=== PATIENT | male | born 1940 | race Caucasian/White ===

== ENCOUNTER → 2016-02-24 | Outpatient (CLI) | payer MEDICARE, OTHER | END | disposition home or self-care (01) | LOC: LABWHC1 09:22 | PROVIDERS: ATTEND Internal Medicine | DX: M10.9 Gout, unspecified (principal) | CPT/HCPCS: 36415; 84550 ==

== ENCOUNTER 2016-04-27 12:09 | Inpatient (IN) | payer MEDICARE, OTHER ==
--- NOTE | 2016-04-27 13:51 | ED ---
General Adult HPI - General Chief complaint: Abdominal Pain Stated complaint: abd pain Time Seen by Provider: 04/27/16 13:50 Source: patient, RN notes reviewed, old records reviewed Mode of arrival: ambulatory Limitations: no limitations - History of Present Illness Initial comments: This is a 75-year-old male here for evaluation of severe abdominal pain and back pain. Severe bowel pain rating to his back. No history of similar symptoms, he does suffer from chronic back pain but denies any trauma or injury. No fevers. Positive nausea no vomiting no diarrhea, no similar to similar sick symptoms, no recent travel history. No modifying factors for symptoms at home, he is a pain medication which she did not take - Related Data Home Medications Medication Instructions Recorded Confirmed Tamsulosin HCl 0.4 mg PO HS 08/28/13 04/27/16 Magnesium 200 mg PO DAILY 05/04/14 04/27/16 Calcium Carbonate [Calcium] 600 mg PO DAILY 07/14/14 04/27/16 Acetaminophen Tab [Tylenol] 500 mg PO Q6H PRN 09/29/14 04/27/16 hydrALAZINE HCL [Apresoline] 25 mg PO BID 09/29/14 04/27/16 Lisinopril [Prinivil] 5 mg PO DAILY 06/18/15 04/27/16 Nitroglycerin Sl Tabs [Nitrostat] 0.4 mg SUBLINGUAL Q5M PRN 06/18/15 04/27/16 Clobetasol Propionate [Temovate] 1 applic TOPICAL BID 07/16/15 04/27/16 Isosorbide Mononitrate ER [Imdur] 30 mg PO DAILY 07/16/15 04/27/16 Triamcinolone 0.1% Ointment 1 applic PO BID 07/16/15 04/27/16 [Kenalog 0.1% Ointment] Atorvastatin [Lipitor] 20 mg PO HS 07/30/15 04/27/16 B Complex-Vit C-Vit E-Zinc [Z-Bec] 1 tab PO DAILY 07/30/15 04/27/16 Latanoprost Ophth [Xalatan 0.005%] 1 drops BOTH EYES HS 01/21/16 04/27/16 Albuterol Inhaler [Ventolin Hfa 1 - 2 puff INHALATION RT-Q6H PRN 02/10/16 Inhaler] Aspirin 162 mg PO DAILY 02/10/16 04/27/16 Vit C/E/Zn/Coppr/Lutein/Zeaxan 2 cap PO DAILY 02/10/16 04/27/16 [Preservision Areds 2 Softgel] Refresh Optive 1 drop BOTH EYES QID 04/27/16 04/27/16 traMADol HCL [Ultram] 50 mg PO TID PRN 04/27/16 04/27/16 Allergies Allergy/AdvReac Type Severity Reaction Status Date / Time atenolol Allergy "low heart Verified 04/27/16 15:21 rate" clopidogrel bisulfate Allergy Rash/Hives Verified 04/27/16 15:21 [From Plavix] gluten Allergy blisters Verified 04/27/16 15:21 lactose Allergy Abdominal Verified 04/27/16 15:21 Pain prednisolone Allergy GLAUCOMA Verified 04/27/16 15:21 sucralfate [From Carafate] Allergy Unknown Verified 04/27/16 15:21 Sulfa (Sulfonamide AdvReac blood Verified 04/27/16 15:21 Antibiotics) disorder Review of Systems ROS Statement: Those systems with pertinent positive or pertinent negative responses have been documented in the HPI. ROS Other: All systems not noted in ROS Statement are negative. Past Medical History Past Medical History: Coronary Artery Disease (CAD), Cancer, Eye Disorder, GERD/ Reflux, GI Bleed, Hyperlipidemia, Hypertension, Osteoarthritis (OA), Prostate Disorder Additional Past Medical History / Comment(s): Pt recently admitted 07/30/15 with GI bleed and states source never found, states he thinks it was his medication. 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 R cataract. skin ca History of Any Multi-Drug Resistant Organisms: None Reported Past Surgical History: Adenoidectomy, Appendectomy, Back Surgery, Bowel Resection, Cholecystectomy, Heart Catheterization With Stent, Hernia Repair, Orthopedic Surgery, Tonsillectomy Additional Past Surgical History / Comment(s): 07/31/15 EGD, esophagectomy, colectomy, LT CAROTID ENDARTECTOMY, LUMP REMOVED FROM TONGUE, LITHOTRIPSY, CYSTOSCOPY, RT ROTATOR CUFF REPAIR, R carpal tunnel release, DEVIATED SEPTUM, , 12/17/14 cardiac STENTS x 3, UMBILICAL HERNIA REPAIR X 2, R inguinal hernia repair, LOWER BACK SURGERY-HAS SCREWS, BILATERAL eye cataract removed and stent placed in eyeS, vasectomy, repair of undescended testicle, colonoscopies, polypectomies. Past Anesthesia/Blood Transfusion Reactions: No Reported Reaction Additional Past Anesthesia/Blood Transfusion Reaction / Comment(s): Pt has received blood in past without reaction. Date of Last Stent Placement:: 12/17/14 Past Psychological History: No Psychological Hx Reported Additional Psychological History / Comment(s): Pt resides with his spouse. He is independent. He drives. Smoking Status: Former smoker Past Alcohol Use History: None Reported Additional Past Alcohol Use History / Comment(s): STARTED SMOKING AGE 11(1950) WAS 2 PPD, QUIT 1983 Past Drug Use History: None Reported - Past Family History Brother(s) Family Medical History: Cancer Additional Family Medical History / Comment(s): liver and brain Mother Family Medical History: Cancer Additional Family Medical History / Comment(s): LIVER CA, BRAIN CA Sister(s) Family Medical History: Cancer Additional Family Medical History / Comment(s): BREAST CA, LUNG CA Father Family Medical History: Osteoarthritis (OA) Additional Family Medical History / Comment(s): CELIAC DISEASE, ULCERS General Exam Limitations: no limitations General appearance: alert, in no apparent distress, anxious, in distress, obese Head exam: Present: atraumatic, normocephalic, normal inspection Eye exam: Present: normal appearance, PERRL, EOMI. Absent: scleral icterus, conjunctival injection, periorbital swelling ENT exam: Present: normal exam, mucous membranes moist Neck exam: Present: normal inspection. Absent: tenderness, meningismus, lymphadenopathy Respiratory exam: Present: normal lung sounds bilaterally. Absent: respiratory distress, wheezes, rales, rhonchi, stridor Cardiovascular Exam: Present: regular rate, normal rhythm, normal heart sounds. Absent: systolic murmur, diastolic murmur, rubs, gallop, clicks GI/Abdominal exam: Present: soft, normal bowel sounds. Absent: distended, tenderness, guarding, rebound, rigid Extremities exam: Present: normal inspection, full ROM, normal capillary refill. Absent: tenderness, pedal edema, joint swelling, calf tenderness Back exam: Present: normal inspection Neurological exam: Present: alert, oriented X3, CN II-XII intact Psychiatric exam: Present: normal affect, normal mood Skin exam: Present: warm, dry, intact, normal color. Absent: rash Course Vital Signs 04/27/16 04/27/16 04/27/16 12:21 12:28 13:59 Temperature 98.0 F 98.4 F Pulse Rate 71 63 Respiratory 16 20 Rate Blood Pressure 161/72 141/66 148/75 O2 Sat by Pulse 97 97 Oximetry 04/27/16 15:16 Temperature 99.1 F Pulse Rate 79 Respiratory 18 Rate Blood Pressure 176/77 O2 Sat by Pulse 99 Oximetry - Reevaluation(s) Reevaluation #1: 04/27/16 16:32 Patient is resting comfortable although unable to eat EKG Findings - EKG Comments: EKG Findings:: EKG shows normal sinus rhythm at 61, TN 170, QRS 86, QTC 414 Medical Decision Making - Medical Decision Making 35 year with abdominal pain severe bowel. Tobacco positive Rindge, positive anorexia, patient will be admitted for nothing by mouth IV fluids and pain control - Lab Data Result diagrams: 04/27/16 13:55 04/27/16 13:55 Lab Results 04/27/16 04/27/16 04/27/16 Range/Units 13:55 13:55 13:55 WBC 17.6 H (3.8-10.6) k/uL RBC 4.90 (4.30-5.90) m/uL Hgb 15.0 (13.0-17.5) gm/dL Hct 44.6 (39.0-53.0) % MCV 91.2 (80.0-100.0) fL MCH 30.6 (25.0-35.0) pg MCHC 33.5 (31.0-37.0) g/dL RDW 13.8 (11.5-15.5) % Plt Count 153 (150-450) k/uL Neutrophils % 86 % Lymphocytes % 7 % Monocytes % 5 % Eosinophils % 1 % Basophils % 0 % Neutrophils # 15.0 H (1.3-7.7) k/uL Lymphocytes # 1.2 (1.0-4.8) k/uL Monocytes # 0.9 (0-1.0) k/uL Eosinophils # 0.1 (0-0.7) k/uL Basophils # 0.1 (0-0.2) k/uL PT (9.0-12.0) sec INR (<1.1) APTT (22.0-30.0) sec Sodium 139 (137-145) mmol/L Potassium 4.9 (3.5-5.1) mmol/L Chloride 102 (98-107) mmol/L Carbon Dioxide 27 (22-30) mmol/L Anion Gap 10 mmol/L BUN 22 H (9-20) mg/dL Creatinine 1.20 (0.66-1.25) mg/dL Est GFR (MDRD) Af Amer >60 (>60 ml/min/1.73 sqM) Est GFR (MDRD) Non-Af 59 (>60 ml/min/1.73 sqM) Glucose 98 (74-99) mg/dL Calcium 9.9 (8.4-10.2) mg/dL Phosphorus 2.7 (2.5-4.5) mg/dL Magnesium 2.3 (1.6-2.3) mg/dL Total Bilirubin 1.3 (0.2-1.3) mg/dL AST 38 (17-59) U/L ALT 52 (21-72) U/L Alkaline Phosphatase 71 (38-126) U/L Total Creatine Kinase 191 H (55-170) U/L CK-MB (CK-2) 1.6 (0.0-2.4) ng/mL CK-MB (CK-2) Rel Index 0.8 Troponin I <0.012 (0.000-0.034) ng/mL Total Protein 7.5 (6.3-8.2) g/dL Albumin 4.3 (3.5-5.0) g/dL Lipase (23-300) U/L Urine Color Urine Appearance (Clear) Urine pH (5.0-8.0) Ur Specific [place] (1.001-1.035) Urine Protein (Negative) Urine Glucose (UA) (Negative) Urine Ketones (Negative) Urine Blood (Negative) Urine Nitrite (Negative) Urine Bilirubin (Negative) Urine Urobilinogen (<2.0) mg/dL Ur Leukocyte Esterase (Negative) Urine RBC (0-5) /hpf Hyaline Casts (0-2) /lpf 03/16/17 03/16/17 03/16/17 Range/Units 13:55 13:55 13:55 WBC (3.8-10.6) k/uL RBC (4.30-5.90) m/uL Hgb (13.0-17.5) gm/dL Hct (39.0-53.0) % MCV (80.0-100.0) fL MCH (25.0-35.0) pg MCHC (31.0-37.0) g/dL RDW (11.5-15.5) % Plt Count (150-450) k/uL Neutrophils % % Lymphocytes % % Monocytes % % Eosinophils % % Basophils % % Neutrophils # (1.3-7.7) k/uL Lymphocytes # (1.0-4.8) k/uL Monocytes # (0-1.0) k/uL Eosinophils # (0-0.7) k/uL Basophils # (0-0.2) k/uL PT 10.0 (9.0-12.0) sec INR 1.0 (<1.1) APTT 27.4 (22.0-30.0) sec Sodium (137-145) mmol/L Potassium (3.5-5.1) mmol/L Chloride (98-107) mmol/L Carbon Dioxide (22-30) mmol/L Anion Gap mmol/L BUN (9-20) mg/dL Creatinine (0.66-1.25) mg/dL Est GFR (MDRD) Af Amer (>60 ml/min/1.73 sqM) Est GFR (MDRD) Non-Af (>60 ml/min/1.73 sqM) Glucose (74-99) mg/dL Calcium (8.4-10.2) mg/dL Phosphorus (2.5-4.5) mg/dL Magnesium (1.6-2.3) mg/dL Total Bilirubin (0.2-1.3) mg/dL AST (17-59) U/L ALT (21-72) U/L Alkaline Phosphatase (38-126) U/L Total Creatine Kinase (55-170) U/L CK-MB (CK-2) (0.0-2.4) ng/mL CK-MB (CK-2) Rel Index Troponin I (0.000-0.034) ng/mL Total Protein (6.3-8.2) g/dL Albumin (3.5-5.0) g/dL Lipase 447 H (23-300) U/L Urine Color Yellow Urine Appearance Cloudy (Clear) Urine pH 8.0 (5.0-8.0) Ur Specific [place] 1.017 (1.001-1.035) Urine Protein 2+ H (Negative) Urine Glucose (UA) Negative (Negative) Urine Ketones Negative (Negative) Urine Blood Negative (Negative) Urine Nitrite Negative (Negative) Urine Bilirubin Negative (Negative) Urine Urobilinogen 2.0 (<2.0) mg/dL Ur Leukocyte Esterase Negative (Negative) Urine RBC 22 H (0-5) /hpf Hyaline Casts 1 (0-2) /lpf - Radiology Data Radiology results: report reviewed (CT abdomen and pelvis is positive for pancreatitis), image reviewed Disposition Clinical Impression: Abdominal pain, Pancreatitis Disposition: HOME SELF-CARE Condition: Good Referrals: Zhang Ruiz MD [Primary Care Provider] - 1-2 days
[2016-04-27] MEDS ORDERED: SODIUM CHLORIDE 0.9% 1,000 ML IV STA ×2 (14:01→16:05)
[2016-04-27] MEDS ORDERED: HYDROmorphone 2 MG/ML 1 ML SYRINGE IVP STA (14:01)
[2016-04-27 14:17] LABS: Basophils # (A) 0.1 k/uL (0-0.2); Basophils % (A) 0 %; CH 30.4; CHCM 33.6; Eosinophils # (A) 0.1 k/uL (0-0.7); Eosinophils % (A) 1 %; HCT 44.6 % (39.0-53.0); HDW 2.55; Luc # (Auto) 0.28; Luc % (Auto) 2; Lymphocytes # (A) 1.2 k/uL (1.0-4.8); Lymphocytes % (A) 7 %; MCH 30.6 pg (25.0-35.0); MCHC 33.5 g/dL (31.0-37.0); MCV 91.2 fL (80.0-100.0); Mean Platelet Volume 9.9; Monocytes # (A) 0.9 k/uL (0-1.0); Monocytes % (A) 5 %; Neutrophils % (A) 86 %; RDW 13.8 % (11.5-15.5); WBC 17.6 k/uL (3.8-10.6); WBC (Perox) 17.22
[2016-04-27] MEDS ORDERED: RX INFO: IV CONTRAST WAS GIVEN 1 EACH MISC MISCELLANE PRN (14:20)
[2016-04-27 14:26] LABS: Partial Thromboplastin Time 27.4 sec (22.0-30.0)
[2016-04-27 14:33] LABS: ALT 52 U/L (21-72); AST 38 U/L (17-59); Alkaline Phosphatase 71 U/L (38-126); Anion Gap 10 mmol/L; Blood Urea Nitrogen 22 mg/dL (9-20); Calcium 9.9 mg/dL (8.4-10.2); Carbon Dioxide 27 mmol/L (22-30); Chloride 102 mmol/L (98-107); Glucose 98 mg/dL (74-99); Magnesium 2.3 mg/dL (1.6-2.3); Non-African American GFR(MDRD) 59 (>60 ml/min/1.73 sqM); Phosphorous 2.7 mg/dL (2.5-4.5); Potassium 4.9 mmol/L (3.5-5.1); Sodium 139 mmol/L (137-145); Total Bilirubin 1.3 mg/dL (0.2-1.3); Total Protein 7.5 g/dL (6.3-8.2)
[2016-04-27 14:37] LABS: Creatine Kinase 191 U/L (55-170)
[2016-04-27 14:40] LABS: Appearance,Urine Cloudy (Clear); Bilirubin,Urine Negative (Negative); Glucose,Urine (UA) Negative (Negative); Ketones,Urine Negative (Negative); Leukocyte Esterase,Urine Negative (Negative); Nitrite,Urine Negative (Negative); Particle Count 44247; Protein,Urine 2+ (Negative); RBC,Urine 22 /hpf (0-5); Specific Gravity,Urine 1.017 (1.001-1.035); UA Billing (MACRO vs. MICRO) MICRO
[2016-04-27 14:50] LABS: Creatine Kinase MB 1.6 ng/mL (0.0-2.4); Troponin I <0.012 ng/mL (0.000-0.034)
--- NOTE | 2016-04-27 15:56 | CT ---
EXAMINATION TYPE: CT abdomen pelvis w con DATE OF EXAM: 04/27/2016 3:17 PM COMPARISON: NONE HISTORY: 75-year-old male with abdominal pain after eating today. TECHNIQUE: Contiguous axial scanning of the abdomen and pelvis following administration of 80 ml Visi paque 350 IV contrast. Delayed images through the kidneys and coronal/sagittal reconstructions perfo rmed. CT DLP: 1411.2 mGycm Automated exposure control for dose reduction was used. FINDINGS: The heart is normal size without pericardial effusion. Coronary vessel calcifications are present and are remarkable for coronary artery disease. There is patchy atelectasis at the left base with a large hiatal hernia. There is some metallic densi ties measuring up to 7 mm (approximately 5 densities dependent within the stomach. Scattered calcified granulomas within the liver. No focal liver lesion otherwise seen. Portal venous system is patent. Gallbladder surgically absent. Adrenal glands and spleen show no gross abnormal mobility. There is mild peripancreatic fat stranding adjacent to the pancreatic head, axial images 33 through 3 5. The right kidney is atrophic with 3 nonobstructive calculi measuring up to 9 mm. Additional 2.3 cm co rtical cyst at the lower pole. No dilated small bowel, free fluid, or free air. There are postsurgical changes of right hemicolectomy with a ileocolonic anastomosis at the level of the proximal transverse colon. Moderate stool in the transverse colon. There is left hemicolonic dive rticulosis without evidence for acute diverticulitis. Moderate atherosclerotic calcifications within the abdominal aorta with mild fusiform dilatation of 2 .4 cm but no significant ectasia or aneurysm. No mesenteric or retroperitoneal lymphadenopathy. Bladder partially urine distended. Prostate gland mildly enlarged at 4.8 cm wide. Pelvic phleboliths. Prominent stool distending the rectum up to 6.2 cm. No abnormal fluid collection in the pelvis or pe lvic lymphadenopathy. Bones: Degenerative changes at the hips and SI joints as well as the mid to lower lumbar spine with p revious lower lumbar surgery. Grade 1 anterolisthesis at L3-L4 above the fused level. No osseous dest ructive process. IMPRESSION: 1. FAT STRANDING ABOUT THE PANCREATIC HEAD. CORRELATE FOR POSSIBLE ACUTE PANCREATITIS. 2. LARGE HIATAL HERNIA. THERE ARE APPROXIMATELY 5 METALLIC DENSITIES SEEN WITHIN THE STOMACH MEASURIN G UP TO 7 MM. CORRELATE TO PATIENT'S INGESTION. 3. ATROPHIC RIGHT KIDNEY WITH NONOBSTRUCTIVE RIGHT-SIDED NEPHROLITHIASIS MEASURING UP TO 9 MM. 4. STATUS POST RIGHT HEMICOLECTOMY WITH ILEOCOLONIC ANASTOMOSIS. NO OBSTRUCTIVE CHANGES. 5. LEFT HEMICOLONIC DIVERTICULOSIS WITHOUT ACUTE DIVERTICULITIS.
[2016-04-27] MEDS ORDERED: SODIUM CHLORIDE 0.9% 500 ML IV STA (16:05)
[2016-04-27] MEDS ORDERED: SODIUM CHLORIDE 0.9% 1,000 ML IV ONE (16:21)
[2016-04-27] MEDS ORDERED: HYDROmorphone 1 MG/ML 1 ML SYRINGE IVP STA (16:22)
[2016-04-27 19:53] VITALS: BMI 33.5
[2016-04-27] MEDS: HYDROmorphone 1 MG/ML 1 ML SYRINGE IVP PRN (20:17)
[2016-04-28] MEDS: HYDROmorphone 1 MG/ML 1 ML SYRINGE IVP PRN ×3 (02:11→20:15)
[2016-04-28] MEDS: ENOXAPARIN 40 MG/0.4 ML SYRINGE SQ SCH (08:33)
[2016-04-28 10:06] LABS: Amylase 73 U/L (30-110)
[2016-04-28] MEDS ORDERED: PANTOPRAZOLE 40 MG/10 ML VIAL IVP SCH (11:00)
[2016-04-28 11:52] LABS: Anion Gap 10 mmol/L; Blood Urea Nitrogen 17 mg/dL (9-20); Calcium 8.8 mg/dL (8.4-10.2); Carbon Dioxide 21 mmol/L (22-30); Chloride 105 mmol/L (98-107); Glucose 83 mg/dL (74-99); Non-African American GFR(MDRD) >60 (>60 ml/min/1.73 sqM); Potassium 5.2 mmol/L (3.5-5.1); Sodium 136 mmol/L (137-145)
[2016-04-28] MEDS ORDERED: ACETAMINOPHEN IV (For NPO) 1,000 MG in EMPTY BAG 1 BAG IVPB SCH (12:00)
[2016-04-28] MEDS: SODIUM CHLORIDE 0.9% 1,000 ML IV SCH (12:36)
[2016-04-28] MEDS ORDERED: ACETAMINOPHEN TAB 325 MG TAB PO PRN (14:54)
--- NOTE | 2016-04-28 16:16 | PN ---
DATE OF SERVICE: 04/28/2016 This is a 75-year-old white male who has multiple medical problems and at this time he came to the emergency room with complaints of severe mid and upper abdominal pain and back pain. The patient was evaluated in the emergency room and was found to have acute pancreatitis. The CT scan showed findings consistent with acute pancreatitis. He has an elevated lipase, which was 447. The patient was placed on n.p.o. and he was on IV fluids. Pain was controlled with Dilaudid given IV p.r.n. Today patient's symptoms have improved and his lipase also came down to 178 and amylase is 73. Patient will be started on clear liquids and Dr. Nguyen has been consulted. If his condition improves and is stable, patient's diet will be advanced gradually. His vital signs are otherwise stable. Heart is in sinus rhythm. Lungs are clear. There are no acute cardiorespiratory problems. The prognosis is guarded.
[2016-04-28] MEDS ORDERED: TRIAMCINOLONE ACET 0.1% OINTMENT 15 GM TUBE TOPICAL PRN (16:21)
[2016-04-28] MEDS ORDERED: traMADol 50 MG TAB PO PRN (16:21)
--- NOTE | 2016-04-28 16:24 | HP ---
DATE OF ADMISSION: 04/28/2016 CHIEF COMPLAINT: Severe mid and upper abdominal pain and back pain. HISTORY OF PRESENT ILLNESS: This is a 75-year-old white male who was seen in the emergency room for mid and upper abdominal pain and back pain. Patient was initially seen in my office with the same complaint and he was found to have severe tenderness and abdominal pain and back pain; patient was referred to [facility] Emergency Room. Patient was evaluated in the ER and he had a CT of the abdomen which showed findings consistent with acute pancreatitis. He was also found to have a large hiatal hernia and diverticulosis of the colon without any diverticulitis. His CBC showed a WBC count of 17.6 and hemoglobin 15, plate count 153,000. His cardiac enzymes were within normal limits. Urinalysis negative. Sodium 139, potassium 4.9, BUN 22, creatinine 1.20. Glucose 98. Liver functions showed bilirubin of 1.3, alkaline phosphatase 71. Cardiac enzymes within normal limits. Lipase was elevated at 447. Patient was found to have CVA tenderness and back pain and patient was admitted to the hospital for further evaluation and treatment. I saw the patient in the emergency room. His past medical history reveals that he has had multiple medical problems. 1. The patient is known to have coronary artery disease. He has had stent placements in the past. 2. Hypertensive cardiovascular disease. 3. Hyperlipidemia. 4. He had resection of the esophagus for carcinoma of the esophagus. 5. Partial colectomy for carcinoma of the colon. 6. Gastroesophageal reflux disease. 7. Degenerative arthritis of multiple joints. 8. Celiac disease. 9. He has been on a gluten-free diet. 10. He uses eye drops given him by caddy/caddie supervisor. He is a former smoker. ALLERGIES: ATENOLOL; in fact, he seems to be sensitive to atenolol because it produces low heart rate; also he has a rash and hives from PLAVIX. He is ALLERGIC to GLUTEN, LACTULOSE and SULFA. FAMILY HISTORY: Strongly positive for cancer. REVIEW OF SYSTEMS: Patient denies any headache. Appetite poor lately. Has severe abdominal pain. He denies any chest pain or cough or dyspnea. He has abdominal pain, as mentioned before. He has no polyuria or dysuria. He has no neurological symptoms. Physical examination reveals a 75-year-old white male, well nourished and well developed. He seems to be in pain in the abdomen and the back. There is no jaundice. There is no generalized lymphadenopathy. There are no petechiae or bruises. Pulse 78 per minute, regular. Blood pressure 161/72. There is no jaundice. There is no generalized lymphadenopathy. There are no petechiae or bruises. Examination of ENT negative. Neck is supple. There is no jugular venous distention. There is no goiter. There is no carotid bruit. Heart is in sinus rhythm. Lungs are clear to auscultation and percussion. Abdomen shows CVA tenderness in the mid and upper abdomen. There is no mass palpable. There is a surgical scar noted from previous bowel resection. Examination of the lower extremities reveals no pitting edema. Neurologic examination does not reveal any localizing signs. His current home medications include: 1. Flomax 0.4 mg p.o. daily. 2. Hydralazine 25 mg daily. 3. Lisinopril 5 mg daily. 4. Nitroglycerin sublingually p.r.n. 5. Imdur 30 mg p.o. daily. 6. Multiple vitamins. 7. Eye drops from the caddy/caddie supervisor. IMPRESSION: 1. Severe mid and upper abdominal pain and back pain. 2. Acute pancreatitis. 3. History of gastroesophageal reflux disease. 4. Large hiatal hernia. 5. Past history of carcinoma of the esophagus, status post surgical resection. 6. Past history of colon cancer, status post partial colon resection. 7. Hypertensive cardiovascular disease. 8. Coronary artery disease, status post stent placement. 9. Celiac disease. 10. History of degenerative arthritis of multiple joints. 11. Benign prostatic hypertrophy. PLAN: Patient will be admitted to the hospital. Will monitor his serum amylase and lipase and place him n.p.o. for the time being. Will also get a GI consultation from Dr. Nguyen. Overall prognosis is guarded. The diagnoses, prognosis and therapeutic plans were discussed in detail with the patient and also with his and daughter.
[2016-04-28] MEDS ORDERED: CLOBETASOL PROP 0.05% CR 15GM TOPICAL PRN (16:36)
[2016-04-28] MEDS: LISINOPRIL 5 MG TAB PO SCH (16:58)
[2016-04-28] MEDS: TAMSULOSIN 0.4 MG CAP.ER.24H PO SCH (20:26)
[2016-04-28] MEDS: hydrALAZINE HCL 25 MG TAB PO SCH (20:26)
[2016-04-28] MEDS: ATORVASTATIN 20 MG TAB PO SCH (20:26)
[2016-04-28] MEDS: LATANOPROST 0.005% OPHTH DROPS 2.5 ML BTL BOTH EYES SCH (20:27)
[2016-04-28] MEDS ORDERED: CLOBETASOL PROP 0.05% CR 15GM TOPICAL SCH (21:00)
[2016-04-28] MEDS: PANTOPRAZOLE 40 MG/10 ML VIAL IVP SCH (21:51)
[2016-04-29] MEDS: SODIUM CHLORIDE 0.9% 1,000 ML IV SCH (03:22)
[2016-04-29] MEDS: PANTOPRAZOLE 40 MG/10 ML VIAL IVP SCH ×2 (08:22→20:24)
[2016-04-29] MEDS: LISINOPRIL 5 MG TAB PO SCH (08:24)
[2016-04-29] MEDS: hydrALAZINE HCL 25 MG TAB PO SCH ×2 (08:24→20:23)
[2016-04-29] MEDS: ISOSORBIDE MONONITRATE ER 30 MG TAB.ER.24H PO SCH (08:24)
[2016-04-29] MEDS: ASPIRIN 81 MG CHEW PO SCH (08:24)
[2016-04-29] MEDS: ENOXAPARIN 40 MG/0.4 ML SYRINGE SQ SCH (08:24)
[2016-04-29] MEDS: VIT A,C & E-LUTEIN-MINERALS 1 EACH TAB PO SCH (12:26)
[2016-04-29] MEDS: B COMPLEX-VIT C-VIT E-ZINC 1 EACH TAB PO SCH (12:26)
[2016-04-29] MEDS: MAGNESIUM OXIDE 400 MG TAB PO SCH (12:26)
[2016-04-29] MEDS: CALCIUM CARBONATE 500 MG CHEWABLE PO SCH (12:26)
--- NOTE | 2016-04-29 14:05 | PN ---
DATE OF SERVICE: 04/29/2016 This 75-year-old white male was admitted with severe abdominal pain and back pain and was found to have acute pancreatitis. The patient was admitted to the hospital for further evaluation and treatment. Patient was placed on n.p.o. and given IV fluids and pain controlled with IV Dilaudid. Dr. Nguyen was consulted. The patient's overall symptoms improved and his serum lipase and amylase also came down. Today patient is feeling better. We will start him on full liquid diet, advanced to soft diet as tolerated. His vital signs are stable. Heart is in sinus rhythm. Lungs are clear. There are no acute cardiorespiratory problems. Patient's CBC, CMP, amylase and lipase will be checked tomorrow. We will also get an ultrasound of the upper abdomen to check for any signs of pancreatitis and any other complications. The prognosis is guarded. The diagnoses, prognosis, and therapeutic plans were discussed in detail to the patient today.
[2016-04-29] MEDS: ATORVASTATIN 20 MG TAB PO SCH (20:23)
[2016-04-29] MEDS: LATANOPROST 0.005% OPHTH DROPS 2.5 ML BTL BOTH EYES SCH (20:24)
[2016-04-29] MEDS: TAMSULOSIN 0.4 MG CAP.ER.24H PO SCH (20:30)
[2016-04-30 08:21] VITALS: BP 131/77; PULSE 59; RESP 12; TEMP 97.5
--- NOTE | 2016-04-30 09:21 | US ---
EXAMINATION TYPE: US abdomen limited DATE OF EXAM: 04/30/2016 8:32 AM COMPARISON: NONE CLINICAL HISTORY: pancreatitis. EXAM MEASUREMENTS: Liver Length: 13.4 cm Gallbladder Wall: Surgically absent cm CBD: 0.6 cm Right Kidney: 8.9 x 3.3 x 2.9 cm Pancreas: not well visualized due to bowel gas, question some mild heterogeneity of echotexture Liver: wnl Gallbladder: Surgically absent CBD: wnl Right Kidney: atrophic, lower pole cyst measuring 2.8 x 1.9 x 2.4 cm, at least 2 stones seen, larges t lower pole measuring 0.9 cm as seen on CT scan done yesterday. IMPRESSION: Limited abdomen ultrasound. Right-sided nephrolithiasis and renal atrophy, associated cor tical cyst is noted on CT. Correlate for possible pancreatitis. Postop changes.
[2016-04-30] MEDS: ENOXAPARIN 40 MG/0.4 ML SYRINGE SQ SCH (11:04)
[2016-04-30] MEDS: PANTOPRAZOLE 40 MG/10 ML VIAL IVP SCH (11:05)
[2016-04-30] MEDS: ASPIRIN 81 MG CHEW PO SCH (11:06)
[2016-04-30] MEDS: LISINOPRIL 5 MG TAB PO SCH (11:07)
[2016-04-30] MEDS: ISOSORBIDE MONONITRATE ER 30 MG TAB.ER.24H PO SCH (11:07)
[2016-04-30] MEDS: hydrALAZINE HCL 25 MG TAB PO SCH (11:07)
[2016-04-30] MEDS: B COMPLEX-VIT C-VIT E-ZINC 1 EACH TAB PO SCH (11:08)
[2016-04-30] MEDS: CALCIUM CARBONATE 500 MG CHEWABLE PO SCH (11:08)
[2016-04-30] MEDS: VIT A,C & E-LUTEIN-MINERALS 1 EACH TAB PO SCH (11:08)
[2016-04-30] MEDS: MAGNESIUM OXIDE 400 MG TAB PO SCH (11:08)
[2016-04-30 11:18] LABS: CH 29.6; CHCM 32.7; HCT 44.5 % (39.0-53.0); HGB 14.3 gm/dL (13.0-17.5); MCH 29.2 pg (25.0-35.0); MCHC 32.1 g/dL (31.0-37.0); MCV 90.9 fL (80.0-100.0); Mean Platelet Volume 8.8; RDW 13.5 % (11.5-15.5); WBC 8.7 k/uL (3.8-10.6)
[2016-04-30 11:33] LABS: ALT 38 U/L (21-72); AST 34 U/L (17-59); Alkaline Phosphatase 61 U/L (38-126); Anion Gap 10 mmol/L; Blood Urea Nitrogen 16 mg/dL (9-20); Calcium 10.1 mg/dL (8.4-10.2); Carbon Dioxide 29 mmol/L (22-30); Chloride 102 mmol/L (98-107); Glucose 106 mg/dL (74-99); Non-African American GFR(MDRD) 58 (>60 ml/min/1.73 sqM); Potassium 4.6 mmol/L (3.5-5.1); Sodium 141 mmol/L (137-145); Total Bilirubin 1.3 mg/dL (0.2-1.3); Total Protein 7.4 g/dL (6.3-8.2)
--- NOTE | 2016-06-21 10:20 | DS ---
DATE OF ADMISSION: 04/28/2016 DATE OF DISCHARGE: 04/30/2016 DISCHARGE DIAGNOSES: 1. Severe mid and upper abdominal pain and back pain. 2. Acute pancreatitis. 3. History of gastroesophageal reflux disease. 4. Large hiatal hernia. 5. Past history of carcinoma of the esophagus status post surgical resection. 6. Past history of colon cancer status post partial colon resection. 7. Hypertensive cardiovascular disease. 8. Coronary artery disease, status post stent placement. 9. Celiac disease. 10. History of degenerative arthritis of multiple joints. 11. Benign prostatic hypertrophy. This is a 75-year-old white male who was seen in the emergency room for mid and upper abdominal pain and back pain. The patient was initially seen in my office with the same complaint and he was found to have severe tenderness and abdominal pain and back pain. The patient was referred to [facility] emergency room and the patient was evaluated in the ER and he had a CT scan of the abdomen, which showed findings consistent with acute pancreatitis. He was also found to have large hiatal hernia and diverticulosis of the colon without any diverticulitis. His CBC showed WBC count of 17.6 and hemoglobin 15, platelet count 153,000. His cardiac enzymes were within normal limits. Urinalysis negative. Sodium 139, potassium 4.9, BUN 22, creatinine 1.20, glucose 98. Liver functions showed bilirubin 1.3, alkaline phosphatase 71. Cardiac enzymes within normal limits. Lipase was elevated at 47. Patient was admitted to the hospital for further evaluation and treatment. For details of the physical examination at the time of admission, please refer for to the history and physical. HOSPITAL COURSE: The patient was placed n.p.o. and given IV fluids and pain was controlled with IV Dilaudid. Dr. Nguyen was consulted and the patient's overall symptoms improved. His serum lipase and amylase came down and ultrasound of the abdomen was also obtained and there was no evidence of pancreatitis in the ultrasound. Patient's symptoms improved and he was started on clear liquids, and then full liquid diet to soft diet. As his symptoms relieved and the patient tolerated the diet and increased his activities. The patient was discharged home on 04/30/2016. Detailed discharge instructions were given and he will continue on his previous home medications, which include: 1. Albuterol inhaler. 2. Low-dose aspirin. 3. Lipitor. 4. Isosorbide. 5. Eye drops. 6. Nitroglycerin sublingual p.r.n. 7. Flomax. 8. Hydralazine. 9. Tramadol p.r.n. He will be seen in my office for follow-up in a week's time.
== END 2016-04-30 11:42 | disposition home or self-care (01) | DRG 440 ==
LOC: EC 12:09 → 4MS4W 16:21 → OBSVTOIN 04-28 10:50
PROVIDERS: ADMIT Internal Medicine; ATTEND Internal Medicine
DX: K85.90 Acute pancreatitis without necrosis or infection, unspecified (principal); I11.9 Hypertensive heart disease without heart failure; K90.0 Celiac disease; K44.9 Diaphragmatic hernia without obstruction or gangrene; K57.30 Diverticulosis of large intestine without perforation or abscess without bleeding; M15.9 Polyosteoarthritis, unspecified; N40.0 Benign prostatic hyperplasia without lower urinary tract symptoms; Z85.038 Personal history of other malignant neoplasm of large intestine; Z85.01 Personal history of malignant neoplasm of esophagus; Z90.49 Acquired absence of other specified parts of digestive tract; E78.5 Hyperlipidemia, unspecified; G89.29 Other chronic pain; M54.9 Dorsalgia, unspecified; H40.9 Unspecified glaucoma; H35.30 Unspecified macular degeneration; Z87.442 Personal history of urinary calculi; I25.10 Atherosclerotic heart disease of native coronary artery without angina pectoris; Z95.5 Presence of coronary angioplasty implant and graft; Z87.891 Personal history of nicotine dependence; K21.9 Gastro-esophageal reflux disease without esophagitis; Z79.82 Long term (current) use of aspirin; Z79.899 Other long term (current) drug therapy; Z80.0 Family history of malignant neoplasm of digestive organs; Z80.1 Family history of malignant neoplasm of trachea, bronchus and lung; Z80.3 Family history of malignant neoplasm of breast; Z83.79 Family history of other diseases of the digestive system; Z86.010 Personal history of colon polyps
CPT/HCPCS: 36415; 74177; 76705; 80048; 80053; 81001; 82150; 82550; 82553; 83690; 83735; 84100; 84484; 85025; 85027; 85610; 85730; 87086; 93005; 96361; 96365; 96366; 96372; 96375; 96376; 99285

== ENCOUNTER 2016-08-29 06:45 | Day surgery (SDC) | payer MEDICARE, OTHER ==
[2016-08-24 11:48] VITALS: BMI 35.2
[~2016-08-29 06:45] MED LIST: LACTATED RINGERS 1,000 ML IV SCH
[2016-08-29 07:04] VITALS: RESP 18; TEMP 97.1
[2016-08-29] MEDS ORDERED: LACTATED RINGERS 1,000 ML IV ONE (07:06)
[2016-08-29] MEDS ORDERED: LIDOCAINE 1% INJ 10MG/ML (20 ML MDV) ONE (07:27)
[2016-08-29] MEDS ORDERED: PROPOFOL 10 MG/ML 20 ML VIAL IV ONE (07:27)
--- NOTE | 2016-08-29 08:05 | P.OP ---
Date of Procedure: 08/29/16 Preoperative Diagnosis: Right colon cancer status post extended right hemicolectomy, prior colon polyps Postoperative Diagnosis: Polyp near area of anastomosis removed with snare polypectomy and portion retrieved, polyp at 60 cm removed with snare polypectomy and retrieved, diverticuli, internal hemorrhoids Procedure(s) Performed: Colonoscopy with polypectomy Implants: Anesthesia: MAC Surgeon: Raquel Anglin Estimated Blood Loss (ml): 0 IV fluids (ml): 650 Pathology: other (Colon polyp, fragments of polyp the area of anastomosis, polyp removed at 60 cm) Condition: stable Disposition: PACU Indications for Procedure: Prior history colon cancer, colon polyps Operative Findings: Polyps 2 one at area of the anastomosis, one at 60 cm, extensive diverticuli, internal hemorrhoids Description of Procedure: Fredrick Ryan is a 76-year-old gentleman who is status post stent a right hemicolectomy for malignancy at the hepatic flexure. Additionally he has had multiple colon polyps removed in the past. He presents for colonoscopy. Patient was taken to the endoscopy suite and following sedation was placed in the left lateral decubitus position. Rectal examination did not reveal any masses but slightly decreased sphincter tone. Colonoscope was passed through the anus into the rectum. Was passed through the sigmoid colon to the splenic flexure and into the transverse colon to the area of the anastomosis. At the area of the anastomosis a polypoid lesion was identified this was removed with snare polypectomy and a portion of it was retrieved. The scope was withdrawn and at approximately 60 cm the second polyp was identified. This was likewise removed with snare polypectomy and retrieved. The patient had extensive diverticuli in the sigmoid colon. No other polypoid lesions of concern were noted. The scope was brought down to the rectum where it was retroflexed. Internal hemorrhoids identified. Impression/plan: 1. Polypoid lesions 2 2. Diverticuli 3. Internal hemorrhoids Plan: Await results of pathology 2. Conservative management of diverticuli and hemorrhoids If these polypoid lesions are adenomatous in nature would recommend repeating colonoscopy in 2-3 years.
--- NOTE | 2016-08-29 08:07 | P.DS ---
Providers Attending physician: Raquel Anglin Primary care physician: Zhang Ruiz Plan - Discharge Summary New Discharge Prescriptions: No Action Tamsulosin HCl 0.4 mg PO HS Magnesium 200 mg PO DAILY Calcium Carbonate [Calcium] 600 mg PO DAILY Acetaminophen Tab [Tylenol] 500 mg PO Q6H PRN PRN Reason: Pain hydrALAZINE HCL [Apresoline] 25 mg PO BID Lisinopril [Prinivil] 5 mg PO DAILY Nitroglycerin Sl Tabs [Nitrostat] 0.4 mg SUBLINGUAL Q5M PRN PRN Reason: Chest Pain Isosorbide Mononitrate ER [Imdur] 30 mg PO DAILY Clobetasol Propionate [Temovate 0.05% Cream] 1 applic TOPICAL BID Triamcinolone 0.1% Ointment [Kenalog 0.1% Ointment] 1 applic PO BID B Complex-Vit C-Vit E-Zinc [Z-Bec] 1 tab PO DAILY Atorvastatin [Lipitor] 20 mg PO HS Latanoprost Ophth [Xalatan 0.005%] 1 drops BOTH EYES HS Aspirin 162 mg PO DAILY Vit C/E/Zn/Coppr/Lutein/Zeaxan [Preservision Areds 2 Softgel] 2 cap PO DAILY traMADol HCL [Ultram] 50 mg PO TID PRN PRN Reason: Pain Refresh Optive 1 drop BOTH EYES QID Discharge Medication List Tamsulosin HCl 0.4 mg PO HS 08/28/13 [History] Magnesium 200 mg PO DAILY 05/04/14 [History] Calcium Carbonate [Calcium] 600 mg PO DAILY 07/14/14 [History] Acetaminophen Tab [Tylenol] 500 mg PO Q6H PRN 09/29/14 [History] hydrALAZINE HCL [Apresoline] 25 mg PO BID 09/29/14 [History] Lisinopril [Prinivil] 5 mg PO DAILY 06/18/15 [History] Nitroglycerin Sl Tabs [Nitrostat] 0.4 mg SUBLINGUAL Q5M PRN 06/18/15 [History] Clobetasol Propionate [Temovate 0.05% Cream] 1 applic TOPICAL BID 07/16/15 [ History] Isosorbide Mononitrate ER [Imdur] 30 mg PO DAILY 07/16/15 [History] Triamcinolone 0.1% Ointment [Kenalog 0.1% Ointment] 1 applic PO BID 07/16/15 [ History] Atorvastatin [Lipitor] 20 mg PO HS 07/30/15 [History] B Complex-Vit C-Vit E-Zinc [Z-Bec] 1 tab PO DAILY 07/30/15 [History] Latanoprost Ophth [Xalatan 0.005%] 1 drops BOTH EYES HS 01/21/16 [History] Aspirin 162 mg PO DAILY 02/10/16 [History] Vit C/E/Zn/Coppr/Lutein/Zeaxan [Preservision Areds 2 Softgel] 2 cap PO DAILY [History] Refresh Optive 1 drop BOTH EYES QID 04/27/16 [History] traMADol HCL [Ultram] 50 mg PO TID PRN 04/27/16 [History] Follow up Appointment(s)/Referral(s): Raquel Anglin MD [STAFF PHYSICIAN] - As Needed (Patient to call the office on Sunday for pathology results) Activity/Diet/Wound Care/Special Instructions: diverticular diet Discharge Disposition: HOME SELF-CARE
[2016-08-29 08:09] VITALS: BP 112/67; PULSE 67
== END 2016-08-29 08:39 | disposition home or self-care (01) ==
LOC: ORWHC2ENDO 06:45
PROVIDERS: ATTEND Surgery
DX: Z12.11 Encounter for screening for malignant neoplasm of colon (principal); K57.30 Diverticulosis of large intestine without perforation or abscess without bleeding; K64.8 Other hemorrhoids; I25.10 Atherosclerotic heart disease of native coronary artery without angina pectoris; I10 Essential (primary) hypertension; E78.5 Hyperlipidemia, unspecified; J45.909 Unspecified asthma, uncomplicated; I25.2 Old myocardial infarction; Z86.010 Personal history of colon polyps; Z85.038 Personal history of other malignant neoplasm of large intestine; Z91.02 Food additives allergy status; Z88.2 Allergy status to sulfonamides; Z91.011 Allergy to milk products; Z88.8 Allergy status to other drugs, medicaments and biological substances; Z79.891 Long term (current) use of opiate analgesic; Z79.82 Long term (current) use of aspirin; Z79.899 Other long term (current) drug therapy; Z87.891 Personal history of nicotine dependence; Z95.5 Presence of coronary angioplasty implant and graft; Z90.49 Acquired absence of other specified parts of digestive tract
CPT/HCPCS: 45385; 88305; J2001; J2704

== ENCOUNTER 2016-09-19 11:38 | Day surgery (SDC) | payer MEDICARE, OTHER ==
[2016-09-15 14:55] VITALS: BMI 34.4
[2016-09-19 11:58] VITALS: TEMP 97.3
[2016-09-19] MEDS ORDERED: LIDOCAINE 1% INJ 10MG/ML (20 ML MDV) ONE (13:01)
[2016-09-19] MEDS ORDERED: PROPOFOL 10 MG/ML 20 ML VIAL IV ONE (13:01)
[2016-09-19] MEDS ORDERED: GLYCOPYRROLATE 0.2 MG/ML 2 ML VIAL ONE (13:01)
--- NOTE | 2016-09-19 13:30 | P.PCN ---
Date of Procedure: 09/19/16 Preoperative Diagnosis: Postoperative Diagnosis: Procedure(s) Performed: Procedure: Esophagogastroduodenoscopy. Preoperative diagnosis: Dysphagia. Postoperative diagnosis: S/P esophagectomy with gastric pull-through, otherwise , exam reveals no abnormalities. Preparation and sedation: Was provided by anesthesia. Brief clinical history: The patient is a 76-year-old male was pain troubled with dysphagia with food getting caught in his throat of several months duration. The patient had esophagectomy and gastric pull-through in 1990 for esophageal cancer and has had surveillance and exams over the years. This evaluation is to assess for any obstruction or recurrent cancer. Procedure: With the patient on his left lateral decubitus position and after informed consent and adequate sedation, I passed the Olympus-GIF 160 video upper endoscope into the oropharynx and hypopharynx. I spent some time examining carefully the area of the cricopharyngeus and I could not demonstrate definite diverticulum. I was able to pass the endoscope through the cricopharyngeus down the esophageal remnant. The anastomosis appears to be around 20 cm from the incisors. There was no evidence of recurrence of his cancer. The stomach was inspected including the retroflex view after insufflation with air and no obvious abnormalities were seen. Pyloric channel, duodenal bulb, post bulbar area and descending duodenum appeared within normal limits. No biopsies were indicated then the endoscope was withdrawn. The patient tolerated the procedure well. Plan: The patient was reassured. I would consider a barium swallow as the next step to evaluate for possible Zenker's diverticulum or other kind of diverticulum related to his esophagectomy that may not have been evident endoscopically. He will follow up with you as planned and I will be happy to see in the office if his symptoms persist. Implants: Indications for Procedure: Operative Findings: Description of Procedure:
[2016-09-19 13:43] VITALS: BP 129/76; PULSE 88; RESP 18
== END 2016-09-19 14:00 | disposition home or self-care (01) ==
LOC: ORWHC2ENDO 11:38
DX: R13.10 Dysphagia, unspecified (principal); K21.9 Gastro-esophageal reflux disease without esophagitis; Z88.2 Allergy status to sulfonamides; Z88.8 Allergy status to other drugs, medicaments and biological substances; I25.10 Atherosclerotic heart disease of native coronary artery without angina pectoris; Z95.5 Presence of coronary angioplasty implant and graft; Z87.442 Personal history of urinary calculi; Z79.82 Long term (current) use of aspirin; Z79.899 Other long term (current) drug therapy; Z98.890 Other specified postprocedural states; Z85.01 Personal history of malignant neoplasm of esophagus
CPT/HCPCS: 43235; J2001; J2704

== ENCOUNTER → 2016-12-18 | Outpatient (CLI) | payer MEDICARE, OTHER ==
[2016-12-18 10:39] LABS: CH 30.4; CHCM 32.6; HCT 46.9 % (39.0-53.0); HDW 2.63; HGB 15.1 gm/dL (13.0-17.5); MCH 30.2 pg (25.0-35.0); MCHC 32.2 g/dL (31.0-37.0); MCV 93.6 fL (80.0-100.0); Mean Platelet Volume 9.4; RBC 5.01 m/uL (4.30-5.90); RDW 13.7 % (11.5-15.5); WBC 8.4 k/uL (3.8-10.6)
[2016-12-18 11:10] LABS: ALT 59 U/L (21-72); AST 39 U/L (17-59); Alkaline Phosphatase 66 U/L (38-126); Anion Gap 8 mmol/L; Blood Urea Nitrogen 16 mg/dL (9-20); Calcium 9.7 mg/dL (8.4-10.2); Carbon Dioxide 28 mmol/L (22-30); Chloride 104 mmol/L (98-107); Glucose 100 mg/dL (74-99); Non-African American GFR(MDRD) 51 (>60 ml/min/1.73 sqM); Potassium 4.7 mmol/L (3.5-5.1); Sodium 140 mmol/L (137-145); Total Bilirubin 1.3 mg/dL (0.2-1.3); Total Protein 7.3 g/dL (6.3-8.2)
--- NOTE | 2016-12-18 13:12 | XR ---
Abdomen HISTORY: Pain and nausea with diarrhea Frontal view of the abdomen submitted on 2 images correlated to prior CT abdomen 04/27/2016, plain samina m 07/01/2013 Multiple calcifications are present overlying the right kidney, the largest at the lower pole measure s approximately 10 mm, additional calcification is thought present measuring approximately 9 mm. At t he upper pole, there is a calcification measuring approximately 8 mm, right kidney is atrophic. Posto p changes are noted to the lumbar spine, there are degenerative disc changes. Probable vascular calci fications present within the pelvis. No evident bowel obstruction or pneumoperitoneum. Surgical clips present in the right upper quadrant. IMPRESSION: Right-sided nephrolithiasis.
== END | disposition home or self-care (01) ==
LOC: LABWHC1 10:07
PROVIDERS: ATTEND Internal Medicine
DX: C18.9 Malignant neoplasm of colon, unspecified (principal); N20.0 Calculus of kidney; I11.9 Hypertensive heart disease without heart failure; K21.0 Gastro-esophageal reflux disease with esophagitis
CPT/HCPCS: 36415; 74000; 80053; 85027

== ENCOUNTER 2017-03-05 10:04 | Day surgery (SDC) | payer MEDICARE, OTHER ==
[2017-03-01 10:27] VITALS: BMI 34.4
[2017-03-05 10:46] VITALS: TEMP 98
[2017-03-05] MEDS ORDERED: LIDOCAINE 1% 20 ML VIAL (10MG/ML) FOR IV START INTRADERMA ONE (10:46)
[2017-03-05] MEDS ORDERED: LACTATED RINGERS 1,000 ML IV ONE ×2 (10:46)
[2017-03-05] MEDS ORDERED: PROPOFOL 10 MG/ML 20 ML VIAL IV ONE (11:41)
[2017-03-05 12:11] VITALS: RESP 20
--- NOTE | 2017-03-05 12:14 | P.PCN ---
Date of Procedure: 03/05/17 Procedure(s) Performed: Procedure: Esophagogastroduodenoscopy and biopsy. Preoperative diagnosis: Reflux symptoms requiring 3 doses of Nexium daily to control. Postoperative diagnosis: 1. S/P prior esophagectomy with gastric pull-through surgery. 2. Retained partially digested food in the stomach with no evidence of mechanical obstruction to the gastric outlet. 3. Mild gastritis with no evidence of recurrent esophageal cancer or any evidence of ulcers or bleeding. 4. Biopsies obtained from the duodenum, antrum and the esophageal remnant. Preparation and sedation: Was provided by anesthesia. Brief clinical history: The patient is a 76-year-old male with history of esophageal cancer for which he underwent surgery in 1990 and chemotherapy. I performed upper endoscopy in the past for upper GI complaints and he had evidence of gastric emptying issues with no evidence of mechanical obstruction. The patient has been having issues with acid reflux and throat complaints for the last couple years. He is being requiring 3 doses of Nexium daily to control his symptoms lately. This evaluation is to assess for mechanical obstruction of the gastric outlet or other pathology and to guide therapy. Procedure: With the patient on his left lateral decubitus position and after informed consent and adequate sedation, I passed the Olympus-GIF 160 video upper endoscope through the cricopharyngeus. The area of the anastomosis to the stomach was reached within 2 cm or so from the cricopharyngeus similar to how it was observed before. There was a pseudodiverticulum at the esophageal side of the anastomosis but no evidence of recurrence or strictures. No ulcers or bleeding. The endoscope was then passed into the stomach which was insufflated with air and inspected in detail including the retroflex view. It was apparent that the patient had esophagectomy with stomach pull-through with anastomosis. There was partially digested food in the stomach as previously observed. The underlying mucosa showed some mottling and erythema consistent with mild gastritis but there were no ulcers or bleeding. Pyloric channel did not show any ulcers. Duodenal bulb, post bulbar area and descending duodenum appeared within normal limits. There was no evidence of mechanical obstruction or bleeding. Biopsies were obtained from the duodenum, antrum and short esophageal remnant then the endoscope was withdrawn. The patient tolerated the procedure well. Plan: I summarized the findings to the patient. Will await biopsy results and make further recommendations. I will keep you updated on his progress.
[2017-03-05 12:38] VITALS: BP 142/75; PULSE 53
== END 2017-03-05 12:49 | disposition home or self-care (01) ==
LOC: ORWHC2ENDO 10:04
DX: K29.50 Unspecified chronic gastritis without bleeding (principal); Z90.49 Acquired absence of other specified parts of digestive tract; Z85.01 Personal history of malignant neoplasm of esophagus; K21.9 Gastro-esophageal reflux disease without esophagitis; Z92.21 Personal history of antineoplastic chemotherapy; I25.10 Atherosclerotic heart disease of native coronary artery without angina pectoris; I10 Essential (primary) hypertension; E78.5 Hyperlipidemia, unspecified; N40.0 Benign prostatic hyperplasia without lower urinary tract symptoms; M19.90 Unspecified osteoarthritis, unspecified site; Z79.82 Long term (current) use of aspirin; Z79.891 Long term (current) use of opiate analgesic; Z79.899 Other long term (current) drug therapy; Z88.2 Allergy status to sulfonamides; Z88.8 Allergy status to other drugs, medicaments and biological substances
CPT/HCPCS: 88305; 88342; 43239; J2704

== ENCOUNTER → 2017-05-21 | Outpatient (CLI) | payer MEDICARE, OTHER ==
--- NOTE | 2017-05-22 08:23 | CT ---
EXAMINATION TYPE: CT soft tissue neck w con DATE OF EXAM: 05/21/2017 COMPARISON: NONE HISTORY: History esophageal cancer. Sore throat x [address] DLP: 560.9 mGycm CONTRAST: CT scan of the neck is performed with IV Contrast, patient injected with 80 mL of Isovue 300. Contrast enhanced CT of the neck was performed from the skull base through the lung apices. AIRWAY: The supraglottic, glottic, and subglottic portions of the airway appear patent and free of mass. SALIVARY GLANDS: The submandibular and parotid glands are free of mass or inflammatory process. THYROID GLAND: No nodules or masses seen. LYMPH NODES: No adenopathy seen greater than 1cm. LUNG APICES: No nodule or mass is seen. OTHER: Changes of esophagectomy with gastric pull-through procedure. Vascular structures are patent. Degenerative change of the cervical spine. No abscess seen. IMPRESSION: 1. No significant abnormality to account for the patient's symptoms.
== END | disposition home or self-care (01) ==
LOC: RADCTMAIN 17:47
PROVIDERS: ATTEND Otolaryngology
DX: R05 Cough (principal); R49.0 Dysphonia; R07.0 Pain in throat; Z85.01 Personal history of malignant neoplasm of esophagus
CPT/HCPCS: 82565; 84520; 70491; 36415; Q9967

== ENCOUNTER → 2017-06-07 | Outpatient (CLI) | payer MEDICARE, OTHER ==
[2017-06-07 07:22] LABS: ALT 44 U/L (21-72); AST 41 U/L (17-59); Cholesterol 128 mg/dL (<200); HDL Cholesterol 47 mg/dL (40-60); LDL Cholesterol,Calculated 52 mg/dL (0-99); Triglycerides 143 mg/dL (<150)
== END | disposition home or self-care (01) ==
LOC: LABWHC1 06:31
PROVIDERS: ATTEND Internal Medicine Cardiovascular Disease
DX: E78.5 Hyperlipidemia, unspecified (principal); I25.10 Atherosclerotic heart disease of native coronary artery without angina pectoris
CPT/HCPCS: 36415; 80061; 84450; 84460

== ENCOUNTER → 2017-08-06 | Outpatient (CLI) | payer MEDICARE, OTHER ==
[2017-08-06 11:03] LABS: HGB 15.6 gm/dL (13.0-17.5); MCH 30.5 pg (25.0-35.0); MCHC 33.3 g/dL (31.0-37.0); MCV 91.5 fL (80.0-100.0); Mean Platelet Volume 9.2; Platelet Count 156 k/uL (150-450); RBC 5.13 m/uL (4.30-5.90); RDW 13.5 % (11.5-15.5); WBC 8.6 k/uL (3.8-10.6)
[2017-08-06 11:14] LABS: Albumin 4.4 g/dL (3.5-5.0); Calcium 9.7 mg/dL (8.4-10.2); Potassium 4.9 mmol/L (3.5-5.1); Total Bilirubin 1.3 mg/dL (0.2-1.3); Total Protein 7.1 g/dL (6.3-8.2)
[2017-08-06 11:21] LABS: T4, Free (Free Thyroxine) 1.25 ng/dL (0.78-2.19)
[2017-08-06 11:35] LABS: Prostate Specific Antigen 0.98 ng/mL (0.00-4.00)
--- NOTE | 2017-08-06 11:50 | XR ---
EXAMINATION TYPE: XR chest 2V DATE OF EXAM: 08/06/2017 COMPARISON: Prior chest x-ray 02/10/2016 HISTORY: I11.9 TECHNIQUE: Frontal and lateral views of the chest are obtained. FINDINGS: There is no focal air space opacity, pleural effusion, or pneumothorax seen. The cardiac silhouette size is within normal limits. The osseous structures are intact. Retrocardiac density wi th central lucency compatible with hiatal hernia. Bandlike increased attenuation at the left costophr enic angle may reflect atelectasis. Prominent lung volumes suggest COPD. Surgical clips noted at the level of the thoracic inlet. The aorta is dense. IMPRESSION: There may be basilar atelectasis or scarring. Hiatal hernia. Postop changes.
== END | disposition home or self-care (01) ==
LOC: LABWHC1 10:31
PROVIDERS: ATTEND Internal Medicine
DX: Z00.01 Encounter for general adult medical examination with abnormal findings (principal); I25.10 Atherosclerotic heart disease of native coronary artery without angina pectoris; E78.2 Mixed hyperlipidemia; N40.1 Benign prostatic hyperplasia with lower urinary tract symptoms; K21.0 Gastro-esophageal reflux disease with esophagitis; I11.9 Hypertensive heart disease without heart failure; Z98.890 Other specified postprocedural states
CPT/HCPCS: 36415; 71046; 80053; 80061; 84153; 84439; 84443; 85027

== ENCOUNTER 2017-10-25 08:39 | Day surgery (SDC) | payer MEDICARE, OTHER ==
[2017-10-25 09:06] VITALS: TEMP 97.6
[2017-10-25] MEDS ORDERED: LACTATED RINGERS 1,000 ML IV ONE (09:12)
[2017-10-25] MEDS ORDERED: LIDOCAINE 1% 20 ML VIAL (10MG/ML) FOR IV START INTRADERMA ONE (09:12)
[2017-10-25] MEDS ORDERED: PROPOFOL 10 MG/ML 20 ML VIAL IV ONE (10:04)
[2017-10-25] MEDS ORDERED: LIDOCAINE 1% INJ 10MG/ML (20 ML MDV) ONE (10:04)
[2017-10-25] MEDS ORDERED: fentaNYL (PF) 50 MCG/ML 2 ML AMP ONE (10:04)
[2017-10-25 10:52] VITALS: RESP 16
[2017-10-25 11:01] VITALS: BP 132/70; PULSE 75
--- NOTE | 2017-10-25 11:44 | P.PCN ---
Date of Procedure: 10/25/17 Procedure(s) Performed: Procedures: 1. Esophagogastroduodenoscopy and biopsy. 2. Colonoscopy and polypectomy. Preoperative diagnosis: 1. Throat complaints and history of esophageal cancer. 2. Change in bowel habits and dark stools and history of colon cancer. Postoperative diagnosis: 1. S/P esophagectomy with gastric pull-through with no obvious esophagitis in the esophageal remnant. 2. Retained partially digested food in the stomach. 3. S/P right hemicolectomy with no evidence of recurrence at the anastomotic site. 4. Sigmoid diverticulosis with no evidence of acute diverticulitis or strictures. 5. Two sigmoid polyps snared but no large polyps or cancer. 6. Preparation of the colon was less than ideal. Preparation: HalfLytely prep. Sedation: Was provided by anesthesia. Brief clinical history: The patient is a 77-year-old male who has been having issues with sore throat. He had esophagectomy and gastric pull-through in 1990 for esophageal cancer. His last exam was in September 2016. In addition, the patient has history of colon cancer and he had a prior right hemicolectomy. The patient has been experiencing hard and dark stools for a few months. His last colonoscopy was in August 2016 and is due to have repeat colonoscopy next year. On his last exam, polypoid material was removed from the anastomotic site but there was no specimen in the material submitted. Procedure: With the patient on his left lateral decubitus position and after informed consent and adequate sedation, I passed the Olympus-GIF 160 video upper endoscope through the cricopharyngeus down the esophageal remnant. There was a very short remnant of the esophagus that did not show any evidence of inflammation, then the endoscope was advanced into the stomach. The prior pull- through of the stomach into the chest was noted. Proximal to the anastomosis in the cervical area and hypopharynx there was some deformity and pseudodiverticulation. The stomach had retained partially digested material but there was no mechanical obstruction to the gastric outlet. Pyloric channel , duodenal bulb, post bulbar area and descending duodenum did not show any obvious abnormalities or ulcers. I obtained biopsy from the esophageal remnant then the endoscope was withdrawn and I proceeded with the colonoscopy. Perianal area did not show any fissures or fistulas. There were no masses felt on digital rectal examination. The Olympus CFQ 160L video colonoscope was then inserted in the rectum in the usual fashion and advanced to the anastomotic site on the right. There was no evidence of recurrence at the anastomosis. The preparation was less than ideal and there was thick fecal secretions and fecal material encountered that I could not wash or suction consistently. There was 2 small sigmoid polyps noted which I snared and retrieved by suction together with plenty of fecal material. No large polyps or cancer were noted. Where visualized, the mucosa appeared healthy. I retroflexed the endoscope in the rectum before the endoscope was withdrawn. The patient tolerated the procedure well. Plan: The patient was reassured. Will await pathology results. I anticipate repeating his colonoscopy in 2-3 years. He will follow up with you as planned.
== END 2017-10-25 11:58 | disposition home or self-care (01) ==
LOC: ORWHC2ENDO 08:39
DX: K21.0 Gastro-esophageal reflux disease with esophagitis (principal); K63.5 Polyp of colon; K57.30 Diverticulosis of large intestine without perforation or abscess without bleeding; Z85.01 Personal history of malignant neoplasm of esophagus; Z85.038 Personal history of other malignant neoplasm of large intestine; Z90.49 Acquired absence of other specified parts of digestive tract; Z98.0 Intestinal bypass and anastomosis status; I25.10 Atherosclerotic heart disease of native coronary artery without angina pectoris; M19.90 Unspecified osteoarthritis, unspecified site; I10 Essential (primary) hypertension; E78.5 Hyperlipidemia, unspecified; H40.9 Unspecified glaucoma; H35.30 Unspecified macular degeneration; Z88.2 Allergy status to sulfonamides; Z88.8 Allergy status to other drugs, medicaments and biological substances; Z91.018 Allergy to other foods; Z91.09 Other allergy status, other than to drugs and biological substances; Z79.82 Long term (current) use of aspirin; Z79.899 Other long term (current) drug therapy; Z95.5 Presence of coronary angioplasty implant and graft; Z87.891 Personal history of nicotine dependence
CPT/HCPCS: 88305; 45385; 43239; J2001; J3010; J2704

== ENCOUNTER 2017-11-25 15:12 | Inpatient (IN) | payer MEDICARE, OTHER ==
[2017-11-25] MEDS ORDERED: ASPIRIN 81 MG PO STA (15:32)
[2017-11-25] MEDS ORDERED: NITROGLYCERIN SL TABS 0.4 MG TAB SUBLINGUAL STA (15:32)
--- NOTE | 2017-11-25 15:39 | ED ---
Chest Pain HPI - General Chief Complaint: Chest Pain Stated Complaint: Chest pain Time Seen by Provider: 11/25/17 15:24 Source: patient Mode of arrival: wheelchair Limitations: no limitations - History of Present Illness Initial Comments: Patient is a 77-year-old male presenting for chest pain. The patient states she 's had a history of multiple stents being placed in that this morning he cut the grass. Approximately 1.5 hours ago, he was watching football and started having a left-sided chest pressure radiation to his left arm. He denies any significant shortness of breath and denies any modifying factors of this pain. He also denies any diaphoresis, abdominal pain, nausea/vomiting/diarrhea and states that he took a couple of baby aspirins earlier this morning but did not take any nitro. - Related Data Home Medications Medication Instructions Recorded Confirmed Tamsulosin HCl 0.4 mg PO HS 08/28/13 11/25/17 Acetaminophen Tab [Tylenol] 500 mg PO Q6H PRN 09/29/14 11/25/17 hydrALAZINE HCL [Apresoline] 25 mg PO BID 09/29/14 11/25/17 Lisinopril [Prinivil] 5 mg PO QAM 06/18/15 11/25/17 Nitroglycerin Sl Tabs [Nitrostat] 0.4 mg SUBLINGUAL Q5M PRN 06/18/15 11/25/17 Clobetasol Propionate [Temovate 1 applic TOPICAL BID 07/16/15 11/25/17 0.05% Cream] Isosorbide Mononitrate ER [Imdur] 30 mg PO QAM 07/16/15 11/25/17 Aspirin 81 mg PO BID 02/10/16 11/25/17 Vit C/E/Zn/Coppr/Lutein/Zeaxan 1 cap PO BID 02/10/16 11/25/17 [Preservision Areds 2 Softgel] Carboxymethyl/Gly/Poly80/Pf 1 drop BOTH EYES QID 10/23/17 11/25/17 [Refresh Optive Roque-3 Drops] Esomeprazole Magnesium [NexIUM] 40 mg PO BID 10/23/17 11/25/17 Latanoprostene Bunod [Vyzulta] 1 drop BOTH EYES HS 10/23/17 11/25/17 Multivit-Min/FA/Lycopen/Lutein 1 tab PO BID 10/23/17 11/25/17 [Centrum Silver Tablet] Netarsudil Mesylate [Rhopressa] 1 drop BOTH EYES HS 10/23/17 11/25/17 Ranitidine HCl [Zantac] 150 mg PO BID 10/23/17 11/25/17 Atorvastatin [Lipitor] 40 mg PO HS 11/25/17 11/25/17 Allergies Allergy/AdvReac Type Severity Reaction Status Date / Time atenolol Allergy Unknown Verified 11/25/17 16:11 clopidogrel bisulfate Allergy severe Verified 11/25/17 16:11 [From Plavix] itching gluten Allergy blisters Verified 11/25/17 16:11 lactose Allergy Abdominal Verified 11/25/17 16:11 Pain prednisolone Allergy GLAUCOMA Verified 11/25/17 16:11 simvastatin Allergy Unknown Verified 11/25/17 16:11 sucralfate [From Carafate] Allergy REFLUX Verified 11/25/17 16:11 beet AdvReac CAUSES Verified 11/25/17 16:11 KIDNEY STONES PER PT [place] And Derivatives AdvReac CAUSES Verified 11/25/17 16:11 [[place]] KIDNEY STONES PER PT cocoa AdvReac CAUSES Verified 11/25/17 16:11 KIDNEY STONES PER PT coffee (Coffea arabica) AdvReac CAUSES Verified 11/25/17 16:11 KIDNEY STONES PER PT cranberry AdvReac CAUSES Verified 11/25/17 16:11 KIDNEY STONES PER PT diphenhydramine AdvReac Diarrhea Verified 11/25/17 16:11 [From Benadryl] green tea AdvReac CAUSES Verified 11/25/17 16:11 KIDNEY STONES PER PT plum AdvReac CAUSES Verified 11/25/17 16:11 KIDNEY STONES PER PT rhubarb AdvReac CAUSES Verified 11/25/17 16:11 KIDNEY STONES PER PT spinach AdvReac CAUSES Verified 11/25/17 16:11 KIDNEY STONES PER PT Sulfa (Sulfonamide AdvReac blood Verified 11/25/17 16:11 Antibiotics) disorder sweet potato AdvReac CAUSES Verified 11/25/17 16:11 KIDNEY STONES PER PT tree nut [Nut] AdvReac CAUSES Verified 11/25/17 16:11 KIDNEY STONES PER PT Review of Systems ROS Statement: Those systems with pertinent positive or pertinent negative responses have been documented in the HPI. Constitutional: Negative for chills, fatigue and fever. HENT: Negative for congestion. Respiratory: Negative for chest tightness, shortness of breath and wheezing. Negative for cough Cardiovascular: Positive for chest pain and negative for palpitations. Gastrointestinal: Negative for abdominal pain. Negative for abdominal distention , diarrhea, nausea and vomiting. Genitourinary: Negative for dysuria. Musculoskeletal: Negative for back pain, neck pain and neck stiffness. Skin: Negative for color change. Neurological: Negative for dizziness, speech difficulty, weakness and light- headedness. Psychiatric/Behavioral: Negative for agitation and confusion. Negative for anxiety ROS Other: All systems not noted in ROS Statement are negative. EKG Findings - EKG Comments: EKG Findings:: EKG shows sinus rhythm with premature supraventricular complexes. Rate is 76 bpm, WV interval 200, QRS duration 92, QTC 432. 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, varicose veins, hiatal hernia, hx ulcers, black stool, hx pancreatitis 2016, hx eczema, recent UTI- just finished rx History of Any Multi-Drug Resistant Organisms: None Reported Past Surgical History: Adenoidectomy, Appendectomy, Back Surgery, Bowel Resection, Cholecystectomy, Heart Catheterization With Stent, Hernia Repair, Orthopedic Surgery, Tonsillectomy Additional Past Surgical History / Comment(s): esophagectomy, colectomy, LT CAROTID ENDARTECTOMY, LUMP REMOVED FROM TONGUE, LITHOTRIPSY, CYSTOSCOPY, RT ROTATOR CUFF REPAIR, R carpal tunnel release, DEVIATED SEPTUM, , cardiac STENTS x 3, UMBILICAL HERNIA REPAIR X 2, RT inguinal hernia repair, LOWER BACK SURGERY-HAS SCREWS, BILAT CATARACTS REMOVED, vasectomy, repair of undescended testicle, Past Anesthesia/Blood Transfusion Reactions: No Reported Reaction Additional Past Anesthesia/Blood Transfusion Reaction / Comment(s): Pt has received blood in past without reaction. Date of Last Stent Placement:: 2015 Past Psychological History: No Psychological Hx Reported Smoking Status: Former smoker Past Alcohol Use History: None Reported Past Drug Use History: None Reported - Past Family History Brother(s) Family Medical History: Cancer Additional Family Medical History / Comment(s): liver and brain Mother Family Medical History: Cancer Additional Family Medical History / Comment(s): LIVER CA, BRAIN CA Sister(s) Family Medical History: Cancer Additional Family Medical History / Comment(s): BREAST CA, LUNG CA. SISTER X 2 Father Family Medical History: Osteoarthritis (OA) Additional Family Medical History / Comment(s): CELIAC DISEASE, ULCERS General Exam - General Exam Comments Initial Comments: Constitutional: Pt is oriented to person, place, and time. Pt appears well- developed and well-nourished. No distress. HENT: Head: Normocephalic and atraumatic. Eyes: EOM are normal. Neck: Normal range of motion. Neck supple. Cardiovascular: Normal rate, regular rhythm, S1 normal, S2 normal and normal heart sounds. Exam reveals no gallop and no friction rub. No murmur heard. Pulmonary/Chest: Effort normal and breath sounds normal. No tachypnea and no bradypnea. No respiratory distress. No wheezes or rales noted. Abdominal: Soft. Bowel sounds are normal. Pt exhibits no shifting dullness, no distension, no pulsatile liver, no fluid wave, no abdominal bruit and no ascites. There is no tenderness. There is no rigidity, no rebound, no guarding, no tenderness at McBurney's point and negative Hart's sign. Musculoskeletal: Normal range of motion. Neurological: Pt is alert and oriented to person, place, and time. No cranial nerve deficit. Skin: Skin is warm and dry. No rash noted. Pt is not diaphoretic. No erythema. No pallor. Psychiatric: Pt has a normal mood and affect. Pt behavior is normal. Thought content normal. Limitations: no limitations Course Vital Signs 11/25/17 11/25/17 11/25/17 15:19 15:45 16:19 Temperature 98.2 F Pulse Rate 76 64 Respiratory 20 20 18 Rate Blood Pressure 156/83 140/85 O2 Sat by Pulse 96 97 Oximetry 11/25/17 17:04 Temperature Pulse Rate 64 Respiratory 20 Rate Blood Pressure 157/93 O2 Sat by Pulse 98 Oximetry - Reevaluation(s) Reevaluation #1: 11/25/17 17:00 - upon and noted to be elevated. Patient to be started on heparin drip. Reevaluation #2: 11/25/17 17:01 patient continued to have mild chest pain and therefore EKG was ordered and patient was started on nitro drip. Reevaluation #3: 11/25/17 18:02 - EKG was repeated and showed normal sinus rhythm with a rate of 61 bpm, WV interval 204, QRS duration 94, QTC 434. Case is discussed with cardiology and it was advised that patient should have an echocardiogram performed in the morning. Patient has been placed on nitro drip as well as heparin drip. Chest Pain MDM - MDM As documented in the course section of this note, troponin was noted to be elevated therefore the patient was started on heparin drip. Case was discussed with cardiology on-call, Dr. Ambriz, and treatment course was agreed with. He was also recommended that an echocardiogram be performed in the morning. Patient will be admitted to the hospital for an STEMI and currently has nitro drip as well as heparin drip in place. Disposition Clinical Impression: NSTEMI (non-ST elevated myocardial infarction) Disposition: ADMITTED IP TO THIS HOSP Condition: Fair Instructions: Chest Pain (ED) Referrals: Zhang Ruiz MD [Primary Care Provider] - 1-2 days Decision to Admit Reason: Admit from EC Decision Date: 11/25/17 Decision Time: 19:00
[2017-11-25 16:07] LABS: Basophils % (A) 0 %; Eosinophils # (A) 0.2 k/uL (0-0.7); Eosinophils % (A) 2 %; HGB 13.1 gm/dL (13.0-17.5); Lymphocytes # (A) 1.2 k/uL (1.0-4.8); Lymphocytes % (A) 15 %; MCH 31.1 pg (25.0-35.0); MCHC 33.5 g/dL (31.0-37.0); MCV 92.9 fL (80.0-100.0); Mean Platelet Volume 8.7; Monocytes # (A) 0.6 k/uL (0-1.0); Monocytes % (A) 7 %; Neutrophils # (A) 5.9 k/uL (1.3-7.7); Neutrophils % (A) 73 %; Platelet Count 194 k/uL (150-450); RDW 13.4 % (11.5-15.5); WBC 8.1 k/uL (3.8-10.6)
[2017-11-25 16:15] LABS: Partial Thromboplastin Time 27.9 sec (22.0-30.0); Prothrombin Time 9.6 sec (9.0-12.0)
[2017-11-25 16:18] LABS: Albumin 3.6 g/dL (3.5-5.0); Calcium 9.1 mg/dL (8.4-10.2); Magnesium 2.2 mg/dL (1.6-2.3); Potassium 4.3 mmol/L (3.5-5.1); Total Bilirubin 0.9 mg/dL (0.2-1.3); Total Protein 6.6 g/dL (6.3-8.2)
--- NOTE | 2017-11-25 16:38 | XR ---
EXAMINATION TYPE: XR chest 2V DATE OF EXAM: 11/25/2017 COMPARISON: 08/06/2017 HISTORY: Chest pain TECHNIQUE: Frontal and lateral views of the chest are obtained. FINDINGS: There is hiatal hernia. Lungs are clear of infiltrate. There is no heart failure. Thoracic aorta is atheromatous. There is spurring in the thoracic spine. There are chest leads. IMPRESSION: No active cardiopulmonary disease. Normal heart. No change.
[2017-11-25] MEDS ORDERED: HEPARIN SODIUM,PORCINE 5,000 UNIT/ML 1 ML VIAL IV PRN (17:07)
[2017-11-25] MEDS ORDERED: HEPARIN SODIUM,PORCINE 5,000 UNIT/ML 1 ML VIAL IV ONE (17:07)
[2017-11-25] MEDS: HEPARIN SOD,PORK IN 0.45% NACL 25,000 UNIT in 0.45% NACL 1 500ML.BAG IV SCH (17:45)
[2017-11-25] MEDS: NITROGLYCERIN-D5W PMX 50 MG in DEXTROSE/WATER 1 250ML.BAG IV SCH (19:48)
[2017-11-25] MEDS ORDERED: NITROGLYCERIN SL TABS 0.4 MG TAB SUBLINGUAL PRN (20:15)
[2017-11-25] MEDS ORDERED: ASPIRIN 81 MG PO SCH (21:00)
[2017-11-25] MEDS ORDERED: NON-FORMULARY DRUG (Multivit-Min/Fa/Lycopen/Lutein [Centrum Silver Tablet] 1 TAB) PO SCH (21:00)
[2017-11-25 22:17] LABS: Basophils % (A) 0 %; Eosinophils # (A) 0.2 k/uL (0-0.7); Eosinophils % (A) 2 %; HCT 39.6 % (39.0-53.0); HGB 13.2 gm/dL (13.0-17.5); Lymphocytes # (A) 1.6 k/uL (1.0-4.8); Lymphocytes % (A) 22 %; MCH 30.6 pg (25.0-35.0); MCHC 33.4 g/dL (31.0-37.0); MCV 91.7 fL (80.0-100.0); Mean Platelet Volume 8.4; Monocytes # (A) 0.5 k/uL (0-1.0); Monocytes % (A) 6 %; Neutrophils # (A) 4.8 k/uL (1.3-7.7); Neutrophils % (A) 67 %; Platelet Count 177 k/uL (150-450); RBC 4.31 m/uL (4.30-5.90); RDW 13.6 % (11.5-15.5); WBC 7.2 k/uL (3.8-10.6)
[2017-11-25] MEDS ORDERED: amLODIPine 5 MG TAB PO STA (22:43)
[2017-11-25 22:48] LABS: Creatine Kinase MB 1.8 ng/mL (0.0-2.4)
[2017-11-25 22:49] LABS: Troponin I 0.184 ng/mL (0.000-0.034)
[2017-11-25] MEDS: TAMSULOSIN 0.4 MG CAP.ER.24H PO SCH (23:36)
[2017-11-25] MEDS: FAMOTIDINE 20 MG TAB PO SCH (23:36)
[2017-11-25] MEDS: PANTOPRAZOLE 40 MG TABLET PO SCH (23:36)
[2017-11-25] MEDS: POLY80 BOTH EYES SCH (23:40)
[2017-11-25] MEDS: CARBOXYMETHYL BOTH EYES SCH (23:40)
[2017-11-25] MEDS: GLY BOTH EYES SCH (23:40)
[2017-11-25] MEDS: CLOBETASOL PROP 0.05% CR 15GM TOPICAL SCH (23:40)
[2017-11-25] MEDS: Netarsudil Mesylate [Rhopressa] BOTH EYES SCH (23:41)
--- NOTE | 2017-11-26 00:08 | HP ---
HISTORY AND PHYSICAL ATTENDING PHYSICIAN: Dr. Zhang Ruiz. ADMITTING PHYSICIAN: Dr. Kandi Harris. CHIEF COMPLAINT: Chest pain. HISTORY OF PRESENT ILLNESS: This 77-year-old gentleman presents to the emergency room with a complaint of having left precordial chest pain. The patient's pain is atypical. He said at times it is sharp, at times it was dull. The patient earlier in the morning, had done some yard work, he came back, had his meal, sat down, was watching TV, watching football game and he fell asleep and he said the pain and discomfort woke him up. There was no other associated symptoms of nausea, vomiting, diaphoresis, or radiation of the pain. The patient had no shortness of breath. He has had previous 3 stents and in view of this, he presents to the emergency room for evaluation. In the ER, the patient noted to have a mildly elevated blood pressure. No other significant changes. He has some PACs on EKG. No acute EKG changes. Cardiac enzymes, however, revealed a troponin of 0.205. The patient in view of these symptoms and elevated troponin and past history is being admitted to the hospital for further evaluation. PAST MEDICAL HISTORY: Significant for coronary artery disease, hypertension. No history of any diabetes mellitus, CVA, peripheral artery disease. No history of any liver disease. Does have a history of nephrolithiasis. No history of kidney disease. No history of any TB, hepatitis rheumatic fever. No history of any myocardial infarction or CVA. Does have a history of carcinoma of the esophagus more than 30 years ago for which he had surgery. Patient also has a history of carcinoma of the colon about 3 years ago. Did not require any chemotherapy. He has had a previous left carotid endarterectomy. PAST SURGICAL HISTORY: Significant for left carotid endarterectomy, esophageal resection, partial colon resection, cholecystectomy, carpal tunnel surgery and lumbar back surgery. PERSONAL HISTORY: Nonsmoker at present. He used to smoke in the past and has not smoked for over 40 years. Alcohol none. ALLERGIES: REPORTED MULTIPLE FOODS INCLUDING , SIMVASTATIN AND PATIENT ALSO HAS ALLERGIES MULTIPLE FOODS. The patient says he has had a history of celiac disease. SOCIAL HISTORY: Patient lives with spouse. FAMILY MEDICAL HISTORY: Parents in their 70s. Father had malignancy. Mother had cerebral hemorrhage. The patient had 2 brothers , one had dementia. One brother had some abdominal malignancy and metastatic disease to the brain. The patient had 5 sisters, 2 living, unknown history, 3 , 1 had cerebral hemorrhage 1 had breast CA and fell off the house and injured. A third sister had malignancy intraabdominal with brain METS. The patient himself has 3 children, 2 boys and 1 daughter, all 3 of them have celiac disease. REVIEW OF SYSTEMS: Neuro: Denies any headaches, dizziness. No double vision or blurred vision. No symptoms of TIA, syncope, seizures. Psych: No anxiety, depression. Cardiac: No chest pain, angina or palpitations. Respiratory: Denies shortness of breath, cough, hemoptysis. GI no nausea, vomiting, abdominal pain, diarrhea. : No symptoms of dysuria, hematuria, urgency, frequency. Does have some nocturia. EXTREMITIES: Denies pain, edema. CONSTITUTIONAL: No fever or chills. Hematological: No anemia or bleeding disorder. ENDOCRINE: No history of diabetes mellitus, hypothyroidism. SKIN: No rashes. MUSCULOSKELETAL: Some arthritic symptoms. ENT: Adequate hearing, smell, taste. EYES: Adequate vision. PHYSICAL EXAMINATION: Pleasant 77-year-old gentleman, appears younger than stated age, in no distress. Vital signs reveal at present, a heart rate of 70 and regular. Afebrile. Respiratory rate 18. Blood pressure is 161/80. HEENT: Normocephalic. Neck no JVD. Pupils are reactive. Nose is clear. Oral cavity is moist. Ears reveal no drainage. Neck reveals no JVD, carotid bruits or thyromegaly. Chest examination is clear to auscultation and percussion. Cardiac normal S1, S2. No gallops, murmurs, rubs appreciated. ABDOMEN: Soft. No palpable masses. Bowel sounds normal. No organomegaly. No abdominal bruits. Extremities reveal trace edema. Good pulses both upper and lower extremities. NEUROLOGIC: Awake, alert, oriented x3 with well-coordinated movements. LABORATORY DATA: Except for mildly elevated troponin 0.205. The rest of the labs are in adequate range. EKG reveals multiple PACs. No acute ST-T changes. Repeat EKG was normal sinus rhythm and no EKG changes. ASSESSMENT: 1. Atypical chest pain. 2. Possible non ST elevated myocardial infarction. 3. Known coronary artery disease. 4. Hypertension. 5. Remote history of carcinoma of the esophagus. 6. History of carcinoma of the colon, requiring no treatment. 7. Multiple PACs. 8. Essential hypertension. PLAN: The patient is stable. Continue present medical regimen. We will add amlodipine 5 mg to his regimen to help control his blood pressure. Hydralazine will be held for now. The patient's condition discussed with the patient. Prognosis is guarded. Cardiology is to be on consult. The patient is on nitroglycerin drip and heparin drip. Dr. Ruiz will resume the care in the morning. MMODL / IJN: [id number] /
[2017-11-26 03:38] LABS: Glucose,Whole Blood 107 mg/dL (75-99)
[2017-11-26] MEDS: ATORVASTATIN 40 MG TAB PO SCH ×2 (04:07→20:28)
[2017-11-26 04:16] VITALS: BMI 35.1
[2017-11-26 04:43] LABS: Basophils % (A) 0 %; Eosinophils # (A) 0.1 k/uL (0-0.7); Eosinophils % (A) 2 %; HCT 40.7 % (39.0-53.0); HGB 13.5 gm/dL (13.0-17.5); Lymphocytes # (A) 1.1 k/uL (1.0-4.8); Lymphocytes % (A) 14 %; MCH 30.4 pg (25.0-35.0); MCHC 33.2 g/dL (31.0-37.0); MCV 91.6 fL (80.0-100.0); Mean Platelet Volume 8.1; Monocytes # (A) 0.5 k/uL (0-1.0); Monocytes % (A) 7 %; Neutrophils % (A) 75 %; Platelet Count 168 k/uL (150-450); RBC 4.44 m/uL (4.30-5.90); RDW 13.5 % (11.5-15.5); WBC 8.1 k/uL (3.8-10.6)
[2017-11-26 05:00] LABS: Cholesterol 113 mg/dL (<200); HDL Cholesterol 46 mg/dL (40-60); LDL Cholesterol,Calculated 44 mg/dL (0-99); Triglycerides 116 mg/dL (<150)
[2017-11-26 05:15] LABS: Creatine Kinase MB 1.7 ng/mL (0.0-2.4)
[2017-11-26 05:21] LABS: Troponin I 0.145 ng/mL (0.000-0.034)
[2017-11-26] MEDS ORDERED: amLODIPine 5 MG TAB PO SCH (09:00)
[2017-11-26] MEDS ORDERED: LISINOPRIL 5 MG TAB PO SCH (09:00)
[2017-11-26] MEDS: ASPIRIN 325 MG TAB PO SCH (09:50)
[2017-11-26] MEDS: FAMOTIDINE 20 MG TAB PO SCH ×2 (09:51→20:28)
[2017-11-26] MEDS: CARBOXYMETHYL BOTH EYES SCH ×4 (09:55→21:29)
[2017-11-26] MEDS: POLY80 BOTH EYES SCH ×4 (09:55→21:29)
[2017-11-26] MEDS: GLY BOTH EYES SCH ×4 (09:55→21:29)
--- NOTE | 2017-11-26 11:08 | P.CRDCN ---
History of Present Illness Consult date: 11/26/17 Chief complaint: chest pain History of present illness: This is a pleasant 77-year-old gentleman who sees Dr. Shepherd in the office as an outpatient with a past medical history significant for coronary artery disease and prior stenting of the LAD, hypertension, dyslipidemia, presented to the hospital complaining of chest discomfort. The patient was in his usual state of health until yesterday when he did some workup at his backyard subsequently he took a nap and he woke up to watch the football game. White he was sitting watching the football game he developed chest discomfort, on the left side of the chest, as a dull kind of discomfort, with some radiation to the left arm and left shoulder. No cystitis symptoms of shortness of breath, nausea, dizziness or lightheadedness or syncope. The EKG showed sinus rhythm without any ischemic ST or T-wave abnormalities. The cardiac enzymes were checked and came in to be slightly abnormal. The patient unfortunately continues to have a chest discomfort at about 3/10 in intensity isn't currently he is on nitro drip. I did recommend proceeding with a coronary angiogram. The patient will be going to have a heart catheterization later on today. 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, varicose veins, hiatal hernia, hx ulcers, black stool, hx pancreatitis 2016, hx eczema, recent UTI- just finished rx Last Myocardial Infarction Date:: 11/25/17 History of Any Multi-Drug Resistant Organisms: None Reported Past Surgical History: Adenoidectomy, Appendectomy, Back Surgery, Bowel Resection, Cholecystectomy, Heart Catheterization With Stent, Hernia Repair, Orthopedic Surgery, Tonsillectomy Additional Past Surgical History / Comment(s): esophagectomy, colectomy, LT CAROTID ENDARTECTOMY, LUMP REMOVED FROM TONGUE, LITHOTRIPSY, CYSTOSCOPY, RT ROTATOR CUFF REPAIR, R carpal tunnel release, DEVIATED SEPTUM, , cardiac STENTS x 3, UMBILICAL HERNIA REPAIR X 2, RT inguinal hernia repair, LOWER BACK SURGERY-HAS SCREWS, BILAT CATARACTS REMOVED, vasectomy, repair of undescended testicle, Past Anesthesia/Blood Transfusion Reactions: No Reported Reaction Additional Past Anesthesia/Blood Transfusion Reaction / Comment(s): Pt has received blood in past without reaction. Date of Last Stent Placement:: 2015 Smoking Status: Former smoker - Past Family History Brother(s) Family Medical History: Cancer Additional Family Medical History / Comment(s): liver and brain Mother Family Medical History: Cancer Additional Family Medical History / Comment(s): LIVER CA, BRAIN CA Sister(s) Family Medical History: Cancer Additional Family Medical History / Comment(s): BREAST CA, LUNG CA. SISTER X 2 Father Family Medical History: Osteoarthritis (OA) Additional Family Medical History / Comment(s): CELIAC DISEASE, ULCERS Medications and Allergies Home Medications Medication Instructions Recorded Confirmed Type Tamsulosin HCl 0.4 mg PO HS 08/28/13 11/25/17 History Acetaminophen Tab [Tylenol] 500 mg PO Q6H PRN 09/29/14 11/25/17 History hydrALAZINE HCL [Apresoline] 25 mg PO BID 09/29/14 11/25/17 History Lisinopril [Prinivil] 5 mg PO QAM 06/18/15 11/25/17 History Nitroglycerin Sl Tabs [Nitrostat] 0.4 mg SUBLINGUAL Q5M PRN 06/18/15 11/25/17 History Clobetasol Propionate [Temovate 1 applic TOPICAL BID 07/16/15 11/25/17 History 0.05% Cream] Isosorbide Mononitrate ER [Imdur] 30 mg PO QAM 07/16/15 11/25/17 History Aspirin 81 mg PO BID 02/10/16 11/25/17 History Vit C/E/Zn/Coppr/Lutein/Zeaxan 1 cap PO BID 02/10/16 11/25/17 History [Preservision Areds 2 Softgel] Carboxymethyl/Gly/Poly80/Pf 1 drop BOTH EYES QID 10/23/17 11/25/17 History [Refresh Optive Roque-3 Drops] Esomeprazole Magnesium [NexIUM] 40 mg PO BID 10/23/17 11/25/17 History Latanoprostene Bunod [Vyzulta] 1 drop BOTH EYES HS 10/23/17 11/25/17 History Multivit-Min/FA/Lycopen/Lutein 1 tab PO BID 10/23/17 11/25/17 History [Centrum Silver Tablet] Netarsudil Mesylate [Rhopressa] 1 drop BOTH EYES HS 10/23/17 11/25/17 History Ranitidine HCl [Zantac] 150 mg PO BID 10/23/17 11/25/17 History Atorvastatin [Lipitor] 40 mg PO HS 11/25/17 11/25/17 History Allergies Allergy/AdvReac Type Severity Reaction Status Date / Time atenolol Allergy Unknown Verified 11/25/17 16:11 clopidogrel bisulfate Allergy severe Verified 11/25/17 16:11 [From Plavix] itching gluten Allergy blisters Verified 11/25/17 16:11 lactose Allergy Abdominal Verified 11/25/17 16:11 Pain prednisolone Allergy GLAUCOMA Verified 11/25/17 16:11 simvastatin Allergy Unknown Verified 11/25/17 16:11 sucralfate [From Carafate] Allergy REFLUX Verified 11/25/17 16:11 beet AdvReac CAUSES Verified 11/25/17 16:11 KIDNEY STONES PER PT Sumner And Derivatives AdvReac CAUSES Verified 11/25/17 16:11 [Sumner] KIDNEY STONES PER PT cocoa AdvReac CAUSES Verified 11/25/17 16:11 KIDNEY STONES PER PT coffee (Coffea arabica) AdvReac CAUSES Verified 11/25/17 16:11 KIDNEY STONES PER PT cranberry AdvReac CAUSES Verified 11/25/17 16:11 KIDNEY STONES PER PT diphenhydramine AdvReac Diarrhea Verified 11/25/17 16:11 [From Benadryl] green tea AdvReac CAUSES Verified 11/25/17 16:11 KIDNEY STONES PER PT plum AdvReac CAUSES Verified 11/25/17 16:11 KIDNEY STONES PER PT rhubarb AdvReac CAUSES Verified 11/25/17 16:11 KIDNEY STONES PER PT spinach AdvReac CAUSES Verified 11/25/17 16:11 KIDNEY STONES PER PT Sulfa (Sulfonamide AdvReac blood Verified 11/25/17 16:11 Antibiotics) disorder sweet potato AdvReac CAUSES Verified 11/25/17 16:11 KIDNEY STONES PER PT tree nut [Nut] AdvReac CAUSES Verified 11/25/17 16:11 KIDNEY STONES PER PT Physical Exam Vitals: Vital Signs Temp Pulse Resp BP Pulse Ox 11/26/17 09:30 66 14 140/80 93 L 11/26/17 09:00 80 19 150/89 93 L 11/26/17 08:30 63 15 155/92 92 L 11/26/17 08:00 98.1 F 69 22 144/86 94 L 11/26/17 07:30 71 12 151/84 93 L 11/26/17 07:00 64 12 169/92 94 L 11/26/17 06:30 65 21 170/91 93 L 11/26/17 06:00 60 17 164/93 94 L 11/26/17 05:30 64 18 154/96 93 L 11/26/17 05:00 64 14 116/102 95 11/26/17 04:30 61 12 181/93 94 L 11/26/17 04:00 61 13 176/94 94 L 11/26/17 03:30 97.7 F 65 12 179/92 95 11/26/17 02:30 64 12 176/98 95 11/26/17 02:00 67 16 181/96 96 11/26/17 01:50 61 15 181/96 96 11/26/17 01:30 169/94 95 11/26/17 01:00 63 17 175/97 95 11/26/17 00:35 64 16 164/90 96 11/26/17 00:30 58 L 9 L 164/90 96 11/26/17 00:00 64 19 174/95 84 L 11/25/17 23:30 62 11 L 184/106 11/25/17 23:00 62 15 163/89 96 11/25/17 22:49 62 15 163/89 93 L 11/25/17 22:30 60 16 95 18 22:00 168/85 11/25/17 21:30 65 19 173/103 95 11/25/17 21:00 74 75 H 132/92 97 18 20:55 75 16 106/87 94 L 11/25/17 20:30 64 16 152/91 14/18 20:00 60 13 161/88 18 19:30 56 L 20 150/90 96 18 19:18 61 20 150/90 96 11/25/17 19:00 53 L 15 155/81 11/25/17 17:04 64 20 157/93 98 11/25/17 16:19 64 18 140/85 97 11/25/17 15:45 20 11/25/17 15:19 98.2 F 76 20 156/83 96 Intake and Output 11/25/17 11/26/17 11/26/17 22:59 06:59 14:59 Intake Total 20.60 352.179 Output Total 1000 750 Balance -1000 20.60 -397.821 Intake: Intake, IV Titration 20.60 352.179 Amount Heparin Sod,Pork in 0.45% 328.479 NaCl 25,000 unit In 0.45 % NaCl 1 500ml.bag @ 10.2 UNITS/KG/HR 20.07 mls/hr IV .Q24H [facility] Rx#: [id number] Nitroglycerin-D5w Pmx 50 20.60 23.7 mg In Dextrose/Water 1 250ml.bag @ Titrate IV . Q0M [facility] Rx#:[id number] Output: Urine 1000 750 Other: Weight 98.43 kg 101.7 kg - Constitutional General appearance: no acute distress - Respiratory Respiratory: bilateral: CTA - Cardiovascular Rhythm: regular Heart sounds: normal: S1, S2 Abnormal Heart Sounds: systolic murmur Results 11/26/17 04:33 11/25/17 15:53 Cardiac Enzymes 11/25/17 11/25/17 11/25/17 Range/Units 15:53 15:53 22:02 AST 37 (17-59) U/L CK-MB (CK-2) 1.8 (0.0-2.4) ng/mL Troponin I 0.205 H* 0.184 H* (0.000-0.034) ng/mL 11/26/17 Range/Units 04:33 AST (17-59) U/L CK-MB (CK-2) 1.7 (0.0-2.4) ng/mL Troponin I 0.145 H* (0.000-0.034) ng/mL Coagulation 11/25/17 11/25/17 11/26/17 Range/Units 15:53 22:02 04:33 PT 9.6 (9.0-12.0) sec APTT 27.9 43.1 H 36.8 H (22.0-30.0) sec Lipids 11/26/17 Range/Units 04:33 Triglycerides 116 (<150) mg/dL Cholesterol 113 (<200) mg/dL HDL Cholesterol 46 (40-60) mg/dL CBC 11/25/17 11/25/17 11/26/17 Range/Units 15:53 22:02 04:33 WBC 8.1 7.2 8.1 (3.8-10.6) k/uL RBC 4.20 L 4.31 4.44 (4.30-5.90) m/uL Hgb 13.1 13.2 13.5 (13.0-17.5) gm/dL Hct 39.0 39.6 40.7 (39.0-53.0) % Plt Count 194 177 168 (150-450) k/uL Comprehensive Metabolic Panel 11/25/17 Range/Units 15:53 Sodium 141 (137-145) mmol/L Potassium 4.3 (3.5-5.1) mmol/L Chloride 105 (98-107) mmol/L Carbon Dioxide 29 (22-30) mmol/L BUN 16 (9-20) mg/dL Creatinine 1.10 (0.66-1.25) mg/dL Glucose 92 (74-99) mg/dL Calcium 9.1 (8.4-10.2) mg/dL AST 37 (17-59) U/L ALT 40 (21-72) U/L Alkaline Phosphatase 57 (38-126) U/L Total Protein 6.6 (6.3-8.2) g/dL Albumin 3.6 (3.5-5.0) g/dL Current Medications Generic Name Dose Route Start Last Admin Trade Name Freq PRN Reason Stop Dose Admin Acetaminophen 500 mg 11/25/17 20:15 Tylenol Tab PO Q6H PRN Pain Amlodipine Besylate 5 mg 11/26/17 09:00 11/26/17 09:51 Norvasc PO 5 mg DAILY SHIRA Administration Aspirin 325 mg 11/26/17 09:00 11/26/17 09:50 Aspirin PO 325 mg DAILY SHIRA Administration Atorvastatin Calcium 40 mg 11/25/17 21:00 11/26/17 04:07 Lipitor PO Not Given HS [facility] Clobetasol Propionate 1 applic 11/25/17 21:00 11/25/17 23:40 Temovate TOPICAL Not Given BID [facility]A Famotidine 20 mg 11/25/17 21:00 11/26/17 09:51 Pepcid PO 20 mg BID [facility] Administration Heparin Sodium (Porcine) 0 unit 11/25/17 17:07 11/26/17 10:09 Heparin IV 4,000 unit PER PROTOCOL PRN Administration Low PTT Protocol Heparin Sodium/Sodium Chloride 500 mls @ 20.07 mls/hr 11/25/17 17:15 10:07 25,000 unit/ Sodium Chloride IV 13.2 units/kg/hr .Q24H [facility] 25.98 mls/hr Titration Protocol 10.2 UNITS/KG/HR Nitroglycerin/Dextrose 50 mg/ 250 mls @ 0 mls/hr 11/25/17 17:45 11/26/17 09: 57 IV Solution IV 20 mcg/min .Q0M [facility] 6 mls/hr Titration Protocol Titrate Lisinopril 5 mg 11/26/17 09:00 11/26/17 09:51 Zestril PO 5 mg QAM [facility] Administration Nitroglycerin 0.4 mg 11/25/17 20:15 Nitrostat SUBLINGUAL Q5M PRN Chest Pain Carboxymethyl/Gly/ 1 drop 11/25/17 22:00 11/26/17 09:55 Poly80/Pf [Refresh BOTH EYES 1 drop Optive Roque-3 Drops] QID [facility]A Administration Latanoprostene Bunod 1 drop 11/25/17 21:00 11/25/17 23:41 [Vyzulta] BOTH EYES Not Given HS [facility] Netarsudil Mesylate 1 drop 11/25/17 21:00 11/25/17 23:41 [Rhopressa] BOTH EYES Not Given HS [facility] Pantoprazole Sodium 40 mg 11/25/17 21:00 11/25/17 23:36 Protonix PO 40 mg BID-W/MEALS [facility]A Administration Tamsulosin HCl 0.4 mg 11/25/17 21:00 11/25/17 23:36 Flomax PO 0.4 mg HS [facility] Administration Intake and Output 11/25/17 11/26/17 11/26/17 22:59 06:59 14:59 Intake Total 20.60 352.179 Output Total 1000 750 Balance -1000 20.60 -397.821 Intake: Intake, IV Titration 20.60 352.179 Amount Heparin Sod,Pork in 0.45% 328.479 NaCl 25,000 unit In 0.45 % NaCl 1 500ml.bag @ 10.2 UNITS/KG/HR 20.07 mls/hr IV .Q24H [facility] Rx#: [id number] Nitroglycerin-D5w Pmx 50 20.60 23.7 mg In Dextrose/Water 1 250ml.bag @ Titrate IV . Q0M [facility] Rx#:[id number] Output: Urine 1000 750 Other: Weight 98.43 kg 101.7 kg 11/26/17 04:33 11/25/17 15:53 Assessment and Plan Assessment: Assessment #1 acute non-ST elevation myocardial infarction #2 hypertension #3 dyslipidemia #4 valvular heart disease Plan #1 proceed with a coronary angiogram #2 obtain an echocardiogram was Doppler #3 continue the current medical regimen #4 follow-up with the patient Thank you for allowing us participate in the patient's care and we will continue following up with the patient
[2017-11-26] MEDS ORDERED: fentaNYL (PF) 50 MCG/ML 2 ML AMP IVP ONE (11:55)
[2017-11-26] MEDS ORDERED: MIDAZOLAM 2 MG/2 ML VIAL IVP ONE (11:55)
[2017-11-26] MEDS ORDERED: LIDOCAINE 1% (PF) 10MG/ML VIAL SQ ONE (11:59)
[2017-11-26] MEDS: NITROGLYCERIN-D5W PMX 50 MG in DEXTROSE/WATER 1 250ML.BAG IV SCH (12:02)
[2017-11-26] MEDS ORDERED: IV FLUID CONTINUATION 1,000 ML IV ONE (12:03)
[2017-11-26] MEDS ORDERED: IOPAMIDOL-370 50ML BTL INJ ONE (12:19)
[2017-11-26] MEDS ORDERED: IOPAMIDOL-370 125ML BTL INJ ONE (12:20)
[2017-11-26] MEDS ORDERED: RX INFO: IV CONTRAST WAS GIVEN 1 EACH MISC MISCELLANE PRN (12:26)
--- NOTE | 2017-11-26 12:35 | ECHOF ---
Referral Reason:Chest pain MEASUREMENTS -------- HEIGHT: 170.2 cm WEIGHT: 98.4 kg BP: IVSd: 1.4 cm (0.6 - 1.1) LVIDd: 2.9 cm (3.9 - 5.3) LVPWd: 1.6 cm (0.6 - 1.1) IVSs: 2.0 cm LVIDs: 1.4 cm LVPWs: 1.8 cm Ao Diam: 3.5 cm (2.0 - 3.7) AV Cusp: 2.2 cm (1.5 - 2.6) LA Diam: 3.5 cm (2.7 - 3.8) MV EXCURSION: 17.701 mm (> 18.000) MV EF SLOPE: 61 mm/s (70 - 150) EPSS: 0.8 cm MV E Gustabo: 1.12 m/s MV DecT: 326 ms MV A Gustabo: 1.25 m/s MV E/A Ratio: 0.90 RAP: 5.00 mmHg RVSP: 11.42 mmHg FINDINGS -------- Sinus rhythm. This was a technically difficult study with suboptimal views. The left ventricular size is normal. There is moderate concentric left ventricular hypertrophy. O verall left ventricular systolic function is normal with, an EF between 55 - 60 %. The right ventricle is normal in size and function. The left atrium is normal in size. The right atrium is normal in size. Lumason used Aortic valve is trileaflet and is mildly thickened. The mitral valve leaflets are mildly thickened. Mild mitral regurgitation is present. Mild tricuspid regurgitation present. The right ventricular systolic pressure, as measured by Doppl er, is 11.42mmHg. Pulmonic valve appears structurally normal. The aortic root size is normal. The pericardium is normal. CONCLUSIONS -------- 1. Sinus rhythm. 2. This was a technically difficult study with suboptimal views. 3. The left ventricular size is normal. 4. There is moderate concentric left ventricular hypertrophy. 5. Overall left ventricular systolic function is normal with, an EF between 55 - 60 %. 6. The right ventricle is normal in size and function. 7. The left atrium is normal in size. 8. The right atrium is normal in size. 9. Lumason used 10. Aortic valve is trileaflet and is mildly thickened. 11. The mitral valve leaflets are mildly thickened. 12. Mild mitral regurgitation is present. 13. Mild tricuspid regurgitation present. 14. The right ventricular systolic pressure, as measured by Doppler, is 11.42mmHg. 15. Pulmonic valve appears structurally normal. 16. The aortic root size is normal. 17. The pericardium is normal. ASSESSMENT NURSE: Cindy Odell RDCS
--- NOTE | 2017-11-26 12:36 | P.CARDCATH ---
Date of Procedure: 11/26/17 Preoperative Diagnosis: Prolonged chest pain with positive troponins Postoperative Diagnosis: Stable coronary artery disease Procedure(s) Performed: Left heart catheterization with left ventriculography Description of Procedure: HISTORY: This is a 77-year-old gentleman with history of ischemic heart disease with previous stent placement of the proximal and mid LAD, was admitted to the hospital with prolonged chest discomfort. His cardiac enzymes showed borderline elevation of troponins. Patient is advised to have a cardiac catheterization for definitive diagnosis CONSENT:I have discussed the risks, benefits and alternative therapies for the above-mentioned procedure and for both sedation/analgesia as well as necessary blood product administration, if indicated, as they pertain to this patient. The patient has indicated understanding and acceptance of the risks and procedures discussed. PROCEDURE: Patient was brought to the lab in a fasting state. Patient was given some IV sedation. The right groin is infiltrated with lidocaine and right femoral artery was entered using Seldinger technique. A 6-Burkinan catheter was left in place and selective coronary arteriography and left ventriculography was performed. Patient tolerated the procedure well. Femoral angiogram was performed and Angio-Seal was applied for hemostasis. No immediate complications were noted and patient was transferred to [facility] in a stable condition Conscious Sedation: Versed 1mg Fentanyl 50 g Duration 27minutes HEMODYNAMICS: The aortic pressure is 150/70. Left ventricular end-diastolic pressure is about 12-15. There is no gradient across the aortic valve SELECTIVE CORONARY ARTERIOGRAPHY: LEFT MAIN: Normal length and free of any occlusive disease THE LEFT ANTERIOR DESCENDING CORONARY ARTERY:. This vessel is patent at the previous stent placement in the proximal and mid LAD. The distal LAD has an area of myocardial bridging THE LEFT CIRCUMFLEX AND IS CORONARY ARTERY: This is a moderate caliber vessel giving rise to good-sized OM branch. The circumflex and branches are free of any significant occlusive disease THE RIGHT CORONARY ARTERY: Is a dominant vessel giving rise to good-sized PDA and PLV. Mild diffuse intimal plaque noted. There are collaterals from the RCA to the diagonal branch. The diagonal branch fills up all the way to the origin from the LAD LEFT VENTRICULOGRAPHY:. This revealed normal-sized cardiac silhouette with preserved LV function. Ejection fraction is 55-60% FINAL IMPRESSION: Stable coronary artery disease with patent stents in the LAD. There are collaterals to the diagonal branch from the RCA. No other significant disease noted PLAN: Continuation the maximum medical therapy and risk factor modification PROGNOSIS: GOOD
[2017-11-26] MEDS: PANTOPRAZOLE 40 MG TABLET PO SCH ×2 (14:24→19:07)
[2017-11-26] MEDS: CLOBETASOL PROP 0.05% CR 15GM TOPICAL SCH ×2 (14:44→20:25)
[2017-11-26] MEDS: SODIUM CHLORIDE 0.9% 1,000 ML IV SCH (14:44)
[2017-11-26] MEDS: ACETAMINOPHEN TAB 500 MG TAB PO PRN (16:49)
[2017-11-26] MEDS: HEPARIN SOD,PORK IN 0.45% NACL 25,000 UNIT in 0.45% NACL 1 500ML.BAG IV SCH (17:54)
[2017-11-26] MEDS: TAMSULOSIN 0.4 MG CAP.ER.24H PO SCH (20:28)
[2017-11-26] MEDS: Netarsudil Mesylate [Rhopressa] BOTH EYES SCH (20:29)
[2017-11-27 05:20] LABS: Basophils % (A) 0 %; Eosinophils # (A) 0.1 k/uL (0-0.7); Eosinophils % (A) 1 %; HCT 41.1 % (39.0-53.0); HGB 13.4 gm/dL (13.0-17.5); Lymphocytes % (A) 11 %; MCH 30.4 pg (25.0-35.0); MCHC 32.6 g/dL (31.0-37.0); MCV 93.3 fL (80.0-100.0); Mean Platelet Volume 8.9; Monocytes # (A) 0.7 k/uL (0-1.0); Monocytes % (A) 7 %; Neutrophils # (A) 7.4 k/uL (1.3-7.7); Neutrophils % (A) 80 %; Platelet Count 182 k/uL (150-450); RBC 4.41 m/uL (4.30-5.90); RDW 13.8 % (11.5-15.5); WBC 9.3 k/uL (3.8-10.6)
[2017-11-27] MEDS: SODIUM CHLORIDE 0.9% 1,000 ML IV SCH ×3 (06:53→20:35)
--- NOTE | 2017-11-27 08:02 | P.PN ---
Subjective Progress Note Date: 11/27/17 Principal diagnosis: Acute non-ST elevation CT This is a pleasant 77-year-old gentleman who sees Dr. Shepherd in the office as an outpatient with a past medical history significant for coronary artery disease and prior stenting of the LAD, hypertension, dyslipidemia, presented to the hospital complaining of chest discomfort. The patient was in his usual state of health until yesterday when he did some workup at his backyard subsequently he took a nap and he woke up to watch the football game. White he was sitting watching the football game he developed chest discomfort, on the left side of the chest, as a dull kind of discomfort, with some radiation to the left arm and left shoulder. No cystitis symptoms of shortness of breath, nausea, dizziness or lightheadedness or syncope. The EKG showed sinus rhythm without any ischemic ST or T-wave abnormalities. The cardiac enzymes were checked and came in to be slightly abnormal. The patient unfortunately continues to have a chest discomfort at about 3/10 in intensity isn't currently he is on nitro drip. On follow-up with the patient today, 11/27/2017, he denies having any chest pain or discomfort. He continues to be on nitrate IV. He did undergo a heart catheterization yesterday and that revealed mild nonobstructive coronary artery disease with patent stents in the LAD. I am going to start the patient on oral beta jessica with metoprolol, try to wean him from the nitrate IV, for possible discharge home in the next 24 hours. The echocardiogram revealed normal LV function without any significant valvular abnormalities. Objective - Vital Signs Vital signs: Vital Signs Temp 98.1 F 11/27/17 04:00 Pulse 74 11/27/17 07:00 Resp 11 L 11/27/17 07:00 BP 145/76 11/27/17 07:00 Pulse Ox 92 L 11/27/17 07:00 Intake & Output 11/26/17 11/27/17 11/27/17 18:59 06:59 18:59 Intake Total 905.179 900 75 Output Total 1675 1300 Balance -769.821 -400 75 Weight 99 kg Intake: IV 553 900 75 Sodium Chloride 0.9% 1, 525 900 75 000 ml @ 75 mls/hr IV . [id number] [facility] Rx#:[id number] Intake, IV Titration 352.179 Amount Heparin Sod,Pork in 0.45% 328.479 NaCl 25,000 unit In 0.45 % NaCl 1 500ml.bag @ 10.2 UNITS/KG/HR 20.07 mls/hr IV .Q24H [facility] Rx#: [id number] Nitroglycerin-D5w Pmx 50 23.7 mg In Dextrose/Water 1 250ml.bag @ Titrate IV . Q0M [facility] Rx#:[id number] Output: Urine 1675 1300 Other: Voiding Method Urinal - Constitutional General appearance: Present: no acute distress - Respiratory Respiratory: bilateral: CTA - Cardiovascular Rhythm: regular Heart sounds: normal: S1, S2 - Labs CBC & Chem 7: 11/27/17 04:08 11/25/17 15:53 Assessment and Plan Assessment: Assessment #1 acute non-ST elevation myocardial infarction #2 hypertension #3 dyslipidemia #4 valvular heart disease Plan #1 try to wean the patient from the nitrate IV #2 add metoprolol to the current medical regimen #3 possible discharge home in the next 24 hours #4 the echocardiogram revealed normal LV function Thank you for allowing us participate in the patient's care and we will continue following up with the patient
[2017-11-27] MEDS: METOPROLOL TARTRATE 25 MG TAB PO SCH ×2 (09:38→20:32)
[2017-11-27] MEDS: GLY BOTH EYES SCH ×4 (09:38→20:33)
[2017-11-27] MEDS: ASPIRIN 325 MG TAB PO SCH (09:38)
[2017-11-27] MEDS: POLY80 BOTH EYES SCH ×4 (09:38→20:33)
[2017-11-27] MEDS: PANTOPRAZOLE 40 MG TABLET PO SCH ×2 (09:38→18:51)
[2017-11-27] MEDS: LISINOPRIL 10 MG TAB PO SCH (09:38)
[2017-11-27] MEDS: FAMOTIDINE 20 MG TAB PO SCH ×2 (09:38→20:32)
[2017-11-27] MEDS: CARBOXYMETHYL BOTH EYES SCH ×4 (09:38→20:33)
[2017-11-27] MEDS: CLOBETASOL PROP 0.05% CR 15GM TOPICAL SCH ×2 (09:39→22:25)
--- NOTE | 2017-11-27 12:49 | PN ---
PROGRESS NOTE This is a 77-year-old white male who was brought to the emergency room with chest pain. The patient is known to have coronary artery disease and has had a stent placement in the past. The patient has been following with a wildlife protector and the patient's pain started while he was resting and watching TV and he had some exertion prior to that, he was doing some work in the yard and the pain was burning type of pain and also left parasternal area and also there was no radiation or diaphoresis. As the pain persisted, he was brought to the emergency room. In the ER, his EKG did not show any acute changes, but his troponin was slightly elevated. The patient was admitted to the hospital for further evaluation and treatment and patient was seen by wildlife protector and Dr. Shepherd did a cardiac cath and that did not show any acute changes compared to the previous catheterization for coronary angiography. The patient is currently in ICU and receiving nitro drip. The patient is not complaining of any pain now and his vital signs seemed to be stable. He has multiple other medical problems. He has history of CA of the colon and celiac disease and cancer of the esophagus and gastroesophageal reflux disease and arthritis. Currently patient seems to be fairly comfortable and vital signs stable. We will continue current treatments and the patient will be followed by the wildlife protector and he will be transferred out of ICU. His cardiac status seems stable. Prognosis is guarded. The diagnosis, prognosis and therapeutic plans were discussed in detail with the patient and his today. MMROMELIA / ETHANN: [id number] /
--- NOTE | 2017-11-27 14:49 | PN ---
PROGRESS NOTE DATE OF SERVICE: 11/27/2017 This is a 77-year-old white male who is known to have coronary artery disease and has had stent placement in the past. He was brought to the emergency room with chest pain and in the ER, his troponin was found to be elevated, but the EKG did not show any acute changes and he is also known to have hypertensive cardiovascular disease and also has history of cancer of the colon and also cancer of the esophagus and he also has hypertensive cardiovascular disease, hyperlipidemia, and arthritis and low back pain. Patient was admitted to ICU and the patient was seen by a volunteer coordinator in consultation and he had a cardiac catheterization and coronary angiogram that shows no significant change from the previous studies. There was no was no acute problems, but the patient continued to have chest pain and patient was placed on nitroglycerin glycerin IV drip and today the patient seems to have no chest pain and vital signs are stable. Dr. Hitchcock saw the patient in pain today and he is planning to wean off the nitroglycerin and if his condition remains stable, Dr. Hitchcock is planning to discharge him home tomorrow. Overall prognosis guarded. The diagnosis, prognosis and therapeutic plans were discussed in detail with the patient today. MMODL / IJN: [id number] /
[2017-11-27] MEDS: HEPARIN SOD,PORK IN 0.45% NACL 25,000 UNIT in 0.45% NACL 1 500ML.BAG IV SCH (16:25)
[2017-11-27] MEDS: TAMSULOSIN 0.4 MG CAP.ER.24H PO SCH (20:32)
[2017-11-27] MEDS: ATORVASTATIN 40 MG TAB PO SCH (20:32)
[2017-11-27] MEDS: ACETAMINOPHEN TAB 500 MG TAB PO PRN (22:23)
[2017-11-27] MEDS: Netarsudil Mesylate [Rhopressa] BOTH EYES SCH (22:24)
[2017-11-28 06:45] LABS: Basophils % (A) 0 %; Eosinophils # (A) 0.2 k/uL (0-0.7); Eosinophils % (A) 2 %; HCT 39.4 % (39.0-53.0); HGB 12.8 gm/dL (13.0-17.5); Lymphocytes # (A) 1.1 k/uL (1.0-4.8); Lymphocytes % (A) 16 %; MCH 31.1 pg (25.0-35.0); MCHC 32.6 g/dL (31.0-37.0); MCV 95.3 fL (80.0-100.0); Mean Platelet Volume 8.8; Monocytes # (A) 0.6 k/uL (0-1.0); Monocytes % (A) 8 %; Neutrophils # (A) 4.6 k/uL (1.3-7.7); Neutrophils % (A) 70 %; Platelet Count 164 k/uL (150-450); RBC 4.13 m/uL (4.30-5.90); RDW 13.6 % (11.5-15.5); WBC 6.5 k/uL (3.8-10.6)
[2017-11-28 06:50] LABS: Calcium 8.6 mg/dL (8.4-10.2); Potassium 4.5 mmol/L (3.5-5.1)
--- NOTE | 2017-11-28 06:55 | P.PN ---
Subjective Progress Note Date: 11/28/17 Principal diagnosis: Acute non-ST elevation PA This is a pleasant 77-year-old gentleman who sees Dr. Shepherd in the office as an outpatient with a past medical history significant for coronary artery disease and prior stenting of the LAD, hypertension, dyslipidemia, presented to the hospital complaining of chest discomfort. The patient was in his usual state of health until yesterday when he did some workup at his backyard subsequently he took a nap and he woke up to watch the football game. White he was sitting watching the football game he developed chest discomfort, on the left side of the chest, as a dull kind of discomfort, with some radiation to the left arm and left shoulder. No cystitis symptoms of shortness of breath, nausea, dizziness or lightheadedness or syncope. The EKG showed sinus rhythm without any ischemic ST or T-wave abnormalities. The cardiac enzymes were checked and came in to be slightly abnormal. The patient unfortunately continues to have a chest discomfort at about 3/10 in intensity isn't currently he is on nitro drip. On follow-up with the patient today, 11/28/2017, he denies having any chest pain or discomfort. He did undergo a heart catheterization yesterday and that revealed mild nonobstructive coronary artery disease with patent stents in the LAD. The echocardiogram revealed normal LV function without any significant valvular abnormalities. He is slightly bradycardic with heart rate in day 40s during the night. Because of that I would decrease the dose of metoprolol to 12.5 mg by mouth twice a day and add small dose of calcium channel jessica with Norvasc. From the cardiac vascular standpoint of view, the patient can be discharged home. Objective - Vital Signs Vital signs: Vital Signs Temp 97.2 F L 11/28/17 04:00 Pulse 45 L 11/28/17 06:00 Resp 13 11/28/17 06:00 BP 135/68 11/28/17 06:00 Pulse Ox 93 L 11/28/17 06:00 Intake & Output 11/27/17 11/27/17 11/28/17 06:59 18:59 06:59 Intake Total 104 786 4224 Output Total 1300 1250 Balance -400 -350 1140 Weight 99 kg 100 kg Intake: IV 900 900 900 Sodium Chloride 0.9% 1, 900 900 900 000 ml @ 75 mls/hr IV . [id number] SHIRA Rx#:[id number] Oral 240 Output: Urine 1300 1250 Other: Voiding Method Urinal Urinal Urinal # Voids 350 - Constitutional General appearance: Present: no acute distress - Respiratory Respiratory: bilateral: CTA - Cardiovascular Rhythm: regular Heart sounds: normal: S1, S2 - Labs CBC & Chem 7: 11/28/17 06:17 11/28/17 06:17 Labs: Abnormal Lab Results - Last 24 Hours (Table) 11/28/17 11/28/17 Range/Units 06:17 06:17 RBC 4.13 L (4.30-5.90) m/uL Hgb 12.8 L (13.0-17.5) gm/dL Chloride 109 H (98-107) mmol/L Assessment and Plan Assessment: Assessment #1 acute non-ST elevation myocardial infarction #2 hypertension #3 dyslipidemia #4 valvular heart disease Plan #1 decrease the dose of metoprolol #2 start the patient on Norvasc #3 the patient can be discharged home. Thank you for allowing us participate in the patient's care
[2017-11-28] MEDS: FAMOTIDINE 20 MG TAB PO SCH (08:41)
[2017-11-28] MEDS: PANTOPRAZOLE 40 MG TABLET PO SCH (08:41)
[2017-11-28] MEDS: LISINOPRIL 10 MG TAB PO SCH (08:41)
[2017-11-28] MEDS: ASPIRIN 325 MG TAB PO SCH (08:42)
[2017-11-28] MEDS: CARBOXYMETHYL BOTH EYES SCH ×2 (08:43→12:33)
[2017-11-28] MEDS: GLY BOTH EYES SCH ×2 (08:43→12:33)
[2017-11-28] MEDS: POLY80 BOTH EYES SCH ×2 (08:43→12:33)
[2017-11-28] MEDS: CLOBETASOL PROP 0.05% CR 15GM TOPICAL SCH (08:45)
[2017-11-28] MEDS ORDERED: METOPROLOL TARTRATE 12.5 MG TAB PO SCH (09:00)
[2017-11-28] MEDS ORDERED: amLODIPine 2.5 MG TAB PO SCH (09:00)
[2017-11-28 12:05] VITALS: RESP 18
[2017-11-28 13:15] VITALS: BP 151/100; PULSE 47
[2017-11-28 13:16] VITALS: TEMP 98.1
--- NOTE | 2018-01-07 19:49 | DS ---
DISCHARGE SUMMARY DATE OF ADMISSION: 11/25/2017 DATE OF DISCHARGE: 11/28/2017 DISCHARGE DIAGNOSES: 1. Left chest pain. 2. Acute crj-CL-efjfvarct myocardial infarction. 3. Coronary artery disease. 4. Hypertensive cardiovascular disease. 5. Hyperlipidemia. 6. Past history of carcinoma of the esophagus. 7. Past history of carcinoma of the colon. 8. History of celiac disease. 9. 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 10.Prostatic hypertrophy. This is a 77-year-old white male who developed left precordial chest pain, and he was brought to the emergency room. The patient did some yard work at home and then had his meals and after that he went to sleep and he woke up with chest pain. Sometimes it was sharp pain and at other times it was a dull ache. There was no diaphoresis or shortness of breath. He has a history of coronary artery disease and has had 2 stents in the past. In the emergency room his EKG did not show any acute changes, but his troponin was elevated. Patient was admitted to ICU and he was seen by the military nurse. For details of the physical examination at the time of admission, please refer to the history and physical. HOSPITAL COURSE: The patient was admitted to ICU and was seen by [facility]. He was placed back on his previous home medications and he was started on nitroglycerin IV drip, and his pain subsided with this. He had a cardiac catheterization that did not show any significant change from his previous catheterization, and as his pain was relieved, the military nurse okayed him for discharge. Patient was discharged home on 11/28/2017. He was advised to continue on his previous medications, which include Tylenol p.r.n. and aspirin 81 mg p.o. daily, Lipitor 40 mg p.o. daily, and he will continue with all his eyedrops and Nexium 40 mg b.i.d., Imdur 30 mg p.o. daily, lisinopril 5 mg daily, nitroglycerin sublingually p.r.n., ranitidine 150 mg b.i.d., Flomax 0.4 mg daily at bedtime, hydralazine 25 mg b.i.d. He will be followed by his military nurse in a week's time, and he will also be followed by Dr. Ruiz in one week. MMODL / IJN: [id number] /
== END 2017-11-28 14:55 | disposition home or self-care (01) | DRG 282 ==
LOC: EC 15:12 → 3SCARD 19:01 → UNDOADMIN 19:01 → 3SCARD 23:00 → 2SICU 11-26 01:41 → 3SCARD 11-26 01:41 → 2SICU 11-26 19:25
PROVIDERS: ADMIT Internal Medicine; ATTEND Internal Medicine
DX: I21.4 Non-ST elevation (NSTEMI) myocardial infarction (principal); I25.10 Atherosclerotic heart disease of native coronary artery without angina pectoris; K21.9 Gastro-esophageal reflux disease without esophagitis; E78.5 Hyperlipidemia, unspecified; H35.30 Unspecified macular degeneration; M54.5 Low back pain; I49.1 Atrial premature depolarization; M15.9 Polyosteoarthritis, unspecified; H40.9 Unspecified glaucoma; K90.0 Celiac disease; N40.0 Benign prostatic hyperplasia without lower urinary tract symptoms; I11.9 Hypertensive heart disease without heart failure; Z80.8 Family history of malignant neoplasm of other organs or systems; Z87.891 Personal history of nicotine dependence; Z95.5 Presence of coronary angioplasty implant and graft; Z85.01 Personal history of malignant neoplasm of esophagus; Z85.828 Personal history of other malignant neoplasm of skin; Z85.038 Personal history of other malignant neoplasm of large intestine; Z79.82 Long term (current) use of aspirin; Z79.899 Other long term (current) drug therapy; Z91.02 Food additives allergy status; Z91.011 Allergy to milk products; Z88.8 Allergy status to other drugs, medicaments and biological substances; Z91.018 Allergy to other foods; I25.2 Old myocardial infarction; Z87.442 Personal history of urinary calculi; Z90.49 Acquired absence of other specified parts of digestive tract; Z80.0 Family history of malignant neoplasm of digestive organs; Z80.1 Family history of malignant neoplasm of trachea, bronchus and lung; Z80.3 Family history of malignant neoplasm of breast; Z83.79 Family history of other diseases of the digestive system
CPT/HCPCS: 36415; 71046; 80048; 80053; 80061; 82550; 82553; 83735; 83880; 84484; 85025; 85610; 85730; 93005; 93306; 93458; 96365; 96366; 96368; 96376; 99285

== ENCOUNTER → 2018-03-18 | Outpatient (CLI) | payer MEDICARE ==
--- NOTE | 2018-03-18 08:32 | CT ---
EXAMINATION TYPE: CT chest wo con DATE OF EXAM: 03/18/2018 COMPARISON: Chest x-ray dated 03/12/2018 HISTORY: Cough CT DLP: 1001.9 mGycm. Automated Exposure Control for Dose Reduction was Utilized. TECHNIQUE: CT scan of the thorax is performed without IV contrast. High-resolution CT protocol limit s evaluation for subcentimeter pulmonary nodules given noncontiguous slices FINDINGS: LUNGS: There is curvilinear atelectasis surrounding the gastric pull-through. There is atelectasis is subsegmental and compressive. Linear pleural parenchymal scarring is noted at the left lung base. Th ere is no evidence of bronchiectasis, honeycombing, or interlobular septal thickening. Given the limi tations of the noncontiguous slices no suspicious pulmonary mass or nodule is identified. No evidence of air trapping, pneumothorax or pleural effusion. MEDIASTINUM: Lack of IV contrast is noted to limit evaluation for mediastinal and especially hilar ad enopathy. There are no definitive greater than 1 cm hilar or mediastinal lymph nodes. Moderate to s evere coronary artery calcifications are present. No cardiomegaly or pericardial effusion is seen. There is aneurysmal dilatation of the ascending thoracic aorta measuring up to 4.6 cm. Main pulmonary artery is also enlarged measuring 3.3 cm. OTHER: There is a polypoid protuberance of the upper esophagus/stomach as an anastomotic point is not identified. This is seen on supine lung algorithm series 8 image 4 and soft tissue algorithm image 4 . This is elongated and measures 7 mm in greatest thickness. Cholecystectomy clips are present as well as scattered colonic diverticula in the limited images of t he upper abdomen. Solitary calcified benign granuloma is also seen of the hepatic parenchyma. Moderat e multilevel degenerative changes of the thoracic spine are noted. IMPRESSION: 1. Within the gastric pull-through at the level of the sternal notch there is a polypoid structure th at could represent thickened esophageal mucosal/rugal folds, debris, or polyp and could be further ev aluated with direct visualization. Gastric pull-through is also debris filled up to the level of the thoracic inlet placing this patient at risk for aspiration. 2. No evidence of interstitial lung disease. Minimal subsegmental atelectasis surrounds the large hia ted hernia from the gastric pull-through. 3. Aneurysmal dilatation of the ascending thoracic aorta. 4. Dilatation of the main pulmonary artery suggesting underlying pulmonary arterial hypertension.
== END | disposition home or self-care (01) ==
LOC: RADCTMAIN 07:32
PROVIDERS: ATTEND Internal Medicine
DX: I71.2 Thoracic aortic aneurysm, without rupture (principal); R05 Cough
CPT/HCPCS: 71250

== ENCOUNTER → 2018-08-22 | Outpatient (CLI) | payer MEDICARE ==
[2018-08-22 07:24] LABS: Basophils % (A) 0 %; Eosinophils # (A) 0.2 k/uL (0-0.7); Eosinophils % (A) 3 %; HCT 44.6 % (39.0-53.0); HGB 14.3 gm/dL (13.0-17.5); Lymphocytes # (A) 1.4 k/uL (1.0-4.8); Lymphocytes % (A) 20 %; MCH 29.8 pg (25.0-35.0); MCHC 32.1 g/dL (31.0-37.0); MCV 92.7 fL (80.0-100.0); Mean Platelet Volume 8.5; Monocytes # (A) 0.5 k/uL (0-1.0); Monocytes % (A) 7 %; Neutrophils # (A) 4.6 k/uL (1.3-7.7); Neutrophils % (A) 68 %; Platelet Count 183 k/uL (150-450); RBC 4.81 m/uL (4.30-5.90); RDW 13.2 % (11.5-15.5); WBC 6.8 k/uL (3.8-10.6)
[2018-08-22 10:37] LABS: Erythrocyte Sedimentation Rate 8 mm/hr (0-15)
[2018-08-22 12:06] LABS: ALT 56 U/L (10-49); AST 42 U/L (14-35); African American GFR (CKD) 56.2 (60.0-200.0); Albumin/Globulin Ratio 1.95 (1.60-3.17); Alkaline Phosphatase 66 U/L (41-126); BUN/Creat Ratio 13.57 Ratio (12.00-20.00); C Reactive Protein <0.4 mg/dL (0.0-0.8); Calcium 9.8 mg/dL (8.7-10.3); Carbon Dioxide 28.4 mmol/L (21.6-31.8); Chloride 106 mmol/L (96-109); Cholesterol 122 mg/dL (0-200); Creatine Kinase 208 U/L (35-257); Globulin 2.2 g/dL (1.6-3.3); Glucose 105 mg/dL (70-110); LDL Cholesterol,Calculated 52.8 mg/dL (0.0-131.0); Magnesium 2.2 mg/dL (1.5-2.4); Potassium 4.9 mmol/L (3.5-5.5); Sodium 141 mmol/L (135-145); Total Bilirubin 1.1 mg/dL (0.3-1.2); Total Protein 6.5 g/dL (6.2-8.2); Uric Acid 4.5 mg/dL (3.7-8.7)
== END | disposition home or self-care (01) ==
LOC: LABWHC1 06:33
PROVIDERS: ATTEND Internal Medicine
DX: N40.0 Benign prostatic hyperplasia without lower urinary tract symptoms (principal); J44.9 Chronic obstructive pulmonary disease, unspecified; D64.9 Anemia, unspecified; N20.0 Calculus of kidney; I10 Essential (primary) hypertension; E78.5 Hyperlipidemia, unspecified; E55.9 Vitamin D deficiency, unspecified
CPT/HCPCS: 36415; 80053; 80061; 82306; 82550; 83735; 84153; 84443; 84550; 85025; 85652; 86140

== ENCOUNTER → 2018-08-30 | Outpatient (CLI) | payer MEDICARE ==
--- NOTE | 2018-08-30 09:13 | XR ---
EXAMINATION TYPE: XR wrist complete BILATERAL DATE OF EXAM: 08/30/2018 COMPARISON: NONE HISTORY: Pain TECHNIQUE: Four views submitted of each wrist. FINDINGS: The osseous structures are intact. There is narrowing of the radiocarpal joint bilaterally. There is arthropathy of the first carpal metacarpal joint bilaterally. Small bony density seen adjacent to the trapezium on the left may represent accessory ossicles. No erosive changes. IMPRESSION: 1. Arthritic change in a pattern most typical of osteoarthritis
[2018-08-30 11:29] LABS: Hepatitis C IgG Antibody Non-Reactive (Non-Reactive)
[2018-08-30 12:07] LABS: Anti-DNA, DS unit <1.0 IU/mL; DNA Double-Stranded NEGATIVE (NEGATIVE)
[2018-08-30 12:12] LABS: Rheumatoid Factor 9 IU/mL (0-15)
== END | disposition home or self-care (01) ==
LOC: LABWHC1 06:39
PROVIDERS: ATTEND Internal Medicine
DX: M19.90 Unspecified osteoarthritis, unspecified site (principal); K75.9 Inflammatory liver disease, unspecified; Z98.890 Other specified postprocedural states
CPT/HCPCS: 36415; 82607; 86038; 86225; 86431; 86803

== ENCOUNTER → 2018-09-03 | Outpatient (CLI) | payer MEDICARE ==
[2018-09-03 10:49] LABS: African American GFR (CKD) 55.8 (60.0-200.0); Anion Gap 8.6 mmol/L (4.00-12.00); BUN/Creat Ratio 12.86 Ratio (12.00-20.00); Calcium 9.2 mg/dL (8.7-10.3); Carbon Dioxide 26.4 mmol/L (21.6-31.8); Potassium 4.5 mmol/L (3.5-5.5)
== END | disposition home or self-care (01) ==
LOC: LABWHC1 06:32
PROVIDERS: ATTEND Internal Medicine Cardiovascular Disease
DX: I10 Essential (primary) hypertension (principal)
CPT/HCPCS: 36415; 80048

== ENCOUNTER → 2018-09-16 | Outpatient (CLI) | payer MEDICARE ==
--- NOTE | 2018-09-16 10:04 | CT ---
EXAMINATION TYPE: CT angio chest DATE OF EXAM: 09/16/2018 COMPARISON: Prior CT chest March 18, 2018 and older CTs HISTORY: Follow up aneurysm CT DLP: 485.3 mGycm. Automated Exposure Control for Dose Reduction was Utilized. CONTRAST: CTA scan of the thorax is performed with IV Contrast, patient injected with 80 mL of Isovue 370, pulm onary embolism protocol. MIP Images are created on CT scanner and reviewed. FINDINGS: LUNGS: There is persistent left greater than right bibasilar linear scarring and/or atelectasis. Subp leural subcentimeter scarlike opacity in the lingula on axial image 40 is unchanged from older CTs. N o suspicious new nodules or masses. No pleural effusion or pneumothorax. MEDIASTINUM: There is satisfactory enhancement of the pulmonary artery and its branches, there is no CT evidence for pulmonary embolism. Main pulmonary artery measures 3.3 cm in diameter axial image 30. CT findings consistent with underlying pulmonary hypertension. Adjacent ascending aorta measures up to 4.2 cm in diameter. Landing falsely measured on prior study where it is elongated due to beginning ar ch. No significant change from 2016 CT felt present. There are no greater than 1 cm hilar or mediasti nal lymph nodes. No cardiomegaly or pericardial effusion is seen. Surgical changes from esophagecto my and gastric pull-up procedure are redemonstrated. Coronary artery calcification is again seen whic h is noted marked for underlying coronary artery disease. OTHER: Cholecystectomy clips are redemonstrated. There is debris filled stomach with streak artifact from metallic intraluminal foreign body felt present axial image 59 just below diaphragm, correlate c linically. Moderate to severe multilevel anterior and lateral spurring is present. Mild generalized f at replaced atrophy of pancreas is present. IMPRESSION: 1. Stable 4.2 cm ascending aortic aneurysm. 2. Possible metallic dependent intraluminal gastric foreign body just below diaphragm, correlate clin ically. Not clearly identified on prior studies.
== END | disposition home or self-care (01) ==
LOC: RADCTMAIN 08:09
PROVIDERS: ATTEND Internal Medicine Cardiovascular Disease
DX: I71.2 Thoracic aortic aneurysm, without rupture (principal)
CPT/HCPCS: 82565; 84520; 71275; 36415; Q9967

== ENCOUNTER 2018-10-04 19:15 | Emergency (ER) | payer MEDICARE ==
[2018-10-04] MEDS ORDERED: SODIUM CHLORIDE 0.9% 1,000 ML IV STA (19:32)
[2018-10-04 19:56] LABS: Basophils % (A) 0 %; Eosinophils # (A) 0.2 k/uL (0-0.7); Eosinophils % (A) 2 %; HCT 43.3 % (39.0-53.0); HGB 14.2 gm/dL (13.0-17.5); Lymphocytes # (A) 1.4 k/uL (1.0-4.8); Lymphocytes % (A) 16 %; MCH 30.5 pg (25.0-35.0); MCHC 32.8 g/dL (31.0-37.0); MCV 93.2 fL (80.0-100.0); Mean Platelet Volume 8.5; Monocytes # (A) 0.6 k/uL (0-1.0); Monocytes % (A) 7 %; Neutrophils # (A) 6.2 k/uL (1.3-7.7); Neutrophils % (A) 72 %; Platelet Count 172 k/uL (150-450); RBC 4.65 m/uL (4.30-5.90); RDW 13.3 % (11.5-15.5); WBC 8.6 k/uL (3.8-10.6)
[2018-10-04] MEDS ORDERED: MORPHINE SULFATE 4 MG/ML SYRINGE IVP STA ×2 (19:56→22:21)
[2018-10-04] MEDS ORDERED: ONDANSETRON 4 MG/2 ML VIAL IVP STA (19:56)
[2018-10-04 20:05] LABS: Albumin 4.2 g/dL (3.5-5.0); Calcium 9.4 mg/dL (8.4-10.2); Potassium 4.8 mmol/L (3.5-5.1); Total Protein 7.1 g/dL (6.3-8.2)
--- NOTE | 2018-10-04 20:06 | ED ---
Abdominal Pain HPI - General Chief Complaint: Abdominal Pain Stated Complaint: Abd and back pain,kindney stone Time Seen by Provider: 10/04/18 19:31 Source: patient, RN notes reviewed Mode of arrival: ambulatory Limitations: no limitations - History of Present Illness Initial Comments: 78-year-old male presents emergency Department chief complaint of abdominal pain. Patient states this started last night. Patient states primarily in the mid to left side. Patient states he does have history of pancreatitis and kidney stones. Patient states it feels slightly similar. Denies any nausea or vomiting. Denies any fevers, chills, chest pain, shortness breath, diarrhea constipation. Patient has a history of appendectomy, bowel resection, colon can cer, esophageal cancer, cholecystectomy. Patient states that he feels very gassy and states this is what happened last time he had pancreatitis. - Related Data Home Medications Medication Instructions Recorded Confirmed Tamsulosin HCl 0.4 mg PO HS 08/28/13 11/25/17 Acetaminophen Tab [Tylenol] 500 mg PO Q6H PRN 09/29/14 11/25/17 hydrALAZINE HCL [Apresoline] 25 mg PO BID 09/29/14 11/25/17 Lisinopril [Prinivil] 5 mg PO QAM 06/18/15 11/25/17 Nitroglycerin Sl Tabs [Nitrostat] 0.4 mg SUBLINGUAL Q5M PRN 06/18/15 11/25/17 Clobetasol Propionate [Temovate 1 applic TOPICAL BID 07/16/15 11/25/17 0.05% Cream] Isosorbide Mononitrate ER [Imdur] 30 mg PO QAM 07/16/15 11/25/17 Aspirin 81 mg PO BID 02/10/16 11/25/17 Vit C/E/Zn/Coppr/Lutein/Zeaxan 1 cap PO BID 02/10/16 11/25/17 [Preservision Areds 2 Softgel] Carboxymethyl/Gly/Poly80/Pf 1 drop BOTH EYES QID 10/23/17 11/25/17 [Refresh Optive Roque-3 Drops] Esomeprazole Magnesium [NexIUM] 40 mg PO BID 10/23/17 11/25/17 Latanoprostene Bunod [Vyzulta] 1 drop BOTH EYES HS 10/23/17 11/25/17 Multivit-Min/FA/Lycopen/Lutein 1 tab PO BID 10/23/17 11/25/17 [Centrum Silver Tablet] Netarsudil Mesylate [Rhopressa] 1 drop BOTH EYES HS 10/23/17 11/25/17 Ranitidine HCl [Zantac] 150 mg PO BID 10/23/17 11/25/17 Atorvastatin [Lipitor] 40 mg PO HS 11/25/17 11/25/17 Allergies Allergy/AdvReac Type Severity Reaction Status Date / Time atenolol Allergy Unknown Verified 10/04/18 19:31 clopidogrel bisulfate Allergy severe Verified 10/04/18 19:31 [From Plavix] itching gluten Allergy blisters Verified 10/04/18 19:31 lactose Allergy Abdominal Verified 10/04/18 19:31 Pain prednisolone Allergy GLAUCOMA Verified 10/04/18 19:31 simvastatin Allergy Unknown Verified 10/04/18 19:31 sucralfate [From Carafate] Allergy REFLUX Verified 10/04/18 19:31 beet AdvReac CAUSES Verified 10/04/18 19:31 KIDNEY STONES PER PT [place] And Derivatives AdvReac CAUSES Verified 10/04/18 19:31 [[place]] KIDNEY STONES PER PT cocoa AdvReac CAUSES Verified 10/04/18 19:31 KIDNEY STONES PER PT coffee (Coffea arabica) AdvReac CAUSES Verified 10/04/18 19:31 KIDNEY STONES PER PT cranberry AdvReac CAUSES Verified 10/04/18 19:31 KIDNEY STONES PER PT diphenhydramine AdvReac Diarrhea Verified 10/04/18 19:31 [From Benadryl] green tea AdvReac CAUSES Verified 10/04/18 19:31 KIDNEY STONES PER PT plum AdvReac CAUSES Verified 10/04/18 19:31 KIDNEY STONES PER PT rhubarb AdvReac CAUSES Verified 10/04/18 19:31 KIDNEY STONES PER PT spinach AdvReac CAUSES Verified 10/04/18 19:31 KIDNEY STONES PER PT Sulfa (Sulfonamide AdvReac blood Verified 10/04/18 19:31 Antibiotics) disorder sweet potato AdvReac CAUSES Verified 10/04/18 19:31 KIDNEY STONES PER PT tree nut [Nut] AdvReac CAUSES Verified 10/04/18 19:31 KIDNEY STONES PER PT Review of Systems ROS Statement: Those systems with pertinent positive or pertinent negative responses have been documented in the HPI. ROS Other: All systems not noted in ROS Statement are negative. 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, varicose veins, hiatal hernia, hx ulcers, black stool, hx pancreatitis 2016, hx eczema, recent UTI- just finished rx Last Myocardial Infarction Date:: 11/25/17 History of Any Multi-Drug Resistant Organisms: None Reported Past Surgical History: Adenoidectomy, Appendectomy, Back Surgery, Bowel Resection, Cholecystectomy, Heart Catheterization With Stent, Hernia Repair, Orthopedic Surgery, Tonsillectomy Additional Past Surgical History / Comment(s): esophagectomy, colectomy, LT CAROTID ENDARTECTOMY, LUMP REMOVED FROM TONGUE, LITHOTRIPSY, CYSTOSCOPY, RT ROTATOR CUFF REPAIR, R carpal tunnel release, DEVIATED SEPTUM, , cardiac STENTS x 3, UMBILICAL HERNIA REPAIR X 2, RT inguinal hernia repair, LOWER BACK SURGERY-HAS SCREWS, BILAT CATARACTS REMOVED, vasectomy, repair of undescended testicle, Past Anesthesia/Blood Transfusion Reactions: No Reported Reaction Additional Past Anesthesia/Blood Transfusion Reaction / Comment(s): Pt has received blood in past without reaction. Date of Last Stent Placement:: 2015 Past Psychological History: No Psychological Hx Reported Smoking Status: Former smoker Past Alcohol Use History: None Reported Past Drug Use History: None Reported - Past Family History Brother(s) Family Medical History: Cancer Additional Family Medical History / Comment(s): liver and brain Mother Family Medical History: Cancer Additional Family Medical History / Comment(s): LIVER CA, BRAIN CA Sister(s) Family Medical History: Cancer Additional Family Medical History / Comment(s): BREAST CA, LUNG CA. SISTER X 2 Father Family Medical History: Osteoarthritis (OA) Additional Family Medical History / Comment(s): CELIAC DISEASE, ULCERS General Exam Limitations: no limitations General appearance: alert, in no apparent distress Head exam: Present: atraumatic, normocephalic, normal inspection Eye exam: Present: normal appearance, PERRL, EOMI. Absent: scleral icterus, conjunctival injection, periorbital swelling ENT exam: Present: normal exam, normal oropharynx, mucous membranes moist, TM's normal bilaterally Neck exam: Present: normal inspection, full ROM. Absent: tenderness, meningismus, lymphadenopathy Respiratory exam: Present: normal lung sounds bilaterally. Absent: respiratory distress, wheezes, rales, rhonchi, stridor Cardiovascular Exam: Present: regular rate, normal rhythm, normal heart sounds. Absent: systolic murmur, diastolic murmur, rubs, gallop, clicks GI/Abdominal exam: Present: soft, tenderness (Moderate mid to left-sided), normal bowel sounds. Absent: distended, guarding, rebound, rigid Back exam: Absent: CVA tenderness (R), CVA tenderness (L) Skin exam: Present: warm, dry, intact, normal color. Absent: rash Course Vital Signs 10/04/18 10/04/18 19:28 21:47 Temperature 98.3 F Pulse Rate 69 60 Respiratory 18 17 Rate Blood Pressure 128/76 114/61 O2 Sat by Pulse 97 97 Oximetry Medical Decision Making - Medical Decision Making 78-year-old male presented for abdominal pain patient and workup labs urinalysis CT there was concern for pancreatitis or kidney stone this is negative at this time. Patient does have a large area gastritis stool stool burden and this most likely is causing patient's pain given the location of patient's symptoms. Patient will be discharged with magnesium citrate we did discuss that this is causing symptoms and return parameters patient agree with plan of care. - Lab Data Result diagrams: 10/04/18 19:50 10/04/18 19:50 Lab Results 10/04/18 10/04/18 10/04/18 Range/Units 19:50 19:50 21:40 WBC 8.6 (3.8-10.6) k/uL RBC 4.65 (4.30-5.90) m/uL Hgb 14.2 (13.0-17.5) gm/dL Hct 43.3 (39.0-53.0) % MCV 93.2 (80.0-100.0) fL MCH 30.5 (25.0-35.0) pg MCHC 32.8 (31.0-37.0) g/dL RDW 13.3 (11.5-15.5) % Plt Count 172 (150-450) k/uL Neutrophils % 72 % Lymphocytes % 16 % Monocytes % 7 % Eosinophils % 2 % Basophils % 0 % Neutrophils # 6.2 (1.3-7.7) k/uL Lymphocytes # 1.4 (1.0-4.8) k/uL Monocytes # 0.6 (0-1.0) k/uL Eosinophils # 0.2 (0-0.7) k/uL Basophils # 0.0 (0-0.2) k/uL Sodium 138 (137-145) mmol/L Potassium 4.8 (3.5-5.1) mmol/L Chloride 105 (98-107) mmol/L Carbon Dioxide 26 (22-30) mmol/L Anion Gap 7 mmol/L BUN 20 (9-20) mg/dL Creatinine 1.23 (0.66-1.25) mg/dL Est GFR (CKD-EPI)AfAm 65 (>60 ml/min/1.73 sqM) Est GFR (CKD-EPI)NonAf 57 (>60 ml/min/1.73 sqM) Glucose 126 H (74-99) mg/dL Calcium 9.4 (8.4-10.2) mg/dL Total Bilirubin 1.0 (0.2-1.3) mg/dL AST 38 (17-59) U/L ALT 49 (21-72) U/L Alkaline Phosphatase 64 (38-126) U/L Total Protein 7.1 (6.3-8.2) g/dL Albumin 4.2 (3.5-5.0) g/dL Amylase 59 (30-110) U/L Lipase 70 (23-300) U/L Urine Color Yellow Urine Appearance Clear (Clear) Urine pH 6.0 (5.0-8.0) Ur Specific [place] 1.044 H (1.001-1.035) Urine Protein 1+ H (Negative) Urine Glucose (UA) Negative (Negative) Urine Ketones Negative (Negative) Urine Blood Negative (Negative) Urine Nitrite Negative (Negative) Urine Bilirubin Negative (Negative) Urine Urobilinogen <2.0 (<2.0) mg/dL Ur Leukocyte Esterase Negative (Negative) Urine RBC 6 H (0-5) /hpf Urine WBC 1 (0-5) /hpf Ur Squamous Epith Cells 1 (0-4) /hpf Urine Mucus Rare H (None) /hpf Disposition Clinical Impression: Abdominal pain, Constipation Disposition: HOME SELF-CARE Condition: Stable Instructions (If sedation given, give patient instructions): Constipation (ED) Additional Instructions: Please return to the Emergency Department if symptoms worsen or any other concerns. Is patient prescribed a controlled substance at d/c from ED?: No Referrals: Oren Price MD [Primary Care Provider] - 1-2 days Time of Disposition: 22:22
--- NOTE | 2018-10-04 20:29 | XR ---
EXAMINATION TYPE: XR KUB DATE OF EXAM: 10/04/2018 COMPARISON: 07/09/2013 HISTORY: Left flank pain TECHNIQUE: 2 views upright FINDINGS: There is large hiatal hernia. There is no sign of intestinal obstruction or pneumoperitoneu m. Fecal pattern is normal. There are clips from cholecystectomy. There is no sign of a mass. I see n o definite renal calcification. IMPRESSION: Nonacute abdomen.
--- NOTE | 2018-10-04 21:14 | CT ---
EXAMINATION TYPE: CT abdomen pelvis w con DATE OF EXAM: 10/04/2018 COMPARISON: 04/27/2016 HISTORY: Left sided flank pain and abdominal pain. CT DLP: 1658.2 mGycm Automated exposure control for dose reduction was used. TECHNIQUE: Helical acquisition of images was performed from the lung bases through the pelvis. CONTRAST: Performed without Oral Contrast and with IV Contrast, patient injected with 80ml mL of Isovue 300. FINDINGS: There is some scarring and atelectasis left lower lobe. There is large hiatal hernia. There is no per icardial effusion. There is no pleural effusion. Liver spleen pancreas appear normal. Bile ducts are not dilated. There are clips from cholecystectomy . There is no adrenal mass. There is left renal cortical thinning. There is 3 cm cortical cyst lower po le right kidney. There are renal calculi that measure up to 1 cm. Left kidney shows no hydronephrosis . Left kidney has fairly normal size and contour. Abdominal aorta is atheromatous. There is no retrop eritoneal adenopathy. Bladder distends smoothly. Ureters are not dilated. There is no inguinal hernia. There is no ascites or free air. There is no evidence of bowel obstruction. There is retained fecal material in the large bowel. There are multiple sigmoid diverticula. There is no evidence of diverticulitis. There are spo ndylotic changes in the lumbar spine. There is no compression fracture. There is L4-5 fusion surgery. The bony pelvis is intact. IMPRESSION: THERE IS SIGMOID DIVERTICULOSIS WITHOUT DIVERTICULITIS. UNCHANGED. THERE IS RIGHT RENAL ATROPHY THAT HAS PROGRESSED COMPARED TO OLD EXAM. NO RENAL OBSTRUCTION. SCARRING AND ATELECTASIS LEFT LUNG BASE UNCHANGED. THERE IS CLEARING OF THE INFLAMMATORY CHANGES OF THE PANCREATIC HEAD COMPARED TO OLD EXAM.
[2018-10-04 21:57] LABS: Appearance,Urine Clear (Clear); Bilirubin,Urine Negative (Negative); Blood,Urine Negative (Negative); Color,Urine Yellow; Glucose,Urine (UA) Negative (Negative); Ketones,Urine Negative (Negative); Leukocyte Esterase,Urine Negative (Negative); Mucus,Urine Rare /hpf; Nitrite,Urine Negative (Negative); Protein,Urine 1+ (Negative); RBC,Urine 6 /hpf (0-5); Specific Gravity,Urine 1.044 (1.001-1.035); Squamous Epithelial Cell,Urine 1 /hpf (0-4); Urobilinogen,Urine <2.0 mg/dL (<2.0); WBC,Urine 1 /hpf (0-5)
[2018-10-04] MEDS ORDERED: MAGNESIUM CITRATE 296 ML BOTTLE PO ONE (22:21)
[2018-10-04] MEDS ORDERED: BISACODYL 5 MG TABLET.DR PO ONE (22:30)
[2018-10-04 23:13] VITALS: BP 126/75; PULSE 56; RESP 18; TEMP 98.7
== END 2018-10-04 23:12 | disposition home or self-care (01) ==
LOC: EC 19:15
DX: K59.00 Constipation, unspecified (principal); I25.10 Atherosclerotic heart disease of native coronary artery without angina pectoris; H40.9 Unspecified glaucoma; K21.9 Gastro-esophageal reflux disease without esophagitis; E78.5 Hyperlipidemia, unspecified; I10 Essential (primary) hypertension; I25.2 Old myocardial infarction; M19.90 Unspecified osteoarthritis, unspecified site; N40.0 Benign prostatic hyperplasia without lower urinary tract symptoms; H35.30 Unspecified macular degeneration; Z87.891 Personal history of nicotine dependence; Z88.2 Allergy status to sulfonamides; Z88.8 Allergy status to other drugs, medicaments and biological substances; Z91.018 Allergy to other foods; Z79.82 Long term (current) use of aspirin; Z79.899 Other long term (current) drug therapy; Z85.01 Personal history of malignant neoplasm of esophagus; Z85.038 Personal history of other malignant neoplasm of large intestine; Z85.828 Personal history of other malignant neoplasm of skin; Z90.49 Acquired absence of other specified parts of digestive tract; Z92.21 Personal history of antineoplastic chemotherapy; Z87.442 Personal history of urinary calculi; Z87.19 Personal history of other diseases of the digestive system; Z98.890 Other specified postprocedural states; Z83.79 Family history of other diseases of the digestive system; Z80.0 Family history of malignant neoplasm of digestive organs
CPT/HCPCS: 36415; 80053; 82150; 83690; 85025; 81001; 74018; 74177; 99284; 96374; 96375; 96376; 96361 ×2; J2270; J2405; Q9967

== ENCOUNTER → 2018-10-11 | Outpatient (CLI) | payer MEDICARE ==
--- NOTE | 2018-10-11 08:08 | US ---
EXAMINATION TYPE: US abdomen complete DATE OF EXAM: 10/11/2018 COMPARISON: 04/30/2016 CLINICAL HISTORY: 78-year-old male R10.0 Acute Abdominal Pain. TECHNIQUE: Multiple sonographic images of the abdomen are obtained. 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 Technically difficult study. Pancreas: Obscured by bowel gas Liver: somewhat obscured by overlying bowel gas, mildly heterogeneous which may be on a technical ba sis. Gallbladder: Surgically absent Evidence for sonographic Hart's sign: no CBD: wnl Spleen: scattered echogenic foci Right Kidney: atrophied with a 1.8 cm cyst. No hydronephrosis seen Left Kidney: measures large, lobular contour. No hydronephrosis. Upper IVC: wnl Abd Aorta: mostly obscured by overlying bowel gas, small portion visualized wnl IMPRESSION: 1. Bile duct borderline dilated at 6 mm. This is normal given patient's age and postcholecystectomy s tatus. 2. Atrophic right kidney with a 1.8 cm cyst.
== END | disposition home or self-care (01) ==
LOC: RADUSWWP 06:39
PROVIDERS: ATTEND Internal Medicine
DX: N26.1 Atrophy of kidney (terminal) (principal); N28.1 Cyst of kidney, acquired
CPT/HCPCS: 76700

== ENCOUNTER → 2018-12-12 | Outpatient (CLI) | payer MEDICARE ==
--- NOTE | 2018-12-12 12:33 | XR ---
EXAMINATION TYPE: XR foot complete RT DATE OF EXAM: 12/12/2018 COMPARISON: NONE HISTORY: Pain TECHNIQUE: Three views are submitted. FINDINGS: The osseous structures are intact. There is no acute fracture or dislocation. Severe arthropathy o f the first MTP. Calcaneal spurs are noted. IMPRESSION: 1. Calcaneal spurs 2. Severe arthropathy first MTP.
== END | disposition home or self-care (01) ==
LOC: RADXRMAIN 11:49
PROVIDERS: ATTEND Internal Medicine
DX: M19.071 Primary osteoarthritis, right ankle and foot (principal)

== ENCOUNTER → 2019-02-19 | Outpatient (CLI) | payer MEDICARE ==
[2019-02-19 11:04] LABS: Basophils % (A) 0 %; Eosinophils # (A) 0.2 k/uL (0-0.7); Eosinophils % (A) 2 %; HCT 46.1 % (39.0-53.0); HGB 14.4 gm/dL (13.0-17.5); Lymphocytes # (A) 1.4 k/uL (1.0-4.8); Lymphocytes % (A) 19 %; MCH 29.8 pg (25.0-35.0); MCHC 31.2 g/dL (31.0-37.0); MCV 95.5 fL (80.0-100.0); Mean Platelet Volume 10.2; Monocytes # (A) 0.5 k/uL (0-1.0); Monocytes % (A) 7 %; Neutrophils # (A) 5.2 k/uL (1.3-7.7); Neutrophils % (A) 69 %; Platelet Count 172 k/uL (150-450); RBC 4.83 m/uL (4.30-5.90); RDW 12.7 % (11.5-15.5); WBC 7.5 k/uL (3.8-10.6)
[2019-02-19 12:00] LABS: Erythrocyte Sedimentation Rate 10 mm/hr (0-15)
[2019-02-19 17:32] LABS: Anti-DNA, DS unit <1.0 IU/mL; DNA Double-Stranded NEGATIVE (NEGATIVE)
== END | disposition home or self-care (01) ==
LOC: LABWHC1 10:32
PROVIDERS: ATTEND Internal Medicine
DX: M13.88 Other specified arthritis, other site (principal)
CPT/HCPCS: 36415; 85025; 85652; 86038; 86225

== ENCOUNTER 2019-04-24 15:46 | Emergency (ER) | payer MEDICARE ==
[2019-04-24 16:28] VITALS: RESP 18
[2019-04-24 18:15] LABS: Basophils % (A) 0 %; Eosinophils # (A) 0.1 k/uL (0-0.7); Eosinophils % (A) 1 %; HCT 43.2 % (39.0-53.0); Lymphocytes # (A) 1.2 k/uL (1.0-4.8); Lymphocytes % (A) 12 %; MCH 30.1 pg (25.0-35.0); MCHC 32.5 g/dL (31.0-37.0); MCV 92.5 fL (80.0-100.0); Monocytes # (A) 0.7 k/uL (0-1.0); Monocytes % (A) 6 %; Neutrophils # (A) 8.2 k/uL (1.3-7.7); Neutrophils % (A) 79 %; Platelet Count 172 k/uL (150-450); RBC 4.67 m/uL (4.30-5.90); RDW 13.1 % (11.5-15.5); WBC 10.5 k/uL (3.8-10.6)
[2019-04-24 18:37] LABS: Albumin 4.4 g/dL (3.5-5.0); Calcium 9.6 mg/dL (8.4-10.2); Potassium 4.1 mmol/L (3.5-5.1); Total Bilirubin 1.5 mg/dL (0.2-1.3); Total Protein 7.3 g/dL (6.3-8.2)
--- NOTE | 2019-04-24 19:07 | ED ---
General Adult HPI - General Chief complaint: GI Bleed Stated complaint: rectal bleeding/post polyp removal Time Seen by Provider: 04/24/19 18:54 Source: patient Mode of arrival: wheelchair Limitations: no limitations - History of Present Illness Initial comments: 78-year-old male patient with past medical history significant for rectal and esophageal cancer presents to the emergency department today for evaluation of rectal bleeding. Patient states he underwent colonoscopy and EGD with Dr. Jameson this morning. States that he had 30 polyps removed from the rectum and has been having bleeding since. Patient states he has had 4 bowel movements containing a large amount of clots and bright red blood. Patient states he was feeling some dizziness and weakness earlier but that seems to have resolved. Denies any nausea or vomiting. States he is having some abdominal discomfort and bloating. Denies any fever or chills. Patient states he does take a baby aspirin daily and did stop this one week prior to his procedure. Patient denies any recent rash, shortness breath, chest pain, nausea, vomiting, back pain, numbness, tingling, hematuria, dysuria, urinary urgency, urinary frequency, headache, visual changes, or any other complaints. - Related Data Home Medications Medication Instructions Recorded Confirmed Tamsulosin HCl 0.4 mg PO HS 08/28/13 04/24/19 Acetaminophen Tab [Tylenol] 500 mg PO Q6H PRN 09/29/14 04/24/19 hydrALAZINE HCL [Apresoline] 50 mg PO BID 09/29/14 04/24/19 Nitroglycerin Sl Tabs [Nitrostat] 0.4 mg SUBLINGUAL Q5M PRN 06/18/15 04/24/19 Clobetasol Propionate [Temovate 1 applic TOPICAL BID 07/16/15 04/24/19 0.05% Cream] Isosorbide Mononitrate ER [Imdur] 30 mg PO BID 07/16/15 04/24/19 Aspirin 81 mg PO BID 02/10/16 04/24/19 Vit C/E/Zn/Coppr/Lutein/Zeaxan 1 cap PO BID 02/10/16 04/24/19 [Preservision Areds 2 Softgel] Carboxymethyl/Gly/Poly80/Pf 1 drop BOTH EYES QID 10/23/17 04/24/19 [Refresh Optive Roque-3 Drops] Esomeprazole Magnesium [NexIUM] 40 mg PO BID 10/23/17 04/24/19 Multivit-Min/FA/Lycopen/Lutein 1 tab PO BID 10/23/17 04/24/19 [Centrum Silver Tablet] Netarsudil Mesylate [Rhopressa] 1 drop BOTH EYES HS 10/23/17 04/24/19 Atorvastatin [Lipitor] 40 mg PO HS 11/25/17 04/24/19 Brimonidine Tartrate/Timolol 1 drop BOTH EYES BID 04/21/19 04/24/19 [Combigan 0.2%-0.5% Eye Drops] Famotidine [Pepcid] 20 mg PO BID 04/21/19 04/24/19 Fesoterodine Fumarate [Toviaz] 4 mg PO DAILY 04/21/19 04/24/19 Losartan [Cozaar] 50 mg PO DAILY 04/21/19 04/24/19 Allergies Allergy/AdvReac Type Severity Reaction Status Date / Time atenolol Allergy Unknown Verified 04/24/19 16:25 clopidogrel bisulfate Allergy severe Verified 04/24/19 16:25 [From Plavix] itching gluten Allergy blisters Verified 04/24/19 16:25 lactose Allergy Abdominal Verified 04/24/19 16:25 Pain prednisolone Allergy GLAUCOMA Verified 04/24/19 16:25 simvastatin Allergy Unknown Verified 04/24/19 16:25 sucralfate [From Carafate] Allergy REFLUX Verified 04/24/19 16:25 beet AdvReac CAUSES Verified 04/24/19 16:25 KIDNEY STONES PER PT [place] And Derivatives AdvReac CAUSES Verified 04/24/19 16:25 [[place]] KIDNEY STONES PER PT cocoa AdvReac CAUSES Verified 04/24/19 16:25 KIDNEY STONES PER PT coffee (Coffea arabica) AdvReac CAUSES Verified 04/24/19 16:25 KIDNEY STONES PER PT cranberry AdvReac CAUSES Verified 04/24/19 16:25 KIDNEY STONES PER PT diphenhydramine AdvReac Diarrhea Verified 04/24/19 16:25 [From Benadryl] green tea AdvReac CAUSES Verified 04/24/19 16:25 KIDNEY STONES PER PT plum AdvReac CAUSES Verified 04/24/19 16:25 KIDNEY STONES PER PT rhubarb AdvReac CAUSES Verified 04/24/19 16:25 KIDNEY STONES PER PT spinach AdvReac CAUSES Verified 04/24/19 16:25 KIDNEY STONES PER PT Sulfa (Sulfonamide AdvReac blood Verified 04/24/19 16:25 Antibiotics) disorder sweet potato AdvReac CAUSES Verified 04/24/19 16:25 KIDNEY STONES PER PT tree nut [Nut] AdvReac CAUSES Verified 04/24/19 16:25 KIDNEY STONES PER PT Review of Systems ROS Statement: Those systems with pertinent positive or pertinent negative responses have been documented in the HPI. ROS Other: All systems not noted in ROS Statement are negative. 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, varicose veins, hiatal hernia, hx ulcers, black stool, hx pancreatitis 2016, hx eczema, CHANGE IN BOWEL HABITS Last Myocardial Infarction Date:: 11/25/17 History of Any Multi-Drug Resistant Organisms: None Reported Past Surgical History: Adenoidectomy, Appendectomy, Back Surgery, Bowel Resection, Cholecystectomy, Heart Catheterization With Stent, Hernia Repair, Orthopedic Surgery, Tonsillectomy Additional Past Surgical History / Comment(s): esophagectomy, colectomy, LT C AROTID ENDARTECTOMY, LUMP REMOVED FROM TONGUE, LITHOTRIPSY, CYSTOSCOPY, RT ROTATOR CUFF REPAIR, R carpal tunnel release, DEVIATED SEPTUM, , cardiac STENTS x 3, UMBILICAL HERNIA REPAIR X 2, RT inguinal hernia repair, LOWER BACK SURGERY-HAS SCREWS, BILAT CATARACTS REMOVED, vasectomy, repair of undescended testicle, COLONOSCOPY, EGD Past Anesthesia/Blood Transfusion Reactions: No Reported Reaction Additional Past Anesthesia/Blood Transfusion Reaction / Comment(s): Pt has received blood in past without reaction. Date of Last Stent Placement:: 2015 Past Psychological History: No Psychological Hx Reported Smoking Status: Former smoker Past Alcohol Use History: None Reported Past Drug Use History: None Reported - Past Family History Brother(s) Family Medical History: Cancer Additional Family Medical History / Comment(s): liver and brain Mother Family Medical History: Cancer Additional Family Medical History / Comment(s): LIVER CA, BRAIN CA Sister(s) Family Medical History: Cancer Additional Family Medical History / Comment(s): BREAST CA, LUNG CA. SISTER X 2 Father Family Medical History: Osteoarthritis (OA) Additional Family Medical History / Comment(s): CELIAC DISEASE, ULCERS General Exam Limitations: no limitations General appearance: alert, in no apparent distress, other (Physical well-develo ped, well-nourished elderly male patient in no acute distress. Vital signs upon presentation are temperature 97.5F, pulse 58, respirations 18, blood pressure 156/76, pulse ox 96% on room air.) Eye exam: Present: normal appearance, PERRL, EOMI. Absent: scleral icterus, con junctival injection, periorbital swelling ENT exam: Present: normal exam, normal oropharynx, mucous membranes moist Respiratory exam: Present: normal lung sounds bilaterally. Absent: respiratory distress, wheezes, rales, rhonchi, stridor Cardiovascular Exam: Present: regular rate, normal rhythm, normal heart sounds. Absent: systolic murmur, diastolic murmur, rubs, gallop, clicks GI/Abdominal exam: Present: soft, tenderness (Left-sided abdominal tenderness), normal bowel sounds. Absent: distended, guarding, rebound, rigid Neurological exam: Present: alert, oriented X3, CN II-XII intact Psychiatric exam: Present: normal affect, normal mood Skin exam: Present: warm, dry, intact, normal color. Absent: rash Course Vital Signs 04/24/19 04/24/19 04/24/19 16:25 19:18 20:17 Temperature 97.5 F L 97.5 F L Pulse Rate 58 L 73 72 Respiratory 18 18 18 Rate Blood Pressure 156/76 135/91 119/67 O2 Sat by Pulse 96 97 98 Oximetry 04/24/19 21:12 Temperature 98 F Pulse Rate 74 Respiratory 18 Rate Blood Pressure 136/71 O2 Sat by Pulse 98 Oximetry EKG Findings - EKG Comments: EKG Findings:: EKG obtained at 1750 shows normal sinus rhythm with a ventricular rate of 60, MD interval 208, QR restorationism 94, QTC 424, QTC 424. No evidence of ST elevation or depression. Medical Decision Making - Medical Decision Making 78-year-old male patient presents to the emergency department today for evaluation of rectal bleeding. Patient did have a colonoscopy this morning with 30 polyps removed from his rectum. Patient states he has had 4 bowel movements containing bright red blood and a large amount of clots. Patient had 2 bowel movements since arriving to the hospital with similar output. Labs reviewed and revealed normal hemoglobin. IV fluids were given. Case was discussed with Dr. Jameson who recommends discontinuing the patient's aspirin and multivitamin for the next three days. Giving IV fluids. Also, continue his plan to follow up in her office on Sunday. Patient's v/s remained stable while in the emergency department. Patient denies any dizziness and was ambulating to the bathroom without difficulty. He'll be discharged to follow-up with her on Sunday as planned. He is instructed to return here immediately for any new, worsening, or concerning symptoms. Return parameters were discussed in detail. He verbalizes understanding and agrees with this plan. - Lab Data Result diagrams: 04/24/19 17:58 04/24/19 17:58 Lab Results 04/24/19 04/24/19 04/24/19 Range/Units 17:58 17:58 17:58 WBC 10.5 (3.8-10.6) k/uL RBC 4.67 (4.30-5.90) m/uL Hgb 14.0 (13.0-17.5) gm/dL Hct 43.2 (39.0-53.0) % MCV 92.5 (80.0-100.0) fL MCH 30.1 (25.0-35.0) pg MCHC 32.5 (31.0-37.0) g/dL RDW 13.1 (11.5-15.5) % Plt Count 172 (150-450) k/uL Neutrophils % 79 % Lymphocytes % 12 % Monocytes % 6 % Eosinophils % 1 % Basophils % 0 % Neutrophils # 8.2 H (1.3-7.7) k/uL Lymphocytes # 1.2 (1.0-4.8) k/uL Monocytes # 0.7 (0-1.0) k/uL Eosinophils # 0.1 (0-0.7) k/uL Basophils # 0.0 (0-0.2) k/uL APTT 29.4 (22.0-30.0) sec Sodium 137 (137-145) mmol/L Potassium 4.1 (3.5-5.1) mmol/L Chloride 100 (98-107) mmol/L Carbon Dioxide 28 (22-30) mmol/L Anion Gap 9 mmol/L BUN 21 H (9-20) mg/dL Creatinine 1.33 H (0.66-1.25) mg/dL Est GFR (CKD-EPI)AfAm 60 (>60 ml/min/1.73 sqM) Est GFR (CKD-EPI)NonAf 52 (>60 ml/min/1.73 sqM) Glucose 91 (74-99) mg/dL Calcium 9.6 (8.4-10.2) mg/dL Total Bilirubin 1.5 H (0.2-1.3) mg/dL AST 45 (17-59) U/L ALT 36 (4-49) U/L Alkaline Phosphatase 67 (38-126) U/L Troponin I (0.000-0.034) ng/mL Total Protein 7.3 (6.3-8.2) g/dL Albumin 4.4 (3.5-5.0) g/dL 04/24/19 Range/Units 17:58 WBC (3.8-10.6) k/uL RBC (4.30-5.90) m/uL Hgb (13.0-17.5) gm/dL Hct (39.0-53.0) % MCV (80.0-100.0) fL MCH (25.0-35.0) pg MCHC (31.0-37.0) g/dL RDW (11.5-15.5) % Plt Count (150-450) k/uL Neutrophils % % Lymphocytes % % Monocytes % % Eosinophils % % Basophils % % Neutrophils # (1.3-7.7) k/uL Lymphocytes # (1.0-4.8) k/uL Monocytes # (0-1.0) k/uL Eosinophils # (0-0.7) k/uL Basophils # (0-0.2) k/uL APTT (22.0-30.0) sec Sodium (137-145) mmol/L Potassium (3.5-5.1) mmol/L Chloride (98-107) mmol/L Carbon Dioxide (22-30) mmol/L Anion Gap mmol/L BUN (9-20) mg/dL Creatinine (0.66-1.25) mg/dL Est GFR (CKD-EPI)AfAm (>60 ml/min/1.73 sqM) Est GFR (CKD-EPI)NonAf (>60 ml/min/1.73 sqM) Glucose (74-99) mg/dL Calcium (8.4-10.2) mg/dL Total Bilirubin (0.2-1.3) mg/dL AST (17-59) U/L ALT (4-49) U/L Alkaline Phosphatase (38-126) U/L Troponin I <0.012 (0.000-0.034) ng/mL Total Protein (6.3-8.2) g/dL Albumin (3.5-5.0) g/dL - Radiology Data Radiology results: report reviewed, image reviewed 2 views of the abdomen are obtained. Report was reviewed in its entirety. Impression by Dr. Gracy England shows no definite acute radiographic process. Disposition Clinical Impression: Rectal bleeding Disposition: HOME SELF-CARE Condition: Good Instructions (If sedation given, give patient instructions): Gastrointestinal Bleeding (ED) Additional Instructions: Follow up with Dr. Jameson tomorrow. Do NOT take your aspirin or multivitamin for the next three days. Increase fluids. Rest. Return to the emergency department immediately for increased bleeding, dizziness, fainting, or any other concerning symptoms. Is patient prescribed a controlled substance at d/c from ED?: No Referrals: Oren Price MD [Primary Care Provider] - 1-2 days Veronica Jameson MD [STAFF PHYSICIAN] - 1-2 days Time of Disposition: 21:20
--- NOTE | 2019-04-24 19:37 | XR ---
EXAMINATION TYPE: XR KUB DATE OF EXAM: 04/24/2019 7:15 PM CLINICAL HISTORY: Pain TECHNIQUE: 2 upright views COMPARISON: 10/04/2018 FINDINGS: There is no pneumatosis or pneumoperitoneum. Scattered gas is seen in non-distended small bowel loops. Gas and fecal material is seen in non-diste nded colon. Excessive colonic stool noted within the descending and rectosigmoid. The osseous structures are intact. Visualized lung bases and pleural spaces are unremarkable. IMPRESSION: No definite acute radiographic process.
[2019-04-24] MEDS ORDERED: SODIUM CHLORIDE 0.9% 1,000 ML IV ONE (19:45)
[2019-04-24 21:12] VITALS: BP 136/71; PULSE 74; TEMP 98
== END 2019-04-24 21:38 | disposition home or self-care (01) ==
LOC: EC 15:46
DX: K62.5 Hemorrhage of anus and rectum (principal); I25.10 Atherosclerotic heart disease of native coronary artery without angina pectoris; E78.5 Hyperlipidemia, unspecified; I10 Essential (primary) hypertension; K21.9 Gastro-esophageal reflux disease without esophagitis; I25.2 Old myocardial infarction; N40.0 Benign prostatic hyperplasia without lower urinary tract symptoms; H40.9 Unspecified glaucoma; Z85.01 Personal history of malignant neoplasm of esophagus; Z92.21 Personal history of antineoplastic chemotherapy; Z85.038 Personal history of other malignant neoplasm of large intestine; Z85.828 Personal history of other malignant neoplasm of skin; Z95.5 Presence of coronary angioplasty implant and graft; Z87.891 Personal history of nicotine dependence; Z90.49 Acquired absence of other specified parts of digestive tract; Z98.890 Other specified postprocedural states; Z79.52 Long term (current) use of systemic steroids; Z79.82 Long term (current) use of aspirin; Z79.899 Other long term (current) drug therapy; Z88.8 Allergy status to other drugs, medicaments and biological substances; Z91.018 Allergy to other foods; Z91.011 Allergy to milk products; Z88.2 Allergy status to sulfonamides
CPT/HCPCS: 36415; 74018; 80053; 84484; 85025; 85730; 93005; 96360; 99284

== ENCOUNTER → 2019-04-24 | Day surgery (SDC) | payer MEDICARE ==
[2019-04-21 11:57] VITALS: BMI 34.4
[~2019-04-24] MED LIST changes: +LACTATED RINGERS 1,000 ML IV ONE; -LACTATED RINGERS 1,000 ML IV SCH; +LIDOCAINE 1% INJ 10MG/ML (20 ML MDV) ONE; +PROPOFOL 10 MG/ML 20 ML VIAL IV ONE
[2019-04-24 07:17] VITALS: TEMP 96.8
--- NOTE | 2019-04-24 07:42 | P.GSCN ---
History of Present Illness Consult date: 04/24/19 History of present illness: CHIEF COMPLAINT: GERD and colon screen HISTORY OF PRESENT ILLNESS: The patient is a 78-year-old male who presents with gastroesophageal reflux disease and need for colon screen. Upper and lower endoscopy were offered for further evaluation and management. PAST MEDICAL HISTORY: Please see list. PAST SURGICAL HISTORY: Please see list. MEDICATIONS: Please see list. ALLERGIES: Please see list. SOCIAL HISTORY: No illicit drug use FAMILY HISTORY: No reports of Crohn disease or ulcerative colitis. REVIEW OF ORGAN SYSTEMS: CONSTITUTIONAL: No reports of fevers or chills. GI: Denies any blood in stools or constipation. PHYSICAL EXAM: VITAL SIGNS: Stable GENERAL: Well-developed pleasant in no acute distress. HEENT: No scleral icterus. Extraocular movements grossly intact. Moist buccal mucosa. NECK: Supple without lymphadenopathy. CHEST: Unlabored respirations. Equal bilateral excursions. CARDIOVASCULAR: Regular rate and rhythm. Distal 2+ pulses. ABDOMEN: Soft, nondistended. MUSCULOSKELETAL: No clubbing, cyanosis, or edema. ASSESSMENT: 1. Gastroesophageal reflux disease 2. Colon screen. PLAN: 1. 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, varicose veins, hiatal hernia, hx ulcers, black stool, hx pancreatitis 2016, hx eczema, CHANGE IN BOWEL HABITS Last Myocardial Infarction Date:: 11/25/17 History of Any Multi-Drug Resistant Organisms: None Reported Past Surgical History: Adenoidectomy, Appendectomy, Back Surgery, Bowel Resection, Cholecystectomy, Heart Catheterization With Stent, Hernia Repair, Orthopedic Surgery, Tonsillectomy Additional Past Surgical History / Comment(s): esophagectomy, colectomy, LT CAROTID ENDARTECTOMY, LUMP REMOVED FROM TONGUE, LITHOTRIPSY, CYSTOSCOPY, RT ROTATOR CUFF REPAIR, R carpal tunnel release, DEVIATED SEPTUM, , cardiac STENTS x 3, UMBILICAL HERNIA REPAIR X 2, RT inguinal hernia repair, LOWER BACK SURGERY- HAS SCREWS, BILAT CATARACTS REMOVED, vasectomy, repair of undescended testicle, COLONOSCOPY, EGD Past Anesthesia/Blood Transfusion Reactions: No Reported Reaction Additional Past Anesthesia/Blood Transfusion Reaction / Comm: Pt has received blood in past without reaction. Date of Last Stent Placement:: 2015 Smoking Status: Former smoker - Past Family History Brother(s) Family Medical History: Cancer Additional Family Medical History / Comment(s): liver and brain Mother Family Medical History: Cancer Additional Family Medical History / Comment(s): LIVER CA, BRAIN CA Sister(s) Family Medical History: Cancer Additional Family Medical History / Comment(s): BREAST CA, LUNG CA. SISTER X 2 Father Family Medical History: Osteoarthritis (OA) Additional Family Medical History / Comment(s): CELIAC DISEASE, ULCERS Medications and Allergies Home Medications Medication Instructions Recorded Confirmed Type Tamsulosin HCl 0.4 mg PO HS 08/28/13 04/24/19 History Acetaminophen Tab [Tylenol] 500 mg PO Q6H PRN 09/29/14 04/24/19 History hydrALAZINE HCL [Apresoline] 50 mg PO BID 09/29/14 04/24/19 History Nitroglycerin Sl Tabs [Nitrostat] 0.4 mg SUBLINGUAL Q5M PRN 06/18/15 04/24/19 History Clobetasol Propionate [Temovate 1 applic TOPICAL BID 07/16/15 04/24/19 History 0.05% Cream] Isosorbide Mononitrate ER [Imdur] 30 mg PO BID 07/16/15 04/24/19 History Aspirin 81 mg PO BID 02/10/16 04/24/19 History Vit C/E/Zn/Coppr/Lutein/Zeaxan 1 cap PO BID 02/10/16 04/24/19 History [Preservision Areds 2 Softgel] Carboxymethyl/Gly/Poly80/Pf 1 drop BOTH EYES QID 10/23/17 04/24/19 History [Refresh Optive Roque-3 Drops] Esomeprazole Magnesium [NexIUM] 40 mg PO BID 10/23/17 04/24/19 History Multivit-Min/FA/Lycopen/Lutein 1 tab PO BID 10/23/17 04/24/19 History [Centrum Silver Tablet] Netarsudil Mesylate [Rhopressa] 1 drop BOTH EYES HS 10/23/17 04/24/19 History Atorvastatin [Lipitor] 40 mg PO HS 11/25/17 04/24/19 History Brimonidine Tartrate/Timolol 1 drop BOTH EYES BID 04/21/19 04/24/19 History [Combigan 0.2%-0.5% Eye Drops] Famotidine [Pepcid] 20 mg PO BID 04/21/19 04/24/19 History Fesoterodine Fumarate [Toviaz] 4 mg PO DAILY 04/21/19 04/24/19 History Losartan [Cozaar] 50 mg PO DAILY 04/21/19 04/24/19 History Allergies Allergy/AdvReac Type Severity Reaction Status Date / Time atenolol Allergy Unknown Verified 04/21/19 11:39 clopidogrel bisulfate Allergy severe Verified 04/21/19 11:39 [From Plavix] itching gluten Allergy blisters Verified 04/21/19 11:39 lactose Allergy Abdominal Verified 04/21/19 11:39 Pain prednisolone Allergy GLAUCOMA Verified 04/21/19 11:39 simvastatin Allergy Unknown Verified 04/21/19 11:39 sucralfate [From Carafate] Allergy REFLUX Verified 04/21/19 11:39 beet AdvReac CAUSES Verified 04/21/19 11:39 KIDNEY STONES PER PT [place] And Derivatives AdvReac CAUSES Verified 04/21/19 11:39 [[place]] KIDNEY STONES PER PT cocoa AdvReac CAUSES Verified 04/21/19 11:39 KIDNEY STONES PER PT coffee (Coffea arabica) AdvReac CAUSES Verified 04/21/19 11:39 KIDNEY STONES PER PT cranberry AdvReac CAUSES Verified 04/21/19 11:39 KIDNEY STONES PER PT diphenhydramine AdvReac Diarrhea Verified 04/21/19 11:39 [From Benadryl] green tea AdvReac CAUSES Verified 04/21/19 11:39 KIDNEY STONES PER PT plum AdvReac CAUSES Verified 04/21/19 11:39 KIDNEY STONES PER PT rhubarb AdvReac CAUSES Verified 04/21/19 11:39 KIDNEY STONES PER PT spinach AdvReac CAUSES Verified 04/21/19 11:39 KIDNEY STONES PER PT Sulfa (Sulfonamide AdvReac blood Verified 04/21/19 11:39 Antibiotics) disorder sweet potato AdvReac CAUSES Verified 04/21/19 11:39 KIDNEY STONES PER PT tree nut [Nut] AdvReac CAUSES Verified 04/21/19 11:39 KIDNEY STONES PER PT Surgical - Exam Vital Signs Temp Pulse Resp BP Pulse Ox 96.8 F L 66 14 128/62 97 04/24/19 07:16 04/24/19 07:16 04/24/19 07:16 04/24/19 07:16 04/24/19 07:16
--- NOTE | 2019-04-24 07:54 | P.PCN ---
Date of Procedure: 04/24/19 Description of Procedure: PREOPERATIVE DIAGNOSIS: History of esophageal cancer Gastroesophageal reflux disease Dysphagia Diaphragmatic hiatal hernia POSTOPERATIVE DIAGNOSIS: Gastric pull-through with esophagogastrostomy History of esophageal cancer Gastroesophageal reflux disease Dysphagia Diaphragmatic hiatal hernia Gastroparesis OPERATION: Esophagogastroduodenoscopy SURGEON: Veronica Jameson MD ANESTHESIA: MAC. INDICATIONS: The patient is a 78-year-old male with history of esophageal cancer status post esophagectomy and gastric pull-through. Benefits and risks of the procedure were described. Informed consent was obtained. DESCRIPTION: The patient was brought into the endoscopy suite and laid in the left lateral decubitus position. An Olympus gastroscope was passed along the posterior oropharynx where the anastomosis of the gastric pull-through. The entire stomach had from that food. The first through third portion of the duodenum was examined and unremarkable. Retroflexion of the scope confirmed Hill grade 4 lower esophageal valve consistent with his gastric pull-through. The stomach was desufflated. The patient tolerated the procedure well. FINDINGS: Gastric pull-through with cervical gastric anastomosis along the proximal esophagus Retained food consistent with gastroparesis No recurrent esophageal cancer along the anastomosis Hill grade 4 diaphragmatic hiatus RECOMMENDATIONS: Upper endoscopy as needed. Recommend referral to thoracic surgeon for persistent diaphragmatic hiatus hernia Treatment for gastroparesis
[2019-04-24 09:04] VITALS: RESP 16
[2019-04-24 09:09] VITALS: BP 123/76; PULSE 55
--- NOTE | 2019-04-24 15:38 | P.PCN ---
Date of Procedure: 04/24/19 Description of Procedure: PREOPERATIVE DIAGNOSIS: Personal history of colon cancer Colon cancer surveillance POSTOPERATIVE DIAGNOSIS: Personal history of colon cancer Colon cancer surveillance Tubular adenoma decending colon Tubular adenoma transverse colon Sigmoid diverticulosis Internal hemorrhoids, grade 2 OPERATION: Colonoscopy to the ileocecal valve and appendiceal orifice. Colonoscopy with multiple hot snare polypectomies Colonoscopy with cold forceps biopsies SURGEON: Veronica Jameson MD. ANESTHESIA: MAC. INDICATIONS: The patient is an 78-year-old male who presents with personal history of colon cancer. Last colonoscopy 2 years ago. Benefits and risks were described and informed consent was obtained. DESCRIPTION OF PROCEDURE: The patient had undergone MiraLAX for 1 week followed by Suprep. He had been brought into the operating room and laid in the left lateral decubitus position. After adequate intravenous sedation, the rectum was examined with 2% lidocaine jelly. The prostate fossa was unremarkable. No external hemorrhoids were encountered. The rectal tone was within normal limits. No lesions were palpated in the rectal vault. An Olympus colonoscope was advanced to the ileocolic anastomosis. The prep was fair with residual stool and undigested food. Sigmoid diverticulosis was encountered. Multiple colonic polyps were found and snare polypectomy or removed with cold forceps. No evidence of focal colitis was found. Retroflexion of the scope demonstrated grade 2 internal hemorrhoids without active bleeding or inflammation. The colon was desufflated. The patient had tolerated the procedure well. Withdrawal time was over 6 minutes. FINDINGS: Aronchick preparation quality scale 3 (1-5) Internal hemorrhoids, grade 2 No external hemorrhoids No arteriovenous malformations. Sigmoid diverticulosis, moderate to severe Ileocolic anastomosis consistent with right hemicolectomy Removal of 14 polyps: - Snare polypectomy 55 cm from the anal verge, 10 mm flat villous adenoma polyp, descending colon - Snare polypectomy 48 cm from the anal verge, 6 mm flat villous adenoma polyp, descending colon - Snare polypectomy 45 cm from the anal verge, 7 mm flat villous adenoma polyp, descending colon - Snare polypectomy 40 cm from the anal verge, 6 mm flat villous adenoma polyp, descending colon - Snare polypectomy 35 cm from the anal verge, 8 mm flat villous adenoma polyp, descending colon - Snare polypectomy 30 cm from the anal verge, 10 mm flat villous adenoma polyp, descending colon - Cold forceps biopsy at 75 cm from the anal verge, 4 mm polyp, distal transverse colon - Cold forceps biopsy at 50 cm from the anal verge x 2, 3 to 4 mm polyp, descending colon - Cold forceps biopsy at 55 cm from the anal verge x 2, 4 to 5 mm polyp, descending colon - Cold forceps biopsy at 70 cm, 5 mm polyp, distal transverse colon - Cold forceps biopsy at ileocolic anastomosis x 2, 3 to 4 mm polyp. No focal colitis. RECOMMENDATIONS: Given severity of tubular adenomas, recommend repeat colonoscopy 1 year, 2020 Plan - Discharge Summary Discharge Rx Participant: No New Discharge Prescriptions: Continue Tamsulosin HCl 0.4 mg PO HS Acetaminophen Tab [Tylenol] 500 mg PO Q6H PRN PRN Reason: Pain hydrALAZINE HCL [Apresoline] 50 mg PO BID Nitroglycerin Sl Tabs [Nitrostat] 0.4 mg SUBLINGUAL Q5M PRN PRN Reason: Chest Pain Isosorbide Mononitrate ER [Imdur] 30 mg PO BID Clobetasol Propionate [Temovate 0.05% Cream] 1 applic TOPICAL BID Aspirin 81 mg PO BID Vit C/E/Zn/Coppr/Lutein/Zeaxan [Preservision Areds 2 Softgel] 1 cap PO BID Carboxymethyl/Gly/Poly80/Pf [Refresh Optive Roque-3 Drops] 1 drop BOTH EYES QID Netarsudil Mesylate [Rhopressa] 1 drop BOTH EYES HS Esomeprazole Magnesium [NexIUM] 40 mg PO BID Multivit-Min/FA/Lycopen/Lutein [Centrum Silver Tablet] 1 tab PO BID Atorvastatin [Lipitor] 40 mg PO HS Losartan [Cozaar] 50 mg PO DAILY Fesoterodine Fumarate [Toviaz] 4 mg PO DAILY Famotidine [Pepcid] 20 mg PO BID Brimonidine Tartrate/Timolol [Combigan 0.2%-0.5% Eye Drops] 1 drop BOTH EYES BID Discharge Medication List Tamsulosin HCl 0.4 mg PO HS 08/28/13 [History] Acetaminophen Tab [Tylenol] 500 mg PO Q6H PRN 09/29/14 [History] hydrALAZINE HCL [Apresoline] 50 mg PO BID 09/29/14 [History] Nitroglycerin Sl Tabs [Nitrostat] 0.4 mg SUBLINGUAL Q5M PRN 06/18/15 [History] Clobetasol Propionate [Temovate 0.05% Cream] 1 applic TOPICAL BID 07/16/15 [History] Isosorbide Mononitrate ER [Imdur] 30 mg PO BID 07/16/15 [History] Aspirin 81 mg PO BID 02/10/16 [History] Vit C/E/Zn/Coppr/Lutein/Zeaxan [Preservision Areds 2 Softgel] 1 cap PO BID 02/10/16 [History] Carboxymethyl/Gly/Poly80/Pf [Refresh Optive Roque-3 Drops] 1 drop BOTH EYES QID 10/23/17 [History] Esomeprazole Magnesium [NexIUM] 40 mg PO BID 10/23/17 [History] Multivit-Min/FA/Lycopen/Lutein [Centrum Silver Tablet] 1 tab PO BID 10/23/17 [History] Netarsudil Mesylate [Rhopressa] 1 drop BOTH EYES HS 10/23/17 [History] Atorvastatin [Lipitor] 40 mg PO HS 11/25/17 [History] Brimonidine Tartrate/Timolol [Combigan 0.2%-0.5% Eye Drops] 1 drop BOTH EYES BID 04/21/19 [History] Famotidine [Pepcid] 20 mg PO BID 04/21/19 [History] Fesoterodine Fumarate [Toviaz] 4 mg PO DAILY 04/21/19 [History] Losartan [Cozaar] 50 mg PO DAILY 04/21/19 [History] Follow up Appointment(s)/Referral(s): Veronica Jameson MD [STAFF PHYSICIAN] - 05/08/19 4:30 pm Patient Instructions/Handouts: *Surgery [facility] - (Anesthesia) Endoscopy Discharge Instructions, Diverticulosis (DC), Colorectal Polyps (DC), Diverticulosis Diet (GEN), Gastroparesis (ED) Activity/Diet/Wound Care/Special Instructions: Repeat colonoscopy 1 year, 2020 Discharge Disposition: HOME SELF-CARE
== END | disposition home or self-care (01) ==
LOC: ORWHC2ENDO 06:51
PROVIDERS: ATTEND Surgery Plastic and Reconstructive Surgery
DX: Z12.11 Encounter for screening for malignant neoplasm of colon (principal); K63.89 Other specified diseases of intestine; K52.9 Noninfective gastroenteritis and colitis, unspecified; K63.5 Polyp of colon; D12.4 Benign neoplasm of descending colon; K57.30 Diverticulosis of large intestine without perforation or abscess without bleeding; K64.1 Second degree hemorrhoids; K31.84 Gastroparesis; K21.9 Gastro-esophageal reflux disease without esophagitis; K44.9 Diaphragmatic hernia without obstruction or gangrene; Z85.038 Personal history of other malignant neoplasm of large intestine; Z85.01 Personal history of malignant neoplasm of esophagus; I25.10 Atherosclerotic heart disease of native coronary artery without angina pectoris; H40.9 Unspecified glaucoma; H35.30 Unspecified macular degeneration; E78.5 Hyperlipidemia, unspecified; I10 Essential (primary) hypertension; I25.2 Old myocardial infarction; M19.90 Unspecified osteoarthritis, unspecified site; N40.0 Benign prostatic hyperplasia without lower urinary tract symptoms; K90.0 Celiac disease; Z98.0 Intestinal bypass and anastomosis status; Z91.011 Allergy to milk products; Z88.8 Allergy status to other drugs, medicaments and biological substances; Z88.2 Allergy status to sulfonamides; Z87.19 Personal history of other diseases of the digestive system; Z87.2 Personal history of diseases of the skin and subcutaneous tissue; Z92.21 Personal history of antineoplastic chemotherapy; Z85.828 Personal history of other malignant neoplasm of skin; Z87.898 Personal history of other specified conditions; Z90.89 Acquired absence of other organs; Z90.49 Acquired absence of other specified parts of digestive tract; Z98.890 Other specified postprocedural states; Z95.5 Presence of coronary angioplasty implant and graft; Z86.69 Personal history of other diseases of the nervous system and sense organs; Z98.42 Cataract extraction status, left eye; Z98.41 Cataract extraction status, right eye; Z98.52 Vasectomy status; Z87.438 Personal history of other diseases of male genital organs; Z87.891 Personal history of nicotine dependence; Z79.899 Other long term (current) drug therapy; Z79.52 Long term (current) use of systemic steroids; Z79.82 Long term (current) use of aspirin; Z91.018 Allergy to other foods; Z87.442 Personal history of urinary calculi; Z80.0 Family history of malignant neoplasm of digestive organs; Z80.8 Family history of malignant neoplasm of other organs or systems; Z80.3 Family history of malignant neoplasm of breast; Z80.1 Family history of malignant neoplasm of trachea, bronchus and lung; Z82.61 Family history of arthritis; Z84.89 Family history of other specified conditions; Z83.79 Family history of other diseases of the digestive system
CPT/HCPCS: 88305; 45380; 45385; 43235; J2001; J2704

== ENCOUNTER → 2019-08-25 | Outpatient (CLI) | payer MEDICARE ==
[2019-08-25 08:18] LABS: Basophils % (A) 1 %; Eosinophils # (A) 0.1 k/uL (0-0.7); Eosinophils % (A) 2 %; HCT 40.9 % (39.0-53.0); HGB 13.1 gm/dL (13.0-17.5); Lymphocytes # (A) 1.2 k/uL (1.0-4.8); Lymphocytes % (A) 18 %; MCH 30.5 pg (25.0-35.0); MCHC 32.1 g/dL (31.0-37.0); MCV 95.1 fL (80.0-100.0); Mean Platelet Volume 10.1; Monocytes # (A) 0.5 k/uL (0-1.0); Monocytes % (A) 8 %; Neutrophils # (A) 4.5 k/uL (1.3-7.7); Neutrophils % (A) 69 %; Platelet Count 155 k/uL (150-450); RDW 13.2 % (11.5-15.5); WBC 6.5 k/uL (3.8-10.6)
[2019-08-25 14:47] LABS: Erythrocyte Sedimentation Rate 12 mm/Hr (0-20)
[2019-08-25 15:27] LABS: Protein, Total 6.4 g/dL (6.2-8.2)
[2019-08-25 15:42] LABS: Albumin 4.1 g/dL (3.80-4.90); Albumin/Globulin Ratio 1.86 (1.60-3.17); Anion Gap 5.3 mmol/L (4.00-12.00); BUN/Creat Ratio 13.08 Ratio (12.00-20.00); Calcium 9.3 mg/dL (8.7-10.3); Carbon Dioxide 30.7 mmol/L (21.6-31.8); Chol/HDL Ratio 2.66; Globulin 2.2 g/dL (1.6-3.3); Non-African American GFR(CKD) 52.6 (60.0-200.0); Potassium 4.8 mmol/L (3.5-5.5); Total Bilirubin 1.1 mg/dL (0.3-1.2); Total Protein 6.3 g/dL (6.2-8.2)
[2019-08-25 15:50] LABS: Prostate Specific Antigen 0.7 ng/mL (0.0-6.5)
[2019-08-25 17:17] LABS: Anti-DNA, DS unit <1.0 IU/mL; Anti-Smith Ab Interp NEGATIVE (NEGATIVE); DNA Double-Stranded NEGATIVE (NEGATIVE)
[2019-08-26 13:26] LABS: Albumin 3.86 g/dL (3.80-4.90); Gamma Globulin 0.92 g/dL (0.70-1.50)
== END | disposition home or self-care (01) ==
LOC: LABWHC1 07:03
PROVIDERS: ATTEND Internal Medicine
DX: E78.5 Hyperlipidemia, unspecified (principal); N40.0 Benign prostatic hyperplasia without lower urinary tract symptoms; I10 Essential (primary) hypertension; M35.9 Systemic involvement of connective tissue, unspecified
CPT/HCPCS: 36415; 80053; 80061; 84153; 84165; 84443; 85025; 85652; 86038; 86225; 86235

== ENCOUNTER → 2019-12-10 | Outpatient (CLI) | payer MEDICARE | END | disposition home or self-care (01) | LOC: RADXRMAIN 13:33 | PROVIDERS: ATTEND Internal Medicine | DX: Z53.9 Procedure and treatment not carried out, unspecified reason (principal) ==

== ENCOUNTER → 2019-12-10 | Outpatient (CLI) | payer MEDICARE | END | disposition home or self-care (01) | LOC: LABWHC1 13:51 | PROVIDERS: ATTEND Internal Medicine | DX: M48.00 Spinal stenosis, site unspecified (principal); R26.9 Unspecified abnormalities of gait and mobility | CPT/HCPCS: 36415; 85652 ==

== ENCOUNTER → 2019-12-11 | Outpatient (CLI) | payer MEDICARE ==
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
--- NOTE | 2019-12-11 11:31 | XR ---
EXAMINATION TYPE: XR Hip Bilateral and AP pelvis DATE OF EXAM: 12/11/2019 COMPARISON: NONE HISTORY: M 25.551, pain, M 25.552, R 26.9, M48.00, M 54.5 TECHNIQUE: A single AP view of the pelvis is obtained. Two views of the bilateral hip are obtained. FINDINGS: There is no acute fracture/dislocation evident in the pelvis. The hip and sacroiliac join ts appear symmetric and unremarkable. The overlying soft tissue appears unremarkable. Two views of bilateral hips show no acute fracture or dislocation. No focal lytic or sclerotic lesio n seen in the proximal bilateral femurs. The overlying soft tissue is unremarkable. Calcification a t the origin of the hamstring musculature may be due to chronic stress changes, there is a calcificat ion at insertion sites along the greater trochanters additionally, correlate for calcific tendinitis. IMPRESSION: There is no acute fracture or dislocation in the pelvis or bilateral hips. Additional fi ndings above.
--- NOTE | 2019-12-11 11:32 | XR ---
Thoracic spine HISTORY:M 25.551, pain, M 25.552, R 26.9, M48.00, M 54.5 Frontal and lateral views of the thoracic spine submitted on 3 images. Correlation to prior exam 09/11 Surgical clips at the thoracic inlet level again noted. Aorta is dense. Thoracic vertebral bodies edison w preserved height, alignment, and bone mineralization. There is multilevel spondylosis as on prior e xam. Disc spaces appear stable. No fracture or subluxation. IMPRESSION: Thoracic spondylosis.
== END | disposition home or self-care (01) ==
LOC: RADXRMAIN 09:01
PROVIDERS: ATTEND Internal Medicine
DX: M51.37 Other intervertebral disc degeneration, lumbosacral region (principal); M47.897 Other spondylosis, lumbosacral region; M47.814 Spondylosis without myelopathy or radiculopathy, thoracic region; M25.551 Pain in right hip; M25.552 Pain in left hip; R26.9 Unspecified abnormalities of gait and mobility; M48.00 Spinal stenosis, site unspecified; M54.5 Low back pain; Z98.890 Other specified postprocedural states
CPT/HCPCS: 72072; 72110; 73521

== ENCOUNTER 2020-03-22 11:02 | Emergency (ER) | payer MEDICARE ==
[2020-03-22 11:15] VITALS: PULSE 60; RESP 16; TEMP 97.8
--- NOTE | 2020-03-22 11:39 | ED ---
Back Pain HPI - General Chief Complaint: Back Pain/Injury Stated Complaint: fall/back injury Time Seen by Provider: 03/22/20 11:33 Source: EMS Limitations: no limitations - History of Present Illness Initial Comments: 79-year-old male presented for chief complaint of sudden fall and ice from standing. Patient states he was walking outside when he slipped and fell hitting his back. He states he thinks he may have hit his head but is not sure. He denies loss of consciousness he states he takes a daily baby aspirin however no other anticoagulation use. Patient denies any nausea vomiting headache visual changes weakness of the upper or lower extremities or sensation deficits. Patient states he had some neck tension but no severe pain. He denies abdominal pain chest pain he denies shortness of breath. Patient denies any pain in the hips knees and ankles or upper extremities. Patient denies any radiation of the back pain loss of bowel bladder control urinary retention. Patient denies pain prior to falling. patient on arrival was placed in c-collar. Patient appears well nontoxic in no acute distress. - Related Data Home Medications Medication Instructions Recorded Confirmed Tamsulosin HCl 0.4 mg PO HS@2300 08/28/03/22/20 Acetaminophen Tab [Tylenol] 1,000 mg PO DAILY PRN 09/29/14 03/22/20 hydrALAZINE HCL [Apresoline] 50 mg PO QID@05,11,17,23 09/29/14 03/22/20 Nitroglycerin Sl Tabs [Nitrostat] 0.4 mg SUBLINGUAL Q5M PRN 06/18/15 03/22/20 Isosorbide Mononitrate ER [Imdur] 30 mg PO DAILY@0600 07/16/15 03/22/20 Aspirin 162 mg PO DAILY@0600 02/10/16 03/22/20 Vit C/E/Zn/Coppr/Lutein/Zeaxan 1 cap PO BID@0600,1800 02/10/16 03/22/20 [Preservision Areds 2 Softgel] Carboxymethyl/Gly/Poly80/Pf 1 drop BOTH EYES QID 10/23/17 03/22/20 [Refresh Optive Roque-3 Drops] Esomeprazole Magnesium [NexIUM] 40 mg PO BID@0500,1700 10/23/17 03/22/20 Atorvastatin [Lipitor] 40 mg PO HS@2300 11/25/17 03/22/20 Brimonidine Tartrate/Timolol 1 drop BOTH EYES BID@0600,1800 04/21/19 03/22/20 [Combigan 0.2%-0.5% Eye Drops] Famotidine [Pepcid] 20 mg PO BID@0500,1700 04/21/19 03/22/20 Fesoterodine Fumarate [Toviaz] 4 mg PO HS@2300 04/21/19 03/22/20 Losartan [Cozaar] 50 mg PO DAILY@0600 04/21/19 03/22/20 Bisacodyl 10 mg PO HS@2300 03/22/20 03/22/20 Calcium Carbonate [Tums] 1,000 mg PO BID PRN 03/22/20 03/22/20 Cholecalciferol [Vitamin D3 (25 25 mcg PO DAILY@0600 03/22/20 03/22/20 Mcg = 1000 Iu)] Cyanocobalamin (Vitamin B-12) 1,000 mcg PO DAILY@0600 03/22/20 03/22/20 [Vitamin B-12] Diclofenac Sodium [Voltaren 2 gm TOPICAL BID@0600,1800 03/22/20 03/22/20 Arthritis Pain 1% Gel] Fluticasone Nasal [place] [Flonase 2 spr EA NOSTRIL HS@2300 03/22/20 03/22/20 Nasal [place]] Ibuprofen [Advil] 400 mg PO Q8HR PRN 03/22/20 03/22/20 Multivit-Min/FA/Lycopen/Lutein 1 tab PO DAILY@0603/22/20 03/22/20 [Centrum Silver Men Tablet] Netarsudil Mesylat/Latanoprost 1 drop BOTH EYES HS@2300 03/22/20 03/22/20 [Rocklatan 0.02%-0.005% Eye Drp] Nystatin/Triamcin 1 applic TOPICAL BID 03/22/20 03/22/20 [Nystatin-Triamcinolone Cream] Triamcinolone 0.1% Paste [Oralone 1 applic MUCOUS MEM DAILY PRN 03/22/20 03/22/20 0.1% Paste] Allergies Allergy/AdvReac Type Severity Reaction Status Date / Time atenolol Allergy Unknown Verified 03/22/20 12:54 clopidogrel bisulfate Allergy severe Verified 03/22/20 12:54 [From Plavix] itching gluten Allergy blisters Verified 03/22/20 12:54 lactose Allergy Abdominal Verified 03/22/20 12:54 Pain simvastatin Allergy Unknown Verified 03/22/20 12:54 beet AdvReac CAUSES Verified 03/22/20 12:54 KIDNEY STONES PER PT [place] And Derivatives AdvReac CAUSES Verified 03/22/20 12:54 [De [place]] KIDNEY STONES PER PT cocoa AdvReac CAUSES Verified 03/22/20 12:54 KIDNEY STONES PER PT coffee (Coffea arabica) AdvReac CAUSES Verified 03/22/20 12:54 KIDNEY STONES PER PT cranberry AdvReac CAUSES Verified 03/22/20 12:54 KIDNEY STONES PER PT diphenhydramine AdvReac Diarrhea Verified 03/22/20 12:54 [From Benadryl] green tea AdvReac CAUSES Verified 03/22/20 12:54 KIDNEY STONES PER PT plum AdvReac CAUSES Verified 03/22/20 12:54 KIDNEY STONES PER PT prednisolone AdvReac GLAUCOMA Verified 03/22/20 12:54 rhubarb AdvReac CAUSES Verified 03/22/20 12:54 KIDNEY STONES PER PT spinach AdvReac CAUSES Verified 03/22/20 12:54 KIDNEY STONES PER PT sucralfate [From Carafate] AdvReac REFLUX Verified 03/22/20 12:54 Sulfa (Sulfonamide AdvReac blood Verified 03/22/20 12:54 Antibiotics) disorder sweet potato AdvReac CAUSES Verified 03/22/20 12:54 KIDNEY STONES PER PT tree nut [Nut] AdvReac CAUSES Verified 03/22/20 12:54 KIDNEY STONES PER PT Review of Systems ROS Statement: Those systems with pertinent positive or pertinent negative responses have been documented in the HPI. ROS Other: All systems not noted in ROS Statement are negative. 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, varicose veins, hiatal hernia, hx ulcers, black stool, hx pancreatitis 2017, hx eczema, CHANGE IN BOWEL HABITS Last Myocardial Infarction Date:: 11/25/17 History of Any Multi-Drug Resistant Organisms: None Reported Past Surgical History: Adenoidectomy, Appendectomy, Back Surgery, Bowel Resection, Cholecystectomy, Heart Catheterization With Stent, Hernia Repair, Orthopedic Surgery, Tonsillectomy Additional Past Surgical History / Comment(s): esophagectomy, colectomy, LT CAROTID ENDARTECTOMY, LUMP REMOVED FROM TONGUE, LITHOTRIPSY, CYSTOSCOPY, RT ROTATOR CUFF REPAIR, R carpal tunnel release, DEVIATED SEPTUM, , cardiac STENTS x 3, UMBILICAL HERNIA REPAIR X 2, RT inguinal hernia repair, LOWER BACK SURGERY-HAS SCREWS, BILAT CATARACTS REMOVED, vasectomy, repair of undescended testicle, COLONOSCOPY, EGD Past Anesthesia/Blood Transfusion Reactions: No Reported Reaction Additional Past Anesthesia/Blood Transfusion Reaction / Comment(s): Pt has received blood in past without reaction. Date of Last Stent Placement:: 2015 Past Psychological History: No Psychological Hx Reported Past Alcohol Use History: None Reported Past Drug Use History: None Reported - Past Family History Brother(s) Family Medical History: Cancer Additional Family Medical History / Comment(s): liver and brain Mother Family Medical History: Cancer Additional Family Medical History / Comment(s): LIVER CA, BRAIN CA Sister(s) Family Medical History: Cancer Additional Family Medical History / Comment(s): BREAST CA, LUNG CA. SISTER X 2 Father Family Medical History: Osteoarthritis (OA) Additional Family Medical History / Comment(s): CELIAC DISEASE, ULCERS General Exam - General Exam Comments Initial Comments: General: The patient is awake and alert, in no distress Eye: +3 mm pupils are equal, round and reactive to light, extra-ocular movements are intact. No nystagmus. There is normal conjunctiva bilaterally. No signs of icterus. Ears, nose, mouth and throat: There are moist mucous membranes and no oral lesions. Neck: The neck is supple, there is no tenderness or JVD. Cardiovascular: There is a regular rate and rhythm. No murmur, rub or gallop is appreciated. Respiratory: no rib pain to palpation of the thorax. Lungs are clear to auscultation, respirations are non-labored, breath sounds are equal. No wheezes, stridor, rales, or rhonchi. Gastrointestinal: Soft, non-distended, non-tender abdomen without masses or organomegaly noted. There is no rebound or guarding present. Musculoskeletal: Midline tenderness to palpation of the thoracic and lumbar spine. no bruising. Normal ROM, no tenderness. Strength 5/5 of the LE and UE equal b/l. Sensation intact of the UE and LE including the saddle region equal in comparison b/l. Radial and DP pulses equal bilaterally 2+. No hip pain to compression. Can help transfer to bed. Neurological: A&O x 3. CN II-XII intact, There are no obvious motor or sensory deficits. Coordination appears grossly intact. Speech is normal. Skin: Skin is warm and dry and no rashes or lesions are noted. Psychiatric: Cooperative, appropriate mood & affect, normal judgment. Limitations: no limitations Course Vital Signs 03/22/20 03/22/20 11:10 13:17 Temperature 97.8 F Pulse Rate 60 Respiratory 16 Rate Blood Pressure 167/87 122/76 O2 Sat by Pulse 100 100 Oximetry Medical Decision Making - Medical Decision Making XR (-) for fractures. Lungs clear. No abdominal pain. No chest pain. No rib pain. CT brain, c-spine no acute process. pt has no focalized weakness. patient pain managed in ER will be discharged with starter pack of tylenol #3. Discussed case with Dr. Ishmael heath is agreeable to discharge with pCP f/u/symptomatic treatment. Disposition Clinical Impression: Fall, Fall from slipping on ice, Back pain Disposition: HOME SELF-CARE Condition: Good Instructions (If sedation given, give patient instructions): Acute Low Back Pain (ED) Additional Instructions: Please use medication as discussed. Please follow-up with family doctor in the next 2 days. Please return to emergency room if the symptoms increase or worsen or for any other concerns. Is patient prescribed a controlled substance at d/c from ED?: No Referrals: Oren Price MD [Primary Care Provider] - 1-2 days Time of Disposition: 13:54
[2020-03-22] MEDS ORDERED: HYDROmorphone 0.5 MG/0.5 ML SYRINGE IVP STA ×2 (11:53→13:44)
[2020-03-22] MEDS ORDERED: HYDROmorphone 0.5 MG/0.5 ML SYRINGE IM STA (12:09)
--- NOTE | 2020-03-22 12:53 | CT ---
EXAMINATION TYPE: CT brain lee franco con DATE OF EXAM: 03/22/2020 COMPARISON: None HISTORY: 79-year-old male with pain after fall CT DLP: 1633.3 mGycm Automated exposure control for dose reduction was used. Technique: Examination of the head was done in axial plane without intravenous contrast. Coronal and sagittal reconstructions performed. CT of the cervical spine was obtained in axial plane without intravenous injection of contrast mater ial. Coronal and sagittal reformatted images were obtained from the axial views for evaluation of f ractures, spinal alignment and canal. FINDINGS: Head: There is no evidence of acute intracranial hemorrhage, acute ischemic changes, mass, mass-effect, or extra-axial fluid collection. There is no effacement of cerebral sulci or basal subarachnoid cister ns. There is no hydrocephalus. There is no midline shift. Richards-white matter distinction is preserv ed. Mild atherosclerotic calcifications in the carotid siphons. Punctate calcification within a sulcus at the right temporoparietal junction probably vascular. Trace mucosal thickening ethmoid air cells. Mastoid air cells are well pneumatized. Cervical spine: No craniocervical junction abnormality, predental space widening, or prevertebral soft tissue swellin g. Degenerative changes at the C1 dens articulation. Straightening of the normal cervical lordosis but with preserved alignment. Bulky anterior endplate spondylosis C4-C6 levels. Mild multilevel degenerative disc disease. Scattere d facet and uncovertebral joint arthropathy. Disc osteophyte complex contributes to mild narrowing of the spinal canal at C3-C4. There seems to be interbody ankylosis at the C2-C3 level, probably on a degenerative basis. No acute fracture of the cervical spine. At C2-C3, moderate to severe left neuroforaminal stenosis. At C3-C4, severe left neuroforaminal stenosis. At C4-C5 and C5-C6, moderate left neural foraminal stenoses. There appear to be postsurgical change along the proximal esophagus in the upper chest probably relat ing to esophagectomy and gastric pull-through. Prominent tortuosity at the anastomosis and retained i ngested debris throughout the suspected pull-through. Sagittal and coronal reformatted images confirm above findings. COMBINED IMPRESSION: 1. No acute intracranial abnormality seen. 2. No acute fracture or malalignment of the cervical spine. Spondylotic change causing variable neuro foraminal narrowing on the left as outlined above. Mild narrowing of the spinal canal at C3-C4. 3. Post surgical change in the upper chest seems to relate to prior esophagectomy and gastric pull-th rough. Prominent retained ingested debris throughout the visualized portion of the pull-through.
[2020-03-22 13:21] VITALS: BP 122/76
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
[2020-03-22] MEDS ORDERED: ACET/COD 300 MG/30 MG STARTER PACK 6 TAB BTL PO STA (14:10)
== END 2020-03-22 14:11 | disposition home or self-care (01) ==
LOC: EC 11:02
DX: M54.9 Dorsalgia, unspecified (principal); I10 Essential (primary) hypertension; M19.90 Unspecified osteoarthritis, unspecified site; N40.0 Benign prostatic hyperplasia without lower urinary tract symptoms; H40.9 Unspecified glaucoma; E78.5 Hyperlipidemia, unspecified; K21.9 Gastro-esophageal reflux disease without esophagitis; I25.2 Old myocardial infarction; Z79.82 Long term (current) use of aspirin; Z79.1 Long term (current) use of non-steroidal anti-inflammatories (NSAID); Z79.899 Other long term (current) drug therapy; Z79.51 Long term (current) use of inhaled steroids; Z88.8 Allergy status to other drugs, medicaments and biological substances; Z91.048 Other nonmedicinal substance allergy status; Z91.011 Allergy to milk products; Z91.018 Allergy to other foods; Z88.2 Allergy status to sulfonamides; Z85.828 Personal history of other malignant neoplasm of skin; Z85.038 Personal history of other malignant neoplasm of large intestine; Z85.01 Personal history of malignant neoplasm of esophagus
CPT/HCPCS: 72070; 72100; 72125; 70450; 99284; 96374; 96372; J1170

== ENCOUNTER 2020-05-13 08:10 | Day surgery (SDC) | payer MEDICARE ==
[2020-05-07 15:55] VITALS: BMI 48.6
--- NOTE | 2020-05-13 07:33 | P.GSHP ---
History of Present Illness H&P Date: 05/13/20 CHIEF COMPLAINT: Colon screen HISTORY OF PRESENT ILLNESS: The patient is a 79-year-old male who presents for colon screen. Lower endoscopy was offered for further evaluation and management. PAST MEDICAL HISTORY: Please see list. PAST SURGICAL HISTORY: Please see list. MEDICATIONS: Please see list. ALLERGIES: Please see list. SOCIAL HISTORY: No illicit drug use FAMILY HISTORY: No reports of Crohn disease or ulcerative colitis. REVIEW OF ORGAN SYSTEMS: CONSTITUTIONAL: No reports of fevers or chills. PHYSICAL EXAM: VITAL SIGNS: Stable GENERAL: Well-developed pleasant in no acute distress. HEENT: No scleral icterus. Extraocular movements grossly intact. Moist buccal mucosa. NECK: Supple without lymphadenopathy. CHEST: Unlabored respirations. Equal bilateral excursions. CARDIOVASCULAR: Regular rate and rhythm. Distal 2+ pulses. ABDOMEN: Soft, nontender, nondistended. MUSCULOSKELETAL: No clubbing, cyanosis, or edema. ASSESSMENT: 1. Colon screen. PLAN: 1. 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, varicose veins, hiatal hernia, hx ulcers, black stool, hx pancreatitis 2016, hx eczema, CHANGE IN BOWEL HABITS Last Myocardial Infarction Date:: 11/25/17 History of Any Multi-Drug Resistant Organisms: None Reported Past Surgical History: Adenoidectomy, Appendectomy, Back Surgery, Bowel Resection, Cholecystectomy, Heart Catheterization With Stent, Hernia Repair, Orthopedic Surgery, Tonsillectomy Additional Past Surgical History / Comment(s): esophagectomy, colectomy, LT CAROTID ENDARTECTOMY, LUMP REMOVED FROM TONGUE, LITHOTRIPSY, CYSTOSCOPY, RT ROTATOR CUFF REPAIR, R carpal tunnel release, DEVIATED SEPTUM, , cardiac STENTS x 3, UMBILICAL HERNIA REPAIR X 2, RT inguinal hernia repair, LOWER BACK SURGERY- HAS SCREWS, BILAT CATARACTS REMOVED, vasectomy, repair of undescended testicle, COLONOSCOPY, EGD Past Anesthesia/Blood Transfusion Reactions: No Reported Reaction Additional Past Anesthesia/Blood Transfusion Reaction / Comment(s): Pt has received blood in past without reaction. Date of Last Stent Placement:: 2015 Smoking Status: Former smoker - Past Family History Brother(s) Family Medical History: Cancer Additional Family Medical History / Comment(s): liver and brain Mother Family Medical History: Cancer Additional Family Medical History / Comment(s): LIVER CA, BRAIN CA Sister(s) Family Medical History: Cancer Additional Family Medical History / Comment(s): BREAST CA, LUNG CA. SISTER X 2 Father Family Medical History: Osteoarthritis (OA) Additional Family Medical History / Comment(s): CELIAC DISEASE, ULCERS Medications and Allergies Home Medications Medication Instructions Recorded Confirmed Type Tamsulosin HCl 0.4 mg PO HS@2300 08/28/13 05/07/20 History Acetaminophen Tab [Tylenol] 1,000 mg PO DAILY PRN 09/29/14 05/07/20 History hydrALAZINE HCL [Apresoline] 50 mg PO QID@05,11,17,23 09/29/14 05/07/20 History Nitroglycerin Sl Tabs [Nitrostat] 0.4 mg SUBLINGUAL Q5M PRN 06/18/15 05/07/20 History Isosorbide Mononitrate ER [Imdur] 30 mg PO DAILY@0600 07/16/15 05/07/20 History Aspirin 162 mg PO DAILY@0600 02/10/16 05/07/20 History Vit C/E/Zn/Coppr/Lutein/Zeaxan 1 cap PO BID@0600,1800 02/10/16 05/07/20 History [Preservision Areds 2 Softgel] Carboxymethyl/Gly/Poly80/Pf 1 drop BOTH EYES QID 10/23/17 05/07/20 History [Refresh Optive Roque-3 Drops] Esomeprazole Magnesium [NexIUM] 40 mg PO BID@0500,1700 10/23/17 05/07/20 History Atorvastatin [Lipitor] 40 mg PO HS@2300 11/25/17 05/07/20 History Brimonidine Tartrate/Timolol 1 drop BOTH EYES BID@0600,1800 04/21/19 05/07/20 History [Combigan 0.2%-0.5% Eye Drops] Famotidine [Pepcid] 20 mg PO BID@0500,1700 04/21/19 05/07/20 History Fesoterodine Fumarate [Toviaz] 4 mg PO HS@2300 04/21/19 05/07/20 History Losartan [Cozaar] 50 mg PO DAILY@0600 04/21/19 05/07/20 History Bisacodyl 10 mg PO HS@2300 03/22/20 05/07/20 History Calcium Carbonate [Tums] 1,000 mg PO BID PRN 03/22/20 05/07/20 History Cholecalciferol [Vitamin D3 (25 25 mcg PO DAILY@0600 03/22/20 05/07/20 History Mcg = 1000 Iu)] Cyanocobalamin (Vitamin B-12) 1,000 mcg PO DAILY@0600 03/22/20 05/07/20 History [Vitamin B-12] Fluticasone Nasal [place] [Flonase 2 spr EA NOSTRIL HS@2300 03/22/20 05/07/20 History Nasal [place]] Ibuprofen [Advil] 400 mg PO Q8HR PRN 03/22/20 05/07/20 History Multivit-Min/FA/Lycopen/Lutein 1 tab PO DAILY@0600 03/22/20 05/07/20 History [Centrum Silver Men Tablet] Netarsudil Mesylat/Latanoprost 1 drop BOTH EYES HS@2300 03/22/20 05/07/20 History [Rocklatan 0.02%-0.005% Eye Drp] Nystatin/Triamcin 1 applic TOPICAL BID 03/22/20 05/07/20 History [Nystatin-Triamcinolone Cream] Triamcinolone 0.1% Paste [Oralone 1 applic TOPICAL DAILY PRN 03/22/20 05/07/20 History 0.1% Paste] Allergies Allergy/AdvReac Type Severity Reaction Status Date / Time atenolol Allergy Unknown Verified 05/07/20 15:40 clopidogrel bisulfate Allergy severe Verified 05/07/20 15:40 [From Plavix] itching gluten Allergy blisters Verified 05/07/20 15:40 lactose Allergy Abdominal Verified 05/07/20 15:40 Pain simvastatin Allergy Unknown Verified 05/07/20 15:40 beet AdvReac CAUSES Verified 05/07/20 15:40 KIDNEY STONES PER PT [place] And Derivatives AdvReac CAUSES Verified 05/07/20 15:40 [[place]ard] KIDNEY STONES PER PT cocoa AdvReac CAUSES Verified 05/07/20 15:40 KIDNEY STONES PER PT coffee (Coffea arabica) AdvReac CAUSES Verified 05/07/20 15:40 KIDNEY STONES PER PT cranberry AdvReac CAUSES Verified 05/07/20 15:40 KIDNEY STONES PER PT diphenhydramine AdvReac Diarrhea Verified 05/07/20 15:40 [From Benadryl] green tea AdvReac CAUSES Verified 05/07/20 15:40 KIDNEY STONES PER PT plum AdvReac CAUSES Verified 05/07/20 15:40 KIDNEY STONES PER PT prednisolone AdvReac GLAUCOMA Verified 05/07/20 15:40 rhubarb AdvReac CAUSES Verified 05/07/20 15:40 KIDNEY STONES PER PT spinach AdvReac CAUSES Verified 05/07/20 15:40 KIDNEY STONES PER PT sucralfate [From Carafate] AdvReac REFLUX Verified 05/07/20 15:40 Sulfa (Sulfonamide AdvReac blood Verified 05/07/20 15:40 Antibiotics) disorder sweet potato AdvReac CAUSES Verified 05/07/20 15:40 KIDNEY STONES PER PT tree nut [Nut] AdvReac CAUSES Verified 05/07/20 15:40 KIDNEY STONES PER PT
[~2020-05-13 08:10] MED LIST changes: -LACTATED RINGERS 1,000 ML IV ONE; +LACTATED RINGERS 1,000 ML IV SCH; -LIDOCAINE 1% INJ 10MG/ML (20 ML MDV) ONE; -PROPOFOL 10 MG/ML 20 ML VIAL IV ONE
[2020-05-13] MEDS ORDERED: LIDOCAINE 1% (10MG/ML) FOR IV START INTRADERMA ONE (09:15)
[2020-05-13 09:17] VITALS: RESP 16; TEMP 97.7
[2020-05-13] MEDS ORDERED: LIDOCAINE 1% INJ 10MG/ML (20 ML MDV) ONE (09:45)
[2020-05-13] MEDS ORDERED: PROPOFOL 10 MG/ML 20 ML VIAL IV ONE (09:45)
[2020-05-13 10:33] VITALS: BP 115/69; PULSE 65
--- NOTE | 2020-05-13 10:50 | P.PCN ---
Date of Procedure: 05/13/20 Description of Procedure: PREOPERATIVE DIAGNOSIS: History of esophageal cancer Gastroesophageal reflux disease POSTOPERATIVE DIAGNOSIS: History of esophageal cancer with gastric pull-through Gastroesophageal reflux disease OPERATION: Esophagogastroduodenoscopy SURGEON: Veronica Jameson MD ANESTHESIA: MAC. INDICATIONS: The patient is a 79-year-old male who presents with a history of esophageal cancer and is under cancer surveillance. Benefits and risks of the procedure were described. Informed consent was obtained. DESCRIPTION: The patient was brought into the endoscopy suite and laid in the left lateral decubitus position. An Olympus gastroscope was passed along the posterior oropharynx where his anastomosis was 20 cm for his gastric pull-through. No evidence of recurrence was found or adenoma of the proximal esophagus. The stomach was entered and moderate retained food consistent with gastroparesis was found. The scope was advanced into duodenum which was unremarkable. The stomach was desufflated. The patient tolerated the procedure well. FINDINGS: Gastric pull-through with anastomosis 20 cm from the incisors without stricture No recurrent adenocarcinoma of the proximal esophagus Moderate retained food within the stomach RECOMMENDATIONS: Repeat upper endoscopy per guidelines for esophageal cancer surveillance otherwise due the time of his colonoscopy, 3 years 2023.
--- NOTE | 2020-05-13 10:55 | P.PCN ---
Date of Procedure: 05/13/20 Description of Procedure: PREOPERATIVE DIAGNOSIS: History of colon cancer POSTOPERATIVE DIAGNOSIS: History of colon cancer Hepatic flexure adenoma Pandiverticulosis with severe sigmoid diverticulosis OPERATION: Colonoscopy to the ileocecal valve and appendiceal orifice, cecum Colonoscopy with hot snare polypectomy SURGEON: Veronica Jameson MD. ANESTHESIA: MAC. INDICATIONS: The patient is an 79-year-old male who presents prior colon cancer including esophageal cancer. He presents for colonoscopy surveillance. Benefits and risks were described and informed consent was obtained. DESCRIPTION OF PROCEDURE: The patient had undergone Suprep. The patient had been brought into the operating room and laid in the left lateral decubitus position. After adequate intravenous sedation, the rectum was examined with 2% lidocaine jelly. The prostate was unremarkable. External hemorrhoids were encountered. The rectal tone was within normal limits. No lesions were palpated in the rectal vault. An Olympus colonoscope was advanced until the cecum, ileocecal valve and appendiceal orifice were clearly viewed. The prep was good. Severe barroso diverticulosis including sigmoid diverticulosis was encountered. Colonic polyps were found and removed. No evidence of focal colitis was found. Retroflexion of the scope demonstrated grade 2 internal hemorrhoids without active bleeding or inflammation. The colon was desufflated. The patient had tolerated the procedure well. Withdrawal time was over 6 minutes. FINDINGS: Aronchick preparation quality scale 2 (1-5) Internal hemorrhoids, grade 2 with recent inflammation and bleeding External hemorrhoids, grade 1. No arteriovenous malformations. Pandiverticulosis was severe sigmoid diverticulosis Removal of 1 polyp: - Snare polypectomy at hepatic flexure, 6 mm tubulovillous adenoma polyp. No focal colitis. RECOMMENDATIONS: For his history of colon cancer including adenomatous polyps, repeat colonoscopy 3 years, 2023 Plan - Discharge Summary Discharge Rx Participant: No New Discharge Prescriptions: Continue Tamsulosin HCl 0.4 mg PO HS@2300 Acetaminophen Tab [Tylenol] 1,000 mg PO DAILY PRN PRN Reason: Pain hydrALAZINE HCL [Apresoline] 50 mg PO QID@05,11,17,23 Nitroglycerin Sl Tabs [Nitrostat] 0.4 mg SUBLINGUAL Q5M PRN PRN Reason: Chest Pain Isosorbide Mononitrate ER [Imdur] 30 mg PO DAILY@0600 Aspirin 162 mg PO DAILY@0600 Vit C/E/Zn/Coppr/Lutein/Zeaxan [Preservision Areds 2 Softgel] 1 cap PO BID@0600,1800 Carboxymethyl/Gly/Poly80/Pf [Refresh Optive Roque-3 Drops] 1 drop BOTH EYES QID Esomeprazole Magnesium [NexIUM] 40 mg PO BID@0500,1700 Atorvastatin [Lipitor] 40 mg PO HS@2300 Losartan [Cozaar] 50 mg PO DAILY@0600 Fesoterodine Fumarate [Toviaz] 4 mg PO HS@2300 Famotidine [Pepcid] 20 mg PO BID@0500,1700 Brimonidine Tartrate/Timolol [Combigan 0.2%-0.5% Eye Drops] 1 drop BOTH EYES BID@0600,1800 Triamcinolone 0.1% Paste [Oralone 0.1% Paste] 1 applic TOPICAL DAILY PRN PRN Reason: IRRITATION Fluticasone Nasal [place] [Flonase Nasal [place]] 2 spr EA NOSTRIL HS@2300 Multivit-Min/FA/Lycopen/Lutein [Centrum Silver Men Tablet] 1 tab PO DAILY@0600 Nystatin/Triamcin [Nystatin-Triamcinolone Cream] 1 applic TOPICAL BID Ibuprofen [Advil] 400 mg PO Q8HR PRN PRN Reason: Pain Or Fever > 100.5 Cholecalciferol [Vitamin D3 (25 Mcg = 1000 Iu)] 25 mcg PO DAILY@0600 Cyanocobalamin (Vitamin B-12) [Vitamin B-12] 1,000 mcg PO DAILY@0600 Netarsudil Mesylat/Latanoprost [Rocklatan 0.02%-0.005% Eye Drp] 1 drop BOTH EYES HS@2300 Bisacodyl 10 mg PO HS@2300 Calcium Carbonate [Tums] 1,000 mg PO BID PRN PRN Reason: Indigestion Discharge Medication List Tamsulosin HCl 0.4 mg PO HS@2300 08/28/13 [History] Acetaminophen Tab [Tylenol] 1,000 mg PO DAILY PRN 09/29/14 [History] hydrALAZINE HCL [Apresoline] 50 mg PO QID@05,11,17,23 09/29/14 [History] Nitroglycerin Sl Tabs [Nitrostat] 0.4 mg SUBLINGUAL Q5M PRN 06/18/15 [History] Isosorbide Mononitrate ER [Imdur] 30 mg PO DAILY@0600 07/16/15 [History] Aspirin 162 mg PO DAILY@0602/10/16 [History] Vit C/E/Zn/Coppr/Lutein/Zeaxan [Preservision Areds 2 Softgel] 1 cap PO BID@0600,1800 02/10/16 [History] Carboxymethyl/Gly/Poly80/Pf [Refresh Optive Roque-3 Drops] 1 drop BOTH EYES QID 10/23/17 [History] Esomeprazole Magnesium [NexIUM] 40 mg PO BID@0500,1700 10/23/17 [History] Atorvastatin [Lipitor] 40 mg PO HS@2300 11/25/17 [History] Brimonidine Tartrate/Timolol [Combigan 0.2%-0.5% Eye Drops] 1 drop BOTH EYES BID@0600,1800 04/21/19 [History] Famotidine [Pepcid] 20 mg PO BID@0500,1700 04/21/19 [History] Fesoterodine Fumarate [Toviaz] 4 mg PO HS@2300 04/21/19 [History] Losartan [Cozaar] 50 mg PO DAILY@0604/21/19 [History] Bisacodyl 10 mg PO HS@2300 03/22/20 [History] Calcium Carbonate [Tums] 1,000 mg PO BID PRN 03/22/20 [History] Cholecalciferol [Vitamin D3 (25 Mcg = 1000 Iu)] 25 mcg PO DAILY@0603/22/20 [History] Cyanocobalamin (Vitamin B-12) [Vitamin B-12] 1,000 mcg PO DAILY@0600 03/22/20 [History] Fluticasone Nasal [place] [Flonase Nasal [place]] 2 spr EA NOSTRIL HS@2300 03/22/20 [History] Ibuprofen [Advil] 400 mg PO Q8HR PRN 03/22/20 [History] Multivit-Min/FA/Lycopen/Lutein [Centrum Silver Men Tablet] 1 tab PO DAILY@0600 03/22/20 [History] Netarsudil Mesylat/Latanoprost [Rocklatan 0.02%-0.005% Eye Drp] 1 drop BOTH EYES HS@2300 03/22/20 [History] Nystatin/Triamcin [Nystatin-Triamcinolone Cream] 1 applic TOPICAL BID 03/22/20 [History] Triamcinolone 0.1% Paste [Oralone 0.1% Paste] 1 applic TOPICAL DAILY PRN 03/22/20 [History] Follow up Appointment(s)/Referral(s): Veronica Jameson MD [STAFF PHYSICIAN] - 05/25/20 Patient Instructions/Handouts: *Surgery [facility] - (Anesthesia) Endoscopy Discharge Instructions, Diverticulosis (DC), Colorectal Polyps (DC), Diverticulosis Diet (GEN), Colonoscopy (GEN), Upper Endoscopy (GEN) Activity/Diet/Wound Care/Special Instructions: Repeat colonoscopy 3 years, 2023 Discharge Disposition: HOME SELF-CARE
== END 2020-05-13 11:02 | disposition home or self-care (01) ==
LOC: EDSEX → ORWHC2ENDO 08:10
PROVIDERS: ATTEND Surgery Plastic and Reconstructive Surgery
DX: K21.9 Gastro-esophageal reflux disease without esophagitis (principal); Z12.11 Encounter for screening for malignant neoplasm of colon; K57.30 Diverticulosis of large intestine without perforation or abscess without bleeding; D12.3 Benign neoplasm of transverse colon; K64.1 Second degree hemorrhoids; I25.10 Atherosclerotic heart disease of native coronary artery without angina pectoris; E78.5 Hyperlipidemia, unspecified; I10 Essential (primary) hypertension; I25.2 Old myocardial infarction; M19.90 Unspecified osteoarthritis, unspecified site; K90.0 Celiac disease; Z85.038 Personal history of other malignant neoplasm of large intestine; Z85.01 Personal history of malignant neoplasm of esophagus; Z79.82 Long term (current) use of aspirin; Z79.899 Other long term (current) drug therapy; Z80.8 Family history of malignant neoplasm of other organs or systems; Z80.3 Family history of malignant neoplasm of breast; Z80.1 Family history of malignant neoplasm of trachea, bronchus and lung; Z83.79 Family history of other diseases of the digestive system; Z82.61 Family history of arthritis; Z88.8 Allergy status to other drugs, medicaments and biological substances; Z95.5 Presence of coronary angioplasty implant and graft; Z88.2 Allergy status to sulfonamides; Z91.018 Allergy to other foods
CPT/HCPCS: 88305; 45385; 43235; J2001; J2704

== ENCOUNTER → 2020-05-25 | Outpatient (CLI) | payer MEDICARE ==
--- NOTE | 2020-05-25 11:16 | CT ---
EXAMINATION TYPE: CT abdomen pelvis wo con DATE OF EXAM: 05/25/2020 COMPARISON: CT 10/04/2018 HISTORY: Bilateral flank pain since colonoscopy, known renal stone on Rt CT DLP: 945.7 mGycm Automated exposure control for dose reduction was used. TECHNIQUE: Helical acquisition of images from the lung bases through the pelvis. FINDINGS: There is a hiatal hernia with partial intrathoracic stomach which is filled with debris. La ck of contrast could compromise sensitivity. LUNG BASES: No significant abnormality is appreciated. AORTA: No significant abnormality is appreciated. LIVER/GB: No significant abnormality is appreciated, patient is post cholecystectomy. PANCREAS: No significant abnormality is seen. SPLEEN: No significant abnormality is seen. ADRENALS: No significant abnormality is seen. KIDNEYS: There is persistent atrophic right kidney with associated cyst, calculi similar to prior, no hydronephrosis of the left kidney REPRODUCTIVE ORGANS: Prostate shows associated calcification and shows an inferior impression on the urinary bladder, as enlarged URINARY BLADDER: No significant abnormality is seen. BOWEL: Postop changes are noted to the colon in the right hemiabdomen, there is diverticular change, retained fecal debris. Metallic density present at the inferior margin of the stomach, axial image # 43 is an interval finding, the previously identified metallic density at the posterior aspect of the stomach is no longer seen. FREE AIR: No Free Air is visible. ASCITES: None visible. PELVIC ADENOPATHY: None visualized. RETROPERITONEAL ADENOPATHY: No Retroperitoneal Adenopathy visible. OSSEOUS STRUCTURES: Degenerative disc changes, facet arthropathy noted in the visualized spine, dist ortion of the posterior ilium on the right likely postprocedural, postop changes are noted status pos t fusion posteriorly at L5-S1. IMPRESSION: NONCONTRAST EXAM. POSTOP CHANGES. DIVERTICULOSIS, RIGHT NEPHROLITHIASIS, 8 ATROPHIC RIGHT KIDNEY. Ind eterminate metallic density with artifact is thought to have migrated in the interval, correlate for possible ingested foreign body, postop change
== END | disposition home or self-care (01) ==
LOC: RADCTMAIN 10:25
PROVIDERS: ATTEND Surgery Plastic and Reconstructive Surgery
DX: N20.0 Calculus of kidney (principal); N26.1 Atrophy of kidney (terminal); K57.30 Diverticulosis of large intestine without perforation or abscess without bleeding
CPT/HCPCS: 74176

== ENCOUNTER → 2020-06-09 | Outpatient (CLI) | payer MEDICARE ==
[2020-06-10 07:37] VITALS: BMI 31.4
== END | disposition home or self-care (01) ==
LOC: DBWHC3 12:50
PROVIDERS: ATTEND Internal Medicine
DX: K57.90 Diverticulosis of intestine, part unspecified, without perforation or abscess without bleeding (principal); Q43.8 Other specified congenital malformations of intestine
CPT/HCPCS: 97802

== ENCOUNTER → 2020-06-14 | Outpatient (CLI) | payer MEDICARE ==
[2020-06-14 10:49] LABS: Basophils # (A) 0.04 X 10*3/uL (0.00-0.10); Basophils % (A) 0.5 %; Eosinophils # (A) 0.14 X 10*3/uL (0.04-0.35); Eosinophils % (A) 1.9 %; HCT 44.7 % (39.6-50.0); HGB 14.2 g/dL (13.0-17.0); Lymphocytes # (A) 1.44 X 10*3/uL (0.90-5.00); Lymphocytes % (A) 19.3 %; MCH 30.5 pg (27.0-32.0); MCHC 31.8 g/dL (32.0-37.0); MCV 95.9 fL (80.0-97.0); Mean Platelet Volume 12.8 fL (9.5-12.2); Monocytes % (A) 10.7 %; Neutrophils # (A) 4.97 X 10*3/uL (1.80-7.70); Neutrophils % (A) 66.5 %; Platelet Count 169 X 10*3/uL (140-440); RBC 4.66 X 10*6/uL (4.40-5.60); RDW 13.7 % (11.5-14.5); WBC 7.47 X 10*3/uL (4.50-10.00)
[2020-06-14 15:29] LABS: Erythrocyte Sedimentation Rate 10 mm/Hr (0-20)
[2020-06-14 16:56] LABS: Magnesium 2.4 mg/dL (1.5-2.4); Prostate Specific Antigen 0.7 ng/mL (0.0-6.5)
[2020-06-14 16:57] LABS: ALT 36 U/L (10-49); AST 35 U/L (14-35); African American GFR (CKD) 55.4 (60.0-200.0); Albumin/Globulin Ratio 1.87 (1.60-3.17); Alkaline Phosphatase 64 U/L (41-126); BUN/Creat Ratio 14.29 Ratio (12.00-20.00); C Reactive Protein <0.4 mg/dL (0.0-0.8); Calcium 9.6 mg/dL (8.7-10.3); Carbon Dioxide 29.5 mmol/L (21.6-31.8); Chloride 103 mmol/L (96-109); Cholesterol 116 mg/dL (0-200); Creatine Kinase 119 U/L (35-257); Globulin 2.3 g/dL (1.6-3.3); Glucose 115 mg/dL (70-110); LDL Cholesterol,Calculated 52.2 mg/dL (0.0-131.0); Non-African American GFR(CKD) 47.8 (60.0-200.0); Phosphorus 4.1 mg/dL (2.4-5.1); Potassium 5.1 mmol/L (3.5-5.5); Sodium 139 mmol/L (135-145); Total Bilirubin 1.4 mg/dL (0.2-1.2); Total Protein 6.6 g/dL (6.2-8.2); Uric Acid 5.3 mg/dL (3.7-8.7)
== END | disposition home or self-care (01) ==
LOC: LABWHC1 06:59
PROVIDERS: ATTEND Internal Medicine
DX: Z00.00 Encounter for general adult medical examination without abnormal findings (principal); E78.5 Hyperlipidemia, unspecified; M81.0 Age-related osteoporosis without current pathological fracture; N20.0 Calculus of kidney; E03.9 Hypothyroidism, unspecified; I12.9 Hypertensive chronic kidney disease with stage 1 through stage 4 chronic kidney disease, or unspecified chronic kidney disease; N18.30 Chronic kidney disease, stage 3 unspecified; N40.0 Benign prostatic hyperplasia without lower urinary tract symptoms; D64.9 Anemia, unspecified; E55.9 Vitamin D deficiency, unspecified
CPT/HCPCS: 36415; 80053; 80061; 82306; 82550; 83735; 84100; 84153; 84443; 84550; 85025; 85652; 86140

== ENCOUNTER 2020-08-08 | Emergency (ER) | payer MEDICARE | END 2020-08-08 04:20 | disposition home or self-care (01) | DX: M79.671 Pain in right foot (principal); E78.5 Hyperlipidemia, unspecified; I10 Essential (primary) hypertension; I25.10 Atherosclerotic heart disease of native coronary artery without angina pectoris; I25.2 Old myocardial infarction; K21.9 Gastro-esophageal reflux disease without esophagitis; M19.90 Unspecified osteoarthritis, unspecified site; Z79.1 Long term (current) use of non-steroidal anti-inflammatories (NSAID); Z79.82 Long term (current) use of aspirin; Z79.899 Other long term (current) drug therapy; Z87.891 Personal history of nicotine dependence; Z88.2 Allergy status to sulfonamides; Z88.8 Allergy status to other drugs, medicaments and biological substances; Z90.49 Acquired absence of other specified parts of digestive tract; Z95.5 Presence of coronary angioplasty implant and graft; Z91.018 Allergy to other foods; Z91.011 Allergy to milk products | CPT/HCPCS: 99283; J8540 ==

== ENCOUNTER 2020-09-05 08:11 | Observation (INO) | payer MEDICARE ==
[2020-09-05] MEDS ORDERED: SODIUM CHLORIDE 0.9% 1,000 ML IV STA (08:22)
[2020-09-05] MEDS ORDERED: MORPHINE SULFATE 4 MG/ML SYRINGE IV STA (08:22)
[2020-09-05] MEDS ORDERED: NITROGLYCERIN OINT 1 INCH/GM PACKET TOPICAL STA (08:22)
--- NOTE | 2020-09-05 08:35 | ED ---
Chest Pain HPI - General Chief Complaint: Chest Pain Stated Complaint: Chest pain Time Seen by Provider: 09/05/20 08:15 Source: patient, RN notes reviewed, old records reviewed Mode of arrival: wheelchair Limitations: no limitations - History of Present Illness Initial Comments: This is a 79-year-old male history of multiple medical issues including cardiac stents since he had the onset this morning of severe retrosternal chest pain he states it started just after 5 AM this morning when he got up he did take 3 nitro's that he get somewhat better was almost 10/10 severity now it's about 6. He states it is somewhat sharp but it does feel similar to his previous cardiac events. Nausea no vomiting no other current complaints. He does state nothing apparently makes it really worse. MD Complaint: chest pain - Related Data Home Medications Medication Instructions Recorded Confirmed Tamsulosin HCl 0.4 mg PO HS@2300 08/28/13 05/13/20 Acetaminophen Tab [Tylenol] 1,000 mg PO DAILY PRN 09/29/14 05/13/20 hydrALAZINE HCL [Apresoline] 50 mg PO QID@05,11,17,23 09/29/14 05/13/20 Nitroglycerin Sl Tabs [Nitrostat] 0.4 mg SUBLINGUAL Q5M PRN 06/18/15 05/13/20 Isosorbide Mononitrate ER [Imdur] 30 mg PO DAILY@0600 07/16/15 05/13/20 Aspirin 162 mg PO DAILY@0600 02/10/16 05/13/20 Vit C/E/Zn/Coppr/Lutein/Zeaxan 1 cap PO BID@0600,1800 02/10/16 05/13/20 [Preservision Areds 2 Softgel] Carboxymethyl/Gly/Poly80/Pf 1 drop BOTH EYES QID 10/23/17 05/13/20 [Refresh Optive Roque-3 Drops] Esomeprazole Magnesium [NexIUM] 40 mg PO BID@0500,1700 10/23/17 05/13/20 Atorvastatin [Lipitor] 40 mg PO HS@2300 11/25/17 05/13/20 Brimonidine Tartrate/Timolol 1 drop BOTH EYES BID@0600,1800 04/21/19 05/13/20 [Combigan 0.2%-0.5% Eye Drops] Famotidine [Pepcid] 20 mg PO BID@0500,1700 04/21/19 05/13/20 Fesoterodine Fumarate [Toviaz] 4 mg PO HS@2300 04/21/19 05/13/20 Losartan [Cozaar] 50 mg PO DAILY@0600 04/21/19 05/13/20 Bisacodyl 10 mg PO HS@2300 03/22/20 05/13/20 Calcium Carbonate [Tums] 1,000 mg PO BID PRN 03/22/20 05/13/20 Cholecalciferol [Vitamin D3 (25 25 mcg PO DAILY@0600 03/22/20 05/13/20 Mcg = 1000 Iu)] Cyanocobalamin (Vitamin B-12) 1,000 mcg PO DAILY@0600 03/22/20 05/13/20 [Vitamin B-12] Fluticasone Nasal [place] [Flonase 2 spr EA NOSTRIL HS@2300 03/22/20 05/13/20 Nasal [place]] Ibuprofen [Advil] 400 mg PO Q8HR PRN 03/22/20 05/13/20 Multivit-Min/FA/Lycopen/Lutein 1 tab PO DAILY@0600 03/22/20 05/13/20 [Centrum Silver Men Tablet] Netarsudil Mesylat/Latanoprost 1 drop BOTH EYES HS@2300 03/22/20 05/13/20 [Rocklatan 0.02%-0.005% Eye Drp] Nystatin/Triamcin 1 applic TOPICAL BID 03/22/20 05/13/20 [Nystatin-Triamcinolone Cream] Triamcinolone 0.1% Paste [Oralone 1 applic TOPICAL DAILY PRN 03/22/20 05/13/20 0.1% Paste] Allergies Allergy/AdvReac Type Severity Reaction Status Date / Time atenolol Allergy Unknown Verified 09/05/20 08:11 clopidogrel bisulfate Allergy severe Verified 09/05/20 08:11 [From Plavix] itching gluten Allergy blisters Verified 09/05/20 08:11 lactose Allergy Abdominal Verified 09/05/20 08:11 Pain simvastatin Allergy Unknown Verified 09/05/20 08:11 beet AdvReac CAUSES Verified 09/05/20 08:11 KIDNEY STONES PER PT Sylvarena And Derivatives AdvReac CAUSES Verified 09/05/20 08:11 [Sylvarena] KIDNEY STONES PER PT cocoa AdvReac CAUSES Verified 09/05/20 08:11 KIDNEY STONES PER PT coffee (Coffea arabica) AdvReac CAUSES Verified 09/05/20 08:11 KIDNEY STONES PER PT cranberry AdvReac CAUSES Verified 09/05/20 08:11 KIDNEY STONES PER PT diphenhydramine AdvReac Diarrhea Verified 09/05/20 08:11 [From Benadryl] green tea AdvReac CAUSES Verified 09/05/20 08:11 KIDNEY STONES PER PT plum AdvReac CAUSES Verified 09/05/20 08:11 KIDNEY STONES PER PT prednisolone AdvReac GLAUCOMA Verified 09/05/20 08:11 rhubarb AdvReac CAUSES Verified 09/05/20 08:11 KIDNEY STONES PER PT spinach AdvReac CAUSES Verified 09/05/20 08:11 KIDNEY STONES PER PT sucralfate [From Carafate] AdvReac REFLUX Verified 09/05/20 08:11 Sulfa (Sulfonamide AdvReac blood Verified 09/05/20 08:11 Antibiotics) disorder sweet potato AdvReac CAUSES Verified 09/05/20 08:11 KIDNEY STONES PER PT tree nut [Nut] AdvReac CAUSES Verified 09/05/20 08:11 KIDNEY STONES PER PT Review of Systems ROS Statement: Those systems with pertinent positive or pertinent negative responses have been documented in the HPI. ROS Other: All systems not noted in ROS Statement are negative. EKG Findings - EKG Results: EKG: interpreted by ERMD, sinus rhythm (Sinus rhythm with first-degree AV block rate 66. Interval to 16 QRS 92 QT since QTC 392/410. 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, varicose veins, hiatal hernia, hx ulcers, black stool, hx pancreatitis 2016, hx eczema, CHANGE IN BOWEL HABITS Last Myocardial Infarction Date:: 11/25/17 History of Any Multi-Drug Resistant Organisms: None Reported Past Surgical History: Adenoidectomy, Appendectomy, Back Surgery, Bowel Resection, Cholecystectomy, Heart Catheterization With Stent, Hernia Repair, Orthopedic Surgery, Tonsillectomy Additional Past Surgical History / Comment(s): esophagectomy, colectomy, LT CAROTID ENDARTECTOMY, LUMP REMOVED FROM TONGUE, LITHOTRIPSY, CYSTOSCOPY, RT ROTATOR CUFF REPAIR, R carpal tunnel release, DEVIATED SEPTUM, , cardiac STENTS x 3, UMBILICAL HERNIA REPAIR X 2, RT inguinal hernia repair, LOWER BACK SURGERY-HAS SCREWS, BILAT CATARACTS REMOVED, vasectomy, repair of undescended testicle, COLONOSCOPY, EGD Past Anesthesia/Blood Transfusion Reactions: No Reported Reaction Additional Past Anesthesia/Blood Transfusion Reaction / Comment(s): Pt has received blood in past without reaction. Date of Last Stent Placement:: 2015 Past Psychological History: No Psychological Hx Reported Smoking Status: Former smoker Past Alcohol Use History: None Reported Past Drug Use History: None Reported - Past Family History Brother(s) Family Medical History: Cancer Additional Family Medical History / Comment(s): liver and brain Mother Family Medical History: Cancer Additional Family Medical History / Comment(s): LIVER CA, BRAIN CA Sister(s) Family Medical History: Cancer Additional Family Medical History / Comment(s): BREAST CA, LUNG CA. SISTER X 2 Father Family Medical History: Osteoarthritis (OA) Additional Family Medical History / Comment(s): CELIAC DISEASE, ULCERS General Exam - General Exam Comments Initial Comments: This is a well-developed well-nourished awake alert oriented 3 male Limitations: no limitations General appearance: alert, anxious Head exam: Present: atraumatic, normocephalic, normal inspection Eye exam: Present: normal appearance, PERRL, EOMI. Absent: scleral icterus, conjunctival injection, periorbital swelling ENT exam: Present: normal exam, mucous membranes moist Neck exam: Present: normal inspection, full ROM, other. Absent: tenderness, meningismus, lymphadenopathy Respiratory exam: Present: normal lung sounds bilaterally, chest wall tenderness (No stridor JVD or bruits some tenderness palpation on the left costal sternal margin no step-off no crepitation). Absent: respiratory distress, wheezes, rales, rhonchi, stridor Cardiovascular Exam: Present: regular rate, normal rhythm, normal heart sounds. Absent: systolic murmur, diastolic murmur, rubs, gallop, clicks GI/Abdominal exam: Present: soft, normal bowel sounds. Absent: distended, tenderness, guarding, rebound, rigid, bruit, pulsatile mass Extremities exam: Present: normal inspection, full ROM, normal capillary refill. Absent: tenderness, pedal edema, joint swelling, calf tenderness Back exam: Present: normal inspection Neurological exam: Present: alert, oriented X3, CN II-XII intact Psychiatric exam: Present: normal affect, normal mood Skin exam: Present: warm, dry, intact, normal color. Absent: rash Course Vital Signs 09/05/20 09/05/20 08:11 09:05 Temperature 98.7 F Pulse Rate 57 L 64 Respiratory 16 18 Rate Blood Pressure 153/81 114/72 O2 Sat by Pulse 98 97 Oximetry Chest Pain MDM - MDM Imaging reviewed no acute findings I did discuss findings with the patient family patient will be admitted with cardiology consultation case was discussed with Dr. Mckeon. . The patient stated he did have some change in his chest pain. Repeat EKG showed a sinus rhythm with first-degree AV block rate 61 SD interval 210, QRS duration 96 QT/QTC 414/416 similar configuration as the previous EKGs. Patient still has some discomfort to palpation of the chest there may be a component of musculoskeletal pain involved. Critical Care Time Critical Care Time: Yes Total Critical Care Time: 31 Critical Care Time: Critical care time including initial presentation with history physical labs x- rays several reevaluation the patient to responsive therapy discuss with patient family regarding the findings review of old charting discussed with the main physician admission orders and documentation of the above. Disposition Clinical Impression: Unstable angina pectoris, Chest pain Disposition: ADMITTED IP TO THIS [facility] Condition: Fair Referrals: Oren Price MD [Primary Care Provider] - 1-2 days
[2020-09-05 08:36] LABS: Basophils % (A) 0 %; Eosinophils # (A) 0.1 k/uL (0-0.7); Eosinophils % (A) 2 %; HCT 40.3 % (39.0-53.0); HGB 13.4 gm/dL (13.0-17.5); Lymphocytes # (A) 1.2 k/uL (1.0-4.8); Lymphocytes % (A) 15 %; MCH 31.7 pg (25.0-35.0); MCHC 33.3 g/dL (31.0-37.0); MCV 95.2 fL (80.0-100.0); Mean Platelet Volume 9.7; Monocytes # (A) 0.5 k/uL (0-1.0); Monocytes % (A) 6 %; Neutrophils # (A) 6.1 k/uL (1.3-7.7); Neutrophils % (A) 75 %; Platelet Count 198 k/uL (150-450); RBC 4.23 m/uL (4.30-5.90); RDW 13.8 % (11.5-15.5); WBC 8.1 k/uL (3.8-10.6)
[2020-09-05 08:45] LABS: Calcium 9.5 mg/dL (8.4-10.2); Magnesium 2.5 mg/dL (1.6-2.3); Potassium 4.5 mmol/L (3.5-5.1); Total Bilirubin 0.7 mg/dL (0.2-1.3); Total Protein 6.6 g/dL (6.3-8.2)
--- NOTE | 2020-09-05 08:47 | XR ---
EXAMINATION TYPE: XR chest 2V DATE OF EXAM: 09/05/2020 COMPARISON: 03/12/2018 HISTORY: 80 years Male. STUDY INDICATION GIVEN: Chest pain TECHNIQUE: Frontal and lateral chest radiographs FINDINGS AND IMPRESSION: There is opacification of the retrocardiac space similar to prior study with air fluid/food level lik mya representing gastroesophageal hiatal hernia. Left lower lobe opacity is difficult to definitely exclude due to the overlap of the hiatal hernia an d there may be some atelectasis and/or developing infiltrate, no obvious pneumonic consolidation. Cardiomediastinal silhouette is within normal limit. Atherosclerotic calcifications seen in the intra thoracic aorta. No pneumothorax or pleural effusion. No acute osseous abnormality.
[2020-09-05 08:50] LABS: INR 0.9 (<1.2); Prothrombin Time 9.7 sec (9.0-12.0)
[2020-09-05] MEDS ORDERED: HEPARIN SODIUM 1,000 UN/ML (10ML VL) IV ONE (10:06)
[2020-09-05] MEDS: hydrALAZINE HCL 50 MG TAB PO SCH ×4 (11:29→21:28)
[2020-09-05] MEDS: HEPARIN SOD,PORK IN 0.45% NACL 25,000 UNIT in 0.45% NACL 1 250ML.BAG IV SCH (11:37)
[2020-09-05] MEDS: SODIUM CHLORIDE 0.9% 1,000 ML IV SCH ×2 (11:39→21:22)
[2020-09-05] MEDS ORDERED: DICLOFENAC SODIUM GEL 100 GM TUBE TOPICAL PRN (12:25)
[2020-09-05] MEDS ORDERED: ACETAMINOPHEN TAB 500 MG TAB PO PRN (12:25)
[2020-09-05] MEDS ORDERED: NITROGLYCERIN SL TABS 0.4 MG TAB SUBLINGUAL PRN (12:34)
[2020-09-05] MEDS: NITROGLYCERIN OINT 1 INCH/GM PACKET TOPICAL SCH ×3 (12:41→22:50)
[2020-09-05] MEDS: ARTIFICIAL TEARS-HYPROMELLOSE DROPS 15 ML BTL BOTH EYES SCH ×3 (13:00→21:23)
--- NOTE | 2020-09-05 14:01 | P.HPIM ---
History of Present Illness H&P Date: 09/05/20 (Chest pain at 6:00 AM pericardial) Chief Complaint: Chest pain pressure type no radiation start at 6 AM today 1 hour after he a History and physical dictation. Date of service 09/05/2020 Chief complaint: Patient complaining of a chest pain pressure-like in the precordial area left sided started at 6 AM after he ate breakfast at 5 AM not resulted by nitroglycerin sublingual 3. 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 Cardiac on the left side after he ate his breakfast at 5 AM and the pain started at 6 AM associated with belching and some epigastric discomfort. Patient tried nitroglycerin 3 and did not tell for relieving the pain. He lives with his son and will brought him to the ER this morning. In the ER was seen by Dr. Quiñones with the history was clinical convincing of acute chest pain with the pain was 10 over 10 precordial, his cardiac panel was negative the first reading on the examination his second reading also was negative. Pro-[employer] also was normal, chest x-ray was indicate her HIATAL hernia. No evidence of pneumonia, normal white count and hemoglobin and no cough or fever or chills. 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 Shepherd, with the history of 3 stent, he had history of cardiac catheterization as well with the involvement of Dr. SHIRA Logan. #2 coronary artery disease acid with sclerotic heart disease #3 hyperlipidemia. #4 chronic history of GERD disease on proton pump inhibitor with a severe acid reflux disease, hiatal hernia. #5 history of benign prostatic hypertrophy. #6 history of left nostril obstruction with bleeding treated by Dr. Hernandez ENT team. #7 history of hypertension with hypertensive heart disease. #8 underlying advanced degenerative arthritis. #9 history of trigger finger in both hand. #10 history of celiac disease, eczema Social history with loss of his . One son. Nonsmoker nondrinker. Multiple ALLERGY: Beta jessica atenolol, Plavix, lactulose, simvastatin,gluten, beet, citrus, chronic derivative and more. Review of system: Neuropsychiatry no symptoms, no stroke symptoms or history of stroke. Cardiovascular: He had 3 stent, coronary artery disease, currently chest pain. He stated that they told him before that he had heart attack but he never experienced. Long and chest: He had a chest pain precordial with no radiation this morning prior to that he was stable GI he has discomfort in the upper abdomen and GERD disease and irritation and stated that his abdomen is mildly distended. Urogenital: History of prostatic enlargement, on medication for the prostate, no symptoms in this time. Musculoskeletal: He had degenerative arthritis advances with some tendinitis and trigger finger however he seen the orthopedic. Currently he is ambulatory and he has no complaint. Review of the rest of 14 bult no other symptoms. On exam: Patient was in the ER module #10 seen and examined. He is just finish his lunch and he is currently feeling okay, he received injection of narcotic and the place a patch on his chest and the pain result. Vital sign stable however the blood pressure dropped and we held the hydralazine for now and the losartan with the parameter to be held if the blood pressure 120 systolic or below. The head was normocephalic and atraumatic, patient able to communicate freely until the history. Oropharynx natural teeth able to swallow and eat. Hearing is stable, nose he had treated the left nostril by Dr. Hernandez. Neck was supple no JVD no thyromegaly no lymphadenopathy trachea midline. Chest is clear to auscultation and percussion no wheezes no rhonchi's and no rales. Heart regular sinus rhythm, no chest pain at the time of the examination, he has EKG done twice with no evidence of acute changes with the underlying sinus arr hythmia. Abdomen is soft positive bowel sounds with some epigastric discomfort. Extremities no edema and positive pulses with the underlying degenerative osteoarthritis advance. Neurological exam: No lateralizing sign, ambulatory no neuro deficit no tremors. Assessment: Acute chest pain precordial with a history of see stent in the past. With the possibility of the hiatal hernia and distention causing pressure on the back of the heart is considered Hypertension with hypertensive heart disease. Currently his blood pressure on downslope and we held some medication hydralazine temporary. No evidence of anemia. Plan: Cardiology consultation for evaluation and treatment Heparin protocol for acute chest pain. Adjusting medication according to his current symptoms. EKG and serial troponin currently is normal so far. We'll be waiting for cardiology evaluation and for further treatment. 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, varicose veins, hiatal hernia, hx ulcers, black stool, hx pancreatitis 2016, hx eczema, CHANGE IN BOWEL HABITS Last Myocardial Infarction Date:: 11/25/17 History of Any Multi-Drug Resistant Organisms: None Reported Past Surgical History: Adenoidectomy, Appendectomy, Back Surgery, Bowel Resection, Cholecystectomy, Heart Catheterization With Stent, Hernia Repair, Orthopedic Surgery, Tonsillectomy Additional Past Surgical History / Comment(s): esophagectomy, colectomy, LT CAROTID ENDARTECTOMY, LUMP REMOVED FROM TONGUE, LITHOTRIPSY, CYSTOSCOPY, RT ROTATOR CUFF REPAIR, R carpal tunnel release, DEVIATED SEPTUM, , cardiac STENTS x 3, UMBILICAL HERNIA REPAIR X 2, RT inguinal hernia repair, LOWER BACK SURGERY- HAS SCREWS, BILAT CATARACTS REMOVED, vasectomy, repair of undescended testicle, COLONOSCOPY, EGD Past Anesthesia/Blood Transfusion Reactions: No Reported Reaction Additional Past Anesthesia/Blood Transfusion Reaction / Comment(s): Pt has received blood in past without reaction. Date of Last Stent Placement:: 2015 Past Psychological History: No Psychological Hx Reported Smoking Status: Former smoker Past Alcohol Use History: None Reported Past Drug Use History: None Reported - Past Family History Brother(s) Family Medical History: Cancer Additional Family Medical History / Comment(s): liver and brain Mother Family Medical History: Cancer Additional Family Medical History / Comment(s): LIVER CA, BRAIN CA Sister(s) Family Medical History: Cancer Additional Family Medical History / Comment(s): BREAST CA, LUNG CA. SISTER X 2 Father Family Medical History: Osteoarthritis (OA) Additional Family Medical History / Comment(s): CELIAC DISEASE, ULCERS Medications and Allergies Home Medications Medication Instructions Recorded Confirmed Type Tamsulosin HCl 0.4 mg PO HS 08/28/13 09/05/20 History Acetaminophen Tab [Tylenol] 1,000 mg PO DAILY PRN 09/29/14 09/05/20 History Nitroglycerin Sl Tabs [Nitrostat] 0.4 mg SUBLINGUAL Q5M PRN 06/18/15 09/05/20 History Isosorbide Mononitrate ER [Imdur] 30 mg PO BID 07/16/15 09/05/20 History Carboxymethyl/Gly/Poly80/Pf 1 drop BOTH EYES QID PRN 10/23/17 09/05/20 History [Refresh Optive [place]-3 Drops] Esomeprazole Magnesium [NexIUM] 40 mg PO BID 10/23/17 09/05/20 History Brimonidine Tartrate/Timolol 1 drop BOTH EYES BID 04/21/19 09/05/20 History [Combigan 0.2%-0.5% Eye Drops] Famotidine [Pepcid] 20 mg PO BID 04/21/19 09/05/20 History Fesoterodine Fumarate [Toviaz] 4 mg PO HS 04/21/19 09/05/20 History Losartan [Cozaar] 50 mg PO DAILY 04/21/19 09/05/20 History Calcium Carbonate [Tums] 1,000 mg PO BID PRN 03/22/20 09/05/20 History Fluticasone Nasal [place] [Flonase 1 spray EA NOSTRIL BID PRN 03/22/20 09/05/20 History [place]al [place]] Ibuprofen [Advil] 400 mg PO Q8HR PRN 03/22/20 09/05/20 History Netarsudil Mesylat/Latanoprost 1 drop BOTH EYES HS 03/22/20 09/05/20 History [[place] 0.02%-0.005% Eye Drp] Atorvastatin Calcium [Lipitor] 40 mg PO HS 09/05/20 09/05/20 History Diclofenac Sodium Gel [Voltaren 1 applicate TOPICAL QID PRN 09/05/20 09/05/20 History Gel] Mupirocin 2% Oint [Bactroban 2% 1 applic NASAL BID 09/05/20 09/05/20 History Oint] Sodium Chloride [Saline Nasal 1 spray EA NOSTRIL QID PRN 09/05/20 09/05/20 History [place]] Triamcinolone 0.1% Cream [Kenalog 1 applicatio TOPICAL BID PRN 09/05/20 09/05/20 History 0.1% Cream] hydrALAZINE HCL [Apresoline] 50 mg PO QID@06,12,18,23 09/05/20 09/05/20 History Allergies Allergy/AdvReac Type Severity Reaction Status Date / Time atenolol Allergy Unknown Verified 09/05/20 10:23 clopidogrel bisulfate Allergy severe Verified 09/05/20 10:23 [From Plavix] itching gluten Allergy blisters Verified 09/05/20 10:23 lactose Allergy Abdominal Verified 09/05/20 10:23 Pain simvastatin Allergy Unknown Verified 09/05/20 10:23 beet AdvReac CAUSES Verified 09/05/20 10:23 KIDNEY STONES PER PT [place] And Derivatives AdvReac CAUSES Verified 09/05/20 10:23 [[place]] KIDNEY STONES PER PT cocoa AdvReac CAUSES Verified 09/05/20 10:23 KIDNEY STONES PER PT coffee (Coffea arabica) AdvReac CAUSES Verified 09/05/20 10:23 KIDNEY STONES PER PT cranberry AdvReac CAUSES Verified 09/05/20 10:23 KIDNEY STONES PER PT diphenhydramine AdvReac Diarrhea Verified 09/05/20 10:23 [From Benadryl] green tea AdvReac CAUSES Verified 09/05/20 10:23 KIDNEY STONES PER PT plum AdvReac CAUSES Verified 09/05/20 10:23 KIDNEY STONES PER PT prednisolone AdvReac GLAUCOMA Verified 09/05/20 10:23 rhubarb AdvReac CAUSES Verified 09/05/20 10:23 KIDNEY STONES PER PT spinach AdvReac CAUSES Verified 09/05/20 10:23 KIDNEY STONES PER PT sucralfate [From Carafate] AdvReac REFLUX Verified 09/05/20 10:23 Sulfa (Sulfonamide AdvReac blood Verified 09/05/20 10:23 Antibiotics) disorder sweet potato AdvReac CAUSES Verified 09/05/20 10:23 KIDNEY STONES PER PT tree nut [Nut] AdvReac CAUSES Verified 09/05/20 10:23 KIDNEY STONES PER PT Physical Exam Vitals: Vital Signs Temp Pulse Resp BP Pulse Ox 09/05/20 11:28 60 18 100/54 98 09/05/20 09:05 64 18 114/72 97 09/05/20 08:11 98.7 F 57 L 16 153/81 98 Intake and Output 09/04/20 09/05/20 09/05/20 22:59 06:59 14:59 Other: Weight 95.254 kg Results CBC & Chem 7: 09/05/20 08:28 09/05/20 08:28 Labs: Abnormal Lab Results - Last 24 Hours (Table) 09/05/20 09/05/20 Range/Units 08:28 08:28 RBC 4.23 L (4.30-5.90) m/uL Glucose 125 H (74-99) mg/dL Magnesium 2.5 H (1.6-2.3) mg/dL
[2020-09-05] MEDS: TIMOLOL 0.5% OPHTH DROPS 5 ML BTL BOTH EYES SCH (17:33)
[2020-09-05] MEDS: FAMOTIDINE 20 MG TAB PO SCH (17:35)
[2020-09-05] MEDS: PANTOPRAZOLE 40 MG TABLET PO SCH (17:41)
[2020-09-05] MEDS ORDERED: ATORVASTATIN 80 MG TAB PO SCH (21:00)
[2020-09-05] MEDS: BRIMONIDINE TARTRATE 0.2% DROPS 5 ML BTL BOTH EYES SCH (21:20)
[2020-09-05] MEDS: CALCIUM CARBONATE 500 MG CHEWABLE PO PRN (21:20)
[2020-09-05] MEDS: ATORVASTATIN 40 MG TAB PO SCH (21:23)
[2020-09-05] MEDS: TAMSULOSIN 0.4 MG CAP.ER.24H PO SCH (21:23)
[2020-09-05] MEDS: FLUTICASONE 50MCG/SPRAY NASAL 16GM EA NOSTRIL SCH (22:48)
[2020-09-05] MEDS: NON FORMULARY DRUG (Netarsudil Mesylat/Latanoprost [Rocklatan 0.02%-0.005% Eye Drp] 2.5 ML BOTH EYES SCH (22:48)
[2020-09-05] MEDS: TROSPIUM CHLORIDE 20 MG TABLET PO SCH (22:48)
[2020-09-06] MEDS: NITROGLYCERIN OINT 1 INCH/GM PACKET TOPICAL SCH (04:41)
[2020-09-06] MEDS: BRIMONIDINE TARTRATE 0.2% DROPS 5 ML BTL BOTH EYES SCH ×2 (05:10→16:03)
[2020-09-06] MEDS: hydrALAZINE HCL 50 MG TAB PO SCH (05:10)
[2020-09-06] MEDS: FAMOTIDINE 20 MG TAB PO SCH ×2 (05:10→16:01)
[2020-09-06] MEDS: TIMOLOL 0.5% OPHTH DROPS 5 ML BTL BOTH EYES SCH ×2 (05:11→16:04)
[2020-09-06] MEDS: SODIUM CHLORIDE 0.9% 1,000 ML IV SCH ×2 (05:11→14:12)
[2020-09-06] MEDS ORDERED: ISOSORBIDE MONONITRATE ER 30 MG TAB.ER.24H PO SCH (06:00)
[2020-09-06] MEDS ORDERED: LOSARTAN 50 MG TAB PO SCH (06:00)
[2020-09-06 06:40] LABS: African American GFR (CKD) 82 (>60 ml/min/1.73 sqM); Anion Gap 6 mmol/L; Blood Urea Nitrogen 19 mg/dL (9-20); Calcium 9.2 mg/dL (8.4-10.2); Carbon Dioxide 25 mmol/L (22-30); Chloride 107 mmol/L (98-107); Glucose 107 mg/dL (74-99); Magnesium 2.4 mg/dL (1.6-2.3); Non-African American GFR(CKD) 71 (>60 ml/min/1.73 sqM); Potassium 4.6 mmol/L (3.5-5.1); Sodium 138 mmol/L (137-145)
[2020-09-06] MEDS: CALCIUM CARBONATE 500 MG CHEWABLE PO PRN (07:49)
[2020-09-06] MEDS: PANTOPRAZOLE 40 MG TABLET PO SCH ×2 (07:50→16:02)
[2020-09-06] MEDS: ARTIFICIAL TEARS-HYPROMELLOSE DROPS 15 ML BTL BOTH EYES SCH ×4 (07:56→22:12)
[2020-09-06] MEDS ORDERED: ASPIRIN 325 MG TAB PO SCH (09:00)
[2020-09-06] MEDS ORDERED: NITROGLYCERIN SL TABS 0.4 MG TAB SUBLINGUAL PRN (10:00)
[2020-09-06] MEDS ORDERED: ALPRAZolam 0.25 MG TAB PO PRN (10:00)
[2020-09-06] MEDS ORDERED: ALPRAZolam 0.5 MG TAB PO PRN (10:00)
--- NOTE | 2020-09-06 10:00 | ECHOF ---
Referral Reason:Chest pain MEASUREMENTS -------- HEIGHT: 170.2 cm WEIGHT: 95.3 kg BP: 103/61 RVIDd: 2.8 cm (< 3.3) IVSd: 1.7 cm (0.6 - 1.1) LVIDd: 3.2 cm (3.9 - 5.3) LVPWd: 1.6 cm (0.6 - 1.1) IVSs: 1.8 cm LVIDs: 2.4 cm LVPWs: 1.8 cm LAESV Index (A-L): 30.75 ml/m Ao Diam: 3.1 cm (2.0 - 3.7) AV Cusp: 1.2 cm (1.5 - 2.6) LA Diam: 4.6 cm (2.7 - 3.8) MV EXCURSION: 14.396 mm (> 18.000) MV EF SLOPE: 73 mm/s (70 - 150) EPSS: 1.4 cm MV E [place]: 1.37 m/s MV DecT: 186 ms MV A [place]: 1.23 m/s MV E/A Ratio: 1.11 AV maxP.99 mmHg AV meanP.80 mmHg RAP: 5.00 mmHg RVSP: 26.63 mmHg FINDINGS -------- Sinus rhythm. This was a technically adequate study. The left ventricular size is normal. There is moderate concentric left ventricular hypertrophy. O verall left ventricular systolic function is normal with, an EF between 55 - 60 %. The diastolic fi lling pattern is normal for the age of the patient 23.44. The right ventricle is normal in size. LA is midly dilated 29-33ml/m2. The right atrial size is normal. Interatrial and interventricular septum intact. There is mild aortic regurgitation. There is mild aortic stenosis present. Peak/mean gradient acr oss the Aortic Valve is 17.99mmHg / 9.80mmHg. Mild mitral regurgitation is present. Mild tricuspid regurgitation present. There is no evidence of pulmonary hypertension. The right v entricular systolic pressure, as measured by Doppler, is 26.63mmHg. There is no pulmonic regurgitation present. The aortic root size is normal. IVC Not well visulized. There is no pericardial effusion. CONCLUSIONS -------- 1. The left ventricular size is normal. 2. There is moderate concentric left ventricular hypertrophy. 3. Overall left ventricular systolic function is normal with, an EF between 55 - 60 %. 4. The diastolic filling pattern is normal for the age of the patient 23.44 5. LA is midly dilated 29-33ml/m2. 6. There is mild aortic regurgitation. 7. There is mild aortic stenosis present. 8. Peak/mean gradient across the Aortic Valve is 17.99mmHg / 9.80mmHg. 9. Mild mitral regurgitation is present. 10. Mild tricuspid regurgitation present. CORPORATE COMMUNICATIONS SPECIALIST: Helena Gallagher RDCS
--- NOTE | 2020-09-06 10:29 | P.CRDCN ---
History of Present Illness Consult date: 09/06/20 History of present illness: HISTORY OF PRESENT ILLNESS: This is a 80-year-old male with a past medical history significant for coronary artery disease with previous stent placement, hypertension, hyperlipidemia, and former nicotine dependence. Patient follows in the office with Dr. Shepherd. We have been asked to see the patient in consultation for chest pain. Patient examined at the bedside. Patient states yesterday he was sitting at home when he developed chest discomfort. He states the pain was in the middle of his chest. He states the pain was a pressure-like sensation which she still has this morning although it is improved. He also reports feeling a stabbing sensation to his chest. He reports discomfort in his neck as well. He reports chest tightness when taking a deep breath. He denies pain with palpation. He denies nausea or vomiting. He denies dizziness or lightheadedness. Patient states he took 3 nitro at home which helped his pain for a little while and then it returned. He states once he came to the hospital and received Nitropaste, the stabbing pain subsided but he continues to have a pressure sensation in the middle of his chest. EKG reveals sinus mechanism with first-degree AV block. Rate axis deviation. No signs of acute ischemia. Chest xray opacification of the retrocardiac space similar to prior study with air-fluid/food level likely representing gastroesophageal hiatal hernia. Left lower lobe opacities difficult to definitely exclude due to overlap of the hiatal hernia and there may be atelectasis and/or developing infiltrate. No pneumothorax or pleural effusion. Laboratory data: WBC 8.1. Hemoglobin 13.4. Platelet count 198. D-dimer 0.55. Sodium 138. Potassium 4.6. BUN 19. Creatinine 1.0. Magnesium 2.4. Troponin negative 3 Current home cardiac medications include Imdur 30 mg twice a day, Cozaar 50 mg daily, hydralazine 50 mg 4 times a day, Lipitor 40 mg daily Echocardiogram completed revealed ejection fraction 55-60%. Mild aortic regurgitation. Mild aortic stenosis. Mild mitral regurgitation. Mild tricuspid regurgitation. Cardiac catheterization history: November 2017 stable coronary artery disease with patent stents in LAD. There are collaterals to the diagonal branch from the RCA. No other significant disease noted. Patient underwent Lexiscan stress test and March 2019 revealing mildly reversible ischemia involving mostly the mid anterior wall suggestive of ischemia and the diagonal distribution. REVIEW OF SYSTEMS: At the time of my exam: CONSTITUTIONAL: Denies fever or chills. HEENT: Denies blurred vision, vision changes, or eye pain. Denies hemoptysis CARDIOVASCULAR: Denies chest pain. Denies orthopnea. Denies PND. Denies palpitations RESPIRATORY: Denies shortness of breath. GASTROINTESTINAL: Denies abdominal pain. Denies nausea or vomiting. HEMATOLOGIC: Denies bleeding disorders. GENITOURINARY: Denies any blood in urine. SKIN: Denies pruitis. Denies rash. PHYSICAL EXAM: VITAL SIGNS: Reviewed. GENERAL: Well-developed in no acute distress. HEENT: Head is normocephalic. Pupils are equal, round. Sclerae anicteric. Mucous membranes of the mouth are moist. Neck supple. No JVD or thyromegaly LUNGS: Respirations even and unlabored. Lungs essentially clear to auscultation bilaterally. HEART: Regular rate and rhythm. S1 and S2 heard. ABDOMEN: Soft. Nondistended. Nontender. EXTREMITIES: Normal range of motion. No clubbing or cyanosis. Peripheral pulses intact. No lower extremity edema NEUROLOGIC: Awake and alert. Oriented x 3. ASSESSMENT: Unstable angina Coronary artery disease with previous PCI to LAD Hypertension Hyperlipidemia Former nicotine dependence PLAN: Resume home cardiac medications Continue IV heparin Nothing by mouth at midnight Patient to undergo cardiac catheterization tomorrow with Dr. Shepherd Nurse practitioner note has been reviewed by physician. Signing provider agrees with the documented findings, assessment, and plan of care. 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, varicose veins, hiatal hernia, hx ulcers, black stool, hx pancreatitis 2016, hx eczema, CHANGE IN BOWEL HABITS Last Myocardial Infarction Date:: 11/25/17 History of Any Multi-Drug Resistant Organisms: None Reported Past Surgical History: Adenoidectomy, Appendectomy, Back Surgery, Bowel Resection, Cholecystectomy, Heart Catheterization With Stent, Hernia Repair, Orthopedic Surgery, Tonsillectomy Additional Past Surgical History / Comment(s): esophagectomy, colectomy, LT CAROTID ENDARTECTOMY, LUMP REMOVED FROM TONGUE, LITHOTRIPSY, CYSTOSCOPY, RT ROTATOR CUFF REPAIR, R carpal tunnel release, DEVIATED SEPTUM, , cardiac STENTS x 3, UMBILICAL HERNIA REPAIR X 2, RT inguinal hernia repair, LOWER BACK SURGERY- HAS SCREWS, BILAT CATARACTS REMOVED, vasectomy, repair of undescended testicle, COLONOSCOPY, EGD Past Anesthesia/Blood Transfusion Reactions: No Reported Reaction Additional Past Anesthesia/Blood Transfusion Reaction / Comment(s): Pt has received blood in past without reaction. Date of Last Stent Placement:: 2015 Past Psychological History: No Psychological Hx Reported Additional Psychological History / Comment(s): . Smoking Status: Former smoker Past Alcohol Use History: None Reported Additional Past Alcohol Use History / Comment(s): STARTED SMOKING AGE 11 (1950) WAS 2 PPD, QUIT 1983 Past Drug Use History: None Reported - Past Family History Brother(s) Family Medical History: Cancer Additional Family Medical History / Comment(s): liver and brain Mother Family Medical History: Cancer Additional Family Medical History / Comment(s): LIVER CA, BRAIN CA Sister(s) Family Medical History: Cancer Additional Family Medical History / Comment(s): BREAST CA, LUNG CA. SISTER X 2 Father Family Medical History: Osteoarthritis (OA) Additional Family Medical History / Comment(s): CELIAC DISEASE, ULCERS Medications and Allergies Home Medications Medication Instructions Recorded Confirmed Type Tamsulosin HCl 0.4 mg PO HS 08/28/13 09/05/20 History Acetaminophen Tab [Tylenol] 1,000 mg PO DAILY PRN 09/29/14 09/05/20 History Nitroglycerin Sl Tabs [Nitrostat] 0.4 mg SUBLINGUAL Q5M PRN 06/18/15 09/05/20 History Isosorbide Mononitrate ER [Imdur] 30 mg PO BID 07/16/15 09/05/20 History Carboxymethyl/Gly/Poly80/Pf 1 drop BOTH EYES QID PRN 10/23/17 09/05/20 History [Refresh Optive Roque-3 Drops] Esomeprazole Magnesium [NexIUM] 40 mg PO BID 10/23/17 09/05/20 History Brimonidine Tartrate/Timolol 1 drop BOTH EYES BID 04/21/19 09/05/20 History [Combigan 0.2%-0.5% Eye Drops] Famotidine [Pepcid] 20 mg PO BID 04/21/19 09/05/20 History Fesoterodine Fumarate [Toviaz] 4 mg PO HS 04/21/19 09/05/20 History Losartan [Cozaar] 50 mg PO DAILY 04/21/19 09/05/20 History Calcium Carbonate [Tums] 1,000 mg PO BID PRN 03/22/20 09/05/20 History Fluticasone Nasal [place] [Flonase 1 spray EA NOSTRIL BID PRN 03/22/20 09/05/20 History Nasal [place]] Ibuprofen [Advil] 400 mg PO Q8HR PRN 03/22/20 09/05/20 History Netarsudil Mesylat/Latanoprost 1 drop BOTH EYES HS 03/22/20 09/05/20 History [Rocklatan 0.02%-0.005% Eye Drp] Atorvastatin Calcium [Lipitor] 40 mg PO HS 09/05/20 09/05/20 History Diclofenac Sodium Gel [Voltaren 1 applicate TOPICAL QID PRN 09/05/20 09/05/20 Hi story Gel] Mupirocin 2% Oint [Bactroban 2% 1 applic NASAL BID 09/05/20 09/05/20 History Oint] Sodium Chloride [Saline Nasal 1 spray EA NOSTRIL QID PRN 09/05/20 09/05/20 History Florence] Triamcinolone 0.1% Cream [Kenalog 1 applicatio TOPICAL BID PRN 09/05/20 09/05/20 History 0.1% Cream] hydrALAZINE HCL [Apresoline] 50 mg PO QID@06,12,18,23 09/05/20 09/05/20 History Allergies Allergy/AdvReac Type Severity Reaction Status Date / Time atenolol Allergy Unknown Verified 09/05/20 10:23 clopidogrel bisulfate Allergy severe Verified 09/05/20 10:23 [From Plavix] itching gluten Allergy blisters Verified 09/05/20 10:23 lactose Allergy Abdominal Verified 09/05/20 10:23 Pain simvastatin Allergy Unknown Verified 09/05/20 10:23 beet AdvReac CAUSES Verified 09/05/20 10:23 KIDNEY STONES PER PT [place] And Derivatives AdvReac CAUSES Verified 09/05/20 10:23 [[place]] KIDNEY STONES PER PT cocoa AdvReac CAUSES Verified 09/05/20 10:23 KIDNEY STONES PER PT coffee (Coffea arabica) AdvReac CAUSES Verified 09/05/20 10:23 KIDNEY STONES PER PT cranberry AdvReac CAUSES Verified 09/05/20 10:23 KIDNEY STONES PER PT diphenhydramine AdvReac Diarrhea Verified 09/05/20 10:23 [From Benadryl] green tea AdvReac CAUSES Verified 09/05/20 10:23 KIDNEY STONES PER PT plum AdvReac CAUSES Verified 09/05/20 10:23 KIDNEY STONES PER PT prednisolone AdvReac GLAUCOMA Verified 09/05/20 10:23 rhubarb AdvReac CAUSES Verified 09/05/20 10:23 KIDNEY STONES PER PT spinach AdvReac CAUSES Verified 09/05/20 10:23 KIDNEY STONES PER PT sucralfate [From Carafate] AdvReac REFLUX Verified 09/05/20 10:23 Sulfa (Sulfonamide AdvReac blood Verified 09/05/20 10:23 Antibiotics) disorder sweet potato AdvReac CAUSES Verified 09/05/20 10:23 KIDNEY STONES PER PT tree nut [Nut] AdvReac CAUSES Verified 09/05/20 10:23 KIDNEY STONES PER PT Physical Exam Vitals: Vital Signs Temp Pulse Pulse Resp BP BP Pulse Ox 09/06/20 07:00 97.7 F 40 L 16 100/56 99 09/06/20 01:22 51 L 09/06/20 01:16 97.6 F 52 L 14 103/61 93 L 09/05/20 20:00 12 09/05/20 19:42 97.5 F L 51 L 14 108/54 97 09/05/20 14:35 98 09/05/20 14:24 96.1 F L 12 98 09/05/20 14:23 96.1 F L 12 98 09/05/20 14:00 12 09/05/20 11:28 60 18 100/54 98 09/05/20 09:05 64 18 114/72 97 Intake and Output 09/05/20 09/06/20 09/06/20 22:59 06:59 14:59 Intake Total 287.5 Balance 287.5 Intake: Intake, IV Titration 107.5 Amount Heparin Sod,Pork in 0.45% 107.5 NaCl 25,000 unit In 0.45 % NaCl 1 250ml.bag @ 10. 4982 UNITS/KG/HR 10 mls/ hr IV .Q24H [facility] Rx#: [id number] Oral 180 Other: Voiding Method Toilet # Voids 2 2 Results 09/05/20 08:28 09/06/20 05:39 Cardiac Enzymes 09/05/20 09/05/20 09/05/20 Range/Units 08:28 08:28 11:26 AST 37 (17-59) U/L Troponin I <0.012 <0.012 (0.000-0.034) ng/mL 09/05/20 Range/Units 14:35 AST (17-59) U/L Troponin I <0.012 (0.000-0.034) ng/mL Coagulation 09/05/20 09/05/20 09/06/20 Range/Units 08:28 21:47 05:39 PT 9.7 (9.0-12.0) sec APTT 27.0 49.3 H 49.6 H (22.0-30.0) sec CBC 09/05/20 Range/Units 08:28 WBC 8.1 (3.8-10.6) k/uL RBC 4.23 L (4.30-5.90) m/uL Hgb 13.4 (13.0-17.5) gm/dL Hct 40.3 (39.0-53.0) % Plt Count 198 (150-450) k/uL Comprehensive Metabolic Panel 09/05/20 09/06/20 Range/Units 08:28 05:39 Sodium 139 138 (137-145) mmol/L Potassium 4.5 4.6 (3.5-5.1) mmol/L Chloride 105 107 (98-107) mmol/L Carbon Dioxide 27 25 (22-30) mmol/L BUN 17 19 (9-20) mg/dL Creatinine 1.11 1.00 (0.66-1.25) mg/dL Glucose 125 H 107 H (74-99) mg/dL Calcium 9.5 9.2 (8.4-10.2) mg/dL AST 37 (17-59) U/L ALT 39 (4-49) U/L Alkaline Phosphatase 62 (38-126) U/L Total Protein 6.6 (6.3-8.2) g/dL Albumin 4.0 (3.5-5.0) g/dL Current Medications Generic Name Dose Route Start Last Admin Trade Name Freq PRN Reason Stop Dose Admin Acetaminophen 1,000 mg 09/05/20 12:25 09/06/20 07:53 Acetaminophen Tab 500 Mg Tab PO 1,000 mg DAILY PRN Administration Pain Artificial Tears 1 drops 09/05/20 13:00 09/06/20 07:56 Artificial Tears-Hypromellose Drops 15 Ml Btl BOTH EYES 1 drops QID [facility] Administration Aspirin 325 mg 09/06/20 09:00 09/06/20 07:50 Aspirin 325 Mg Tab PO 325 mg DAILY [facility] Administration Atorvastatin Calcium 40 mg 09/05/20 23:00 09/05/20 21:23 Atorvastatin 40 Mg Tab PO 40 mg HS@2300 [facility] Administration Brimonidine Tartrate 1 drops 09/05/20 18:00 09/06/20 05:10 Brimonidine Tartrate 0.2% Drops 5 Ml Btl BOTH EYES 1 drops BID@0600,1800 [facility] Administration Calcium Carbonate/Glycine 1,000 mg 09/05/20 12:25 09/06/20 07:49 Calcium Carbonate 500 Mg Chewable PO 1,000 mg BID PRN Administration Indigestion Diclofenac Sodium 4 gm 09/05/20 12:25 Diclofenac Sodium Gel 100 Gm Tube TOPICAL QID PRN Pain Control Protocol Famotidine 20 mg 09/05/20 17:00 09/06/20 05:10 Famotidine 20 Mg Tab PO 20 mg BID@0500,1700 [facility] Administration Fluticasone Propionate 2 spray 09/05/20 23:00 09/05/20 22:48 Fluticasone 50mcg/[place] Nasal 16gm EA NOSTRIL 1 spray HS@2300 [facility] Administration Hydralazine HCl 50 mg 09/05/20 18:00 09/06/20 05:10 Hydralazine Hcl 50 Mg Tab PO 50 mg QID@06,12,18,23 [facility] Administration Sodium Chloride 1,000 mls @ 100 mls/hr 09/05/20 10:15 09/06/20 05:11 Saline 0.9% IV 100 mls/hr .Q10H [facility] Administration Heparin Sodium/Sodium Chloride 250 mls @ 10 mls/hr 09/05/20 10:15 09/05/20 22:22 25,000 unit/ Sodium Chloride IV 10.5 units/kg/hr .Q24H [facility] 10 mls/hr Titration Protocol 10.4982 UNITS/KG/HR Losartan Potassium 50 mg 09/06/20 06:00 09/06/20 05:11 Losartan 50 Mg Tab PO 50 mg DAILY@0600 [facility] Administration Nitroglycerin 1 inch 09/05/20 12:00 09/06/20 04:41 Nitroglycerin Oint 1 Inch/Gm Packet TOPICAL Not Given Q6HR [facility] Nitroglycerin 0.4 mg 09/05/20 12:34 Nitroglycerin Sl Tabs 0.4 Mg Tab SUBLINGUAL Q5M PRN Chest Pain Non-Formulary Medication 1 drop 09/05/20 23:00 09/05/20 22:48 Netarsudil Mesylat/Latanoprost [Rocklatan 0.02%-0.005% Eye Drp] BOTH EYES Not Given HS@2300 [facility] Pantoprazole Sodium 40 mg 09/05/20 17:30 09/06/20 07:50 Pantoprazole 40 Mg Tablet PO 40 mg AC-BID [facility] Administration Tamsulosin HCl 0.4 mg 09/05/20 23:00 09/05/20 21:23 Tamsulosin 0.4 Mg Cap.Er.24h PO 0.4 mg HS@2300 [facility] Administration Timolol Maleate 1 drops 09/05/20 18:00 09/06/20 05:11 Timolol 0.5% Ophth Drops 5 Ml Btl BOTH EYES 1 drops BID@0600,1800 [facility] Administration Trospium 20 mg 09/05/20 23:00 09/05/20 22:48 Trospium Chloride 20 Mg Tablet PO 20 mg HS@2300 [facility] Administration Intake and Output 09/05/20 09/06/20 09/06/20 22:59 06:59 14:59 Intake Total 287.5 Balance 287.5 Intake: Intake, IV Titration 107.5 Amount Heparin Sod,Pork in 0.45% 107.5 NaCl 25,000 unit In 0.45 % NaCl 1 250ml.bag @ 10. 4982 UNITS/KG/HR 10 mls/ hr IV .Q24H [facility] Rx#: [id number] Oral 180 Other: Voiding Method Toilet # Voids 2 2 09/05/20 08:28 09/06/20 05:39
[2020-09-06] MEDS: HEPARIN SOD,PORK IN 0.45% NACL 25,000 UNIT in 0.45% NACL 1 250ML.BAG IV SCH (11:02)
[2020-09-06 11:52] LABS: Chol/HDL Ratio 2.62; Cholesterol 110 mg/dL (0-200)
--- NOTE | 2020-09-06 13:02 | P.PN ---
Subjective Progress Note Date: 09/06/20 (Acute chest pain) Principal diagnosis: Progress note dictation date of service 09/06/[address] Johny Encarnacion FACP. Patient seen and evaluated today discussed the planning. Patient seen and evaluated by Dr. Woodward watch and clock repairer and a PA, with the planning for cardiac catheterization tomorrow by Dr. Merlene Muñoz ice cream freezer helper. With the understanding of acute chest pain with the underlying coronary artery disease symptomatic and may need for further stenting. Discussed with his nurse taking care of the patient with her question regarding low blood pressure and I did already cut down the losartan to 25 mg once a day as well as hydralazine to 25 mg 4 times a day. And advised the nurse to call the cardiology for adjustment of his medication as well as for his bradycardia with the questionable need for pacemaker in the future not. His blood pressure at 7 AM 100/56, at the time of seeing the patient blood pressure 108/55. He is on the room air. Heart rate is 50 bpm and earlier at 7 AM was 40 bpm and no beta blockers however it is regular. Temperature is normal 97.7. Patient was able to sit on the chair with no chest pain and able to eat his lunch. And no neurological deficit. On examination: Conscious alert oriented 3 ambulatory. On heparin continued until the cardiac cath. Head was normocephalic and atraumatic, normal oropharynx, no problem with he aring. Neck was supple no JVD no thyromegaly no lymphadenopathy trachea midline. Chest clear to auscultation and percussion no wheezes or rhonchi. Heart sinus bradycardia with normal S1 and S2, patient had echocardiogram result is pending Abdomen is soft positive bowel sounds no tenderness. Extremities no edema and positive pulses. Neurological exam: No tremor ambulatory no neurological deficit. Patient on room air with the pulse ox 97%. Assessment: Patient comfortable and the agreed for the cardiac catheterization to be done tomorrow which decided by ice cream freezer helper. Blood pressure on downslope, advised nursing staff to call the cardiology for for further adjustment of his medication. Bradycardia without beta blockers. The lower limit is 40 bpm and regular. Troponin 3 normal. No acute EKG changes with sinus bradycardia and sinus arrhythmia. Plan #1 decrease this medication for hypertension #2 advised the nurse to call the cardiology for for further adjustment of his medication who actually did order these medication for him. #3 will continue monitoring and he is going for cardiac cath tomorrow #4 depend on cardiac cath and for further management by the cardiology. Objective - Vital Signs Vital signs: Vital Signs Temp 97.7 F 09/06/20 07:00 Pulse 50 L 09/06/20 11:05 Resp 14 09/06/20 11:05 BP 108/55 09/06/20 11:05 Pulse Ox 97 09/06/20 11:00 Intake & Output 09/05/20 09/06/20 09/06/20 18:59 06:59 18:59 Intake Total 780 107.5 126.667 Balance 780 107.5 126.667 Weight 95.254 kg Intake: Intake, IV Titration 107.5 126.667 Amount Heparin Sod,Pork in 0.45% 107.5 126.667 NaCl 25,000 unit In 0.45 % NaCl 1 250ml.bag @ 10. 4982 UNITS/KG/HR 10 mls/ hr IV .Q24H [facility] Rx#: [id number] Oral 780 Other: Voiding Method Toilet Toilet # Voids 1 2 - Labs CBC & Chem 7: 09/05/20 08:28 09/06/20 05:39 Labs: Abnormal Lab Results - Last 24 Hours (Table) 09/05/20 09/06/20 09/06/20 Range/Units 21:47 05:39 05:39 APTT 49.3 H 49.6 H (22.0-30.0) sec Glucose 107 H (74-99) mg/dL Magnesium 2.4 H (1.6-2.3) mg/dL
[2020-09-06] MEDS: ISOSORBIDE MONONITRATE ER 60 MG TAB.ER.24H PO SCH (14:10)
[2020-09-06] MEDS: hydrALAZINE HCL 25 MG TAB PO SCH ×2 (14:11→16:11)
[2020-09-06] MEDS: ATORVASTATIN 40 MG TAB PO SCH (22:12)
[2020-09-06] MEDS: TAMSULOSIN 0.4 MG CAP.ER.24H PO SCH (22:12)
[2020-09-06] MEDS: FLUTICASONE 50MCG/SPRAY NASAL 16GM EA NOSTRIL SCH (22:12)
[2020-09-06] MEDS: TROSPIUM CHLORIDE 20 MG TABLET PO SCH (22:13)
[2020-09-06] MEDS: NON FORMULARY DRUG (Netarsudil Mesylat/Latanoprost [Rocklatan 0.02%-0.005% Eye Drp] 2.5 ML BOTH EYES SCH (22:13)
[2020-09-06] MEDS ORDERED: SODIUM CHLORIDE 0.9% 1,000 ML in EMPTY BAG 1 BAG IV ONE (23:00)
[2020-09-07] MEDS: hydrALAZINE HCL 25 MG TAB PO SCH ×3 (01:26→11:38)
[2020-09-07] MEDS: SODIUM CHLORIDE 0.9% 1,000 ML IV SCH (03:36)
[2020-09-07] MEDS: FAMOTIDINE 20 MG TAB PO SCH (05:40)
[2020-09-07] MEDS: PANTOPRAZOLE 40 MG TABLET PO SCH (05:41)
[2020-09-07] MEDS: TIMOLOL 0.5% OPHTH DROPS 5 ML BTL BOTH EYES SCH (05:42)
[2020-09-07] MEDS: BRIMONIDINE TARTRATE 0.2% DROPS 5 ML BTL BOTH EYES SCH (05:42)
[2020-09-07] MEDS: ARTIFICIAL TEARS-HYPROMELLOSE DROPS 15 ML BTL BOTH EYES SCH (06:12)
[2020-09-07] MEDS: ISOSORBIDE MONONITRATE ER 60 MG TAB.ER.24H PO SCH (06:18)
[2020-09-07] MEDS ORDERED: HEPARIN SODIUM,PORCINE 2,500 UNIT in SODIUM CHLORIDE 0.9% 250 ML IRRIGATION PRN (07:00)
[2020-09-07] MEDS ORDERED: ASPIRIN 325 MG TAB PO ONE (07:00)
[2020-09-07] MEDS ORDERED: ATORVASTATIN 80 MG TAB PO ONE (07:00)
[2020-09-07] MEDS ORDERED: HEPARIN SODIUM,PORCINE 10,000 UNIT in SODIUM CHLORIDE 0.9% 1,000 ML IRRIGATION PRN (07:00)
[2020-09-07] MEDS: HEPARIN SOD,PORK IN 0.45% NACL 25,000 UNIT in 0.45% NACL 1 250ML.BAG IV SCH (07:12)
[2020-09-07] MEDS ORDERED: LIDOCAINE 1% INJ 10MG/ML (20 ML MDV) ONE (07:24)
[2020-09-07] MEDS ORDERED: VERAPAMIL 2.5 MG/ML 2 ML AMP ONE (07:26)
[2020-09-07] MEDS ORDERED: IV FLUID CONTINUATION 500 ML IV ONE (07:28)
[2020-09-07] MEDS ORDERED: HEPARIN SODIUM 1,000 UN/ML (10ML VL) ONE (07:36)
[2020-09-07] MEDS ORDERED: fentaNYL (PF) 50 MCG/ML 2 ML AMP ONE (07:44)
[2020-09-07] MEDS ORDERED: MIDAZOLAM 2 MG/2 ML VIAL IVP ONE (07:47)
[2020-09-07] MEDS ORDERED: LIDOCAINE 1% INJ 10MG/ML (20 ML MDV) SQ ONE (07:48)
[2020-09-07] MEDS ORDERED: VERAPAMIL SYRINGE (5 MG/10 ML) INTRAARTER ONE (07:53)
[2020-09-07] MEDS ORDERED: HEPARIN SODIUM 1,000 UN/ML (10ML VL) IVP ONE (07:53)
[2020-09-07] MEDS ORDERED: IOPAMIDOL-370 125ML BTL INJ ONE (08:06)
[2020-09-07] MEDS ORDERED: RX INFO: IV CONTRAST WAS GIVEN 1 EACH MISC MISCELLANE PRN (08:30)
[2020-09-07] MEDS ORDERED: SODIUM CHLORIDE 0.9% 1,000 ML IV SCH (08:30)
--- NOTE | 2020-09-07 08:39 | P.CARDCATH ---
Date of Procedure: 09/07/20 Preoperative Diagnosis: Unstable angina Postoperative Diagnosis: Stable coronary artery disease Procedure(s) Performed: Left heart catheterization without left ventriculography Description of Procedure: HISTORY: This is a 80-year-old gentleman with history of ischemic heart disease with a previous stent placement of the LAD who is admitted to the hospital with chest pain suggestive of unstable angina. Patient was evaluated by Dr. Dotson who recommended a cardiac catheterization CONSENT:I have discussed the risks, benefits and alternative therapies for the above-mentioned procedure and for both sedation/analgesia as well as necessary blood product administration, if indicated, as they pertain to this patient. The patient has indicated understanding and acceptance of the risks and procedures discussed. PROCEDURE: Patient was brought to the lab in a fasting state. Patient was given some IV sedation. The right wrist is infiltrated with lidocaine and right femoral artery was entered using Seldinger technique. A 6-Faroese catheter was left in place and selective coronary was performed. Patient tolerated the procedure well. TR band was applied for hemostasis. No immediate complications were noted and patient was transferred to [facility] in a stable condition Conscious Sedation: Versed 1mg Fentanyl 00 g Duration 24minutes HEMODYNAMICS: The aortic pressure is 110/70. SELECTIVE CORONARY ARTERIOGRAPHY: LEFT MAIN: Normal length and free of occlusive disease THE LEFT ANTERIOR DESCENDING CORONARY ARTERY: This is a good caliber vessel with patent stents in the proximal portion. There is a small to moderate caliber first diagonal which has ostial stenosis of about 80- 90% which is been stable compared to the previous studies. There appears to be total occlusion of the second diagonal which seemed to be collateralized from the right coronary system THE LEFT CIRCUMFLEX AND IS CORONARY ARTERY: Moderate caliber vessel giving rise to moderate caliber OM branch. There is about 40-50% stenosis at the bifurcation of the OM branch, mid circumflex THE RIGHT CORONARY ARTERY: Good caliber vessel and dominant. It provides collaterals to the diagonal. No significant obstructive disease LEFT VENTRICULOGRAPHY:. Not performed FINAL IMPRESSION:. We'll coronary artery disease with patent stents in the LAD. Critical lesion involving a small to moderate caliber diagonal branch involving the ostium. Total occlusion of second diagonal. Overall, CAD, stable without any significant change from the previous study PLAN: Maximum medical therapy PROGNOSIS:. Fair
[2020-09-07] MEDS ORDERED: LOSARTAN 25 MG TAB PO SCH (09:00)
[2020-09-07] MEDS ORDERED: ASPIRIN 81 MG PO SCH (09:00)
[2020-09-07] MEDS: CALCIUM CARBONATE 500 MG CHEWABLE PO PRN (10:15)
--- NOTE | 2020-09-07 13:28 | P.DS ---
Providers Date of admission: 09/05/20 10:06 Expected date of discharge: 09/07/20 Attending physician: Oren Price Consults: 09/05/20 10:06 Consult Physician Urgent Consulting Provider: Elder Avila Consult Reason/Comments: Chest pain, unstable angina Do you want consulting provider notified?: Yes Primary care physician: Oren Price Discharge summary Date of service 09/07/2020. Patient seen and evaluated. Patient underwent cardiac catheterization by Dr. Cora simons with the underlying unstable angina and the chest pain. Left heart catheterization without left ventriculography. Selective coronary artery angiographically. Left main normal length and free occlusive disease. Left anterior descending coronary artery good caliber vessel with patent stent in the proximal portion. There is a small to moderate caliber first diagonal which had ostial stenosis about 80-90%, which has been stable compared with the previous study. Total occlusion of the second diagonal which seem to be collateralized from the right coronary artery system. Left circumflex moderate caliber vessel giving rise to moderate caliber OM branch. There is about 40-50% stenosis at the bifurcation of the fused marginal branch and mid circumflex. Right coronary artery good caliber vessel and dominant it provides collateral to the diagonal. No significant obstruction. They recommended maximum medical therapy. Prognosis is fair. Echocardiogram: Conclusion #1 left ventricular is normal #2 there is moderate concentric left ventricular hypertrophy #3 overall left ventricular systolic function is normal with the ejection fraction 55-60%. #4 diastolic filling pattern normal for the age of the patient. #5 left atrial mildly dilated 2933 mL per meter square #6 that is mild aortic regurgitation. #7 mild aortic stenosis present. #8 peak/mean gradient across the aortic valve he has 17.99 mmHg/9.8 mean millimeter of mercury. #9 mild mitral regurgitation is present #10 mild tricuspid regurgitations present This echo reviewed and signed by Dr. Dotson. Vital sign: Heart rate 59 regular sinus, respiratory rate 14/m, blood pressure 112/60 with a mean 77. Pulse ox on room air 98%. Patient presented in ER bruit by his son with the chest pain Hospital course: Patient admitted monitored with the serial EKG and cardiac enzyme was no acute event however his history was significant of suspicious of new event and cardiology decided to take him to the cardiac catheterization to study him with his symptoms. Patient also found to have low blood pressure and bradycardia medication adjusted. Today patient had cardiac catheterization with the results as mentioned above and cardiac advice for continue medical therapy intensification and follow-up with Dr. argelia osei-cancer genetic counselor who did the cardiac cath today. Examination on discharge patient is conscious alert oriented ambulatory Head was normocephalic and atraumatic pupils equal reactive oropharynx was negative able to swallow. Neck was supple no JVD no thyromegaly no lymphadenopathy trachea midline. Chest was clear to auscultation and percussion Heart regular sinus with minimal bradycardia improved. Blood pressure is stable. With the medication adjustment and the pulse ox was normal 98% on room air Abdomen soft positive bowel sounds no tenderness extremities no edema. Pulses. Assessment: #1 acute chest pain #2 unstable angina #3 hypotension #4 bradycardia. #5 currently patient stable for discharge after clearance by cardiology. Plan: #1 follow-up with the PCP Dr. Price #2 cardiac diet #3 follow-up with the cardiology doctor argelia reddy #4 activity gradually as tolerated #5 continue home medication #6 continue losartan 25 mg as half a tablet of what he has 50 #7 continue losartan as half a tablet of 50 equal to 25 mg. No new prescription Patient Condition at Discharge: Fair Plan - Discharge Summary Discharge Rx Participant: Yes New Discharge Prescriptions: New hydrALAZINE HCL [Apresoline] 25 mg PO QID@06,12,18,23 tab Losartan [Cozaar] 25 mg PO DAILY@0900 tab Continue Acetaminophen Tab [Tylenol] 1,000 mg PO DAILY PRN PRN Reason: Pain Nitroglycerin Sl Tabs [Nitrostat] 0.4 mg SUBLINGUAL Q5M PRN PRN Reason: Chest Pain Isosorbide Mononitrate ER [Imdur] 30 mg PO BID Carboxymethyl/Gly/Poly80/Pf [Refresh Optive [place]-3 Drops] 1 drop BOTH EYES QID PRN PRN Reason: DRY EYES Esomeprazole Magnesium [NexIUM] 40 mg PO BID Fesoterodine Fumarate [Toviaz] 4 mg PO HS Famotidine [Pepcid] 20 mg PO BID Brimonidine Tartrate/Timolol [Combigan 0.2%-0.5% Eye Drops] 1 drop BOTH EYES BID Fluticasone Nasal [place] [Flonase Nasal [place]] 1 spray EA NOSTRIL BID PRN PRN Reason: Allergy Symptoms Netarsudil Mesylat/Latanoprost [[place] 0.02%-0.005% Eye Drp] 1 drop BOTH EYES HS Calcium Carbonate [Tums] 1,000 mg PO BID PRN PRN Reason: Indigestion Atorvastatin Calcium [Lipitor] 40 mg PO HS Diclofenac Sodium Gel [Voltaren Gel] 1 applicate TOPICAL QID PRN PRN Reason: Pain Sodium Chloride [Saline Nasal [place]] 1 spray EA NOSTRIL QID PRN PRN Reason: DRY NOSE/ ALLERGY SYMPTOMS Mupirocin 2% Oint [Bactroban 2% Oint] 1 applic NASAL BID Triamcinolone 0.1% Cream [Kenalog 0.1% Cream] 1 applicatio TOPICAL BID PRN PRN Reason: Rash Discontinued Losartan [Cozaar] 50 mg PO DAILY Ibuprofen [Advil] 400 mg PO Q8HR PRN PRN Reason: Pain Or Fever > 100.5 hydrALAZINE HCL [Apresoline] 50 mg PO QID@06,12,18, No Action Tamsulosin HCl 0.4 mg PO HS Discharge Medication List Tamsulosin HCl 0.4 mg PO HS 08/28/13 [History] Acetaminophen Tab [Tylenol] 1,000 mg PO DAILY PRN 09/29/14 [History] Nitroglycerin Sl Tabs [Nitrostat] 0.4 mg SUBLINGUAL Q5M PRN 06/18/15 [History] Isosorbide Mononitrate ER [Imdur] 30 mg PO BID 07/16/15 [History] Carboxymethyl/Gly/Poly80/Pf [Refresh Optive [place]-3 Drops] 1 drop BOTH EYES QID PRN 10/23/17 [History] Esomeprazole Magnesium [NexIUM] 40 mg PO BID 10/23/17 [History] Brimonidine Tartrate/Timolol [Combigan 0.2%-0.5% Eye Drops] 1 drop BOTH EYES BID 04/21/19 [History] Famotidine [Pepcid] 20 mg PO BID 04/21/19 [History] Fesoterodine Fumarate [Toviaz] 4 mg PO HS 04/21/19 [History] Calcium Carbonate [Tums] 1,000 mg PO BID PRN 03/22/20 [History] Fluticasone Nasal [place] [Flonase Nasal [place]] 1 spray EA NOSTRIL BID PRN 03/22/20 [History] Netarsudil Mesylat/Latanoprost [[place] 0.02%-0.005% Eye Drp] 1 drop BOTH EYES HS 03/22/20 [History] Atorvastatin Calcium [Lipitor] 40 mg PO HS 09/05/20 [History] Diclofenac Sodium Gel [Voltaren Gel] 1 applicate TOPICAL QID PRN 09/05/20 [History] Mupirocin 2% Oint [Bactroban 2% Oint] 1 applic NASAL BID 09/05/20 [History] Sodium Chloride [Saline Nasal [place]] 1 spray EA NOSTRIL QID PRN 09/05/20 [History] Triamcinolone 0.1% Cream [Kenalog 0.1% Cream] 1 applicatio TOPICAL BID PRN 09/05/20 [History] Losartan [Cozaar] 25 mg PO DAILY@0900 tab 09/07/20 [Rx] hydrALAZINE HCL [Apresoline] 25 mg PO QID@06,12,18,23 tab 09/07/20 [Rx] Follow up Appointment(s)/Referral(s): Oren Price MD [Primary Care Provider] - 1-2 days Manjit Shepherd MD [Family Provider] - 1 Week
[2020-09-07 14:57] VITALS: BP 130/67; PULSE 57; RESP 16; TEMP 97.7
== END 2020-09-07 16:09 | disposition home or self-care (01) ==
LOC: EC 08:11 → 6NMEDSUR 10:06
PROVIDERS: ADMIT Internal Medicine; ATTEND Internal Medicine
DX: I25.110 Atherosclerotic heart disease of native coronary artery with unstable angina pectoris (principal); I11.9 Hypertensive heart disease without heart failure; I44.0 Atrioventricular block, first degree; E78.5 Hyperlipidemia, unspecified; I25.2 Old myocardial infarction; K44.9 Diaphragmatic hernia without obstruction or gangrene; K90.0 Celiac disease; M19.90 Unspecified osteoarthritis, unspecified site; M65.30 Trigger finger, unspecified finger; M77.9 Enthesopathy, unspecified; N40.0 Benign prostatic hyperplasia without lower urinary tract symptoms; Z79.82 Long term (current) use of aspirin; Z79.899 Other long term (current) drug therapy; Z80.0 Family history of malignant neoplasm of digestive organs; Z80.1 Family history of malignant neoplasm of trachea, bronchus and lung; Z80.3 Family history of malignant neoplasm of breast; Z80.8 Family history of malignant neoplasm of other organs or systems; Z83.79 Family history of other diseases of the digestive system; Z85.01 Personal history of malignant neoplasm of esophagus; Z85.828 Personal history of other malignant neoplasm of skin; Z87.442 Personal history of urinary calculi; Z87.891 Personal history of nicotine dependence; Z95.5 Presence of coronary angioplasty implant and graft
CPT/HCPCS: 93454; 99291; 96366 ×3; 93005 ×2; 96376; 96361; 96365; 96375; 36415; 94760; 93306; 85379; 83880; 80061; 80053; 80048; 82550; 83690; 83735 ×2; 84484; 85025; 85610; 85730 ×3; 83036; 71046; G0378 ×3; C1769; C1894; J2250; J2270; J2001; J1644 ×4; Q9967

== ENCOUNTER → 2021-01-14 | Outpatient (CLI) | payer MEDICARE ==
[2021-01-15 00:29] LABS: Basophils # (A) 0.06 X 10*3/uL (0.00-0.10); Basophils % (A) 0.7 %; Eosinophils # (A) 0.18 X 10*3/uL (0.04-0.35); HCT 46.2 % (39.6-50.0); HGB 14.4 g/dL (13.0-17.0); Lymphocytes # (A) 1.67 X 10*3/uL (0.90-5.00); Lymphocytes % (A) 18.5 %; MCH 30.1 pg (27.0-32.0); MCHC 31.2 g/dL (32.0-37.0); MCV 96.7 fL (80.0-97.0); Mean Platelet Volume 12.6 fL (9.5-12.2); Monocytes # (A) 1.04 X 10*3/uL (0.20-1.00); Monocytes % (A) 11.5 %; Neutrophils # (A) 5.99 X 10*3/uL (1.80-7.70); Neutrophils % (A) 66.1 %; Platelet Count 199 X 10*3/uL (140-440); RBC 4.78 X 10*6/uL (4.40-5.60); RDW 13.3 % (11.5-14.5); WBC 9.05 X 10*3/uL (4.50-10.00)
[2021-01-15 03:01] LABS: African American GFR (CKD) 51.8 (60.0-200.0); Albumin 4.4 g/dL (3.8-4.9); Albumin/Globulin Ratio 1.65 (1.60-3.17); Anion Gap 13.4 mmol/L (10.00-18.00); BUN/Creat Ratio 12.11 Ratio (12.00-20.00); Blood Urea Nitrogen 17.8 mg/dL (9.0-27.0); Carbon Dioxide 24.3 mmol/L (20.0-27.5); Globulin 2.7 g/dL (1.6-3.3); Non-African American GFR(CKD) 44.7 (60.0-200.0); Potassium 5.1 mmol/L (3.5-5.5); T4, Free (Free Thyroxine) 1.47 ng/dL (0.800-1.800); Total Bilirubin 0.9 mg/dL (0.30-1.20); Total Protein 7.1 g/dL (6.2-8.2)
== END | disposition home or self-care (01) ==
LOC: LABWHC1 13:01
PROVIDERS: ATTEND Dermatology
DX: L57.0 Actinic keratosis (principal); L29.8 Other pruritus
CPT/HCPCS: 36415; 80053; 84439; 84443; 85025

== ENCOUNTER → 2021-01-27 | Outpatient (CLI) | payer MEDICARE | END | disposition home or self-care (01) | LOC: LABWHC1 07:38 | PROVIDERS: ATTEND Internal Medicine | DX: M19.90 Unspecified osteoarthritis, unspecified site (principal); M81.0 Age-related osteoporosis without current pathological fracture | CPT/HCPCS: 36415; 82785; 84550 ==

== ENCOUNTER → 2021-01-27 | Outpatient (CLI) | payer MEDICARE ==
--- NOTE | 2021-01-27 09:54 | XR ---
EXAMINATION TYPE: XR Hip Bilateral Complete DATE OF EXAM: 01/27/2021 COMPARISON: NONE HISTORY: Pain TECHNIQUE: 2 views submitted FINDINGS: There is no evidence of erosive change or acute fracture. There is hypertrophic change of the greater trochanter. Vascular calcifications noted and there is a moderate concentric narrowing of the hip génesis int. No erosive changes. Hypertrophic change of the lateral margin of the acetabulum. IMPRESSION: 1. 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
== END | disposition home or self-care (01) ==
LOC: RADXRMAIN 07:03
PROVIDERS: ATTEND Internal Medicine
DX: M16.0 Bilateral primary osteoarthritis of hip (principal)
CPT/HCPCS: 73521

== ENCOUNTER → 2021-08-31 | Outpatient (CLI) | payer MEDICARE ==
[2021-08-31 10:33] LABS: Basophils # (A) 0.03 X 10*3/uL (0.00-0.10); Basophils % (A) 0.4 %; Eosinophils # (A) 0.16 X 10*3/uL (0.04-0.35); Eosinophils % (A) 2.4 %; HCT 39.2 % (39.6-50.0); HGB 12.2 g/dL (13.0-17.0); Immature Grans, Automated 0.6 %; Lymphocytes # (A) 1.01 X 10*3/uL (0.90-5.00); MCH 29.7 pg (27.0-32.0); MCHC 31.1 g/dL (32.0-37.0); MCV 95.4 fL (80.0-97.0); Mean Platelet Volume 12.7 fL (9.5-12.2); Monocytes # (A) 0.66 X 10*3/uL (0.20-1.00); Monocytes % (A) 9.8 %; NRBC Per 100 WBC 0 /100 WBCS (0.0-0.0); Neutrophils # (A) 4.85 X 10*3/uL (1.80-7.70); Neutrophils % (A) 71.8 %; Platelet Count 208 X 10*3/uL (140-440); RBC 4.11 X 10*6/uL (4.40-5.60); WBC 6.75 X 10*3/uL (4.50-10.00)
[2021-08-31 10:38] LABS: ALT 40 U/L (10-49); AST 35 U/L (14-35); African American GFR (CKD) 59.7 (60.0-200.0); Albumin/Globulin Ratio 1.29 (1.60-3.17); Alkaline Phosphatase 69 U/L (41-126); BUN/Creat Ratio 10.92 Ratio (12.00-20.00); Blood Urea Nitrogen 14.2 mg/dL (9.0-27.0); C Reactive Protein <0.30 mg/dL (0.00-0.80); Calcium 9.9 mg/dL (8.7-10.3); Carbon Dioxide 26.2 mmol/L (20.0-27.5); Chloride 103 mmol/L (96-109); Creatine Kinase 109 U/L (35-257); Globulin 3.1 g/dL (1.6-3.3); Glucose 103 mg/dL (70-110); Magnesium 2.5 mg/dL (1.5-2.4); Non-African American GFR(CKD) 51.5 (60.0-200.0); Phosphorus 3.7 mg/dL (2.4-5.1); Potassium 4.7 mmol/L (3.5-5.5); Sodium 139 mmol/L (135-145); Total Protein 7.1 g/dL (6.2-8.2)
[2021-08-31 10:43] LABS: Chol/HDL Ratio 2.35 Ratio; LDL Cholesterol,Calculated 33.9 mg/dL (0.0-131.0)
[2021-08-31 10:55] LABS: Erythrocyte Sedimentation Rate 18 mm/Hr (0-20)
== END | disposition home or self-care (01) ==
LOC: LABWHC1 07:02
PROVIDERS: ATTEND Internal Medicine
DX: Z00.00 Encounter for general adult medical examination without abnormal findings (principal); D64.9 Anemia, unspecified; N40.0 Benign prostatic hyperplasia without lower urinary tract symptoms; I10 Essential (primary) hypertension; E87.8 Other disorders of electrolyte and fluid balance, not elsewhere classified; E78.5 Hyperlipidemia, unspecified; E21.3 Hyperparathyroidism, unspecified; E11.65 Type 2 diabetes mellitus with hyperglycemia; E55.9 Vitamin D deficiency, unspecified
CPT/HCPCS: 36415; 80053; 80061; 82306; 82550; 83036; 83735; 83970; 84100; 84153; 84443; 85025; 85652; 86140

== ENCOUNTER 2021-10-17 00:55 | Emergency (ER) | payer MEDICARE ==
[2021-10-17 01:33] VITALS: TEMP 97.9
[2021-10-17] MEDS ORDERED: HYDROcodone/APAP 5-325MG 1 EACH TAB PO STA (03:20)
[2021-10-17] MEDS ORDERED: KETOROLAC 15 MG/ML 1 ML VIAL IM STA (03:20)
[2021-10-17] MEDS ORDERED: MORPHINE SULFATE 2 MG/ML SYRINGE IVP STA ×2 (03:55→05:12)
--- NOTE | 2021-10-17 04:27 | ED ---
General Adult HPI - General Chief complaint: Back Pain/Injury Stated complaint: LT hip pain Time Seen by Provider: 10/17/21 03:13 Source: patient, RN notes reviewed, old records reviewed Mode of arrival: wheelchair Limitations: no limitations - History of Present Illness Initial comments: Activation is an 81-year-old male with past medical history remarkable for lumbar spine surgery, CAD, hypertension, cardiac disease who presents emergency Department complaining of acute onset of lower back pain. Has a history of lumbar spine surgery. States that earlier today, he stepped wrong and felt something tightening in his lower back. He is not having pain in the left lateral lower back with radiation down towards his hip. Denies saddle anesthesias. Denies difficulty with urination or bowel movements. Denies weakness in the lower extremities. Denies any bowel or urinary incontinence or retention. Denies any abdominal pain, nausea, vomiting. Denies any urinary complaints. Has no chest pain or shortness of breath. Presents for further evaluation as he states he could not get comfortable at home. - Related Data Home Medications Medication Instructions Recorded Confirmed Tamsulosin HCl 0.4 mg PO HS 08/28/13 09/05/20 Acetaminophen Tab [Tylenol] 1,000 mg PO DAILY PRN 09/29/14 09/05/20 Nitroglycerin Sl Tabs [Nitrostat] 0.4 mg SUBLINGUAL Q5M PRN 06/18/15 09/05/20 Isosorbide Mononitrate ER [Imdur] 30 mg PO BID 07/16/15 09/05/20 Carboxymethyl/Gly/Poly80/Pf 1 drop BOTH EYES QID PRN 10/23/17 09/05/20 [Refresh Optive Roque-3 Drops] Esomeprazole Magnesium [NexIUM] 40 mg PO BID 10/23/17 09/05/20 Brimonidine Tartrate/Timolol 1 drop BOTH EYES BID 04/21/19 09/05/20 [Combigan 0.2%-0.5% Eye Drops] Famotidine [Pepcid] 20 mg PO BID 04/21/19 09/05/20 Fesoterodine Fumarate [Toviaz] 4 mg PO HS 04/21/19 09/05/20 Calcium Carbonate [Tums] 1,000 mg PO BID PRN 03/22/20 09/05/20 Fluticasone Nasal [place] [Flonase 1 spray EA NOSTRIL BID PRN 03/22/20 09/05/20 Nasal [place]] Netarsudil Mesylat/Latanoprost 1 drop BOTH EYES HS 03/22/20 09/05/20 [Rocklatan 0.02%-0.005% Eye Drp] Atorvastatin Calcium [Lipitor] 40 mg PO HS 09/05/20 09/05/20 Diclofenac Sodium Gel [Voltaren 1 applicate TOPICAL QID PRN 09/05/20 09/05/20 Gel] Mupirocin 2% Oint [Bactroban 2% 1 applic NASAL BID 09/05/20 09/05/20 Oint] Sodium Chloride [Saline Nasal 1 spray EA NOSTRIL QID PRN 09/05/20 09/05/20 [place]] Triamcinolone 0.1% Cream [Kenalog 1 applicatio TOPICAL BID PRN 09/05/20 09/05/20 0.1% Cream] Previous Rx's Medication Instructions Recorded Losartan [Cozaar] 25 mg PO DAILY@0900 tab 09/07/20 hydrALAZINE HCL [Apresoline] 25 mg PO QID@06,12,18,23 tab 09/07/20 HYDROcodone/APAP 5-325MG [[place] 1 tab PO Q6HR PRN 3 Days #12 tab 10/17/21 5-325] Lidocaine 5% Patch [Lidoderm 5% 1 patch TOPICAL DAILY PRN 7 Days 10/17/21 Patch] #7 patch methocarbamoL [Robaxin-750] 750 mg PO BID PRN 7 Days #14 tab 10/17/21 Allergies Allergy/AdvReac Type Severity Reaction Status Date / Time atenolol Allergy Unknown Verified 09/05/20 10:23 clopidogrel bisulfate Allergy severe Verified 09/05/20 10:23 [From Plavix] itching gluten Allergy blisters Verified 09/05/20 10:23 lactose Allergy Abdominal Verified 09/05/20 10:23 Pain simvastatin Allergy Unknown Verified 09/05/20 10:23 beet AdvReac CAUSES Verified 09/05/20 10:23 KIDNEY STONES PER PT Tucker And Derivatives AdvReac CAUSES Verified 09/05/20 10:23 [Tucker] KIDNEY STONES PER PT cocoa AdvReac CAUSES Verified 09/05/20 10:23 KIDNEY STONES PER PT coffee (Coffea arabica) AdvReac CAUSES Verified 09/05/20 10:23 KIDNEY STONES PER PT cranberry AdvReac CAUSES Verified 09/05/20 10:23 KIDNEY STONES PER PT diphenhydramine AdvReac Diarrhea Verified 09/05/20 10:23 [From Benadryl] green tea AdvReac CAUSES Verified 09/05/20 10:23 KIDNEY STONES PER PT plum AdvReac CAUSES Verified 09/05/20 10:23 KIDNEY STONES PER PT prednisolone AdvReac GLAUCOMA Verified 09/05/20 10:23 rhubarb AdvReac CAUSES Verified 09/05/20 10:23 KIDNEY STONES PER PT spinach AdvReac CAUSES Verified 09/05/20 10:23 KIDNEY STONES PER PT sucralfate [From Carafate] AdvReac REFLUX Verified 09/05/20 10:23 Sulfa (Sulfonamide AdvReac blood Verified 09/05/20 10:23 Antibiotics) disorder sweet potato AdvReac CAUSES Verified 09/05/20 10:23 KIDNEY STONES PER PT tree nut [Nut] AdvReac CAUSES Verified 09/05/20 10:23 KIDNEY STONES PER PT Review of Systems ROS Statement: Those systems with pertinent positive or pertinent negative responses have been documented in the HPI. Review of Systems: CONST: Denies fever EYES: Denies blurry vision ENT: Denies nasal congestion C/V: Denies Chest pain RESP: Denies shortness of breath GI: Denies abdominal pain : Denies dysuria SKIN: Denies rash. MSK: Endorses back pain NEURO: Denies headache ROS Other: All systems not noted in ROS Statement are negative. 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, varicose veins, hiatal hernia, hx ulcers, black stool, hx pancreatitis 2016, hx eczema, CHANGE IN BOWEL HABITS Last Myocardial Infarction Date:: 11/25/17 History of Any Multi-Drug Resistant Organisms: None Reported Past Surgical History: Adenoidectomy, Appendectomy, Back Surgery, Bowel Resection, Cholecystectomy, Heart Catheterization With Stent, Hernia Repair, Orthopedic Surgery, Tonsillectomy Additional Past Surgical History / Comment(s): esophagectomy, colectomy, LT CAROTID ENDARTECTOMY, LUMP REMOVED FROM TONGUE, LITHOTRIPSY, CYSTOSCOPY, RT ROTATOR CUFF REPAIR, R carpal tunnel release, DEVIATED SEPTUM, , cardiac STENTS x 3, UMBILICAL HERNIA REPAIR X 2, RT inguinal hernia repair, LOWER BACK SURGERY-HAS SCREWS, BILAT CATARACTS REMOVED, vasectomy, repair of undescended testicle, COLONOSCOPY, EGD Past Anesthesia/Blood Transfusion Reactions: No Reported Reaction Additional Past Anesthesia/Blood Transfusion Reaction / Comment(s): Pt has received blood in past without reaction. Date of Last Stent Placement:: 2015 Past Psychological History: No Psychological Hx Reported Smoking Status: Former smoker Past Alcohol Use History: None Reported Past Drug Use History: None Reported - Past Family History Brother(s) Family Medical History: Cancer Additional Family Medical History / Comment(s): liver and brain Mother Family Medical History: Cancer Additional Family Medical History / Comment(s): LIVER CA, BRAIN CA Sister(s) Family Medical History: Cancer Additional Family Medical History / Comment(s): BREAST CA, LUNG CA. SISTER X 2 Father Family Medical History: Osteoarthritis (OA) Additional Family Medical History / Comment(s): CELIAC DISEASE, ULCERS General Exam - General Exam Comments Initial Comments: General: Appears in moderate distress secondary to back pain. HEAD: Normal with no signs of head trauma. EYES: PERRLA, EOMI, conjunctiva normal, no discharge. ENT: Hearing grossly intact, normal oropharynx. RESPIRATORY: Clear breath sounds bilaterally. No wheezes, rales, or rhonchi. C/V: Regular rate and rhythm. S1 and S2 auscultated, no edema, peripheral pulses 2+ and intact throughout ABD: Abd is soft, nontender, nondistended EXT: Reduced range of motion the lower back. No obvious deformity. Minimal midline lumbar spine tenderness palpation but seems to be primarily in the lateral paraspinal muscles with radiation towards the gluteus muscles and posterior aspect of the left hip. Pelvis is stable. Movement of the left hip aggravates the pain. Neurovascular intact otherwise. SKIN: No rashes or lesions observed on exposed skin. NEURO: Alert and oriented 4. No focal sensory strength deficits. Limitations: no limitations Course Vital Signs 10/17/21 10/17/21 01:28 05:07 Temperature 97.9 F Pulse Rate 52 L 59 L Respiratory 18 22 Rate Blood Pressure 133/78 132/77 O2 Sat by Pulse 98 96 Oximetry Medical Decision Making - Medical Decision Making Based on patient's presentation and physical exam, I'm concerned for lumbar muscle strain, however cannot rule out possible left hip injury or midline lumbar spine injury with a history of lumbar spine surgery. Therefore we will obtain imaging. Will be given analgesia. He was in agreement this plan. Has no red flag symptoms for cauda equina syndrome. Patient's CT imaging and x-ray revealed no signs of acute injury at this time. There is spinal canal stenosis. As indicated above, no signs or symptoms of cauda equina syndrome at this time. No concern. There was an incidental finding of kidney stones located within the right kidney. Not the source of his current pain on the left. I updated the patient. Patient is feeling improved with the medications at this time. I believe he is likely experiencing a muscle strain. Patient will be given analgesia medications for home. Instructed follow-up with his PCP. He was in agreement this plan. I will provide the patient with a prescription for [place] 5, Robaxin, lidocaine patche. I instructed the patient to follow up with their PCP in the next 1-3 days. I explained that the patient should return to the emergency department if they experience any worsening symptoms. Strict return precautions were disc ussed with the patient. The patient expressed understanding of these instructions. I answered all questions that the patient had. The patient was discharged home in fair condition with their prescriptions and follow up information. Disposition Clinical Impression: Muscle strain Disposition: HOME SELF-CARE Condition: Fair Instructions (If sedation given, give patient instructions): Acute Low Back Pain (ED) Prescriptions: Lidocaine 5% Patch [Lidoderm 5% Patch] 1 patch TOPICAL DAILY PRN 7 Days #7 patch PRN Reason: Pain HYDROcodone/APAP 5-325MG [[place] 5-325] 1 tab PO Q6HR PRN 3 Days #12 tab PRN Reason: Pain methocarbamoL [Robaxin-750] 750 mg PO BID PRN 7 Days #14 tab PRN Reason: Pain Is patient prescribed a controlled substance at d/c from ED?: No Referrals: Oren Price MD [Primary Care Provider] - 1-2 days Time of Disposition: 05:05
--- NOTE | 2021-10-17 04:29 | XR ---
EXAMINATION TYPE: XR Hip LT and AP Pelvis DATE OF EXAM: 10/17/2021 COMPARISON: 01/27/2021 HISTORY: Hip pain TECHNIQUE: 3 views FINDINGS: The pelvic ring appears intact. Proximal left femur and hip joint appear intact. No evidenc e of hip fracture. There is acetabular bilateral spur formation. Sacroiliac joints are intact. IMPRESSION: There is some osteoarthritis. No fracture. No change compared to old exam
--- NOTE | 2021-10-17 04:56 | CT ---
EXAMINATION TYPE: CT lumbar spine wo con DATE OF EXAM: 10/17/2021 COMPARISON: 05/25/2020 HISTORY: acute on chronic right lumbar spine pain CT DLP: 1734.6 mGycm Automated exposure control for dose reduction was used. Images obtained from the level of T12-S2 vertebra with no contrast. The lumbar vertebrae have fairly normal alignment. There is a minimal L3-4 subluxation. There is mild disc space narrowing throughout the lumbar spine. There is posterior screws fusing the lumbar spine at the L4-5 level. Abdominal aorta is atheromatous. There is mild hypertrophic multilevel facet arthr opathy. Sacroiliac joints are intact. No lumbar paraspinal mass. No compression fracture. There is mo derate spinal stenosis at L3-4 due to the facet arthropathy and subluxation. There is a mild spinal s tenosis at L2-3. There is a large calculus in the lower pole right kidney. IMPRESSION: Spinal stenosis at L2-3 and L3-4. Stenosis more severe at L3-4. No fracture seen. Degenerative mild s ubluxation at L3-4. No change compared to old exam.
[2021-10-17 05:08] VITALS: BP 132/77; PULSE 59; RESP 22
[2021-10-17] MEDS ORDERED: ACET/COD 300 MG/30 MG STARTER PACK 6 TAB BTL PO STA (05:12)
== END 2021-10-17 05:38 | disposition home or self-care (01) ==
LOC: EC 00:55
DX: S39.012A Strain of muscle, fascia and tendon of lower back, initial encounter (principal); I10 Essential (primary) hypertension; I25.2 Old myocardial infarction; E78.5 Hyperlipidemia, unspecified; I25.10 Atherosclerotic heart disease of native coronary artery without angina pectoris; K21.9 Gastro-esophageal reflux disease without esophagitis; Z87.891 Personal history of nicotine dependence; M19.90 Unspecified osteoarthritis, unspecified site; Z88.8 Allergy status to other drugs, medicaments and biological substances; Z91.018 Allergy to other foods; Z88.2 Allergy status to sulfonamides; Z79.899 Other long term (current) drug therapy; X50.9XXA Other and unspecified overexertion or strenuous movements or postures, initial encounter
CPT/HCPCS: 73502; 72131; 99284; 96374; 96376; 96372; J2270; J1885

== ENCOUNTER 2022-10-04 07:55 | Day surgery (SDC) | payer MEDICARE ==
[2022-10-04 08:26] VITALS: TEMP 97.6
--- NOTE | 2022-10-04 09:07 | P.GSHP ---
History of Present Illness H&P Date: 10/04/22 CHIEF COMPLAINT: GERD and colon screen HISTORY OF PRESENT ILLNESS: The patient is a 82-year-old male who presents with gastroesophageal reflux disease and need for colon screen. Upper and lower endoscopy were offered for further evaluation and management. PAST MEDICAL HISTORY: Please see list. PAST SURGICAL HISTORY: Please see list. MEDICATIONS: Please see list. ALLERGIES: Please see list. SOCIAL HISTORY: No illicit drug use FAMILY HISTORY: No reports of Crohn disease or ulcerative colitis. REVIEW OF ORGAN SYSTEMS: CONSTITUTIONAL: No reports of fevers or chills. GI: Denies any blood in stools or constipation. PHYSICAL EXAM: VITAL SIGNS: Stable GENERAL: Well-developed pleasant in no acute distress. HEENT: No scleral icterus. Extraocular movements grossly intact. Moist buccal mucosa. NECK: Supple without lymphadenopathy. CHEST: Unlabored respirations. Equal bilateral excursions. CARDIOVASCULAR: Regular rate and rhythm. Distal 2+ pulses. ABDOMEN: Soft, nondistended. MUSCULOSKELETAL: No clubbing, cyanosis, or edema. ASSESSMENT: 1. Gastroesophageal reflux disease 2. Colon screen. PLAN: 1. 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, varicose veins, hiatal hernia, hx ulcers, black stool, hx pancreatitis 2016, hx eczema, CHANGE IN BOWEL HABITS Last Myocardial Infarction Date:: 11/25/17 History of Any Multi-Drug Resistant Organisms: None Reported Past Surgical History: Adenoidectomy, Appendectomy, Back Surgery, Bowel Resection, Cholecystectomy, Heart Catheterization With Stent, Hernia Repair, Orthopedic Surgery, Tonsillectomy Additional Past Surgical History / Comment(s): esophagectomy, colectomy, LT CAROTID ENDARTECTOMY, LUMP REMOVED FROM TONGUE, LITHOTRIPSY, CYSTOSCOPY, RT ROTATOR CUFF REPAIR, R carpal tunnel release, DEVIATED SEPTUM, , cardiac STENTS x 3, UMBILICAL HERNIA REPAIR X 2, RT inguinal hernia repair, LOWER BACK SURGERY- HAS SCREWS, BILAT CATARACTS REMOVED, vasectomy, repair of undescended testicle, COLONOSCOPY, EGD Past Anesthesia/Blood Transfusion Reactions: No Reported Reaction Additional Past Anesthesia/Blood Transfusion Reaction / Comment(s): Pt has received blood in past without reaction. Date of Last Stent Placement:: 2015 Past Psychological History: No Psychological Hx Reported Additional Psychological History / Comment(s): . Smoking Status: Former smoker Past Alcohol Use History: None Reported Additional Past Alcohol Use History / Comment(s): STARTED SMOKING AGE 11 (1950) WAS 2 PPD, QUIT 1983 Past Drug Use History: None Reported - Past Family History Brother(s) Family Medical History: Cancer Additional Family Medical History / Comment(s): liver and brain Mother Family Medical History: Cancer Additional Family Medical History / Comment(s): LIVER CA, BRAIN CA Sister(s) Family Medical History: Cancer Additional Family Medical History / Comment(s): BREAST CA, LUNG CA. SISTER X 2 Father Family Medical History: Osteoarthritis (OA) Additional Family Medical History / Comment(s): CELIAC DISEASE, ULCERS Medications and Allergies Home Medications Medication Instructions Recorded Confirmed Type Tamsulosin HCl 0.4 mg PO HS 08/28/13 09/29/22 History Acetaminophen Tab [Tylenol] 1,000 mg PO DAILY PRN 09/29/14 09/29/22 History Isosorbide Mononitrate ER [Imdur] 30 mg PO BID 07/16/15 09/29/22 History Carboxymethyl/Gly/Poly80/Pf 1 drop BOTH EYES QID PRN 10/23/17 09/29/22 History [Refresh Optive [place]que-3 Drops] Esomeprazole Magnesium [NexIUM] 40 mg PO BID 10/23/17 09/29/22 History Brimonidine Tartrate/Timolol 1 drop BOTH EYES BID 04/21/19 09/29/22 History [Combigan 0.2%-0.5% Eye Drops] Famotidine [Pepcid] 20 mg PO BID 04/21/19 09/29/22 History Calcium Carbonate [Tums] 1,000 mg PO BID PRN 03/22/20 09/29/22 History Fluticasone Nasal [place] [Flonase 1 spray EA NOSTRIL BID PRN 03/22/20 09/29/22 History Nasal [place]] Netarsudil Mesylat/Latanoprost 1 drop BOTH EYES HS 03/22/20 09/29/22 History [Rocklatan 0.02%-0.005% Eye Drp] Sodium Chloride [Saline Nasal 1 spray EA NOSTRIL QID PRN 09/05/20 09/29/22 History [place]] Triamcinolone 0.1% Cream [Kenalog 1 applicatio TOPICAL BID PRN 09/05/20 09/29/22 History 0.1% Cream] Losartan [Cozaar] 25 mg PO DAILY@0900 tab 09/07/20 09/29/22 Rx hydrALAZINE HCL [Apresoline] 25 mg PO QID@06,,, tab 09/07/20 09/29/22 Rx HYDROcodone/APAP 5-325MG [[place] 1 tab PO Q6HR PRN 3 Days #12 tab 10/17/21 09/29/22 Rx 5-325] methocarbamoL [Robaxin-750] 750 mg PO BID PRN 7 Days #14 tab 10/17/21 09/29/22 Rx Allergies Allergy/AdvReac Type Severity Reaction Status Date / Time atenolol Allergy Unknown Verified 09/29/22 11:30 clopidogrel bisulfate Allergy severe Verified 09/29/22 11:30 [From Plavix] itching gluten Allergy blisters Verified 09/29/22 11:30 lactose Allergy Abdominal Verified 09/29/22 11:30 Pain simvastatin Allergy Unknown Verified 09/29/22 11:30 beet AdvReac CAUSES Verified 09/29/22 11:30 KIDNEY STONES PER PT [place] And Derivatives AdvReac CAUSES Verified 09/29/22 11:30 [[place]] KIDNEY STONES PER PT cocoa AdvReac CAUSES Verified 09/29/22 11:30 KIDNEY STONES PER PT coffee (Coffea arabica) AdvReac CAUSES Verified 09/29/22 11:30 KIDNEY STONES PER PT cranberry AdvReac CAUSES Verified 09/29/22 11:30 KIDNEY STONES PER PT diphenhydramine AdvReac Diarrhea Verified 09/29/22 11:30 [From Benadryl] green tea AdvReac CAUSES Verified 09/29/22 11:30 KIDNEY STONES PER PT plum AdvReac CAUSES Verified 09/29/22 11:30 KIDNEY STONES PER PT prednisolone AdvReac GLAUCOMA Verified 09/29/22 11:30 rhubarb AdvReac CAUSES Verified 09/29/22 11:30 KIDNEY STONES PER PT spinach AdvReac CAUSES Verified 09/29/22 11:30 KIDNEY STONES PER PT sucralfate [From Carafate] AdvReac REFLUX Verified 09/29/22 11:30 Sulfa (Sulfonamide AdvReac blood Verified 09/29/22 11:30 Antibiotics) disorder sweet potato AdvReac CAUSES Verified 09/29/22 11:30 KIDNEY STONES PER PT tree nut [Nut] AdvReac CAUSES Verified 09/29/22 11:30 KIDNEY STONES PER PT Surgical - Exam Vital Signs Temp Pulse Resp BP Pulse Ox 97.6 F 59 L 20 148/67 98 10/04/22 08:25 10/04/22 08:25 10/04/22 08:25 10/04/22 08:25 10/04/22 08:25
[2022-10-04] MEDS ORDERED: LIDOCAINE 2% INJ 20 MG/ML (2 ML VIAL) ONE (09:32)
[2022-10-04] MEDS ORDERED: PROPOFOL 10 MG/ML 20 ML VIAL IV ONE (09:32)
[2022-10-04 11:07] VITALS: PULSE 79
--- NOTE | 2022-10-04 11:10 | P.PCN ---
Date of Procedure: 10/04/22 Description of Procedure: PREOPERATIVE DIAGNOSIS: Dysphagia. Gastroesophageal reflux disease History of esophagectomy History of esophageal cancer History of esophageal stricture POSTOPERATIVE DIAGNOSIS: Esophageal stricture Gastritis OPERATION: Esophagogastroduodenoscopy with rigid dilator over the guidewire 54 Fr. SURGEON: Veronica Jameson MD ANESTHESIA: MAC. INDICATIONS: The patient is a 55-year-old male who presents with a history of dysphagia. Benefits and risks of the procedure were described. Informed consent was obtained. DESCRIPTION: The patient was brought into the endoscopy suite and laid in the left lateral decubitus position. After a timeout was confirmed, the procedure was initiated. An Olympus gastroscope was passed and the stomach was entered. Mild gastritis was identified. The scope was advanced to the duodenum which was unremarkable. Retroflexion the scope confirmed a Hill grade 4 lower esophageal valve. Next using an [place] rigid dilator, a guidewire was placed through the pediatric gastroscope. Next the scope was withdrawn. A 54-Tajik rigid [place] dilator was passed carefully along the posterior oropharynx to 50 cm and left in place for 2-3 minutes stretch. The dilator was withdrawn including the guidewire. The scope was reentered along the posterior oropharynx with no findings of full-thickness tear of the upper esophageal sphincter. No full-thickness injury was encountered. The GI tract was desufflated. The patient tolerated the procedure well. FINDINGS: EGD rigid dilation 54-Taj[place] for esophageal stricture due to esophagogastrostomy gastric pull-through. Proximal esophageal stricture without ulceration Diffuse gastritis without bleeding. Moderate-sized food within stomach. Hill grade 4 lower esophageal valve. [place] grade B esophagitis. RECOMMENDATIONS: Upper endoscopy as needed to address esophageal stricture
--- NOTE | 2022-10-04 11:10 | P.PCN ---
Date of Procedure: 10/04/22 Description of Procedure: PREOPERATIVE DIAGNOSIS: Personal history of colon polyps Colonoscopy screening POSTOPERATIVE DIAGNOSIS: Tubular adenoma hepatic flexure Tubular adenoma ascending colon Tubular adenoma transverse colon Sigmoid diverticulosis, severe Internal hemorrhoids, grade 2 OPERATION: Colonoscopy to ascending colon Colonoscopy with hot snare polypectomy SURGEON: Veronica Jameson MD. ANESTHESIA: MAC. INDICATIONS: The patient is an 82-year-old male who presents personal history of colon polyps. Last colonoscopy over 5 years. Benefits and risks were described and informed consent was obtained. DESCRIPTION OF PROCEDURE: The patient had undergone GoLYTELY prep. The patient had been brought into the operating room and laid in the left lateral decubitus position. After adequate intravenous sedation, the rectum was examined with 2% lidocaine jelly. The prostate fossa was unremarkable. External hemorrhoids were encountered. The rectal tone was within normal limits. No lesions were palpated in the rectal vault. An Olympus colonoscope was advanced along torturous colon. Abdominal wall pressure was used to advance the scope however limited view to the ascending colon. The prep was fair. Severe sigmoid diverticulosis was found. Polyps along ascending colon hepatic flexure unable to resect due to redundancy and angle of the colon. Colonic polyps were found and removed. No evidence of focal colitis was found. Retroflexion of the scope demonstrated grade 2 internal hemorrhoids without active bleeding or inflammation. The colon was desufflated. The patient had tolerated the procedure well. Withdrawal time was over 6 minutes. FINDINGS: [place]ick preparation quality scale 3 (1-5) Internal hemorrhoids, grade 2 External hemorrhoids, grade 2 No arteriovenous malformations. Sigmoid diverticulosis, severe Polyps along ascending colon hepatic flexure unable to resect due to redundancy and angle of the colon Removal of 1 polyps: - Snare polypectomy transverse colon, 6 mm tubulovillous adenoma polyp. No focal colitis. RECOMMENDATIONS: Given severity of tubular adenomas, recommend repeat colonoscopy 3 months for retrieval of colon polyps, adenoma. Plan - Discharge Summary Discharge Rx Participant: No New Discharge Prescriptions: Continue Tamsulosin HCl 0.4 mg PO HS Acetaminophen Tab [Tylenol] 1,000 mg PO DAILY PRN PRN Reason: Pain Isosorbide Mononitrate ER [Imdur] 30 mg PO BID Carboxymethyl/Gly/Poly80/Pf [Refresh Opt[place]-3 Drops] 1 drop BOTH EYES QID PRN PRN Reason: DRY EYES Esomeprazole Magnesium [NexIUM] 40 mg PO BID Famotidine [Pepcid] 20 mg PO BID Brimonidine Tartrate/Timolol [Combigan 0.2%-0.5% Eye Drops] 1 drop BOTH EYES BID Fluticasone Nasal [place] [Flonase Nasal [place]] 1 spray EA NOSTRIL BID PRN PRN Reason: Allergy Symptoms Netarsudil Mesylat/Latanoprost [[place] 0.02%-0.005% Eye Drp] 1 drop BOTH EYES HS Calcium Carbonate [Tums] 1,000 mg PO BID PRN PRN Reason: Indigestion Sodium Chloride [Saline Nasal [place]] 1 spray EA NOSTRIL QID PRN PRN Reason: DRY NOSE/ ALLERGY SYMPTOMS hydrALAZINE HCL [Apresoline] 25 mg PO QID@06,12,18, tab Losartan [Cozaar] 25 mg PO DAILY@0900 tab methocarbamoL [Robaxin-750] 750 mg PO BID PRN 7 Days #14 tab PRN Reason: Pain Triamcinolone 0.1% Cream [Kenalog 0.1% Cream] 1 applicatio TOPICAL BID PRN PRN Reason: Rash HYDROcodone/APAP 5-325MG [[place] 5-325] 1 tab PO Q6HR PRN 3 Days #12 tab PRN Reason: Pain Discharge Medication List Tamsulosin HCl 0.4 mg PO HS 08/28/13 [History] Acetaminophen Tab [Tylenol] 1,000 mg PO DAILY PRN 09/29/14 [History] Isosorbide Mononitrate ER [Imdur] 30 mg PO BID 07/16/15 [History] Carboxymethyl/Gly/Poly80/Pf [Refresh Optive [place]-3 Drops] 1 drop BOTH EYES QID PRN 10/23/17 [History] Esomeprazole Magnesium [NexIUM] 40 mg PO BID 10/23/17 [History] Brimonidine Tartrate/Timolol [Combig[place] 0.2%-0.5% Eye Drops] 1 drop BOTH EYES BID 04/21/19 [History] Famotidine [Pepcid] 20 mg PO BID 04/21/19 [History] Calcium Carbonate [Tums] 1,000 mg PO BID PRN 03/22/20 [History] Fluticasone Nasal [place] [Flonase Nasal [place]] 1 spray EA NOSTRIL BID PRN 03/22/20 [History] Netarsudil Mesylat/Latanoprost [[place] 0.02%-0.005% Eye Drp] 1 drop BOTH EYES HS 03/22/20 [History] Sodium Chloride [Saline Nasal [place]] 1 spray EA NOSTRIL QID PRN 09/05/20 [History] Triamcinolone 0.1% Cream [Kenalog 0.1% Cream] 1 applicatio TOPICAL BID PRN 09/05/20 [History] Losartan [Cozaar] 25 mg PO DAILY@0900 tab 09/07/20 [Rx] hydrALAZINE HCL [Apresoline] 25 mg PO QID@06,12,18,23 tab 09/07/20 [Rx] HYDROcodone/APAP 5-325MG [[place] 5-325] 1 tab PO Q6HR PRN 3 Days #12 tab 10/17/21 [Rx] methocarbamoL [Robaxin-750] 750 mg PO BID PRN 7 Days #14 tab 10/17/21 [Rx] Follow up Appointment(s)/Referral(s): Veronica Jameson MD [STAFF PHYSICIAN] - 10/17/22 1:00 pm Patient Instructions/Handouts: Diverticulosis (GEN), Colorectal Polyps (GEN), Diverticulitis Diet (ED), Diverticulosis Diet (GEN), Dilation and Curettage (DC), Esophageal Dilation (DC) Activity/Diet/Wound Care/Special Instructions: Repeat colonoscopy 3 months, Dec 2022 Discharge Disposition: HOME SELF-CARE
[2022-10-04 11:20] VITALS: BP 130/70; RESP 16
== END 2022-10-04 11:49 | disposition home or self-care (01) ==
LOC: ORWHC2ENDO 07:55
PROVIDERS: ATTEND Surgery Plastic and Reconstructive Surgery
DX: Z12.11 Encounter for screening for malignant neoplasm of colon (principal); D12.3 Benign neoplasm of transverse colon; K21.9 Gastro-esophageal reflux disease without esophagitis; K57.30 Diverticulosis of large intestine without perforation or abscess without bleeding; I25.10 Atherosclerotic heart disease of native coronary artery without angina pectoris; I10 Essential (primary) hypertension; E78.5 Hyperlipidemia, unspecified; I25.2 Old myocardial infarction; Z85.828 Personal history of other malignant neoplasm of skin; Z90.89 Acquired absence of other organs; Z98.890 Other specified postprocedural states; Z80.3 Family history of malignant neoplasm of breast; Z87.442 Personal history of urinary calculi; Z90.49 Acquired absence of other specified parts of digestive tract; Z95.5 Presence of coronary angioplasty implant and graft; Z87.891 Personal history of nicotine dependence; Z83.79 Family history of other diseases of the digestive system; Z82.61 Family history of arthritis; Z79.899 Other long term (current) drug therapy
CPT/HCPCS: 88305; 45385; 43248; J2704; J2001; 43249

== ENCOUNTER → 2022-10-24 | Outpatient (CLI) | payer MEDICARE ==
[2022-10-24 11:30] LABS: Basophils # (A) 0.04 X 10*3/uL (0.00-0.10); Basophils % (A) 0.5 %; Eosinophils # (A) 0.21 X 10*3/uL (0.04-0.35); Eosinophils % (A) 2.6 %; HCT 37.2 % (39.6-50.0); HGB 11.8 d/dL (13.0-17.0); Lymphocytes # (A) 1.26 X 10*3/uL (0.90-5.00); Lymphocytes % (A) 15.9 %; MCH 29.6 pg (27.0-32.0); MCHC 31.7 d/dL (32.0-37.0); MCV 93.2 FL (80.0-97.0); Mean Platelet Volume 12.2 FL (9.5-12.2); Monocytes # (A) 0.89 X 10*3/uL (0.20-1.00); Monocytes % (A) 11.2 %; NRBC Per 100 WBC 0 X 10*3/uL (0.00-0.01); Neutrophils % (A) 69.3 %; Platelet Count 207 X 10*3/uL (140-440); RBC 3.99 X 10*6/uL (4.40-5.60); RDW 13.5 % (11.5-14.5); WBC 7.94 X 10*3/uL (4.50-10.00)
[2022-10-24 11:33] LABS: Urine Creatinine 47.7 mg/dL (39.0-259.0)
[2022-10-24 13:46] LABS: % Iron Saturation 29.23 (15.00-50.00); ALT 44 U/L (10-49); AST 35 U/L (14-35); Albumin 4.4 d/dL (3.8-4.9); Albumin/Globulin Ratio 1.57 Ratio (1.60-3.17); Alkaline Phosphatase 81 U/L (41-126); BUN/Creat Ratio 13.39 Ratio (12.00-20.00); Blood Urea Nitrogen 24.1 mg/dL (9.0-27.0); C Reactive Protein <0.30 mg/dL (0.00-0.80); Carbon Dioxide 24.6 mmol/L (21.6-31.8); Chloride 102 mmol/L (96-109); Creatine Kinase 130 U/L (35-257); Globulin 2.8 d/dL (1.6-3.3); Glucose 86 mg/dL (70-110); Iron 83 UG/DL (65-175); LDL Cholesterol,Calculated 41.3 mg/dL (0.0-131.0); Magnesium 2.6 mg/dL (1.5-2.4); Phosphorus 3.9 mg/dL (2.4-5.1); Potassium 5.4 mmol/L (3.5-5.5); Sodium 137 mmol/L (135-145); Total Bilirubin 0.9 mg/dL (0.3-1.2); Total Iron Binding Capacity 284 UG/DL (228-460); Total Protein 7.2 d/dL (6.2-8.2); Uric Acid 5.4 mg/dL (3.7-8.7)
[2022-10-24 14:01] LABS: Erythrocyte Sedimentation Rate 26 mm/Hr (0-20)
== END | disposition home or self-care (01) ==
LOC: LABWHC1 06:35
PROVIDERS: ATTEND Internal Medicine
DX: Z00.00 Encounter for general adult medical examination without abnormal findings (principal); I12.9 Hypertensive chronic kidney disease with stage 1 through stage 4 chronic kidney disease, or unspecified chronic kidney disease; E11.22 Type 2 diabetes mellitus with diabetic chronic kidney disease; N18.30 Chronic kidney disease, stage 3 unspecified; D63.1 Anemia in chronic kidney disease; N40.0 Benign prostatic hyperplasia without lower urinary tract symptoms; E87.8 Other disorders of electrolyte and fluid balance, not elsewhere classified; M10.9 Gout, unspecified; E78.5 Hyperlipidemia, unspecified; E11.65 Type 2 diabetes mellitus with hyperglycemia; E55.9 Vitamin D deficiency, unspecified; M19.90 Unspecified osteoarthritis, unspecified site
CPT/HCPCS: 36415; 80053; 80061; 82043; 82306; 82550; 82570; 82728; 83036; 83540; 83550; 83735; 84100; 84153; 84443; 84550; 85025; 85652; 86140

== ENCOUNTER → 2022-11-17 | Outpatient (CLI) | payer MEDICARE ==
--- NOTE | 2022-11-17 09:13 | US ---
EXAMINATION TYPE: US kidneys/renal and bladder DATE OF EXAM: 11/17/2022 COMPARISON: CT dated 05/25/2020 CLINICAL INDICATION: Male, 82 years old with history of N18.30 CHRONIC KIDNEY DISEASE, STAGE 3 UNSPEC IFIED; EXAM MEASUREMENTS: Right Kidney: 6.6 x 4.0 x 3.7 cm Left Kidney: 12.2 x 6.0 x 5.6 cm Right Kidney: atrophied, cyst measures 1.2 x 2.3 x 1.9 cm. Possible stone lower pole measures 1.0 x 0 .7 x 1.2 cm with twinkle artifact. Left Kidney: No hydronephrosis or masses seen Bladder: wnl Bilateral Jets seen: No There is no evidence for hydronephrosis at this point in time. No solid masses are identified. The urinary bladder is anechoic. IMPRESSION: 1. Atrophic changes of the right kidney. 2. Urinary bladder is incompletely distended with suggestion of thickened wall.
== END | disposition home or self-care (01) ==
LOC: RADUSWWP 08:45
PROVIDERS: ATTEND Internal Medicine
DX: N18.30 Chronic kidney disease, stage 3 unspecified (principal); N26.1 Atrophy of kidney (terminal); N32.89 Other specified disorders of bladder
CPT/HCPCS: 76770

== ENCOUNTER → 2023-03-20 | Outpatient (CLI) | payer MEDICARE ==
[2023-03-20 19:05] LABS: Blood Urea Nitrogen 18.4 mg/dL (9.0-27.0); T4, Free (Free Thyroxine) 1.27 ng/dL (0.80-1.80)
[2023-03-20 19:26] LABS: Basophils # (A) 0.03 X 10*3/uL (0.00-0.10); Basophils % (A) 0.4 %; Eosinophils # (A) 0.12 X 10*3/uL (0.04-0.35); Eosinophils % (A) 1.6 %; HCT 34.5 % (39.6-50.0); HGB 10.8 g/dL (13.0-17.0); Lymphocytes # (A) 1.04 X 10*3/uL (0.90-5.00); Lymphocytes % (A) 14.2 %; MCH 30.3 pg (27.0-32.0); MCHC 31.3 g/dL (32.0-37.0); MCV 96.9 FL (80.0-97.0); Mean Platelet Volume 12.2 FL (9.5-12.2); Monocytes # (A) 0.63 X 10*3/uL (0.20-1.00); Monocytes % (A) 8.6 %; NRBC Per 100 WBC 0 X 10*3/uL (0.00-0.01); Neutrophils # (A) 5.42 X 10*3/uL (1.80-7.70); Neutrophils % (A) 74.1 %; Platelet Count 199 X 10*3/uL (140-440); RBC 3.56 X 10*6/uL (4.40-5.60); RDW 13.3 % (11.5-14.5); WBC 7.32 X 10*3/uL (4.50-10.00)
== END | disposition home or self-care (01) ==
LOC: LABWHC1 14:47
PROVIDERS: ATTEND Dermatology MOHS-Micrographic Surgery
DX: L29.8 Other pruritus (principal); L57.0 Actinic keratosis
CPT/HCPCS: 36415; 84439; 84443; 84450; 84460; 84520; 85025

== ENCOUNTER → 2023-04-04 | Outpatient (CLI) | payer MEDICARE ==
[2023-04-04 10:58] LABS: Basophils # (A) 0.02 X 10*3/uL (0.00-0.10); Basophils % (A) 0.2 %; Eosinophils # (A) 0.14 X 10*3/uL (0.04-0.35); Eosinophils % (A) 1.7 %; HCT 38.4 % (39.6-50.0); HGB 11.7 g/dL (13.0-17.0); Lymphocytes # (A) 1.07 X 10*3/uL (0.90-5.00); Lymphocytes % (A) 13.4 %; MCH 29.5 pg (27.0-32.0); MCHC 30.5 g/dL (32.0-37.0); MCV 96.7 FL (80.0-97.0); Mean Platelet Volume 12.1 FL (9.5-12.2); Monocytes # (A) 0.71 X 10*3/uL (0.20-1.00); Monocytes % (A) 8.9 %; NRBC Per 100 WBC 0 X 10*3/uL (0.00-0.01); Neutrophils # (A) 5.98 X 10*3/uL (1.80-7.70); Neutrophils % (A) 74.7 %; Platelet Count 183 X 10*3/uL (140-440); RBC 3.97 X 10*6/uL (4.40-5.60); RDW 14.7 % (11.5-14.5); WBC 8.01 X 10*3/uL (4.50-10.00)
[2023-04-04 11:33] LABS: Erythrocyte Sedimentation Rate 7 mm/Hr (0-20)
[2023-04-04 11:37] LABS: ALT 76 U/L (10-49); AST 50 U/L (14-35); Albumin 4.4 g/dL (3.8-4.9); Albumin/Globulin Ratio 1.76 Ratio (1.60-3.17); Alkaline Phosphatase 83 U/L (41-126); BUN/Creat Ratio 13.75 Ratio (12.00-20.00); C Reactive Protein <0.30 mg/dL (0.00-0.80); Calcium 10.1 mg/dL (8.7-10.3); Carbon Dioxide 24.9 mmol/L (21.6-31.8); Chloride 108 mmol/L (96-109); Creatine Kinase 119 U/L (35-257); Ferritin 40.6 ng/mL (22.0-322.0); GGT 20 U/L (0-73); Globulin 2.5 g/dL (1.6-3.3); Glucose 98 mg/dL (70-110); Iron 83 UG/DL (65-175); Potassium 4.9 mmol/L (3.5-5.5); Sodium 143 mmol/L (135-145); Total Bilirubin 0.6 mg/dL (0.3-1.2); Total Iron Binding Capacity 386 UG/DL (228-460); Total Protein 6.9 g/dL (6.2-8.2)
[2023-04-04 12:22] LABS: Hepatitis A Antibody IgM Nonreactive; Hepatitis B Core IgM Nonreactive; Hepatitis B Surface Antigen Nonreactive; Hepatitis C IgG Antibody Nonreactive
== END | disposition home or self-care (01) ==
LOC: LABWHC1 07:04
PROVIDERS: ATTEND Internal Medicine
DX: D64.9 Anemia, unspecified (principal); K75.9 Inflammatory liver disease, unspecified; R94.5 Abnormal results of liver function studies; L29.9 Pruritus, unspecified
CPT/HCPCS: 36415; 80053; 80074; 82550; 82607; 82728; 82746; 82977; 83540; 83550; 85025; 85652; 86140

== ENCOUNTER → 2023-04-20 | Outpatient (CLI) | payer MEDICARE ==
--- NOTE | 2023-04-20 08:59 | US ---
EXAMINATION TYPE: US liver DATE OF EXAM: 04/20/2023 COMPARISON: 11/17/2022 CLINICAL INDICATION: Male, 82 years old with history of R94.5 ABNORMAL LIVER ENZYMES; Elevated liver enzymes, abdominal discomfort, bloating, cholecystectomy TECHNIQUE: Multiple sonographic images of the right upper quadrant are obtained. FINDINGS: EXAM MEASUREMENTS: Liver Length: 15.2 cm Gallbladder Wall: Surgically absent CBD: 0.6 cm Right Kidney: 7.0 x 3.6 x 3.1 cm Pancreas: Obscured by bowel gas Liver: heterogeneous Gallbladder: Surgically absent Evidence for sonographic Hart's sign: no CBD: appears wnl Right Kidney: atrophic. anechoic area = 2.3 x 1.9 x 1.9cm. possible stone lower pole = 0.7cm as on p rior exam IMPRESSION: 1. Atrophic changes right kidney. 2. Renal calculi right kidney without hydronephrosis. 3. Hepatic steatosis.
== END | disposition home or self-care (01) ==
LOC: RADUSWWP 08:15
PROVIDERS: ATTEND Internal Medicine
DX: K76.0 Fatty (change of) liver, not elsewhere classified (principal); N20.0 Calculus of kidney; N26.1 Atrophy of kidney (terminal); R74.8 Abnormal levels of other serum enzymes; R14.0 Abdominal distension (gaseous); R94.5 Abnormal results of liver function studies; Z90.49 Acquired absence of other specified parts of digestive tract
CPT/HCPCS: 76705

== ENCOUNTER 2023-05-30 10:34 | Day surgery (SDC) | payer MEDICARE ==
--- NOTE | 2023-05-30 08:41 | P.GSHP ---
History of Present Illness H&P Date: 05/30/23 CHIEF COMPLAINT: GERD and colon screen HISTORY OF PRESENT ILLNESS: The patient is a 82-year-old male who presents with gastroesophageal reflux disease and need for colon screen. Upper and lower endoscopy were offered for further evaluation and management. PAST MEDICAL HISTORY: Please see list. PAST SURGICAL HISTORY: Please see list. MEDICATIONS: Please see list. ALLERGIES: Please see list. SOCIAL HISTORY: No illicit drug use FAMILY HISTORY: No reports of Crohn disease or ulcerative colitis. REVIEW OF ORGAN SYSTEMS: CONSTITUTIONAL: No reports of fevers or chills. GI: Denies any blood in stools or constipation. PHYSICAL EXAM: VITAL SIGNS: Stable GENERAL: Well-developed pleasant in no acute distress. HEENT: No scleral icterus. Extraocular movements grossly intact. Moist buccal mucosa. NECK: Supple without lymphadenopathy. CHEST: Unlabored respirations. Equal bilateral excursions. CARDIOVASCULAR: Regular rate and rhythm. Distal 2+ pulses. ABDOMEN: Soft, nondistended. MUSCULOSKELETAL: No clubbing, cyanosis, or edema. ASSESSMENT: 1. Gastroesophageal reflux disease 2. Colon screen. PLAN: 1. Recommend proceeding with an upper and lower endoscopy Past Medical History Past Medical History: Coronary Artery Disease (CAD), Cancer, Eye Disorder, GERD/Reflux, GI Bleed, Hyperlipidemia, Hypertension, Myocardial Infarction ([place]), Osteoarthritis ([place]), Prostate Disorder, Skin Disorder Additional Past Medical History / Comment(s): ESOPHAGEAL cancer-chemo 1980, COLON AND SKIN CANCER , CELIAC DISEASE, BPH, hx KIDNEY STONES, diveritcular, bilateral glaucoma, Rt. eye has macular degeneration, varicose veins, hiatal hernia, hx ulcers, black stool, hx pancreatitis 2016, hx eczema, CHANGE IN BOWEL HABITS, vision becoming worse, pt. doesn't recal having [place] Last Myocardial Infarction Date:: 11/25/17 History of Any Multi-Drug Resistant Organisms: None Reported Past Surgical History: Adenoidectomy, Appendectomy, Back Surgery, Bowel Resection, Cholecystectomy, Heart Catheterization With Stent, Hernia Repair, Orthopedic Surgery, Tonsillectomy Additional Past Surgical History / Comment(s): esophagectomy, colectomy, LT CAROTID ENDARTECTOMY, LUMP REMOVED FROM TONGUE, LITHOTRIPSY, CYSTOSCOPY, RT ROTATOR CUFF REPAIR, Rt CTR, DEVIATED SEPTUM, , cardiac STENTS x 3, UMBILICAL HERNIA REPAIR X 2, RT inguinal hernia repair, LOWER BACK SURGERY-HAS SCREWS, BILAT CATARACTS REMOVED, vasectomy, repair of undescended testicle, COLONOSCOPY, EGD Past Anesthesia/Blood Transfusion Reactions: No Reported Reaction Additional Past Anesthesia/Blood Transfusion Reaction / Comment(s): Pt has received blood in past without reaction. Date of Last Stent Placement:: 2015 Smoking Status: Former smoker - Past Family History Brother(s) Family Medical History: Cancer Additional Family Medical History / Comment(s): liver and brain Mother Family Medical History: Cancer Additional Family Medical History / Comment(s): LIVER CA, BRAIN CA Sister(s) Family Medical History: Cancer Additional Family Medical History / Comment(s): BREAST CA, LUNG CA. SISTER X 2 Father Family Medical History: Osteoarthritis ([place]) Additional Family Medical History / Comment(s): CELIAC DISEASE, ULCERS Medications and Allergies Home Medications Medication Instructions Recorded Confirmed Type Tamsulosin HCl 0.4 mg PO HS 08/28/13 05/29/23 History Acetaminophen Tab [Tylenol] 1,000 mg PO DAILY PRN 09/29/14 05/29/23 History Isosorbide Mononitrate ER [Imdur] 30 mg PO BID 07/16/15 05/29/23 History Carboxymethyl/Gly/Poly80/Pf 1 drop BOTH EYES QID PRN 10/23/17 05/29/23 History [Refresh Optive [place]-3 Drops] Famotidine [Pepcid] 20 mg PO BID 04/21/19 05/29/23 History Calcium Carbonate [Tums] 1,000 mg PO BID PRN 03/22/20 05/29/23 History Fluticasone Nasal [place] [Flonase 1 spray EA NOSTRIL BID PRN 03/22/20 05/29/23 History Nasal [place]] Sodium Chloride [Saline Nasal 1 spray EA NOSTRIL QID PRN 09/05/20 05/29/23 His tory [place]] Triamcinolone 0.1% Cream [Kenalog 1 applicatio TOPICAL BID PRN 09/05/20 05/29/23 History 0.1% Cream] Losartan [Cozaar] 25 mg PO QAM 05/29/23 05/29/23 History Allergies Allergy/AdvReac Type Severity Reaction Status Date / Time atenolol Allergy Unknown Verified 05/29/23 10:20 clopidogrel bisulfate Allergy severe Verified 05/29/23 10:20 [From Plavix] itching gluten Allergy blisters Verified 05/29/23 10:20 lactose Allergy Abdominal Verified 05/29/23 10:20 Pain simvastatin Allergy Unknown Verified 05/29/23 10:20 beet AdvReac CAUSES Verified 05/29/23 10:20 KIDNEY STONES PER PT [place] And Derivatives AdvReac CAUSES Verified 05/29/23 10:20 [[place]] KIDNEY STONES PER PT cocoa AdvReac CAUSES Verified 05/29/23 10:20 KIDNEY STONES PER PT coffee (Coffea arabica) AdvReac CAUSES Verified 05/29/23 10:20 KIDNEY STONES PER PT cranberry AdvReac CAUSES Verified 05/29/23 10:20 KIDNEY STONES PER PT diphenhydramine AdvReac Diarrhea Verified 05/29/23 10:20 [From Benadryl] green tea AdvReac CAUSES Verified 05/29/23 10:20 KIDNEY STONES PER PT plum AdvReac CAUSES Verified 05/29/23 10:20 KIDNEY STONES PER PT prednisolone AdvReac GLAUCOMA Verified 05/29/23 10:20 rhubarb AdvReac CAUSES Verified 05/29/23 10:20 KIDNEY STONES PER PT spinach AdvReac CAUSES Verified 05/29/23 10:20 KIDNEY STONES PER PT sucralfate [From Carafate] AdvReac REFLUX Verified 05/29/23 10:20 Sulfa (Sulfonamide AdvReac blood Verified 05/29/23 10:20 Antibiotics) disorder sweet potato AdvReac CAUSES Verified 05/29/23 10:20 KIDNEY STONES PER PT tree nut [Nut] AdvReac CAUSES Verified 05/29/23 10:20 KIDNEY STONES PER PT
[2023-05-30 12:00] VITALS: RESP 16; TEMP 97
[2023-05-30] MEDS: LACTATED RINGERS 1,000 ML IV SCH (12:04)
[2023-05-30] MEDS ORDERED: PROPOFOL 10 MG/ML 20 ML VIAL IV ONE (12:22)
--- NOTE | 2023-05-30 12:58 | P.PCN ---
Date of Procedure: 05/30/23 Description of Procedure: PREOPERATIVE DIAGNOSIS: Dysphagia. History of esophageal cancer status post gastric pull-through POSTOPERATIVE DIAGNOSIS: Anastomotic stricture status post gastric pull-through Acute gastric ulcer with bleeding OPERATION: Esophagogastroduodenoscopy with rigid dilator over the guidewire 57 Fr. Esophagogastroduodenoscopy with cold forceps biopsies along antrum SURGEON: Veronica Jameson MD ANESTHESIA: MAC. INDICATIONS: The patient is a 82-year-old male who presents with a history of dysphagia. Benefits and risks of the procedure were described. Informed consent was obtained. DESCRIPTION: The patient was brought into the endoscopy suite and laid in the left lateral d ecubitus position. After a timeout was confirmed, the procedure was initiated. An Olympus gastroscope was passed and the stomach was entered of his gastric pull-through with active multiple bleeding gastric ulcers, acute. Next using an [place] rigid dilator, a guidewire was placed through the pediatric gastroscope. Next the scope was withdrawn. A 57-[place] rigid [place] dilator was passed carefully along the posterior oropharynx to 45 cm and left in place for 2-3 minutes stretch. The dilator was withdrawn including the guidewire. The scope was reentered along the posterior oropharynx with no findings of full-thickness tear of the upper esophageal sphincter. Next, cold forceps biopsies obtained for acute gastric ulcers. No full-thickness injury was encountered. The GI tract was desufflated. The patient tolerated the procedure well. FINDINGS: Anastomotic stricture of gastric pull-through, dilated 57 [place] Acute gastric ulcer with bleeding, biopsy obtained Multiple food stuff within the stomach. RECOMMENDATIONS: Carafate 1 g 3 times daily Protonix 40 mg daily for 2 weeks
--- NOTE | 2023-05-30 13:35 | P.PCN ---
Date of Procedure: 05/30/23 Description of Procedure: PREOPERATIVE DIAGNOSIS: History of unresectable colon polyp History of partial colectomy, ileocolectomy POSTOPERATIVE DIAGNOSIS: Poor prep OPERATION: Colonoscopy to the descending colon SURGEON: Veronica Jameson MD. ANESTHESIA: MAC. INDICATIONS: The patient is a 82-year-old male who presents with an resected adenoma of the colon. Benefits and risks were described and informed consent was obtained. DESCRIPTION OF PROCEDURE: The patient had undergone Sutab prep. She had been brought into the operating room and laid in the left lateral decubitus position. After adequate intravenous sedation, the rectum was examined with 2% lidocaine jelly. External hemorrhoids were encountered. The rectal tone was loose. No lesions were palpated in the rectal vault. An Olympus colonoscope was advanced along the rectum to a very tortuous sigmoid colon to the descending colon. Despite multiple maneuvers, the sigmoid colon had severe tortuosity preventing further advancement of scope. The scope was passed to descending colon. Very poor prep prevent any further visualization of the colon with narrowing of the sigmoid colon. The colon was desufflated. The patient had tolerated the procedure well. Withdrawal time was over 6 minutes. FINDINGS: [place] preparation quality scale 4 (1-5) Tortuous sigmoid colon with stricture preventing further advancement of the scope beyond ascending colon External prolapsed hemorrhoids. Scope advanced to descending colon Nondiagnostic colonoscopy due to poor prep RECOMMENDATIONS: Recommend sigmoid colectomy for partial obstruction Plan - Discharge Summary Discharge Rx Participant: Yes New Discharge Prescriptions: Continue Tamsulosin HCl 0.4 mg PO HS Acetaminophen Tab [Tylenol] 1,000 mg PO DAILY PRN PRN Reason: Pain Isosorbide Mononitrate ER [Imdur] 30 mg PO BID Carboxymethyl/Gly/Poly80/Pf [Refresh Optive [place]-3 Drops] 1 drop BOTH EYES QID PRN PRN Reason: DRY EYES Famotidine [Pepcid] 20 mg PO BID Fluticasone Nasal [place] [Flonase Nasal [place]] 1 spray EA NOSTRIL BID PRN PRN Reason: Allergy Symptoms Calcium Carbonate [Tums] 1,000 mg PO BID PRN PRN Reason: Indigestion Sodium Chloride [Saline Nasal [place]] 1 spray EA NOSTRIL QID PRN PRN Reason: DRY NOSE/ ALLERGY SYMPTOMS Losartan [Cozaar] 25 mg PO QAM Triamcinolone 0.1% Cream [Kenalog 0.1% Cream] 1 applicatio TOPICAL BID PRN PRN Reason: Rash Discharge Medication List Tamsulosin HCl 0.4 mg PO HS 08/28/13 [History] Acetaminophen Tab [Tylenol] 1,000 mg PO DAILY PRN 09/29/14 [History] Isosorbide Mononitrate ER [Imdur] 30 mg PO BID 07/16/15 [History] Carboxymethyl/Gly/Poly80/Pf [Refresh Opt[place]-3 Drops] 1 drop BOTH EYES QID PRN 10/23/17 [History] Famotidine [Pepcid] 20 mg PO BID 04/21/19 [History] Calcium Carbonate [Tums] 1,000 mg PO BID PRN 03/22/20 [History] Fluticasone Nasal [place] [Flonase Nasal [place]] 1 spray EA NOSTRIL BID PRN 03/22/20 [History] Sodium Chloride [Saline Nasal [place]] 1 spray EA NOSTRIL QID PRN 09/05/20 [History] Triamcinolone 0.1% Cream [Kenalog 0.1% Cream] 1 applicatio TOPICAL BID PRN 09/05/20 [History] Losartan [Cozaar] 25 mg PO QAM 05/29/23 [History] Follow up Appointment(s)/Referral(s): Veronica Jameson MD [STAFF PHYSICIAN] - 06/12/23 9:45 am Patient Instructions/Handouts: Peptic Ulcer (DC), Diverticulitis (DC), Diverticulosis Diet (GEN) Activity/Diet/Wound Care/Special Instructions: Recommend surgical correction for colon stenosis Discharge Disposition: HOME SELF-CARE
[2023-05-30 14:08] VITALS: BP 130/67; PULSE 74
== END 2023-05-30 13:58 | disposition home or self-care (01) ==
LOC: ORWHC2ENDO 10:34
PROVIDERS: ATTEND Surgery Plastic and Reconstructive Surgery
DX: Z12.11 Encounter for screening for malignant neoplasm of colon (principal); K25.0 Acute gastric ulcer with hemorrhage; K63.89 Other specified diseases of intestine; K21.9 Gastro-esophageal reflux disease without esophagitis; K64.8 Other hemorrhoids; Z86.010 Personal history of colon polyps; I25.10 Atherosclerotic heart disease of native coronary artery without angina pectoris; I10 Essential (primary) hypertension; E78.5 Hyperlipidemia, unspecified; K90.0 Celiac disease; K86.81 Exocrine pancreatic insufficiency; I73.9 Peripheral vascular disease, unspecified; Z85.01 Personal history of malignant neoplasm of esophagus; Z87.19 Personal history of other diseases of the digestive system; Z87.891 Personal history of nicotine dependence; Z90.49 Acquired absence of other specified parts of digestive tract; Z88.8 Allergy status to other drugs, medicaments and biological substances; Z91.011 Allergy to milk products; Z91.018 Allergy to other foods; Z88.2 Allergy status to sulfonamides; Z95.5 Presence of coronary angioplasty implant and graft; Z79.899 Other long term (current) drug therapy
CPT/HCPCS: 88305; 88342; 43239; 43248; J2704; G0105; 45378

== ENCOUNTER 2023-08-13 06:49 | Day surgery (SDC) | payer MEDICARE ==
[2023-08-13] MEDS: IV FLUID CONTINUATION 1,000 ML IV ONE (07:16)
[2023-08-13] MEDS: LACTATED RINGERS 1,000 ML IV SCH (07:17)
--- NOTE | 2023-08-13 07:32 | P.GSHP ---
History of Present Illness H&P Date: 08/13/23 CHIEF COMPLAINT: Esophageal stricture HISTORY OF PRESENT ILLNESS: The patient is a 82-year-old male who presents reports dysphagia. Upper endoscopy was offered for further evaluation and management. PAST MEDICAL HISTORY: Please see list. PAST SURGICAL HISTORY: Please see list. MEDICATIONS: Please see list. ALLERGIES: Please see list. SOCIAL HISTORY: No illicit drug use FAMILY HISTORY: No reports of Crohn disease or ulcerative colitis. REVIEW OF ORGAN SYSTEMS: CONSTITUTIONAL: No reports of fevers or chills. GI: Denies any blood in stools or constipation. PHYSICAL EXAM: VITAL SIGNS: Stable GENERAL: Well-developed and pleasant in no acute distress. HEENT: No scleral icterus. Extraocular movements grossly intact. Moist buccal mucosa. NECK: Supple without lymphadenopathy. CHEST: Unlabored respirations. Equal bilateral excursions. CARDIOVASCULAR: Regular rate and rhythm. Distal 2+ pulses. ABDOMEN: Soft, nondistended. MUSCULOSKELETAL: No clubbing, cyanosis, or edema. ASSESSMENT: 1. Esophageal stricture PLAN: 1. Recommend proceeding with an upper endoscopy with rigid dilators. Past Medical History Past Medical History: Coronary Artery Disease (CAD), Cancer, Eye Disorder, GERD/Reflux, GI Bleed, Hearing Disorder / Deafness, Hyperlipidemia, Hypertension, Liver Disease, Myocardial Infarction ([place]), Osteoarthritis (OA), Prostate Disorder, Skin Disorder Additional Past Medical History / Comment(s): ESOPHAGEAL cancer-chemo 1980, COLON AND SKIN CANCER, CELIAC DISEASE, BPH, hx KIDNEY STONES, diverticulosis, bilateral glaucoma, rt. eye macular degeneration, varicose veins, hiatal hernia, hx ulcers, black stool, hx pancreatitis 2016, hx eczema, CHANGE IN BOWEL HABITS, vision becoming worse, pt. doesn't recall having OR, hx. heart murmor, fatty liver, problems swallowing & food "getting stuck" x 1yr. Last Myocardial Infarction Date:: 11/25/17 History of Any Multi-Drug Resistant Organisms: None Reported Past Surgical History: Adenoidectomy, Appendectomy, Back Surgery, Bowel Resection, Cholecystectomy, Heart Catheterization With Stent, Hernia Repair, Orthopedic Surgery, Tonsillectomy Additional Past Surgical History / Comment(s): esophagectomy, colectomy, LT CAROTID ENDARTECTOMY, benign LUMP REMOVED FROM TONGUE, LITHOTRIPSY, CYSTOSCOPY, RT ROTATOR CUFF REPAIR, Rt CTR, DEVIATED SEPTUM, cardiac STENTS x 3, UMBILICAL HERNIA REPAIR X 2, RT inguinal hernia repair, LOWER BACK SURGERY-HAS SCREWS, BILAT CATARACTS REMOVED, vasectomy, repair of undescended testicle, COLONOSCOPY, EGD. Past Anesthesia/Blood Transfusion Reactions: No Reported Reaction Additional Past Anesthesia/Blood Transfusion Reaction / Comment(s): Pt has received blood in past without reaction. Date of Last Stent Placement:: 2015 Smoking Status: Former smoker - Past Family History Brother(s) Family Medical History: Cancer Additional Family Medical History / Comment(s): liver and brain Mother Family Medical History: Cancer Additional Family Medical History / Comment(s): LIVER CA, BRAIN CA Sister(s) Family Medical History: Cancer Additional Family Medical History / Comment(s): BREAST CA, LUNG CA. SISTER X 2 Father Family Medical History: Osteoarthritis (OA) Additional Family Medical History / Comment(s): CELIAC DISEASE, ULCERS Medications and Allergies Home Medications Medication Instructions Recorded Confirmed Type Tamsulosin HCl 0.4 mg PO HS 08/28/13 08/09/23 History Acetaminophen Tab [Tylenol] 1,000 mg PO DAILY PRN 09/29/14 08/09/23 History Isosorbide Mononitrate ER [Imdur] 30 mg PO BID 07/16/15 08/09/23 History Carboxymethyl/Gly/Poly80/Pf 1 drop BOTH EYES QID PRN 10/23/17 08/09/23 History [Refresh Optive [place]que-3 Drops] Famotidine [Pepcid] 20 mg PO BID 04/21/19 08/09/23 History Calcium Carbonate [Tums] 1,000 mg PO BID PRN 03/22/20 08/09/23 History Fluticasone Nasal [place] [Flonase 1 spray EA NOSTRIL BID PRN 03/22/20 08/09/23 History Nasal [place]] Sodium Chloride [Saline Nasal 1 spray EA NOSTRIL QID PRN 09/05/20 08/09/23 History [place]] Triamcinolone 0.1% Cream [Kenalog 1 applicatio TOPICAL BID PRN 09/05/20 08/09/23 History 0.1% Cream] Losartan [Cozaar] 25 mg PO QAM 05/29/23 08/09/23 History Areds 1 dose PO DAILY 08/09/23 08/09/23 History Aspirin [Adult Low Dose Aspirin EC] 81 mg PO DAILY 08/09/23 08/09/23 History Multivit-Mins/Iron/Folic/Lycop 1 each PO DAILY 08/09/23 08/09/23 History [Centrum Men's Tablet] Prevagen 1 dose PO DAILY 08/09/23 08/09/23 History Stool Softener 1 dose PO DAILY PRN 08/09/23 08/09/23 History Vitamin D 1 dose PO DAILY 08/09/23 08/09/23 History Allergies Allergy/AdvReac Type Severity Reaction Status Date / Time atenolol Allergy Unknown Verified 08/13/23 07:29 clopidogrel bisulfate Allergy severe Verified 08/13/23 07:29 [From Plavix] itching gluten Allergy blisters Verified 08/13/23 07:29 lactose Allergy Abdominal Verified 08/13/23 07:29 Pain simvastatin Allergy Unknown Verified 08/13/23 07:29 beet AdvReac CAUSES Verified 08/13/23 07:29 KIDNEY STONES PER PT [place] And Derivatives AdvReac CAUSES Verified 08/13/23 07:29 [[place]] KIDNEY STONES PER PT cocoa AdvReac CAUSES Verified 08/13/23 07:29 KIDNEY STONES PER PT coffee (Coffea arabica) AdvReac CAUSES Verified 08/13/23 07:29 KIDNEY STONES PER PT cranberry AdvReac CAUSES Verified 08/13/23 07:29 KIDNEY STONES PER PT diphenhydramine AdvReac Diarrhea Verified 08/13/23 07:29 [From Benadryl] green tea AdvReac CAUSES Verified 08/13/23 07:29 KIDNEY STONES PER PT plum AdvReac CAUSES Verified 08/13/23 07:29 KIDNEY STONES PER PT prednisolone AdvReac GLAUCOMA Verified 08/13/23 07:29 rhubarb AdvReac CAUSES Verified 08/13/23 07:29 KIDNEY STONES PER PT spinach AdvReac CAUSES Verified 08/13/23 07:29 KIDNEY STONES PER PT sucralfate [From Carafate] AdvReac REFLUX Verified 08/13/23 07:29 Sulfa (Sulfonamide AdvReac blood Verified 08/13/23 07:29 Antibiotics) disorder sweet potato AdvReac CAUSES Verified 08/13/23 07:29 KIDNEY STONES PER PT tree nut [Nut] AdvReac CAUSES Verified 08/13/23 07:29 KIDNEY STONES PER PT
[2023-08-13 07:44] VITALS: TEMP 97
[2023-08-13] MEDS ORDERED: GLYCOPYRROLATE 0.2 MG/ML 2 ML VIAL ONE (07:55)
[2023-08-13] MEDS ORDERED: ePHEDrine 50 MG/ML 1 ML VIAL ONE (07:55)
[2023-08-13] MEDS ORDERED: PROPOFOL 10 MG/ML 20 ML VIAL IV ONE (07:55)
--- NOTE | 2023-08-13 08:33 | P.PCN ---
Date of Procedure: 08/13/23 Description of Procedure: PREOPERATIVE DIAGNOSIS: Dysphagia. History of esophageal cancer status post esophagectomy Esophageal anastomotic stricture POSTOPERATIVE DIAGNOSIS: Dysphagia. History of esophageal cancer status post esophagectomy Esophageal anastomotic stricture Gastritis with bleeding Gastroparesis OPERATION: Esophagogastroduodenoscopy rigid [place] dilator 60 Fr, upper esophageal sphincter. SURGEON: Veronica Jameson MD ANESTHESIA: MAC. INDICATIONS: The patient is a 82-year-old male who presents with esophageal stricture due to esophagectomy for esophageal cancer. He presents with dysphagia. Upper endoscopy was offered for further diagnostic evaluation and treatment. DESCRIPTION: The patient was brought into the endoscopy suite and laid in the left lateral decubitus position. An Olympus gastroscope was carefully passed along the posterior oropharynx. Upon entry into the proximal esophagus, an upper esophageal stricture was identified along the anastomosis from gastric pull- through. The stomach was entered and acute gastritis with moderate bleeding was identified along the upper portion of the stomach. The scope was passed to the second portion of the duodenum with features of focal duodenitis along the bulb. The third portion of the duodenum was unremarkable. Moderate retained food found along the antrum. A guidewire was placed through the scope into the stomach. The scope was removed. A 60-[place] rigid dilator was placed to 40 cm from the incisors. The dilator was left in place between 2-3 minutes. The dilator and guidewire were removed. The scope was reentered along the proximal esophagus whereby the stricture had resolved of the upper esophagus. The anastomosis was found at 20 cm from the incisors. No full-thickness injury was found along the mucosa. The stomach was desufflated. The patient tolerated the procedure well. FINDINGS: Cervical esophageal anastomosis at 20 cm with stricture, dilated 60 [place] Acute superficial gastritis with bleeding along the upper pole of stomach Active duodenitis. RECOMMENDATIONS: Upper endoscopy with dilation as needed. Plan - Discharge Summary Discharge Rx Participant: No New Discharge Prescriptions: Continue Tamsulosin HCl 0.4 mg PO HS Acetaminophen Tab [Tylenol] 1,000 mg PO DAILY PRN PRN Reason: Pain Isosorbide Mononitrate ER [Imdur] 30 mg PO BID Carboxymethyl/Gly/Poly80/Pf [Refresh Optive [place]-3 Drops] 1 drop BOTH EYES QID PRN PRN Reason: DRY EYES Famotidine [Pepcid] 20 mg PO BID Calcium Carbonate [Tums] 1,000 mg PO BID PRN PRN Reason: Indigestion Sodium Chloride [Saline Nasal [place]] 1 spray EA NOSTRIL QID PRN PRN Reason: DRY NOSE/ ALLERGY SYMPTOMS Losartan [Cozaar] 25 mg PO QAM Aspirin [Adult Low Dose Aspirin EC] 81 mg PO DAILY Stool Softener 1 dose PO DAILY PRN PRN Reason: Constipation Prevagen 1 dose PO DAILY Areds 1 dose PO DAILY hydrALAZINE HCL BID bisacodyL [Dulcolax] RECTAL Triamcinolone 0.1% Cream [Kenalog 0.1% Cream] 1 applicatio TOPICAL BID PRN PRN Reason: Rash Multivit-Mins/Iron/Folic/Lycop [Centrum Men's Tablet] 1 each PO DAILY Vitamin D 1 dose PO DAILY Discharge Medication List Tamsulosin HCl 0.4 mg PO HS 08/28/13 [History] Acetaminophen Tab [Tylenol] 1,000 mg PO DAILY PRN 09/29/14 [History] Isosorbide Mononitrate ER [Imdur] 30 mg PO BID 07/16/15 [History] Carboxymethyl/Gly/Poly80/Pf [Refresh Optive [place]-3 Drops] 1 drop BOTH EYES QID PRN 10/23/17 [History] Famotidine [Pepcid] 20 mg PO BID 04/21/19 [History] Calcium Carbonate [Tums] 1,000 mg PO BID PRN 03/22/20 [History] Sodium Chloride [Saline Nasal [place]] 1 spray EA NOSTRIL QID PRN 09/05/20 [History] Triamcinolone 0.1% Cream [Kenalog 0.1% Cream] 1 applicatio TOPICAL BID PRN 09/05/20 [History] Losartan [Cozaar] 25 mg PO QAM 05/29/23 [History] Areds 1 dose PO DAILY 08/09/23 [History] Aspirin [Adult Low Dose Aspirin EC] 81 mg PO DAILY 08/09/23 [History] Multivit-Mins/Iron/Folic/Lycop [Centrum Men's Tablet] 1 each PO DAILY 08/09/23 [History] Prevagen 1 dose PO DAILY 08/09/23 [History] Stool Softener 1 dose PO DAILY PRN 08/09/23 [History] Vitamin D 1 dose PO DAILY 08/09/23 [History] bisacodyL [Dulcolax] RECTAL 08/13/23 [History] hydrALAZINE HCL BID 08/13/23 [History] Follow up Appointment(s)/Referral(s): Veronica Jameson MD [STAFF PHYSICIAN] - As Needed Patient Instructions/Handouts: Esophageal Dilation (DC) Activity/Diet/Wound Care/Special Instructions: Recommend warm beverages prior to eating. Soft diet for 48 hours Discharge Disposition: HOME SELF-CARE
[2023-08-13 09:03] VITALS: BP 99/60; PULSE 55; RESP 18
== END 2023-08-13 09:08 | disposition home or self-care (01) ==
LOC: ORWHC2ENDO 06:49
PROVIDERS: ATTEND Surgery Plastic and Reconstructive Surgery
DX: K22.2 Esophageal obstruction (principal); K29.80 Duodenitis without bleeding; K31.84 Gastroparesis; K29.71 Gastritis, unspecified, with bleeding; E78.5 Hyperlipidemia, unspecified; I10 Essential (primary) hypertension; I25.10 Atherosclerotic heart disease of native coronary artery without angina pectoris; I25.2 Old myocardial infarction; K21.9 Gastro-esophageal reflux disease without esophagitis; M19.90 Unspecified osteoarthritis, unspecified site; N40.0 Benign prostatic hyperplasia without lower urinary tract symptoms; Z79.82 Long term (current) use of aspirin; Z85.01 Personal history of malignant neoplasm of esophagus; Z85.828 Personal history of other malignant neoplasm of skin; Z87.442 Personal history of urinary calculi; Z87.891 Personal history of nicotine dependence; Z88.1 Allergy status to other antibiotic agents; Z88.2 Allergy status to sulfonamides; Z88.8 Allergy status to other drugs, medicaments and biological substances; Z90.49 Acquired absence of other specified parts of digestive tract; Z95.5 Presence of coronary angioplasty implant and graft; Z98.890 Other specified postprocedural states; Z90.89 Acquired absence of other organs
CPT/HCPCS: 43248; J2704; J1596

== ENCOUNTER → 2023-08-20 | Outpatient (CLI) | payer MEDICARE ==
[2023-08-20 10:49] LABS: Basophils # (A) 0.02 X 10*3/uL (0.00-0.10); Basophils % (A) 0.3 %; Eosinophils # (A) 0.19 X 10*3/uL (0.04-0.35); Eosinophils % (A) 2.9 %; HCT 36.5 % (39.6-50.0); HGB 11.7 g/dL (13.0-17.0); Lymphocytes # (A) 1.05 X 10*3/uL (0.90-5.00); MCH 29.5 pg (27.0-32.0); MCHC 32.1 g/dL (32.0-37.0); MCV 92.2 FL (80.0-97.0); Mean Platelet Volume 12.2 FL (9.5-12.2); Monocytes # (A) 0.93 X 10*3/uL (0.20-1.00); Monocytes % (A) 14.2 %; NRBC Per 100 WBC 0 X 10*3/uL (0.00-0.01); Neutrophils # (A) 4.35 X 10*3/uL (1.80-7.70); Neutrophils % (A) 66.1 %; Platelet Count 198 X 10*3/uL (140-440); RBC 3.96 X 10*6/uL (4.40-5.60); RDW 13.2 % (11.5-14.5); WBC 6.57 X 10*3/uL (4.50-10.00)
[2023-08-20 10:52] LABS: ALT 33 U/L (10-49); AST 33 U/L (14-35); Albumin 4.1 g/dL (3.8-4.9); Albumin/Globulin Ratio 1.86 Ratio (1.60-3.17); Alkaline Phosphatase 64 U/L (41-126); BUN/Creat Ratio 20.73 Ratio (12.00-20.00); Blood Urea Nitrogen 31.1 mg/dL (9.0-27.0); Calcium 9.5 mg/dL (8.7-10.3); Carbon Dioxide 24.5 mmol/L (21.6-31.8); Chloride 102 mmol/L (96-109); Globulin 2.2 g/dL (1.6-3.3); Glucose 58 mg/dL (70-110); Potassium 4.3 mmol/L (3.5-5.5); Sodium 135 mmol/L (135-145); Total Bilirubin 0.5 mg/dL (0.3-1.2); Total Protein 6.3 g/dL (6.2-8.2)
== END | disposition home or self-care (01) ==
LOC: LABWHC1 06:57
PROVIDERS: ATTEND Surgery Plastic and Reconstructive Surgery
DX: K57.30 Diverticulosis of large intestine without perforation or abscess without bleeding (principal)
CPT/HCPCS: 36415; 80053; 85025; 86850; 86900; 86901

== ENCOUNTER → 2023-08-23 | Day surgery (SDC) | payer MEDICARE ==
[~2023-08-23] MED LIST changes: +LIDOCAINE 1% (10MG/ML) FOR IV START INTRADERMA PRN
--- NOTE | 2023-08-23 13:09 | P.PN ---
Progress Note - Text Progress Note Date: 08/23/23 Patient presented to the waiting room and reports that he did not do his bowel prep for colonoscopy today. Due to high risk nature of his procedure tomorrow patient has been canceled for today. Patient was reiterated clear instructions to do a clear liquid diet including bowel prep prior to his colonoscopy. Patient understood the risks. Patient has been rescheduled for another day. All questions were addressed with his at bedside. Patient had his prep at hand.
== END ==
LOC: ORWHC2ENDO 11:02
PROVIDERS: ATTEND Surgery Plastic and Reconstructive Surgery
DX: Z53.8 Procedure and treatment not carried out for other reasons (principal); Z12.11 Encounter for screening for malignant neoplasm of colon

== ENCOUNTER 2023-08-30 06:33 | Inpatient (IN) | payer MEDICARE ==
[~2023-08-30 06:33] MED LIST changes: -LACTATED RINGERS 1,000 ML IV SCH
--- NOTE | 2023-08-30 07:00 | P.GSHP ---
History of Present Illness H&P Date: 08/30/23 CHIEF COMPLAINT: Colon obstruction and dysphagia HISTORY OF PRESENT ILLNESS: The patient is a 83-year-old male who presents with partial large bowel obstruction. He reports increased change in bowel habits. Additionally, patient had prior attempted colonoscopy unsuccessful due to partial bowel obstruction of the sigmoid colon. Patient has history of esophageal resection with gastric pull-through and has recurrent dysphagia. He presents for upper endoscopy with dilation for esophageal stricture and repeat colonoscopy for endoscopic assessment for bowel resection of the sigmoid colon. He has had cardiac risk assessment. PAST MEDICAL HISTORY: Please see list. PAST SURGICAL HISTORY: Please see list. MEDICATIONS: Please see list. ALLERGIES: Please see list. SOCIAL HISTORY: No illicit drug use FAMILY HISTORY: No reports of Crohn disease or ulcerative colitis. REVIEW OF ORGAN SYSTEMS: CONSTITUTIONAL: Denies any fever or chills. HEENT: Denies any trouble with vision or nosebleeds. Has difficulty swallowing. History of esophageal cancer status post gastric pull-through. LYMPHATIC: The patient denies any lumps and bumps around the neck. ENDOCRINE: Denies any thyroid disorders. RESPIRATORY: Denies recent pneumonia. Denies recent troubles with breathing or dyspnea on exertion. CARDIOVASCULAR: Denies any chest pain, palpitations, or recent heart attacks GASTROINTESTINAL: Has gastroesophageal reflux disease. History of bowel resection. GENITOURINARY: No blood in urine. MUSCULOSKELETAL: Has back pain, stiffness, joint arthritis. NEUROLOGIC: Denies any numbness or tingling along the distal extremities. No seizure disorders or headaches. PSYCHIATRIC: Denies depression or suidical ideation. HEMATOLOGIC: Denies any abnormal bleeding or bruising. PHYSICAL EXAM: VITAL SIGNS: Stable GENERAL: Well-developed pleasant in no acute distress. HEENT: No scleral icterus. Extraocular movements grossly intact. Moist buccal mucosa. NECK: Supple without lymphadenopathy. CHEST: Unlabored respirations. Equal bilateral excursions. CARDIOVASCULAR: Regular rate and rhythm. Distal 2+ pulses. ABDOMEN: Soft, nontender, nondistended. Multiple abdominal scars. MUSCULOSKELETAL: No clubbing, cyanosis, or edema. NERUO: Cranial nerves II through XII grossly intact PSYCH: Alert and oriented to person place and time. ASSESSMENT: 1. Recurrent esophageal dysphagia due to anastomotic stricture 2. Large bowel obstruction due to sigmoid stricture PLAN: 1. Recommend upper endoscopy with dilation due to dysphagia and esophageal stricture 2. Recommend colonoscopy for endoscopic tattooing for robotic bowel resection 3. Inpatient admission due to multiple comorbidities 4. Recommend robotic colon resection, sigmoid colon, possible low anterior resection, possible open technique 5. Enhanced colon recovery program 6. Recommend regional/abdominal blocks due to multiple comorbidities and pain management Past Medical History Past Medical History: Coronary Artery Disease (CAD), Cancer, Eye Disorder, GERD/Reflux, GI Bleed, Hyperlipidemia, Hypertension, Myocardial Infarction ([place]), Osteoarthritis (OA), Prostate Disorder, Skin Disorder Additional Past Medical History / Comment(s): ESOPHAGEAL cancer-chemo 1980, COLON AND SKIN CANCER , CELIAC DISEASE, BPH, hx KIDNEY STONES, diveritcular, bilateral glaucoma, Rt. eye has macular degeneration, varicose veins, hiatal hernia, hx ulcers, black stool, hx pancreatitis 2016, hx eczema, CHANGE IN BOWEL HABITS, vision becoming worse, pt. doesn't recall having [place] Last Myocardial Infarction Date:: 11/25/17 History of Any Multi-Drug Resistant Organisms: None Reported Past Surgical History: Adenoidectomy, Appendectomy, Back Surgery, Bowel Resection, Cholecystectomy, Heart Catheterization With Stent, Hernia Repair, Orthopedic Surgery, Tonsillectomy Additional Past Surgical History / Comment(s): esophagectomy, colectomy, LT CAROTID ENDARTECTOMY, LUMP REMOVED FROM TONGUE, LITHOTRIPSY, CYSTOSCOPY, RT ROTATOR CUFF REPAIR, Rt CTR, DEVIATED SEPTUM, , cardiac STENTS x 3, UMBILICAL HERNIA REPAIR X 2, RT inguinal hernia repair, LOWER BACK SURGERY-HAS SCREWS, BILAT CATARACTS REMOVED, vasectomy, repair of undescended testicle, COLONOSCOPY, EGD Past Anesthesia/Blood Transfusion Reactions: No Reported Reaction Additional Past Anesthesia/Blood Transfusion Reaction / Comment(s): Pt has received blood in past without reaction. Date of Last Stent Placement:: 2015 Smoking Status: Former smoker - Past Family History Brother(s) Family Medical History: Cancer Additional Family Medical History / Comment(s): liver and brain Mother Family Medical History: Cancer Additional Family Medical History / Comment(s): LIVER CA, BRAIN CA Sister(s) Family Medical History: Cancer Additional Family Medical History / Comment(s): BREAST CA, LUNG CA. SISTER X 2 Father Family Medical History: Osteoarthritis (OA) Additional Family Medical History / Comment(s): CELIAC DISEASE, ULCERS Medications and Allergies Home Medications Medication Instructions Recorded Confirmed Type Tamsulosin HCl 0.4 mg PO HS 07/17/14 07/17/24 History Acetaminophen Tab [Tylenol] 1,000 mg PO DAILY PRN 09/29/14 08/29/23 History Isosorbide Mononitrate ER [Imdur] 30 mg PO BID 07/16/15 08/29/23 History Carboxymethyl/Gly/Poly80/Pf 1 drop BOTH EYES QID PRN 10/23/17 08/29/23 History [Refresh Optive [place]-3 Drops] Famotidine [Pepcid] 20 mg PO BID 04/21/19 08/29/23 History Calcium Carbonate [Tums] 1,000 mg PO BID PRN 03/22/20 08/29/23 History Sodium Chloride [Saline Nasal 1 spray EA NOSTRIL QID PRN 09/05/20 08/29/23 History [place]] Triamcinolone 0.1% Cream [Kenalog 1 applicatio TOPICAL BID PRN 09/05/20 08/29/23 History 0.1% Cream] Losartan [Cozaar] 25 mg PO BID 05/29/23 08/29/23 History Areds 1 dose PO DAILY 08/09/23 08/29/23 History Aspirin [Adult Low Dose Aspirin EC] 162 mg PO DAILY 08/09/23 08/29/23 History Multivit-Mins/Iron/Folic/Lycop 1 each PO DAILY 08/09/23 08/29/23 History [Centrum Men's Tablet] Prevagen 1 dose PO DAILY 08/09/23 08/29/23 History Stool Softener 1 dose PO DAILY PRN 08/09/23 08/29/23 History Vitamin D 1 dose PO DAILY 08/09/23 08/29/23 History bisacodyL [Dulcolax] 1 dose RECTAL HS PRN 08/13/23 08/29/23 History hydrALAZINE HCL 1 tab PO BID 08/13/23 08/29/23 History Atorvastatin [Lipitor] 40 mg PO HS 08/21/23 08/29/23 History Cetirizine HCl [Zyrtec] 10 mg PO DAILY 08/21/23 08/29/23 History Trospium Chloride [Sanctura XR] 60 mg PO HS 08/21/23 08/29/23 History Allergies Allergy/AdvReac Type Severity Reaction Status Date / Time atenolol Allergy Unknown Verified 08/29/23 08:54 clopidogrel bisulfate Allergy severe Verified 08/29/23 08:54 [From Plavix] itching gluten Allergy blisters Verified 08/29/23 08:54 lactose Allergy Abdominal Verified 08/29/23 08:54 Pain simvastatin Allergy Unknown Verified 08/29/23 08:54 beet AdvReac CAUSES Verified 08/29/23 08:54 KIDNEY STONES PER PT [place] And Derivatives AdvReac CAUSES Verified 08/29/23 08:54 [[place]] KIDNEY STONES PER PT cocoa AdvReac CAUSES Verified 08/29/23 08:54 KIDNEY STONES PER PT coffee (Coffea arabica) AdvReac CAUSES Verified 08/29/23 08:54 KIDNEY STONES PER PT cranberry AdvReac CAUSES Verified 08/29/23 08:54 KIDNEY STONES PER PT diphenhydramine AdvReac Diarrhea Verified 08/29/23 08:54 [From Benadryl] green tea AdvReac CAUSES Verified 08/29/23 08:54 KIDNEY STONES PER PT plum AdvReac CAUSES Verified 08/29/23 08:54 KIDNEY STONES PER PT prednisolone AdvReac GLAUCOMA Verified 08/29/23 08:54 rhubarb AdvReac CAUSES Verified 08/29/23 08:54 KIDNEY STONES PER PT spinach AdvReac CAUSES Verified 08/29/23 08:54 KIDNEY STONES PER PT sucralfate [From Carafate] AdvReac REFLUX Verified 08/29/23 08:54 Sulfa (Sulfonamide AdvReac blood Verified 08/29/23 08:54 Antibiotics) disorder sweet potato AdvReac CAUSES Verified 08/29/23 08:54 KIDNEY STONES PER PT tree nut [Nut] AdvReac CAUSES Verified 08/29/23 08:54 KIDNEY STONES PER PT
[2023-08-30] MEDS: LACTATED RINGERS 1,000 ML IV SCH (07:23)
[2023-08-30] MEDS: IV FLUID CONTINUATION 1,000 ML IV ONE (07:23)
[2023-08-30] MEDS ORDERED: PROPOFOL 10 MG/ML 20 ML VIAL IV ONE (07:30)
[2023-08-30] MEDS ORDERED: LIDOCAINE 1% INJ 10MG/ML (20 ML MDV) ONE (07:30)
[2023-08-30 07:44] LABS: Basophils # (A) 0.1 k/uL (0-0.2); Basophils % (A) 1 %; Eosinophils # (A) 0.2 k/uL (0-0.7); Eosinophils % (A) 3 %; HCT 37.4 % (39.0-53.0); HGB 12.2 gm/dL (13.0-17.5); Lymphocytes # (A) 1.2 k/uL (1.0-4.8); Lymphocytes % (A) 18 %; MCH 30.4 pg (25.0-35.0); MCHC 32.5 g/dL (31.0-37.0); MCV 93.3 fL (80.0-100.0); Mean Platelet Volume 9.8; Monocytes # (A) 0.7 k/uL (0-1.0); Monocytes % (A) 10 %; Neutrophils # (A) 4.6 k/uL (1.3-7.7); Neutrophils % (A) 67 %; Platelet Count 210 k/uL (150-450); RBC 4.01 m/uL (4.30-5.90); WBC 6.8 k/uL (3.8-10.6)
--- NOTE | 2023-08-30 07:49 | P.PCN ---
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 SURGEON: Veronica Jameson MD ANESTHESIA: MAC. INDICATIONS: The patient is a 83-year-old male who presents dysphagia due to anastomotic stricture from esophageal resection for esophageal cancer. Upper endoscopy was offered for further diagnostic evaluation and treatment. DESCRIPTION: The patient was brought into the endoscopy suite and laid in the left lateral decubitus position. An Olympus gastroscope was carefully passed along the posterior oropharynx. Stricture along the cervical anastomosis was identified including with distortion. The scope was entered into the stomach with residual food content consistent with gastric pull-through. A guidewire was placed through the scope into the stomach. The scope was removed. A 60-Peruvian rigid dilator was placed to 40 cm from the incisors. The dilator was left in place between 2-3 minutes. The dilator and guidewire were removed. The scope was reentered along the proximal esophagus whereby the stricture had resolved of the upper esophagus. The scope was reinserted. No full-thickness injury was found along the mucosa. The stomach was desufflated. The patient tolerated the procedure well. 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
[2023-08-30 08:00] LABS: ALT 49 U/L (4-49); AST 64 U/L (17-59); African American GFR (CKD) 52 (>60 ml/min/1.73 sqM); Albumin 4.1 g/dL (3.5-5.0); Alkaline Phosphatase 61 U/L (38-126); Anion Gap 7 mmol/L; Blood Urea Nitrogen 25 mg/dL (9-20); Calcium 9.2 mg/dL (8.4-10.2); Carbon Dioxide 26 mmol/L (22-30); Chloride 104 mmol/L (98-107); Glucose 84 mg/dL (74-99); Non-African American GFR(CKD) 45 (>60 ml/min/1.73 sqM); Potassium 4.9 mmol/L (3.5-5.1); Sodium 137 mmol/L (137-145); Total Bilirubin 1.1 mg/dL (0.2-1.3); Total Protein 6.9 g/dL (6.3-8.2)
--- NOTE | 2023-08-30 08:12 | P.PCN ---
Date of Procedure: 08/30/23 Description of Procedure: PREOPERATIVE DIAGNOSIS: Personal history of colon polyps Partial large bowel obstruction Chronic constipation Personal history of right hemicolectomy, bowel resection POSTOPERATIVE DIAGNOSIS: Tubular adenoma transverse colon Ileocolic anastomosis Severe sigmoid diverticulosis with partial bowel obstruction, sigmoid colon OPERATION: Colonoscopy to the ileocolic anastomosis Colonoscopy with hot snare polypectomy SURGEON: Veronica Jameson MD. ANESTHESIA: MAC. INDICATIONS: The patient is an 83-year-old male who presents with worsening constipation and bowel habits due to partial large bowel obstruction. Prior colonoscopies were incomplete due to partial bowel obstruction including severe constipation. Benefits and risks were described and informed consent was obtained. DESCRIPTION OF PROCEDURE: The patient had undergone 1 week bowel prep for clear liquid including SuFlave bowel prep. The patient had been brought into the operating room and laid in the left lateral decubitus position. After adequate intravenous sedation, the rectum was examined with 2% lidocaine jelly. Moderate liquid stool yellow was found. No external hemorrhoids were encountered. The rectal tone was loose. No lesions were palpated in the rectal vault. The sigmoid colon was highly tortuous with severe sigmoid diverticulosis. Abdominal wall pressure was used to advance the scope. Narrowing/stricture was identified of the descending colon. An Olympus colonoscope was advanced until the ileocolic anastomosis was found. The prep was fair. Colonic polyps were found and removed. No evidence of focal colitis was found. Retroflexion of the scope demonstrated grade 2 internal hemorrhoids without active bleeding or inflammation. The colon was desufflated. The patient had tolerated the procedure well. Withdrawal time was over 6 minutes. FINDINGS: Aronchick preparation quality scale 3+ (1-5) Internal hemorrhoids, grade 2 No external hemorrhoids. No arteriovenous malformations. Sigmoid diverticulosis, severe with partial bowel obstruction including of the descending colon. Removal of 1 polyps: - Snare polypectomy mid transverse colon, 5 mm tubulovillous adenoma No focal colitis. RECOMMENDATIONS: Recommend colonoscopy in 3 years, 2026 due to high risk adenomas Additionally, due to partial large bowel obstruction from sigmoid diverticulosis, partial resection described. Inpatient hospitalization with continued bowel prep recommended. Plan - Discharge Summary Discharge Rx Participant: Yes New Discharge Prescriptions: No Action Tamsulosin HCl 0.4 mg PO HS Acetaminophen Tab [Tylenol] 1,000 mg PO DAILY PRN PRN Reason: Pain Isosorbide Mononitrate ER [Imdur] 30 mg PO BID Carboxymethyl/Gly/Poly80/Pf [Refresh Optive Roque-3 Drops] 1 drop BOTH EYES QID PRN PRN Reason: DRY EYES Famotidine [Pepcid] 20 mg PO BID Calcium Carbonate [Tums] 1,000 mg PO BID PRN PRN Reason: Indigestion Sodium Chloride [Saline Nasal [place]] 1 spray EA NOSTRIL QID PRN PRN Reason: DRY NOSE/ ALLERGY SYMPTOMS Losartan [Cozaar] 25 mg PO BID Aspirin [Adult Low Dose Aspirin EC] 162 mg PO DAILY Stool Softener 1 dose PO DAILY PRN PRN Reason: Constipation Prevagen 1 dose PO DAILY Areds 1 dose PO DAILY hydrALAZINE HCL 1 tab PO BID bisacodyL [Dulcolax] 1 dose RECTAL HS PRN PRN Reason: Constipation Atorvastatin [Lipitor] 40 mg PO HS Trospium Chloride [Sanctura XR] 60 mg PO HS Triamcinolone 0.1% Cream [Kenalog 0.1% Cream] 1 applicatio TOPICAL BID PRN PRN Reason: Rash Multivit-Mins/Iron/Folic/Lycop [Centrum Men's Tablet] 1 each PO DAILY Vitamin D 1 dose PO DAILY Cetirizine HCl [Zyrtec] 10 mg PO DAILY Discharge Medication List Tamsulosin HCl 0.4 mg PO HS 08/28/13 [History] Acetaminophen Tab [Tylenol] 1,000 mg PO DAILY PRN 09/29/14 [History] Isosorbide Mononitrate ER [Imdur] 30 mg PO BID 07/16/15 [History] Carboxymethyl/Gly/Poly80/Pf [Refresh Optive Roque-3 Drops] 1 drop BOTH EYES QID PRN 10/23/17 [History] Famotidine [Pepcid] 20 mg PO BID 04/21/19 [History] Calcium Carbonate [Tums] 1,000 mg PO BID PRN 03/22/20 [History] Sodium Chloride [Saline Nasal [place]] 1 spray EA NOSTRIL QID PRN 09/05/20 [History] Triamcinolone 0.1% Cream [Kenalog 0.1% Cream] 1 applicatio TOPICAL BID PRN 09/05/20 [History] Losartan [Cozaar] 25 mg PO BID 05/29/23 [History] Areds 1 dose PO DAILY 08/09/23 [History] Aspirin [Adult Low Dose Aspirin EC] 162 mg PO DAILY 08/09/23 [History] Multivit-Mins/Iron/Folic/Lycop [Centrum Men's Tablet] 1 each PO DAILY 08/09/23 [History] Prevagen 1 dose PO DAILY 08/09/23 [History] Stool Softener 1 dose PO DAILY PRN 08/09/23 [History] Vitamin D 1 dose PO DAILY 08/09/23 [History] bisacodyL [Dulcolax] 1 dose RECTAL HS PRN 08/13/23 [History] hydrALAZINE HCL 1 tab PO BID 08/13/23 [History] Atorvastatin [Lipitor] 40 mg PO HS 08/21/23 [History] Cetirizine HCl [Zyrtec] 10 mg PO DAILY 08/21/23 [History] Trospium Chloride [Sanctura XR] 60 mg PO HS 08/21/23 [History]
[2023-08-30] MEDS ORDERED: Antibiotics per Pharmacy 1 EACH MISC MISCELLANE PRN (08:46)
[2023-08-30] MEDS ORDERED: ARTIFICIAL TEARS-HYPROMELLOSE DROPS 15 ML BTL BOTH EYES PRN (08:47)
[2023-08-30] MEDS: NEOMYCIN 500 MG TAB PO SCH (13:40)
[2023-08-30] MEDS: metroNIDAZOLE 500 MG TAB PO SCH (13:41)
[2023-08-30] MEDS: ASPIRIN 81 MG PO SCH (14:38)
[2023-08-30] MEDS: SODIUM CHLORIDE 0.9% 1,000 ML IV ONE (14:38)
[2023-08-30] MEDS: SODIUM CHLORIDE 0.9% 1,000 ML IV SCH (14:39)
[2023-08-30] MEDS: ISOSORBIDE MONONITRATE ER 30 MG TAB.ER.24H PO SCH (14:39)
[2023-08-30] MEDS: hydrALAZINE HCL 25 MG TAB PO SCH (14:39)
[2023-08-30] MEDS: FAMOTIDINE 20 MG TAB PO SCH (14:39)
[2023-08-30] MEDS: LOSARTAN 25 MG TAB PO SCH (14:39)
[2023-08-30] MEDS: LORATADINE 10 MG TAB PO SCH (14:39)
[2023-08-30] MEDS: PEG 3350 (236 GM/BTL) + LYTES 4,000 ML BOTTLE PO ONE (15:29)
[2023-08-30] MEDS: TROSPIUM CHLORIDE 20 MG TABLET PO SCH (20:47)
[2023-08-30] MEDS: TAMSULOSIN 0.4 MG CAP.ER.24H PO SCH (20:47)
[2023-08-31 06:10] LABS: Basophils % (A) 0 %; Eosinophils # (A) 0.2 k/uL (0-0.7); Eosinophils % (A) 3 %; HCT 35.5 % (39.0-53.0); HGB 11.6 gm/dL (13.0-17.5); Lymphocytes # (A) 0.9 k/uL (1.0-4.8); Lymphocytes % (A) 18 %; MCH 30.7 pg (25.0-35.0); MCHC 32.7 g/dL (31.0-37.0); MCV 93.8 fL (80.0-100.0); Mean Platelet Volume 8.8; Monocytes # (A) 0.4 k/uL (0-1.0); Monocytes % (A) 7 %; Neutrophils # (A) 3.6 k/uL (1.3-7.7); Neutrophils % (A) 69 %; Platelet Count 188 k/uL (150-450); RBC 3.78 m/uL (4.30-5.90); RDW 12.8 % (11.5-15.5); WBC 5.2 k/uL (3.8-10.6)
[2023-08-31 06:31] LABS: INR 1.1 (<1.2); Prothrombin Time 11.7 sec (10.0-12.5)
[2023-08-31 06:33] LABS: ALT 42 U/L (4-49); AST 48 U/L (17-59); African American GFR (CKD) 60 (>60 ml/min/1.73 sqM); Albumin 3.5 g/dL (3.5-5.0); Albumin/Globulin Ratio 1.5; Alkaline Phosphatase 58 U/L (38-126); Anion Gap 5 mmol/L; Blood Urea Nitrogen 18 mg/dL (9-20); Calcium 8.8 mg/dL (8.4-10.2); Carbon Dioxide 25 mmol/L (22-30); Chloride 106 mmol/L (98-107); Globulin 2.3 g/dL; Glucose 83 mg/dL (74-99); Non-African American GFR(CKD) 52 (>60 ml/min/1.73 sqM); Potassium 4.5 mmol/L (3.5-5.1); Sodium 136 mmol/L (137-145); Total Bilirubin 0.8 mg/dL (0.2-1.3); Total Protein 5.8 g/dL (6.3-8.2)
[2023-08-31] MEDS: SODIUM CHLORIDE 0.9% 1,000 ML IV ONE (06:45)
[2023-08-31] MEDS ORDERED: ACETAMINOPHEN TAB 500 MG TAB PO PRN (07:00)
[2023-08-31] MEDS ORDERED: ALVIMOPAN 12 MG CAPSULE PO PRN (07:00)
[2023-08-31 13:48] LABS: Glucose,Whole Blood 74 mg/dL (70-110)
[2023-08-31] MEDS: IV FLUID CONTINUATION 1,000 ML IV ONE (13:51)
[2023-08-31] MEDS: MIDAZOLAM 2 MG/2 ML VIAL IV STA (13:57)
[2023-08-31] MEDS: HEPARIN SODIUM,PORCINE 5,000 UNIT/ML 1 ML VIAL SQ PRN (14:04)
[2023-08-31] MEDS: DEXTROSE 50% SYRINGE 50 ML IVP STA (14:05)
[2023-08-31] MEDS ORDERED: NEOSTIGMINE 1 MG/ML 10 ML VIAL ONE (14:07)
[2023-08-31] MEDS: ONDANSETRON 4 MG/2 ML VIAL IVP PRN (14:07)
[2023-08-31] MEDS ORDERED: fentaNYL (PF) 50 MCG/ML 2 ML AMP ONE (14:07)
[2023-08-31] MEDS ORDERED: LIDOCAINE 1% INJ 10MG/ML (20 ML MDV) ONE (14:07)
[2023-08-31] MEDS ORDERED: ePHEDrine 50 MG/ML 1 ML VIAL ONE (14:07)
[2023-08-31] MEDS ORDERED: LIDOCAINE 1%-EPI 1:100,000 20 ML VIAL ONE (14:07)
[2023-08-31] MEDS ORDERED: ROPIVACAINE 5 MG/ML 30 ML VIAL ONE (14:07)
[2023-08-31] MEDS ORDERED: PROPOFOL 10 MG/ML 20 ML VIAL IV ONE (14:07)
[2023-08-31] MEDS ORDERED: GLYCOPYRROLATE 0.2 MG/ML 2 ML VIAL ONE (14:07)
[2023-08-31] MEDS ORDERED: PHENYLEPHRINE-0.9% NACL SYG 1,000 MCG/10 ML SYRINGE ONE (14:07)
[2023-08-31] MEDS ORDERED: SUCCINYLCHOLINE CHLORIDE 200 MG/10 ML VIAL IV ONE (14:07)
[2023-08-31] MEDS ORDERED: ROCURONIUM 10 MG/ML (5 ML VIAL) IV ONE (14:07)
[2023-08-31] MEDS: metroNIDAZOLE-NS PMX 500 MG in SALINE 1 100ML.BAG IVPB PRN (14:20)
[2023-08-31] MEDS: LIDOCAINE 1%-EPI 1:100,000 20 ML VIAL SQ ONE (14:52)
[2023-08-31 15:45] LABS: Glucose,Whole Blood 138 mg/dL (70-110)
--- NOTE | 2023-08-31 16:22 | P.ANPRN ---
Procedure Note - Anesthesia - Nerve Block Performed Bilateral Erector Spinae Single Time Out Performed: Yes Date of Procedure: 08/31/23 Procedure Start Time: 13:55 Procedure Stop Time: 13:59 Location of Patient: PreOp Indication: Acute Post-Operative Pain, Requested by Surgeon Sedation Type: Sedate with meaningful contact maintained Preparation: Sterile Prep Position: Left Lateral Needle Types: Pajunk Needle Gauge: 21 Ultrasound used to visualize needle placement: Yes Ultrasound used to observe medication spread: Yes Injectate: 0.5% Ropivacaine (see comment for volume) (20 ml + lidocaine 1% with epi 1/100k 10 ml per side) Blood Aspirated: No Pain Paresthesia on Injection Noted: No Resistance on Injection: Normal Image Stored and Saved: Yes Events: Uneventful and Well Tolerated
[2023-08-31] MEDS: LACTATED RINGERS 1,000 ML IV ONE (17:14)
[2023-08-31 17:24] LABS: Glucose,Whole Blood 134 mg/dL (70-110)
[2023-08-31] MEDS: HYDROmorphone 1 MG/ML 1 ML SYRINGE IVP PRN (18:51)
--- NOTE | 2023-08-31 20:51 | P.OP ---
Date of Procedure: 08/31/23 Description of Procedure: SURGEON: GEOVANNA GARCIA MD PREOPERATIVE DIAGNOSES: 1. Large bowel obstruction due to diverticulosis 2. High risk colon adenomas 3. Coronary artery disease 4. History of myocardial infarction 5. Hyperlipidemia 6. Hypertensive heart disease with congestive heart failure 7. History of colon resection 8. Gastroesophageal reflux disease 9. History of GI bleed 10. Benign prostatic hypertrophy with outflow obstruction 11. Celiac disease 12. Bilateral glaucoma 13. History of heart catheterization with stent placement 14. History of esophageal cancer status post esophageal resection POSTOPERATIVE DIAGNOSES: 1. Large bowel obstruction due to diverticulosis 2. High risk colon adenomas 3. Coronary artery disease 4. History of myocardial infarction 5. Hyperlipidemia 6. Hypertensive heart disease with congestive heart failure 7. History of colon resection 8. Gastroesophageal reflux disease 9. History of GI bleed 10. Benign prostatic hypertrophy with outflow obstruction 11. Celiac disease 12. Bilateral glaucoma 13. History of heart catheterization with stent placement 14. History of esophageal cancer status post esophageal resection 15. Severe intra-abdominal peritoneal adhesions OPERATION: 1. Robotic-assisted daVinci Xi laparoscopic lysis of adhesions, extensive, 1.5 hours 2. Robotic-assisted daVinci Xi sigmoid colectomy with low anterior resection using 29 mm Ethicon powered stapler 3. Intraoperative colonoscopy used for sigmoidoscopy Anesthesia: GETA, local, regional Estimated Blood Loss (ml): 20 Pathology: 1. Sigmoid colon 2. EEA donuts 3. Proximal colotomy Condition: stable Disposition: floor COMPLICATIONS: None. Operative Findings: 1. Severe intra-abdominal peritoneal adhesions, epigastrium, upper abdomen 2. Partial large bowel obstruction secondary to adhesions and diverticular disease 3. Highly redundant sigmoid colon with resection of 15 cm INDICATIONS: The patient is a 83-year-old male who presents with partial bowel obstruction due to diverticulosis. Recent colonoscopy demonstrated multiple high risk adenomas including partial large bowel obstruction. Benefits and risks of surgical intervention was described in detail including infection, injury to the ureter, colostomy creation, possibility for additional surgery was discussed at length. Informed consent was obtained. All questions of the patient and family were answered. DESCRIPTION: Earlier the patient had undergone a bowel prep using the enhanced colon recovery program. The patient was transferred to the operating room and placed supine. After general induction, the abdomen was prepped and draped in standard sterile fashion. Patient was repositioned in the modified lithotomy position. Ioban was placed along the abdomen to minimize any contamination of skin floor. A Brock catheter was placed. After a timeout protocol was performed, attention was then brought to the left upper quadrant whereby a 0 degree 5 mm laparoscopic trocar entry was performed. The abdominal cavity was entered and insufflated to 15 mmHg pressure, which was tolerated well. Diagnostic laparoscopy demonstrated severe intra-abdominal adhesions involving the mid abdomen and upper abdomen. Large colon and small bowel were adhered to the epigastrium. Next a robotic 12-mm trocar was placed along the right lateral abdominal wall 20 cm superior from the pelvis. Two 8 mm ports were placed along the upper abdomen. Ports were placed 10 cm apart from each other including 20 cm away from the target anatomy of the left pelvis. The 12-mm port was exchanged for an 8 mm robotic port at the left upper quadrant. The robot was docked along the left lateral abdomen. The patient was positioned in steep Trendelenburg position at 21-degrees. Using atraumatic graspers and vessel sealer, the robotic system was docked and primed as described. Instruments were interchanged by the assistant professor of sociology including hook cautery, needle delivery motorcycle driver, robotic stapler and vessel sealer. The robot stapler was prepared along the right lateral abdominal wall. The stapler 12-mm port was arranged along the right lateral abdominal wall. Next, attention was brought to identify the sigmoid colon. The sigmoid colon was highly redundant with features of diverticulosis and stenosis. The sigmoid colon was mobilized along the left lateral abdominal wall towards the descending colon and splenic flexure. The colon was tethered along the upper abdomen due to severe adhesions. Due to these findings, the robot was docked toward the upper abdomen. Patient was repositioned to the reverse Trendelenburg position, 10 degrees. Extensive laparoscopic lysis of adhesions over 1.5 hours performed taking down adherent omentum to abdominal wall including transverse colon and small bowel from the abdominal wall. The colon and small bowel were adherent to the epigastrium. Gastric pull-through was identified with the transverse colon adherent to the small bowel and released using vessel sealer. After release of adhesions, attention was brought down to the pelvis. A stay suture using 3- 0 silk was placed along the anterior serosa of the redundant sigmoid colon. The sigmoid mesentery was mobilized using a vessel sealer whereby the descending colon was marked and tagged. Using multiple fires of the robot stapler 60 mm green load, the proximal sigmoid colon was divided. The mesentery of the sigmoid colon was mobilized towards the pelvic brim and sacral promontory using a vessel sealer. The sigmoid volvulus was reduced with viable colon. Next, the sigmoid colon was divided using the robotic stapler 60 mm black staple loads. The rest of the sigmoid colon mesentery was mobilized using vessel sealer. Additionally, the sigmoid colon was mobilized onto the colon to minimize injury to the ureters. I went to the foot of the bed to confirm sizers and placement of 29-mm Ethicon powered stapler. I re-scrubbed into the case. The robotic arms were temporarily undocked. A 29-mm anvil was placed with a 3-0 silk sutured at the tip of the anvil family law paralegal. Then the anvil was placed via the left upper quadrant 12 mm port. All robotic arms were re-docked. I went back to the console. The staple line was opened using cautery. The anvil was entered into the proximal descending colon. The colotomy was closed using 60 mm green load. Next, the sharp tip of the anvil family law paralegal was brought through the staple line. The anvil family law paralegal was removed from the abdomen using empty clip appliers. I went to the foot of the bed to place the powered Ethicon 29 mm stapler via the rectum. The anvil and stapler were mated for 1 minute. The doughnuts were intact on both sides and thick. An intraoperative leak test was performed as I inserted the colonoscope to the anastomosis. Endoscopic images were obtained. Irrigation was placed in the pelvis and no air leaks were identified. Irrigation fluid was aspirated from the pelvis until dry. I went back to the console. All sponges and needles were removed from the abdominal cavity. The robot was undocked. I re-scrubbed into the case. Via the left upper quadrant port, the sigmoid colon was removed using 15 mm Endo Catch bag. All sponges were removed from the abdominal cavity. The left upper quadrant incision was widened to 3-cm. No contamination had occurred throughout the case. The fascial defect was oversewn using 0 Vicryl and a Hussain Ashby. Next all pneumoperitoneum was evacuated from the abdominal cavity. The 8-mm trocar sites were reapproximated using 4-0 Monocryl in an interrupted subcuticular fashion. Local anesthetic was infiltrated to all wounds for postop analgesia. All incisions were also cleansed with diluted hydrogen peroxide. Optifoam 4 x 4 surgical dressing was placed over the colon extraction site. Liquid glue was applied to the rest of the skin incisions. Abdominal binder was placed. The patient had tolerated the procedure well. The patient was extubated successfully. The patient was transferred to the postanesthesia care unit in stable condition. Intraoperative findings were described in detail to the patient's family.
[2023-09-01] MEDS: FAMOTIDINE 20 MG TAB PO SCH (09:28)
[2023-09-01] MEDS: metroNIDAZOLE-NS PMX 500 MG in SALINE 1 100ML.BAG IVPB SCH (11:35)
--- NOTE | 2023-09-01 16:19 | P.PN ---
Progress Note - Text Progress Note Date: 09/01/23 CHIEF COMPLAINT: Large Bowel Obstruction HISTORY OF PRESENT ILLNESS: Pain is controlled. He is having some nausea. Brokc catheter removed this AM but patient has not urinated yet. PHYSICAL EXAM: VITAL SIGNS: Reviewed. GENERAL: Well-developed in no acute distress. ABDOMEN: Soft. Mildly distended, Incisions C/D/I NEUROLOGIC: Alert and oriented. Cranial nerves II through XII grossly intact. ASSESSMENT: 1. POD#1 Robotic Low Anterior Resection and Extensive ARABELLA for Large Bowel Obstruction secondary to Diverticulitis PLAN: -Low Fiber Diet -Brock Catheter removed. Patient has not urinated yet. Will bladder scan -OOB, ambulate, IS -Pain Control
[2023-09-01 17:22] LABS: Basophils % (A) 0 %; Eosinophils % (A) 0 %; HCT 35.9 % (39.0-53.0); HGB 11.4 gm/dL (13.0-17.5); Hypochromasia Slight; Lymphocytes # (A) 0.9 k/uL (1.0-4.8); Lymphocytes % (A) 9 %; MCH 29.9 pg (25.0-35.0); MCHC 31.7 g/dL (31.0-37.0); MCV 94.5 fL (80.0-100.0); Mean Platelet Volume 9.8; Monocytes # (A) 0.5 k/uL (0-1.0); Monocytes % (A) 5 %; Neutrophils # (A) 8.1 k/uL (1.3-7.7); Neutrophils % (A) 85 %; Platelet Count 177 k/uL (150-450); RDW 13.1 % (11.5-15.5); WBC 9.5 k/uL (3.8-10.6)
--- NOTE | 2023-09-01 17:26 | P.CONS ---
History of Present Illness - Reason for Consult Consult date: 09/01/23 (Post bowel surgery with resection due to obstruction) Requesting physician: Veronica Jameson (Surgeon) - Chief Complaint Abdominal pain - History of Present Illness Consultation medical, postoperative after patient has large bowel resection. Reason for the consult postoperative medical management with multiple medication. Patient seen and evaluated [id number] and discussed with the patient and his Post surgery diagnosis 1. Large bowel obstruction due to diverticulosis 2. 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 Coronary artery disease with the stent placement 4. History of myocardial infarction. 5. Hyperlipidemia 6. Hypertensive heart disease with history of congestive heart failure not currently present 7. History of lower esophageal cancer with following up the esophagus with the recent history of stricture Underwent EGD and dilatation by Dr. Jameson. 8. GERD disease 9. History of prostatic enlargement and 10. Status post surgery urine retention with inability to urinate with the possibility secondary to prostate enlargement versus postoperative Which is common with the anesthesia. On the patient examination Vital signs temperature 98.1 F oral pulse rate 79-90 Respiratory rate 18-17/min nonlabored Blood pressure was 96/65 with a mean 75 and his medication list has been reviewed and he is not in any medication to avoid hypotension Pulse ox on 3 L 98%. As patient interviewed he was unable to urinate and he had ordered for bladder scan every 6 hour and also order if he has no urination with the accumulation of the urine and increased bladder scan he need straight cath. Patient also he had already full liquid diet however he has distention of the abdomen, not passing any flatus and he has tympanitic on percussion with the early postoperative ileus. Considered however Dr. Jameson has been following the patient very carefully. On the general examination: The head was normocephalic atraumatic and pupil was equal reactive and oropha rynx he had dentures Neck was supple no lymphadenopathy Chest was clear to auscultation Normal breath sounds Heart regular sinus rhythm, no symptoms of chest pain or anginal pain. Abdomen positive tympanitic on percussion, very sluggish bowel movement, is postoperative day 1. Extremities: No edema and normal pulses with good perfusion. And able to ambulate Neurologically stable Psychiatrically stable. Assessment: #1 patient is status abdominal surgery with the robotic resection of large bowel due to diverticulosis and bowel obstruction 2. Currently postoperative mild hypotension which probably day 1 and will be recovered with the possibility of postsurgical ileus 3. Prostatic hypertrophy 4. Urine retention has been monitored with the bladder scan and Dr. Jameson put order for fourth or treatment if continued retention of the urine. 5. Patient with coronary artery disease atherosclerotic heart disease and stent placement monitored 6. No evidence of chest pain or anginal pain. 7. Patient on postoperative anticoagulation placed by Dr. Jameson. Recommendation and plan With the presence of ileus, no bowel sounds significant, and he is on diet and patient has been watched for for further symptoms or start having bowel movement and flatus which is not present at this time Will not add any of his previous medication for blood pressure as he is on the borderline hypotensive. Will see him tomorrow for forethought evaluation and if need resuming any of medication Past Medical History Past Medical History: Coronary Artery Disease (CAD), Cancer, Eye Disorder, GERD/Reflux, GI Bleed, Hyperlipidemia, Hypertension, Myocardial Infarction (MO), Osteoarthritis (OA), Prostate Disorder, Skin Disorder Additional Past Medical History / Comment(s): ESOPHAGEAL cancer-chemo 1980, COLON AND SKIN CANCER , CELIAC DISEASE, BPH, hx KIDNEY STONES, diveritcular, bilateral glaucoma, Rt. eye has macular degeneration, varicose veins, hiatal hernia, hx ulcers, black stool, hx pancreatitis 2016, hx eczema, CHANGE IN BOWEL HABITS, vision becoming worse, pt. doesn't recall having MO Last Myocardial Infarction Date:: 11/25/17 History of Any Multi-Drug Resistant Organisms: None Reported Past Surgical History: Adenoidectomy, Appendectomy, Back Surgery, Bowel Resection, Cholecystectomy, Heart Catheterization With Stent, Hernia Repair, Orthopedic Surgery, Tonsillectomy Additional Past Surgical History / Comment(s): esophagectomy, colectomy, LT CAROTID ENDARTECTOMY, LUMP REMOVED FROM TONGUE, LITHOTRIPSY, CYSTOSCOPY, RT ROT ATOR CUFF REPAIR, Rt CTR, DEVIATED SEPTUM, , cardiac STENTS x 3, UMBILICAL HERNIA REPAIR X 2, RT inguinal hernia repair, LOWER BACK SURGERY-HAS SCREWS, BILAT CATARACTS REMOVED, vasectomy, repair of undescended testicle, COLONOSCOPY, EGD Past Anesthesia/Blood Transfusion Reactions: No Reported Reaction Additional Past Anesthesia/Blood Transfusion Reaction / Comm: Pt has received blood in past without reaction. Date of Last Stent Placement:: 2015 Past Psychological History: No Psychological Hx Reported Additional Psychological History / Comment(s): . Smoking Status: Former smoker Past Alcohol Use History: None Reported Additional Past Alcohol Use History / Comment(s): STARTED SMOKING AGE 11 (1951) WAS 2 PPD, QUIT 1984 Past Drug Use History: None Reported - Past Family History Brother(s) Family Medical History: Cancer Additional Family Medical History / Comment(s): liver and brain Mother Family Medical History: Cancer Additional Family Medical History / Comment(s): LIVER CA, BRAIN CA Sister(s) Family Medical History: Cancer Additional Family Medical History / Comment(s): BREAST CA, LUNG CA. SISTER X 2 Father Family Medical History: Osteoarthritis (OA) Additional Family Medical History / Comment(s): CELIAC DISEASE, ULCERS Medications and Allergies Home Medications Medication Instructions Recorded Confirmed Type Tamsulosin HCl 0.4 mg PO HS 08/28/13 08/30/23 History Isosorbide Mononitrate ER [Imdur] 30 mg PO BID 07/16/15 08/30/23 History Carboxymethyl/Gly/Poly80/Pf 1 drop BOTH EYES QID PRN 10/23/17 08/30/23 History [Refresh Optive Roque-3 Drops] Famotidine [Pepcid] 20 mg PO BID 04/21/19 08/30/23 History Calcium Carbonate [Tums] 1,000 mg PO BID PRN 03/22/20 08/30/23 History Sodium Chloride [Saline Nasal 1 spray EA NOSTRIL QID PRN 09/05/20 08/30/23 History [place]] Triamcinolone 0.1% Cream [Kenalog 1 applicatio TOPICAL BID PRN 09/05/20 08/30/23 History 0.1% Cream] Losartan [Cozaar] 25 mg PO BID 05/29/23 08/30/23 History Areds 1 dose PO DAILY 08/09/23 08/30/23 History Aspirin [Adult Low Dose Aspirin EC] 162 mg PO DAILY 08/09/23 08/30/23 History Multivit-Mins/Iron/Folic/Lycop 1 each PO DAILY 08/09/23 08/30/23 History [Centrum Men's Tablet] Prevagen 1 dose PO DAILY 08/09/23 08/30/23 History Stool Softener 1 dose PO DAILY PRN 08/09/23 08/30/23 History Vitamin D 1 dose PO DAILY 08/09/23 08/30/23 History hydrALAZINE HCL 1 tab PO BID 08/13/23 08/30/23 History Atorvastatin [Lipitor] 40 mg PO HS 08/21/23 08/30/23 History Cetirizine HCl [Zyrtec] 10 mg PO DAILY 08/21/23 08/30/23 History Trospium Chloride [Sanctura XR] 60 mg PO HS 08/21/23 08/30/23 History Acetaminophen Tab [Tylenol Tab] 1,000 mg PO Q6HR PRN #30 tablet 08/31/23 Rx Simethicone [Gas-X] 125 mg PO AC-TID PRN #20 capsule 08/31/23 Rx Allergies Allergy/AdvReac Type Severity Reaction Status Date / Time atenolol Allergy Unknown Verified 08/31/23 13:36 clopidogrel bisulfate Allergy severe Verified 08/31/23 13:36 [From Plavix] itching gluten Allergy blisters Verified 08/31/23 13:36 lactose Allergy Abdominal Verified 08/31/23 13:36 Pain simvastatin Allergy Unknown Verified 08/31/23 13:36 beet AdvReac CAUSES Verified 08/31/23 13:36 KIDNEY STONES PER PT Hebo And Derivatives AdvReac CAUSES Verified 08/31/23 13:36 [Hebo] KIDNEY STONES PER PT cocoa AdvReac CAUSES Verified 08/31/23 13:36 KIDNEY STONES PER PT coffee (Coffea arabica) AdvReac CAUSES Verified 08/31/23 13:36 KIDNEY STONES PER PT cranberry AdvReac CAUSES Verified 08/31/23 13:36 KIDNEY STONES PER PT diphenhydramine AdvReac Diarrhea Verified 08/31/23 13:36 [From Benadryl] green tea AdvReac CAUSES Verified 08/31/23 13:36 KIDNEY STONES PER PT plum AdvReac CAUSES Verified 08/31/23 13:36 KIDNEY STONES PER PT prednisolone AdvReac GLAUCOMA Verified 08/31/23 13:36 rhubarb AdvReac CAUSES Verified 08/31/23 13:36 KIDNEY STONES PER PT spinach AdvReac CAUSES Verified 08/31/23 13:36 KIDNEY STONES PER PT sucralfate [From Carafate] AdvReac REFLUX Verified 08/31/23 13:36 Sulfa (Sulfonamide AdvReac blood Verified 08/31/23 13:36 Antibiotics) disorder sweet potato AdvReac CAUSES Verified 08/31/23 13:36 KIDNEY STONES PER PT tree nut [Nut] AdvReac CAUSES Verified 08/31/23 13:36 KIDNEY STONES PER PT Physical Exam Vitals: Vital Signs Temp Pulse Pulse Resp BP Pulse Ox 09/01/23 09:48 90 96/65 09/01/23 08:16 98.1 F 75 17 100/50 98 09/01/23 01:05 98.2 F 75 18 126/69 98 08/31/23 21:45 20 08/31/23 21:39 70 136/73 08/31/23 21:23 99 08/31/23 21:00 65 131/72 99 08/31/23 20:45 71 138/76 100 08/31/23 20:30 74 145/71 98 08/31/23 20:15 64 126/70 100 08/31/23 20:00 70 145/72 100 08/31/23 19:45 72 132/74 100 08/31/23 19:30 71 123/71 100 08/31/23 19:15 70 129/71 100 08/31/23 19:00 98.2 F 56 L 120/69 100 08/31/23 18:54 69 17 120/69 100 08/31/23 18:41 66 18 132/63 99 08/31/23 18:26 65 18 141/70 100 08/31/23 18:11 70 18 136/63 100 08/31/23 17:56 97.2 F L 76 14 140/64 99 Intake and Output 09/01/23 09/01/23 09/01/23 06:59 14:59 22:59 Output Total 700 300 Balance -700 -300 Output: Urine 700 300 Uretheral (Brock) 300 Results CBC & Chem 7: 08/31/23 05:53 08/31/23 05:53 Labs: Abnormal Lab Results - Last 24 Hours (Table) 08/31/23 Range/Units 17:22 POC Glucose (mg/dL) 134 H (70-110) mg/dL
[2023-09-01 17:34] LABS: African American GFR (CKD) 59 (>60 ml/min/1.73 sqM); Anion Gap 8 mmol/L; Blood Urea Nitrogen 15 mg/dL (9-20); Carbon Dioxide 20 mmol/L (22-30); Chloride 105 mmol/L (98-107); Glucose 98 mg/dL (74-99); Non-African American GFR(CKD) 51 (>60 ml/min/1.73 sqM); Potassium 4.4 mmol/L (3.5-5.1); Sodium 133 mmol/L (137-145)
--- NOTE | 2023-09-02 10:24 | P.PN ---
Subjective Progress Note Date: 09/02/23 Patient states he feels well. He states he feels like he has o to have a bowel movement. On exam vital signs appear stable. Abdomen is soft. Incision sites are clean and intact. Status post low anterior section. Patient most likely has postop ileus. He will be observed closely. Objective - Vital Signs Vital signs: Vital Signs Temp 98.6 F 09/02/23 07:25 Pulse 79 09/02/23 07:25 Resp 16 09/02/23 07:25 BP 119/60 09/02/23 07:25 Pulse Ox 91 L 09/02/23 07:25 FiO2 Intake & Output 09/01/23 09/02/23 09/02/23 18:59 06:59 18:59 Output Total 950 1375 Balance -950 -1375 Output: Urine 950 1375 Straight 575 725 Uretheral (Brock) 300 Other: Voiding Method Urinal Indwelling Catheter - Labs CBC & Chem 7: 09/01/23 17:06 09/01/23 17:06 Labs: Abnormal Lab Results - Last 24 Hours (Table) 09/01/23 09/01/23 Range/Units 17:06 17:06 RBC 3.80 L (4.30-5.90) m/uL Hgb 11.4 L (13.0-17.5) gm/dL Hct 35.9 L (39.0-53.0) % Neutrophils # 8.1 H (1.3-7.7) k/uL Lymphocytes # 0.9 L (1.0-4.8) k/uL Sodium 133 L (137-145) mmol/L Carbon Dioxide 20 L (22-30) mmol/L Creatinine 1.29 H (0.66-1.25) mg/dL Calcium 8.0 L (8.4-10.2) mg/dL
--- NOTE | 2023-09-02 11:00 | P.PN ---
Subjective Progress Note Date: 09/02/23 Progress note Date of service 09/02/[address] Price Patient seen [id number] evaluated and examined. Patient today has a Brock catheter due to retention of the urine was multifactorial Urine draining well and he is drinking but no bowel movement and still abdomen distended and tympanitic with the postoperative ileus and may take 3 to 4 days to resolve. Borderline hypotension corrected and his blood pressure 119/60 with a mean blood pressure of 79 Temperature 98.6 F oral Pulse rate 79 bpm regular Respiratory rate 16/min nonlabored his oxygen 91% on room air and he is on 2 L Patient with the underlying aortic stenosis and valvular heart disease and previous history of congestive heart failure Will decrease his IV fluid to KVO open 20 cc an hour and he is drinking fluids. On exam: Conscious alert oriented x 3 sitting on the Juanita chair no pain except distention of the abdomen. And otherwise breathing normally. No chest pain no respiratory distress no edema of the lower extremities Head was normocephalic atraumatic pupil is equal reactive Neck was supple no JVD no thyromegaly no lymph Trachea midline Chest is clear with normal breath sounds Heart regular sinus rhythm compensated with valvular heart disease Abdomen distended tympanitic no BM and no bowel sounds Extremities no edema and positive pulses Brock catheter in place for urinary retention postoperative. Neurologically stable Psychiatry stable Assessment: Borderline hypotension has been resolved Obstructive uropathy has been resolved with his placement Brock catheter and draining well Post sigmoid colon resection for diverticulosis and bowel obstruction Post operative ileus and no BM. Recommendation plan: Will decrease IV fluid 20 cc an hour as the patient is drinking to avoid any precipitation of congestive heart failure. Specially in the blood pressure recovered Will obtain BMP and CBC with differential with the underlying postoperative mild anemia. Objective - Vital Signs Vital signs: Vital Signs Temp 98.6 F 09/02/23 07:25 Pulse 79 09/02/23 07:25 Resp 16 09/02/23 07:25 BP 119/60 09/02/23 07:25 Pulse Ox 91 L 09/02/23 07:25 FiO2 Intake & Output 09/01/23 09/02/23 09/02/23 18:59 06:59 18:59 Output Total 950 1375 Balance -950 -1375 Output: Urine 950 1375 Straight 575 725 Uretheral (Brock) 300 Other: Voiding Method Urinal Indwelling Catheter - Labs CBC & Chem 7: 09/01/23 17:06 09/01/23 17:06 Labs: Abnormal Lab Results - Last 24 Hours (Table) 09/01/23 09/01/23 Range/Units 17:06 17:06 RBC 3.80 L (4.30-5.90) m/uL Hgb 11.4 L (13.0-17.5) gm/dL Hct 35.9 L (39.0-53.0) % Neutrophils # 8.1 H (1.3-7.7) k/uL Lymphocytes # 0.9 L (1.0-4.8) k/uL Sodium 133 L (137-145) mmol/L Carbon Dioxide 20 L (22-30) mmol/L Creatinine 1.29 H (0.66-1.25) mg/dL Calcium 8.0 L (8.4-10.2) mg/dL
[2023-09-03] MEDS: ACETAMINOPHEN TAB 500 MG TAB PO PRN (04:58)
[2023-09-03 09:05] LABS: BUN/Creat Ratio 7.64 Ratio (12.00-20.00); Blood Urea Nitrogen 10.7 mg/dL (9.0-27.0); Chloride 107 mmol/L (96-109); Glucose 90 mg/dL (70-110); Potassium 4.3 mmol/L (3.5-5.5); Sodium 138 mmol/L (135-145)
[2023-09-03 09:06] LABS: Calcium 8.3 mg/dL (8.7-10.3)
[2023-09-03 09:15] LABS: Basophils # (A) 0.01 X 10*3/uL (0.00-0.10); Basophils % (A) 0.1 %; Eosinophils # (A) 0.12 X 10*3/uL (0.04-0.35); Eosinophils % (A) 1.3 %; HCT 33.7 % (39.6-50.0); Lymphocytes # (A) 0.81 X 10*3/uL (0.90-5.00); MCH 30.4 pg (27.0-32.0); MCHC 32.6 g/dL (32.0-37.0); MCV 93.1 FL (80.0-97.0); Mean Platelet Volume 12.5 FL (9.5-12.2); Monocytes # (A) 0.72 X 10*3/uL (0.20-1.00); NRBC Per 100 WBC 0 X 10*3/uL (0.00-0.01); Neutrophils # (A) 7.34 X 10*3/uL (1.80-7.70); Neutrophils % (A) 81.3 %; Platelet Count 176 X 10*3/uL (140-440); RBC 3.62 X 10*6/uL (4.40-5.60); RDW 13.8 % (11.5-14.5); WBC 9.03 X 10*3/uL (4.50-10.00)
--- NOTE | 2023-09-03 10:58 | CDI ---
Documentation Clarification Form Date: 09/03/2023 From: Aditi Francois Phone: [phone] Admit Date: 08/30/2023 06:34:00 AM Patient Name: Fredrick Dodd Visit Number: [id number] Discharge Date: ATTENTION: The Clinical Documentation Specialists (CDI) and [facility] Coding Staff appreciate your assistance in clarifying documentation. Please respond to the clarification below the line at the bottom and electronically sign. The CDI & [facility] Coding staff will review the response and follow-up if needed. Please note: Queries are made part of the Legal Health Record. If you have any questions, please contact the author of this message via ITS. Doctor/Provider: Veronica Jameson MD: Post-operative ileus is documented in the IM progress note 09/01 and patient had Robotic assisted daVinci laparoscopic extensive lysis of adhesions and sigmoid colectomy with low anterior resection on 08/30. Additional clarification is requested regarding the relationship, if any, that exists between the diagnosis and the procedure. Patients Admitting Diagnosis: Large bowel obstruction due to diverticulosis Post-Operative Diagnosis: Same Procedure performed: 08/30 Robotic assisted daVinci laparoscopic extensive lysis of adhesions and sigmoid colectomy with low anterior resection on 08/30. History/Risk Factors: 83-year-old male with a history of CAD, GI bleed and HTN who presents with partial large bowel obstruction and increased change in bowel habits Clinical Indicators: 09/01 IM PN, Subjective: "drinking but no bowel movement and still abdomen distended and tympanitic with the postoperative ileus and may take 3-4 days to resolve." Assessment: "Post-operative ileus and no BM." 09/01 Surgery PN, Subjective: "Status post low anterior section. Patient most likely has postop ileus." Treatment: NPO 08/29 and 08/30 then clear liquid diet start 08/29 then low fiber diet 08/31 What relationship, if any, exists between the diagnosis of post-operative ileus and the procedure: [ ] Post-operative ileus is a complication of surgical procedure [ ] Post-operative ileus is an expected outcome of the surgical procedure [ ] Post-operative ileus is related to patients co-morbid condition(s) of extensive abdominal adhesions & not a complication of the procedure [ X ] Other please specify _ABSOLUTELY NO POST OP ILEUS!!!!!!!! [ ] Unable to determine [ X ] Other please specify _ABSOLUTELY NO POST OP ILEUS!!!!!!!! Bowel function after major abdominal surgery resumes after 3 to 5 days and expected outcome of surgery. This IS NOT A POST OP COMPLICATION. MTDD
[2023-09-03] MEDS: TAMSULOSIN 0.4 MG CAP.ER.24H PO STA (11:01)
--- NOTE | 2023-09-03 11:13 | CDI ---
Documentation Clarification Form Date: 09/03/2023 From: Aditi Francois Phone: [phone] Admit Date: 08/30/2023 06:34:00 AM Patient Name: Fredrick Dodd Visit Number: [id number] Discharge Date: ATTENTION: The Clinical Documentation Specialists (CDI) and [facility] Coding Staff appreciate your assistance in clarifying documentation. Please respond to the clarification below the line at the bottom and electronically sign. The CDI & [facility] Coding staff will review the response and follow-up if needed. Please note: Queries are made part of the Legal Health Record. If you have any questions, please contact the author of this message via ITS. Doctor/Provider: Veronica Jameson MD: Post-operative mild anemia is documented in the IM progress note 09/01 and patient had Robotic assisted daVinci laparoscopic extensive lysis of adhesions and sigmoid colectomy with low anterior resection on 08/30. Additional clarification is requested regarding the relationship, if any, that exists between the diagnosis and the procedure. Patients Admitting Diagnosis: Large bowel obstruction due to diverticulosis Post-Operative Diagnosis: Same Procedure performed: 08/30 Robotic assisted daVinci laparoscopic extensive lysis of adhesions and sigmoid colectomy with low anterior resection on 08/30. History/Risk Factors: 83-year-old male with a history of CAD, GI bleed and HTN who presents with partial large bowel obstruction and increased change in bowel habits Clinical Indicators: 09/01 IM PN, Recommendation plan: "Will obtain BMP and CBC with differential with the underlying postoperative mild anemia." 08/30 Operative EBL: 20cc 08/29-09/02 HGB: 12.2, 11.6, 11.4, 11.0 Treatment: Monitor CBC Type and screen on 08/30 What relationship, if any, exists between the diagnosis of post-operative anemia and the procedure: [ ] Yes, postoperative anemia is a complication of surgical procedure [ ] Postoperative anemia is not a complication of the surgical procedure [ ] Postoperative anemia has been ruled out [ X ] Other please specify __Patient had preoperative anemia of 11.6 taken immediately prior to surgery. Its a pre-existing condition of chronic iron deficiency anemia._ [ ] Unable to determine MTDD
--- NOTE | 2023-09-03 11:34 | CDI ---
Documentation Clarification Form Date: 09/03/2023 From: Aditi Francois Phone: [phone] Admit Date: 08/30/2023 06:34:00 AM Patient Name: Fredrick Dodd Visit Number: [id number] Discharge Date: ATTENTION: The Clinical Documentation Specialists (CDI) and [facility] Coding Staff appreciate your assistance in clarifying documentation. Please respond to the clarification below the line at the bottom and electronically sign. The CDI & [facility] Coding staff will review the response and follow-up if needed. Please note: Queries are made part of the Legal Health Record. If you have any questions, please contact the author of this message via ITS. Doctor/Provider: Veronica Jameson MD: Postoperative hypotension is documented in the IM consult note 08/31 and patient had Robotic assisted daVinci laparoscopic extensive lysis of adhesions and sigmoid colectomy with low anterior resection on 08/30. Additional clarification is requested regarding the relationship, if any, that exists between the diagnosis and the procedure. Patients Admitting Diagnosis: Large bowel obstruction due to diverticulosis Post-Operative Diagnosis: Same Procedure performed: 08/30 Robotic assisted daVinci laparoscopic extensive lysis of adhesions and sigmoid colectomy with low anterior resection on 08/30. History/Risk Factors: 83-year-old male with a history of CAD, GI bleed and HTN who presents with partial large bowel obstruction and increased change in bowel habits Clinical Indicators: 08/29 Admit VS: 132/59, 96.7, 78, 16, 99% room air 08/31 IM consult, Assessment: "2. Currently postoperative mild hypotension" 09/01 IM PN, Recommendation plan: "Will obtain BMP and CBC with differential with the underlying postoperative mild anemia." 08/29-09/02 BP range: 82/47(08/31)-174/82(08/30) Treatment: Normal Saline IV 75cc/hour start 08/29 Normal Saline IV 1000cc bolus once 08/30 Cozaar 25 mg PO BID held 08/30-08/31 then dc'd Imdur 30mg PO BID morning doses held 08/29-08/31 evening doses given- BID doses resumed 09/01 What relationship, if any, exists between the diagnosis of Postoperative hypotension and the procedure: [ ] Postoperative hypotension is a complication of surgical procedure [ ] Postoperative hypotension is an expected outcome of the surgical procedure [ X ] Postoperative hypotension is related to patients co-morbid condition(s) of general anesthesia for procedure & not a complication of the procedure [ ] Postoperative hypotension has been ruled out [ ] Other please specify ____ [ ] Unable to determine MTDD
--- NOTE | 2023-09-03 12:10 | P.PN ---
Subjective Progress Note Date: 09/03/23 CHIEF COMPLAINT: Large bowel obstruction HISTORY OF PRESENT ILLNESS: The patient is a 83-year-old male status post low anterior resection for large bowel obstruction due to diverticulosis and extensive lysis of adhesions. Patient had difficulty with urinary retention pre-existing condition. He had a Brock catheter over the weekend after attempted voiding. He reports passing flatus. Had a small bowel movement. His is at bedside. ROS: No reports of nausea and vomiting. No fevers or chills. No new chest pain. No productive sputum PHYSICAL EXAM: VITAL SIGNS: Reviewed CONSTITUTIONAL: Well developed and in no acute distress. EYES: Conjuctivae without sclera icterus. Extraocular movements grossly intact. HEAD, EARS, NOSE, THROAT: Moist buccal mucosa. Head is atraumatic, normocep halic. Hears conversational speech. No nasal drainage. RESPIRATORY: Non-labored respirations and equal bilateral excursions. CARDIOVASCULAR: Palpable 2+ radial pulses. ABDOMEN: Dressing clean dry intact. MUSCULOSKELETAL: No gross deformity of the lower extremities noted. No clubbing. No cyanosis. SKIN: Good skin turgor. Well perfused. NEUROLOGIC: Cranial nerves II through XII grossly intact. No focal or lateralizing signs. PSYCH: Appropriate affect. Alert and oriented to person, place and time. CLINICAL LABS: Reviewed. White blood cell count normal. ASSESSMENT: 1. Large bowel obstruction due to diverticulosis 2. Severe intra-abdominal adhesions 3. Benign prostatic hypertrophy with outflow obstruction PLAN: 1. I personally discontinued his Brock catheter at 10:07 with discussion with nurse. 2. Anticipated discharge today after voiding. Objective - Vital Signs Vital signs: Vital Signs Temp 97.8 F 09/03/23 07:25 Pulse 67 09/03/23 07:25 Resp 18 09/03/23 07:25 BP 115/66 09/03/23 07:25 Pulse Ox 99 09/03/23 07:25 FiO2 Intake & Output 09/02/23 09/03/23 09/03/23 18:59 06:59 18:59 Intake Total 700 Output Total 2450 1999 Balance -2450 -1300 Intake: Oral 700 Output: Urine 2450 1999 Other: Voiding Method Indwelling Catheter Indwelling Catheter - Labs CBC & Chem 7: 09/03/23 03:28 09/03/23 03:28 Labs: Abnormal Lab Results - Last 24 Hours (Table) 09/03/23 09/03/23 Range/Units 03:28 03:28 RBC 3.62 L (4.40-5.60) X 10*6/uL Hgb 11.0 L (13.0-17.0) g/dL Hct 33.7 L (39.6-50.0) % MPV 12.5 H (9.5-12.2) [place] Lymphocytes # 0.81 L (0.90-5.00) X 10*3/uL Carbon Dioxide 21.0 L (21.6-31.8) mmol/L Est GFR (CKD-EPI) 50 L (>=60) BUN/Creatinine Ratio 7.64 L (12.00-20.00) Ratio Calcium 8.3 L (8.7-10.3) mg/dL
--- NOTE | 2023-09-03 15:06 | P.DS ---
Providers Date of admission: 08/30/23 06:34 Expected date of discharge: 09/03/23 Attending physician: Veronica Jameson Consults: 08/30/23 06:51 Consult Physician Routine Consulting Provider: [facility] Consult Reason/Comments: Anesthesia Care Do you want consulting provider notified?: Yes 09/01/23 10:27 Consult Physician Routine Consulting Provider: Oren Price Reason/Comments: Medical management Do you want consulting provider notified?: Yes Primary care physician: Oren Price Hospital Course: POSTOPERATIVE DIAGNOSES: 1. Large bowel obstruction due to diverticulosis 2. High risk colon adenomas 3. Coronary artery disease 4. History of myocardial infarction 5. Hyperlipidemia 6. Hypertensive heart disease with congestive heart failure 7. History of colon resection 8. Gastroesophageal reflux disease 9. History of GI bleed 10. Benign prostatic hypertrophy with outflow obstruction 11. Celiac disease 12. Bilateral glaucoma 13. History of heart catheterization with stent placement 14. History of esophageal cancer status post esophageal resection 15. Severe intra-abdominal peritoneal adhesions 16. Pre-existing iron deficiency anemia 17. Dehydration 18. Postoperative hypotension due to general anesthesia and comorbidities, an expected outcome 19. Urinary retention due to benign prostatic hypertrophy with outflow obstruction INDICATIONS: The patient is a 83-year-old male who presents with partial bowel obstruction due to diverticulosis. Recent colonoscopy demonstrated multiple high risk adenomas including partial large bowel obstruction. Robotic lysis of adhesions extensive with low anterior resection described to colonic stenosis due to diverticulosis. Patient has multiple high risk comorbidities including coronary artery disease, history of microinfarction, hypertensive heart disease with congestive heart failure and had expected hypotension secondary to general seizure and comorbidities. Patient also had urinary tension due to pre-existing benign prostatic hypertrophy with outflow obstruction treated with reinsertion of Brock catheter. Prior to discharge, he was tolerating diet, pain was well- controlled. He was passing flatus. He had voided spontaneously. Colectomy diet postoperatively including avoid seeds, nuts in the next 4 weeks described and reviewed with the patient and his family. Patient was stable for discharge. Procedures: OPERATION: 1. Robotic-assisted daVinci Xi laparoscopic lysis of adhesions, extensive, 1.5 hours 2. Robotic-assisted daVinci Xi sigmoid colectomy with low anterior resection using 29 mm Ethicon powered stapler 3. Intraoperative colonoscopy used for sigmoidoscopy Anesthesia: GETA, local, regional Estimated Blood Loss (ml): 20 Pathology: 1. Sigmoid colon 2. EEA donuts 3. Proximal colotomy Condition: stable Disposition: floor COMPLICATIONS: None. Operative Findings: 1. Severe intra-abdominal peritoneal adhesions, epigastrium, upper abdomen 2. Partial large bowel obstruction secondary to adhesions and diverticular disease 3. Highly redundant sigmoid colon with resection of 15 cm Patient Condition at Discharge: Good Plan - Discharge Summary Discharge Rx Participant: No New Discharge Prescriptions: New Simethicone [Gas-X] 125 mg PO AC-TID PRN #20 capsule PRN Reason: Pain Acetaminophen Tab [Tylenol Tab] 1,000 mg PO Q6HR PRN #30 tablet PRN Reason: Pain Continue Tamsulosin HCl 0.4 mg PO HS Isosorbide Mononitrate ER [Imdur] 30 mg PO BID Carboxymethyl/Gly/Poly80/Pf [Refresh Optive Roque-3 Drops] 1 drop BOTH EYES QID PRN PRN Reason: DRY EYES Famotidine [Pepcid] 20 mg PO BID Calcium Carbonate [Tums] 1,000 mg PO BID PRN PRN Reason: Indigestion Sodium Chloride [Saline Nasal [place]] 1 spray EA NOSTRIL QID PRN PRN Reason: DRY NOSE/ ALLERGY SYMPTOMS Losartan [Cozaar] 25 mg PO BID Aspirin [Adult Low Dose Aspirin EC] 162 mg PO DAILY Stool Softener 1 dose PO DAILY PRN PRN Reason: Constipation Prevagen 1 dose PO DAILY Areds 1 dose PO DAILY hydrALAZINE HCL 1 tab PO BID Atorvastatin [Lipitor] 40 mg PO HS Trospium Chloride [Sanctura XR] 60 mg PO HS Triamcinolone 0.1% Cream [Kenalog 0.1% Cream] 1 applicatio TOPICAL BID PRN PRN Reason: Rash Multivit-Mins/Iron/Folic/Lycop [Centrum Men's Tablet] 1 each PO DAILY Vitamin D 1 dose PO DAILY Cetirizine HCl [Zyrtec] 10 mg PO DAILY Discontinued Acetaminophen Tab [Tylenol] 1,000 mg PO DAILY PRN PRN Reason: Pain bisacodyL [Dulcolax] 1 dose RECTAL HS PRN PRN Reason: Constipation Discharge Medication List Tamsulosin HCl 0.4 mg PO HS 08/28/13 [History] Isosorbide Mononitrate ER [Imdur] 30 mg PO BID 07/16/15 [History] Carboxymethyl/Gly/Poly80/Pf [Refresh Optive Roque-3 Drops] 1 drop BOTH EYES QID PRN 10/23/17 [History] Famotidine [Pepcid] 20 mg PO BID 04/21/19 [History] Calcium Carbonate [Tums] 1,000 mg PO BID PRN 03/22/20 [History] Sodium Chloride [Saline Nasal [place]] 1 spray EA NOSTRIL QID PRN 09/05/20 [History] Triamcinolone 0.1% Cream [Kenalog 0.1% Cream] 1 applicatio TOPICAL BID PRN 09/05/20 [History] Losartan [Cozaar] 25 mg PO BID 05/29/23 [History] Areds 1 dose PO DAILY 08/09/23 [History] Aspirin [Adult Low Dose Aspirin EC] 162 mg PO DAILY 08/09/23 [History] Multivit-Mins/Iron/Folic/Lycop [Centrum Men's Tablet] 1 each PO DAILY 08/09/23 [History] Prevagen 1 dose PO DAILY 08/09/23 [History] Stool Softener 1 dose PO DAILY PRN 08/09/23 [History] Vitamin D 1 dose PO DAILY 08/09/23 [History] hydrALAZINE HCL 1 tab PO BID 08/13/23 [History] Atorvastatin [Lipitor] 40 mg PO HS 08/21/23 [History] Cetirizine HCl [Zyrtec] 10 mg PO DAILY 08/21/23 [History] Trospium Chloride [Sanctura XR] 60 mg PO HS 08/21/23 [History] Acetaminophen Tab [Tylenol Tab] 1,000 mg PO Q6HR PRN #30 tablet 08/31/23 [Rx] Simethicone [Gas-X] 125 mg PO AC-TID PRN #20 capsule 08/31/23 [Rx] Follow up Appointment(s)/Referral(s): Veronica Jameson MD [STAFF PHYSICIAN] - 09/04/23 6:30 pm Patient Instructions/Handouts: Colectomy Diet (GEN), Laparoscopic Bowel Resection (GEN) Activity/Diet/Wound Care/Special Instructions: EXPECT BOWEL MOVEMENT WITH BLOOD FOR 1 WEEK TAKE LAXATIVE FOR CONSTIPATION AFTER 4 DAYS, 09/04/23 NO LONG DRIVES OR AIRPLANE RIDES OVER 30 MINUTES FOR THE NEXT 2 WEEKS DUE TO HIGH RISK OF PULMONARY EMBOLISM/DVTs Wear abdominal binder for comfort. No lifting over 4 pounds in 4 weeks Sep 30June shower. No bath tub soaks for two weeks until Sep 13 Avoid steak, tough meats and seeds such as raspberry seeds. See diverticulitis, low fiber, colectomy diet Use Tylenol scheduled for the next 24-48 hours for best pain relief. Use ice along incisions for today to prevent swelling. Discharge Disposition: HOME SELF-CARE
[2023-09-03 15:30] VITALS: BP 108/61; PULSE 69; RESP 17; TEMP 98.4
== END 2023-09-03 16:28 | disposition home or self-care (01) | DRG 329 ==
LOC: ORWHC2ENDO 06:33 → 4SSUR 06:34
PROVIDERS: ADMIT Surgery Plastic and Reconstructive Surgery; ATTEND Surgery Plastic and Reconstructive Surgery
PROC: 0DBL8ZX Excision of Transverse Colon, Via Natural or Artificial Opening Endoscopic, Diagnostic (ICD-10-PCS; 2023-08-30)
PROC: 0D718ZZ Dilation of Upper Esophagus, Via Natural or Artificial Opening Endoscopic (ICD-10-PCS; 2023-08-30 07:30)
PROC: 0DNL4ZZ Release Transverse Colon, Percutaneous Endoscopic Approach (ICD-10-PCS; principal; 2023-08-31 15:10)
PROC: 0DBN4ZZ Excision of Sigmoid Colon, Percutaneous Endoscopic Approach (ICD-10-PCS; principal; 2023-08-31 15:10)
PROC: 0DNU4ZZ Release Omentum, Percutaneous Endoscopic Approach (ICD-10-PCS; principal; 2023-08-31 15:10)
PROC: 8E0W4CZ Robotic Assisted Procedure of Trunk Region, Percutaneous Endoscopic Approach (ICD-10-PCS; principal; 2023-08-31 15:10)
DX: K57.30 Diverticulosis of large intestine without perforation or abscess without bleeding (principal); K56.2 Volvulus; K56.51 Intestinal adhesions [bands], with partial obstruction; N13.8 Other obstructive and reflux uropathy; K56.7 Ileus, unspecified; I11.0 Hypertensive heart disease with heart failure; K22.2 Esophageal obstruction; I50.9 Heart failure, unspecified; I95.9 Hypotension, unspecified; D50.9 Iron deficiency anemia, unspecified; I35.0 Nonrheumatic aortic (valve) stenosis; R13.14 Dysphagia, pharyngoesophageal phase; E78.5 Hyperlipidemia, unspecified; H40.9 Unspecified glaucoma; K21.9 Gastro-esophageal reflux disease without esophagitis; K90.0 Celiac disease; N40.1 Benign prostatic hyperplasia with lower urinary tract symptoms; R33.8 Other retention of urine; E86.0 Dehydration; K64.1 Second degree hemorrhoids; D12.6 Benign neoplasm of colon, unspecified; I25.10 Atherosclerotic heart disease of native coronary artery without angina pectoris; H35.30 Unspecified macular degeneration; I83.90 Asymptomatic varicose veins of unspecified lower extremity; K44.9 Diaphragmatic hernia without obstruction or gangrene; L30.9 Dermatitis, unspecified; M19.90 Unspecified osteoarthritis, unspecified site; I25.2 Old myocardial infarction; Z79.82 Long term (current) use of aspirin; Z79.899 Other long term (current) drug therapy; Z87.891 Personal history of nicotine dependence; Z95.5 Presence of coronary angioplasty implant and graft; Z85.828 Personal history of other malignant neoplasm of skin; Z85.01 Personal history of malignant neoplasm of esophagus; Z88.2 Allergy status to sulfonamides; Z88.8 Allergy status to other drugs, medicaments and biological substances
CPT/HCPCS: 43248; 45385; 64999; 80048; 80053; 85025; 85610; 86850; 86900; 86901; 88305; 88307

== ENCOUNTER → 2023-09-11 | Outpatient (CLI) | payer MEDICARE ==
[2023-09-11 11:53] LABS: Basophils # (A) 0.03 X 10*3/uL (0.00-0.10); Basophils % (A) 0.4 %; Eosinophils # (A) 0.26 X 10*3/uL (0.04-0.35); Eosinophils % (A) 3.6 %; HCT 36.4 % (39.6-50.0); HGB 11.4 g/dL (13.0-17.0); Lymphocytes # (A) 1.43 X 10*3/uL (0.90-5.00); Lymphocytes % (A) 19.8 %; MCH 29.4 pg (27.0-32.0); MCHC 31.3 g/dL (32.0-37.0); MCV 93.8 FL (80.0-97.0); Mean Platelet Volume 11.1 FL (9.5-12.2); Monocytes # (A) 0.74 X 10*3/uL (0.20-1.00); Monocytes % (A) 10.2 %; NRBC Per 100 WBC 0 X 10*3/uL (0.00-0.01); Neutrophils # (A) 4.68 X 10*3/uL (1.80-7.70); Neutrophils % (A) 64.8 %; Platelet Count 299 X 10*3/uL (140-440); RBC 3.88 X 10*6/uL (4.40-5.60); RDW 14.4 % (11.5-14.5); WBC 7.23 X 10*3/uL (4.50-10.00)
[2023-09-11 12:08] LABS: Urine Creatinine 77.9 mg/dL (39.0-259.0)
[2023-09-11 12:34] LABS: BUN/Creat Ratio 11.31 Ratio (12.00-20.00); Blood Urea Nitrogen 18.1 mg/dL (9.0-27.0); Chol/HDL Ratio 3.05 Ratio; Creatine Kinase 73 U/L (35-257); Glucose 111 mg/dL (70-110); Iron 53 UG/DL (65-175); LDL Cholesterol,Calculated 52.4 mg/dL (0.0-131.0); Magnesium 2.6 mg/dL (1.5-2.4); Phosphorus 3.8 mg/dL (2.4-5.1); Total Iron Binding Capacity 256 UG/DL (228-460); Uric Acid 5.4 mg/dL (3.7-8.7)
[2023-09-11 12:35] LABS: ALT 53 U/L (10-49); AST 47 U/L (14-35); Albumin/Globulin Ratio 1.54 Ratio (1.60-3.17); Alkaline Phosphatase 68 U/L (41-126); Calcium 9.5 mg/dL (8.7-10.3); Carbon Dioxide 24.7 mmol/L (21.6-31.8); Chloride 104 mmol/L (96-109); Globulin 2.6 g/dL (1.6-3.3); Potassium 5.2 mmol/L (3.5-5.5); Prostate Specific Antigen 0.97 ng/mL (0.000-6.500); Sodium 139 mmol/L (135-145); Total Bilirubin 0.6 mg/dL (0.3-1.2); Total Protein 6.6 g/dL (6.2-8.2)
[2023-09-11 13:23] LABS: Erythrocyte Sedimentation Rate 52 mm/Hr (0-20)
== END | disposition home or self-care (01) ==
LOC: LABWHC1 07:18
PROVIDERS: ATTEND Internal Medicine
DX: Z00.00 Encounter for general adult medical examination without abnormal findings (principal); I12.9 Hypertensive chronic kidney disease with stage 1 through stage 4 chronic kidney disease, or unspecified chronic kidney disease; E11.22 Type 2 diabetes mellitus with diabetic chronic kidney disease; N18.30 Chronic kidney disease, stage 3 unspecified; D63.1 Anemia in chronic kidney disease; N40.0 Benign prostatic hyperplasia without lower urinary tract symptoms; M10.00 Idiopathic gout, unspecified site; M10.9 Gout, unspecified; E78.5 Hyperlipidemia, unspecified
CPT/HCPCS: 36415; 80053; 80061; 82043; 82306; 82550; 82570; 82728; 83036; 83540; 83550; 83735; 84100; 84153; 84443; 84550; 85025; 85652; 86140

== ENCOUNTER 2023-10-21 07:31 | Inpatient (IN) | payer MEDICARE ==
--- NOTE | 2023-10-21 07:50 | ED ---
General Adult HPI - General Chief complaint: Nausea/Vomiting/Diarrhea Stated complaint: vomiting Time Seen by Provider: 10/21/23 07:40 Source: patient, RN notes reviewed, old records reviewed Mode of arrival: ambulatory Limitations: no limitations - History of Present Illness Initial comments: This is an 83-year-old male who presents to the emergency department stating that since Sunday he has been having some abdominal pain and on Sunday was unable to keep anything down he continues to be unable to keep anything down. Patient denies any fever chills. Patient denies any diarrhea. Patient states yesterday he did have a small bowel wound but he has had no bowel today and is unable to pass gas. Patient states he did get the COVID shot on Sunday as well as the influenza shot on Sunday. Patient states he had a colectomy done [address] Jameson. - Related Data Home Medications Medication Instructions Recorded Confirmed Tamsulosin HCl 0.4 mg PO HS 08/28/13 08/30/23 Isosorbide Mononitrate ER [Imdur] 30 mg PO BID 07/16/15 08/30/23 Carboxymethyl/Gly/Poly80/Pf 1 drop BOTH EYES QID PRN 10/23/17 08/30/23 [Refresh Optive Roque-3 Drops] Famotidine [Pepcid] 20 mg PO BID 04/21/19 08/30/23 Calcium Carbonate [Tums] 1,000 mg PO BID PRN 03/22/20 08/30/23 Sodium Chloride [Saline Nasal 1 spray EA NOSTRIL QID PRN 09/05/20 08/30/23 [place]] Triamcinolone 0.1% Cream [Kenalog 1 applicatio TOPICAL BID PRN 09/05/20 08/30/23 0.1% Cream] Losartan [Cozaar] 25 mg PO BID 05/29/23 08/30/23 Areds 1 dose PO DAILY 08/09/23 08/30/23 Aspirin [Adult Low Dose Aspirin EC] 162 mg PO DAILY 08/09/23 08/30/23 Multivit-Mins/Iron/Folic/Lycop 1 each PO DAILY 08/09/23 08/30/23 [Centrum Men's Tablet] Prevagen 1 dose PO DAILY 08/09/23 08/30/23 Stool Softener 1 dose PO DAILY PRN 08/09/23 08/30/23 Vitamin D 1 dose PO DAILY 08/09/23 08/30/23 hydrALAZINE HCL 1 tab PO BID 08/13/23 08/30/23 Atorvastatin [Lipitor] 40 mg PO HS 08/21/23 08/30/23 Cetirizine HCl [Zyrtec] 10 mg PO DAILY 08/21/23 08/30/23 Trospium Chloride [Sanctura XR] 60 mg PO HS 08/21/23 08/30/23 Previous Rx's Medication Instructions Recorded Acetaminophen Tab [Tylenol Tab] 1,000 mg PO Q6HR PRN #30 tablet 08/31/23 Simethicone [Gas-X] 125 mg PO AC-TID PRN #20 capsule 08/31/23 Allergies Allergy/AdvReac Type Severity Reaction Status Date / Time atenolol Allergy Unknown Verified 10/21/23 07:39 clopidogrel bisulfate Allergy severe Verified 10/21/23 07:39 [From Plavix] itching gluten Allergy blisters Verified 10/21/23 07:39 lactose Allergy Abdominal Verified 10/21/23 07:39 Pain simvastatin Allergy Unknown Verified 10/21/23 07:39 beet AdvReac CAUSES Verified 10/21/23 07:39 KIDNEY STONES PER PT [place] And Derivatives AdvReac CAUSES Verified 10/21/23 07:39 [[place]] KIDNEY STONES PER PT cocoa AdvReac CAUSES Verified 10/21/23 07:39 KIDNEY STONES PER PT coffee (Coffea arabica) AdvReac CAUSES Verified 10/21/23 07:39 KIDNEY STONES PER PT cranberry AdvReac CAUSES Verified 10/21/23 07:39 KIDNEY STONES PER PT diphenhydramine AdvReac Diarrhea Verified 10/21/23 07:39 [From Benadryl] green tea AdvReac CAUSES Verified 10/21/23 07:39 KIDNEY STONES PER PT plum AdvReac CAUSES Verified 10/21/23 07:39 KIDNEY STONES PER PT prednisolone AdvReac GLAUCOMA Verified 10/21/23 07:39 rhubarb AdvReac CAUSES Verified 10/21/23 07:39 KIDNEY STONES PER PT spinach AdvReac CAUSES Verified 10/21/23 07:39 KIDNEY STONES PER PT sucralfate [From Carafate] AdvReac REFLUX Verified 10/21/23 07:39 Sulfa (Sulfonamide AdvReac blood Verified 10/21/23 07:39 Antibiotics) disorder sweet potato AdvReac CAUSES Verified 10/21/23 07:39 KIDNEY STONES PER PT tree nut [Nut] AdvReac CAUSES Verified 10/21/23 07:39 KIDNEY STONES PER PT Review of Systems ROS Statement: Those systems with pertinent positive or pertinent negative responses have been documented in the HPI. ROS Other: All systems not noted in ROS Statement are negative. Past Medical History Past Medical History: Coronary Artery Disease (CAD), Cancer, Eye Disorder, GERD/Reflux, GI Bleed, Hyperlipidemia, Hypertension, Myocardial Infarction (CA), Osteoarthritis (OA), Prostate Disorder, Skin Disorder Additional Past Medical History / Comment(s): ESOPHAGEAL cancer-chemo 1980, COLON AND SKIN CANCER , CELIAC DISEASE, BPH, hx KIDNEY STONES, diveritcular, bilateral glaucoma, Rt. eye has macular degeneration, varicose veins, hiatal hernia, hx ulcers, black stool, hx pancreatitis 2016, hx eczema, CHANGE IN BOWEL HABITS, vision becoming worse, pt. doesn't recall having CA Last Myocardial Infarction Date:: 11/25/17 History of Any Multi-Drug Resistant Organisms: None Reported Past Surgical History: Adenoidectomy, Appendectomy, Back Surgery, Bowel Resection, Cholecystectomy, Heart Catheterization With Stent, Hernia Repair, Orthopedic Surgery, Tonsillectomy Additional Past Surgical History / Comment(s): esophagectomy, colectomy, LT CAROTID ENDARTECTOMY, LUMP REMOVED FROM TONGUE, LITHOTRIPSY, CYSTOSCOPY, RT ROTATOR CUFF REPAIR, Rt CTR, DEVIATED SEPTUM, , cardiac STENTS x 3, UMBILICAL HERNIA REPAIR X 2, RT inguinal hernia repair, LOWER BACK SURGERY-HAS SCREWS, BILAT CATARACTS REMOVED, vasectomy, repair of undescended testicle, COLONOSCOPY, EGD Past Anesthesia/Blood Transfusion Reactions: No Reported Reaction Additional Past Anesthesia/Blood Transfusion Reaction / Comment(s): Pt has received blood in past without reaction. Date of Last Stent Placement:: 2015 Past Psychological History: No Psychological Hx Reported Smoking Status: Former smoker Past Alcohol Use History: None Reported Past Drug Use History: None Reported - Past Family History Brother(s) Family Medical History: Cancer Additional Family Medical History / Comment(s): liver and brain Mother Family Medical History: Cancer Additional Family Medical History / Comment(s): LIVER CA, BRAIN CA Sister(s) Family Medical History: Cancer Additional Family Medical History / Comment(s): BREAST CA, LUNG CA. SISTER X 2 Father Family Medical History: Osteoarthritis (OA) Additional Family Medical History / Comment(s): CELIAC DISEASE, ULCERS General Exam - General Exam Comments Initial Comments: GENERAL: Patient is well-developed and well-nourished. Patient is nontoxic and well- hydrated and is in mild distress. ENT: Neck is soft and supple. No significant lymphadenopathy is noted. Oropharynx is clear. Moist mucous membranes. Neck has full range of motion without eliciting any pain. EYES: The sclera were anicteric and conjunctiva were pink and moist. Extraocular movements were intact and pupils were equal round and reactive to light. Eyelids were unremarkable. PULMONARY: Unlabored respirations. Good breath sounds bilaterally. No audible rales rhonchi or wheezing was noted. CARDIOVASCULAR: There is a regular rate and rhythm without any murmurs gallops or rubs. ABDOMEN: Patient's abdomen is diffusely tender and distended also has some hyper acoustic bowel sounds SKIN: Skin is clear with no lesions or rashes and otherwise unremarkable. NEUROLOGIC: Patient is alert and oriented x3. Cranial nerves II through XII are grossly intact. Motor and sensory are also intact. Normal speech, volume and content. Symmetrical smile. MUSCULOSKELETAL: Normal extremities with adequate strength and full range of motion. LYMPHATICS: No significant lymphadenopathy is noted PSYCHIATRIC: Normal psychiatric evaluation. Limitations: no limitations Course Vital Signs 10/21/23 07:37 Temperature 97.5 F L Pulse Rate 97 Respiratory 20 Rate Blood Pressure 101/64 O2 Sat by Pulse 98 Oximetry Medical Decision Making - Medical Decision Making Was pt. sent in by a medical professional or institution (, PA, FOAMITE MIXER, urgent care, hospital, or [facility]...) When possible be specific @ -No Did you speak to anyone other than the patient for history (EMS, parent, family, police, friend...)? What history was obtained from this source @ -No Did you review nursing and triage notes (agree or disagree)? Why? @ -I reviewed and agree with nursing and triage notes Were old charts reviewed (outside hosp., previous admission, EMS record, old EKG, old radiological studies, urgent care reports/EKG's, [facility] records)? Report findings @ -No old charts were reviewed Differential Diagnosis? @ -Differential Abdominal Pain Men: Appendicitis, cholecystitis, diverticulosis, ischemic bowel, pancreatitis, hepatitis, UTI, gastroenteritis, AAA, incarcerated hernia, bowel obstruction, constipation, inflammatory bowel, hepatitis, peptic ulcer disease, splenic infarction, perforated viscus, testicular torsion, this is not meant to be an all-inclusive list EKG interpreted by me (3pts min.). @ -As above X-rays interpreted by me (1pt min.). @ -None done CT interpreted by me (1pt min.). @ -CT of the abdomen pelvis shows a distal small bowel obstruction. It also edison ws a hiatal hernia U/S interpreted by me (1pt. min.). @ -None done What testing was considered but not performed or refused? (CT, X-rays, U/S, labs)? Why? @ -None What meds were considered but not given or refused? Why? @ -None Did you discuss the management of the patient with other professionals ( professionals i.e. , PA, FOAMITE MIXER, lab, RT, psych nurse, secondary social studies teacher, waste water plant operator, teacher, air intelligence officer, case folder)? Give summary @ -I spoke with Dr. Escalante and she agreed to admit the patient admit the patient. I also consulted Dr. Price Was smoking cessation discussed for >3mins.? @ -No Was critical care preformed (if so, how long)? @ -No Were there social determinants of health that impacted care today? How? (Homelessness, low income, unemployed, alcoholism, drug addiction, transportation, low edu. Level, literacy, decrease access to med. care, penitentiary, rehab)? @ -No Was there de-escalation of care discussed even if they declined (Discuss DNR or withdrawal of care, Hospice)? DNR status @ -No What co-morbidities impacted this encounter? (DM, HTN, Smoking, COPD, CAD, Cancer, CVA, ARF, Chemo, Hep., AIDS, mental health diagnosis, sleep apnea, morbid obesity)? @ -None Was patient admitted / discharged? Hospital course, mention meds given and route, prescriptions, significant lab abnormalities, going to OR and other pertinent info. @ -Patient's CAT scan showed a bowel obstruction patient had NG placed and will be admitted to Dr. Jameson with a consult to Dr. Price Undiagnosed new problem with uncertain prognosis? @ -No Drug Therapy requiring intensive monitoring for toxicity (Heparin, Nitro, Insulin, Cardizem)? @ -No Were any procedures done? @ -No Diagnosis/symptom? @ -Small bowel Acute, or Chronic, or Acute on Chronic? @ -Acute Uncomplicated (without systemic symptoms) or Complicated (systemic symptoms)? @ -Default Side effects of treatment? @ -No Exacerbation, Progression, or Severe Exacerbation? @ -No Poses a threat to life or bodily function? How? (Chest pain, [place], CA, pneumonia, PE, COPD, DKA, ARF, appy, cholecystitis, CVA, Diverticulitis, Homicidal, Suicidal, threat to staff... and all critical care pts) @ -Yes this can lead to ischemic bowel dehydration and endorgan dysfunction - Lab Data Result diagrams: 10/21/23 08:10 10/21/23 09:04 Lab Results 10/21/23 10/21/23 10/21/23 Range/Units 08:10 08:10 09:04 WBC 5.8 (3.8-10.6) k/uL RBC 4.92 (4.30-5.90) m/uL Hgb 14.7 D (13.0-17.5) gm/dL Hct 45.4 (39.0-53.0) % MCV 92.2 (80.0-100.0) fL MCH 29.9 (25.0-35.0) pg MCHC 32.4 (31.0-37.0) g/dL RDW 13.9 (11.5-15.5) % Plt Count 210 (150-450) k/uL MPV 9.5 Neutrophils % (Manual) 58 % Band Neuts % (Manual) 11 % Lymphocytes % (Manual) 8 % Monocytes % (Manual) 22 % Eosinophils % (Manual) 1 % Neutrophils # (Manual) 4.00 (1.3-7.7) k/uL Lymphocytes # (Manual) 0.46 L (1.0-4.8) k/uL Monocytes # (Manual) 1.28 H (0-1.0) k/uL Eosinophils # (Manual) 0.06 (0-0.7) k/uL Nucleated RBCs 0 (0-0) /100 WBC Manual Slide Review Performed RBC Morphology Normal Sodium 134 L (137-145) mmol/L Potassium 5.1 (3.5-5.1) mmol/L Chloride 102 (98-107) mmol/L Carbon Dioxide 17 L (22-30) mmol/L Anion Gap 15 mmol/L BUN 44 H (9-20) mg/dL Creatinine 2.26 H (0.66-1.25) mg/dL Est GFR (CKD-EPI)AfAm 30 (>60 ml/min/1.73 sqM) Est GFR (CKD-EPI)NonAf 26 (>60 ml/min/1.73 sqM) Glucose 154 H (74-99) mg/dL Plasma Lactic Acid [place] 1.7 (0.7-2.0) mmol/L Calcium 10.5 H (8.4-10.2) mg/dL Total Bilirubin 1.4 H (0.2-1.3) mg/dL AST 66 H (17-59) U/L ALT 58 H (4-49) U/L Alkaline Phosphatase 63 (38-126) U/L Total Protein 7.4 (6.3-8.2) g/dL Albumin 4.3 (3.5-5.0) g/dL Amylase 61 (30-110) U/L Lipase 92 (23-300) U/L Disposition Clinical Impression: Small bowel obstruction Disposition: ADMITTED IP TO THIS [facility] Referrals: Oren Price MD [Primary Care Provider] - 1-2 days Time of Disposition: 10:50
[2023-10-21] MEDS: SODIUM CHLORIDE 0.9% 1,000 ML IV STA (08:08)
[2023-10-21] MEDS: ONDANSETRON 4 MG/2 ML VIAL IVP STA (08:08)
[2023-10-21] MEDS: HYDROmorphone 0.5 MG/0.5 ML SYRINGE IVP STA (08:10)
[2023-10-21 08:26] LABS: HCT 45.4 % (39.0-53.0); MCH 29.9 pg (25.0-35.0); MCHC 32.4 g/dL (31.0-37.0); MCV 92.2 fL (80.0-100.0); Mean Platelet Volume 9.5; Platelet Count 210 k/uL (150-450); RBC 4.92 m/uL (4.30-5.90); RDW 13.9 % (11.5-15.5); WBC 5.8 k/uL (3.8-10.6)
[2023-10-21 09:03] LABS: HGB 14.7 gm/dL (13.0-17.5)
[2023-10-21 09:32] LABS: Band Neutrophils % 11 %; Eosinophils # (M) 0.06 k/uL (0-0.7); Lymphocytes # (M) 0.46 k/uL (1.0-4.8); Monocytes # (M) 1.28 k/uL (0-1.0); Neutrophils % (M) 58 %; Nucleated Red Blood Cells 0 /100 WBC (0-0); RBC Morphology Normal; Total Cells Counted 100
[2023-10-21 09:33] LABS: ALT 58 U/L (4-49); AST 66 U/L (17-59); African American GFR (CKD) 30 (>60 ml/min/1.73 sqM); Albumin 4.3 g/dL (3.5-5.0); Alkaline Phosphatase 63 U/L (38-126); Amylase 61 U/L (30-110); Anion Gap 15 mmol/L; Blood Urea Nitrogen 44 mg/dL (9-20); Calcium 10.5 mg/dL (8.4-10.2); Carbon Dioxide 17 mmol/L (22-30); Chloride 102 mmol/L (98-107); Glucose 154 mg/dL (74-99); Lipase 92 U/L (23-300); Non-African American GFR(CKD) 26 (>60 ml/min/1.73 sqM); Potassium 5.1 mmol/L (3.5-5.1); Sodium 134 mmol/L (137-145); Total Bilirubin 1.4 mg/dL (0.2-1.3); Total Protein 7.4 g/dL (6.3-8.2)
--- NOTE | 2023-10-21 10:24 | CT ---
EXAMINATION TYPE: CT abdomen pelvis wo con DATE OF EXAM: 10/21/2023 HISTORY: Abdominal pain with nausea and vomiting CT DLP: 628.3 mGycm. Automated Exposure Control for Dose Reduction was Utilized. TECHNIQUE: CT scan of the abdomen and pelvis is performed without oral or IV contrast. COMPARISON: 05/25/2020 FINDINGS: Within the limitations of a non-contrast study, the following observations are made. The lungs are clear. There is a marked hiatal hernia. There is surgical absence of the gallbladder. There is no biliary ductal dilatation. There is no organomegaly of the liver, pancreas, spleen or adrenal glands. The right kidney is markedly atrophic and there is a 11.5 mm right renal calcification and a 10 mm ri ght UPJ calcification but no acute hydronephrosis. The caliber of the abdominal aorta is normal and there is no retroperitoneal adenopathy or hemorrhage . There is marked dilatation of the stomach and small bowel loops consistent with a distal small bowel obstruction. Exact transition point is indeterminate but appears to be in the right mid abdomen near the anastomosis with the large bowel. Large bowel sutures are identified in the right colon and withi n the region of the rectosigmoid junction.. There is no free intraperitoneal air or fluid. There is no pelvic mass, free fluid, abscess or adenopathy. . The osseous structures and soft tissues are unremarkable. IMPRESSION: 1. Marked hiatal hernia with marked distal small bowel obstruction as described above. 2. Postsurgical changes of partial bowel resection in the right colon and rectosigmoid junction.
--- NOTE | 2023-10-21 11:27 | XR ---
EXAMINATION TYPE: XR chest 1V confirm line [facility] DATE OF EXAM: 10/21/2023 COMPARISON: 09/05/2020 HISTORY: Confirm NG tube placement TECHNIQUE: Single frontal view of the chest is obtained. FINDINGS There is a retrocardiac opacity indicating possible pneumonia. There is an NG tube within the stomach. There are dilated small bowel loops suggest the presence of ileus or obstruction. IMPRESSION: 1. Retrocardiac opacity. 2. NG tube in the stomach. 3. questionable small bowel ileus or obstruction.
[2023-10-21] MEDS: SODIUM CHLORIDE 0.9% 1,000 ML IV ONE ×2 (11:37→16:02)
--- NOTE | 2023-10-21 15:16 | P.GSHP ---
History of Present Illness H&P Date: 10/21/23 Patient family at bedside reports passage of flatus was yesterday. Patient was doing well until sudden onset of intractable nausea vomiting. He has significant past history of esophagectomy for esophageal cancer including recent colectomy. Reports no problems of bowel habits. He had bilious emesis. CT of the abdomen pelvis reviewed without definite transition point. May have ice chips popsicles. Continue nasogastric tube. Also barium/Gastrografin upper GI with small bowel follow-through to identify the point of transition and also therapeutic management. Above plan discussed. Shared decision making performed. Past Medical History Past Medical History: Coronary Artery Disease (CAD), Cancer, Eye Disorder, GERD/Reflux, GI Bleed, Hyperlipidemia, Hypertension, Myocardial Infarction ([place]), Osteoarthritis (OA), Prostate Disorder, Skin Disorder Additional Past Medical History / Comment(s): ESOPHAGEAL cancer-chemo 1980, C OLON AND SKIN CANCER , CELIAC DISEASE, BPH, hx KIDNEY STONES, diveritcular, bilateral glaucoma, Rt. eye has macular degeneration, varicose veins, hiatal hernia, hx ulcers, black stool, hx pancreatitis 2016, hx eczema, CHANGE IN BOWEL HABITS, vision becoming worse, pt. doesn't recall having [place] Last Myocardial Infarction Date:: 11/25/17 History of Any Multi-Drug Resistant Organisms: None Reported Past Surgical History: Adenoidectomy, Appendectomy, Back Surgery, Bowel Resection, Cholecystectomy, Heart Catheterization With Stent, Hernia Repair, Orthopedic Surgery, Tonsillectomy Additional Past Surgical History / Comment(s): esophagectomy, colectomy, LT CAROTID ENDARTECTOMY, LUMP REMOVED FROM TONGUE, LITHOTRIPSY, CYSTOSCOPY, RT ROTATOR CUFF REPAIR, Rt CTR, DEVIATED SEPTUM, , cardiac STENTS x 3, UMBILICAL HERNIA REPAIR X 2, RT inguinal hernia repair, LOWER BACK SURGERY-HAS SCREWS, BILAT CATARACTS REMOVED, vasectomy, repair of undescended testicle, COLONOSCOPY, EGD Past Anesthesia/Blood Transfusion Reactions: No Reported Reaction Additional Past Anesthesia/Blood Transfusion Reaction / Comment(s): Pt has received blood in past without reaction. Date of Last Stent Placement:: 2015 Past Psychological History: No Psychological Hx Reported Smoking Status: Former smoker Past Alcohol Use History: None Reported Past Drug Use History: None Reported - Past Family History Brother(s) Family Medical History: Cancer Additional Family Medical History / Comment(s): liver and brain Mother Family Medical History: Cancer Additional Family Medical History / Comment(s): LIVER CA, BRAIN CA Sister(s) Family Medical History: Cancer Additional Family Medical History / Comment(s): BREAST CA, LUNG CA. SISTER X 2 Father Family Medical History: Osteoarthritis (OA) Additional Family Medical History / Comment(s): CELIAC DISEASE, ULCERS Medications and Allergies Home Medications Medication Instructions Recorded Confirmed Type Tamsulosin HCl 0.4 mg PO HS 08/28/13 10/21/23 History Isosorbide Mononitrate ER [Imdur] 30 mg PO BID 07/16/15 10/21/23 History Triamcinolone 0.1% Cream [Kenalog 1 applicatio TOPICAL BID PRN 09/05/20 10/21/23 History 0.1% Cream] Losartan [Cozaar] 25 mg PO BID 05/29/23 10/21/23 History Aspirin [Adult Low Dose Aspirin EC] 81 mg PO DAILY 08/09/23 10/21/23 History Prevagen 1 tab PO DAILY 08/09/23 10/21/23 History hydrALAZINE HCL 25 mg PO BID 08/13/23 10/21/23 History Atorvastatin [Lipitor] 40 mg PO HS 08/21/23 10/21/23 History Cetirizine HCl [Zyrtec] 10 mg PO DAILY 08/21/23 10/21/23 History Trospium Chloride [Sanctura XR] 60 mg PO DAILY 08/21/23 10/21/23 History Cholecalciferol (Vitamin D3) 50 mcg PO DAILY 10/21/23 10/21/23 History [Vitamin D3 (50 Mcg = 2000 Iu) Chew Tab] Cyanocobalamin [Vitamin B-12] 500 mcg PO DAILY 10/21/23 10/21/23 History Docusate [Colace] 100 mg PO DAILY 10/21/23 10/21/23 History Famotidine 40 mg PO DAILY PRN 10/21/23 10/21/23 History Meloxicam [Mobic] 15 mg PO DAILY 10/21/23 10/21/23 History Mv-Min/Folic/K1/Lycopen/Lutein 1 tab PO DAILY 10/21/23 10/21/23 History [Centrum Silver Men Tablet] Pantoprazole [Protonix] 40 mg PO HS 10/21/23 10/21/23 History Timolol 0.5% Ophth Soln [Timoptic 1 drop BOTH EYES HS 10/21/23 10/21/23 History 0.5% Ophth Soln] Vit C/E/Zn/Coppr/Lutein/Zeaxan 1 cap PO DAILY 10/21/23 10/21/23 History [Preservision Areds 2 Softgel] Allergies Allergy/AdvReac Type Severity Reaction Status Date / Time atenolol Allergy Unknown Verified 10/21/23 12:08 clopidogrel bisulfate Allergy severe Verified 10/21/23 12:08 [From Plavix] itching gluten Allergy blisters Verified 10/21/23 12:08 lactose Allergy Abdominal Verified 10/21/23 12:08 Pain simvastatin Allergy Unknown Verified 10/21/23 12:08 beet AdvReac CAUSES Verified 10/21/23 12:08 KIDNEY STONES PER PT Sage And Derivatives AdvReac CAUSES Verified 10/21/23 12:08 [Sage] KIDNEY STONES PER PT cocoa AdvReac CAUSES Verified 10/21/23 12:08 KIDNEY STONES PER PT coffee (Coffea arabica) AdvReac CAUSES Verified 10/21/23 12:08 KIDNEY STONES PER PT cranberry AdvReac CAUSES Verified 10/21/23 12:08 KIDNEY STONES PER PT diphenhydramine AdvReac Diarrhea Verified 10/21/23 12:08 [From Benadryl] green tea AdvReac CAUSES Verified 10/21/23 12:08 KIDNEY STONES PER PT plum AdvReac CAUSES Verified 10/21/23 12:08 KIDNEY STONES PER PT prednisolone AdvReac GLAUCOMA Verified 10/21/23 12:08 rhubarb AdvReac CAUSES Verified 10/21/23 12:08 KIDNEY STONES PER PT spinach AdvReac CAUSES Verified 10/21/23 12:08 KIDNEY STONES PER PT sucralfate [From Carafate] AdvReac REFLUX Verified 10/21/23 12:08 Sulfa (Sulfonamide AdvReac blood Verified 10/21/23 12:08 Antibiotics) disorder sweet potato AdvReac CAUSES Verified 10/21/23 12:08 KIDNEY STONES PER PT tree nut [Nut] AdvReac CAUSES Verified 10/21/23 12:08 KIDNEY STONES PER PT Surgical - Exam Vital Signs Temp Pulse Resp BP Pulse Ox 97.5 F L 97 20 101/64 98 10/21/23 07:37 10/21/23 07:37 10/21/23 07:37 10/21/23 07:37 10/21/23 07:37 Results - Labs 10/21/23 08:10 10/21/23 09:04 Abnormal Lab Results - Last 24 Hours (Table) 10/21/23 10/21/23 Range/Units 08:10 09:04 Lymphocytes # (Manual) 0.46 L (1.0-4.8) k/uL Monocytes # (Manual) 1.28 H (0-1.0) k/uL Sodium 134 L (137-145) mmol/L Carbon Dioxide 17 L (22-30) mmol/L BUN 44 H (9-20) mg/dL Creatinine 2.26 H (0.66-1.25) mg/dL Glucose 154 H (74-99) mg/dL Calcium 10.5 H (8.4-10.2) mg/dL Total Bilirubin 1.4 H (0.2-1.3) mg/dL AST 66 H (17-59) U/L ALT 58 H (4-49) U/L Diabetes panel 10/21/23 Range/Units 09:04 Sodium 134 L (137-145) mmol/L Potassium 5.1 (3.5-5.1) mmol/L Chloride 102 (98-107) mmol/L Carbon Dioxide 17 L (22-30) mmol/L BUN 44 H (9-20) mg/dL Creatinine 2.26 H (0.66-1.25) mg/dL Glucose 154 H (74-99) mg/dL Calcium 10.5 H (8.4-10.2) mg/dL AST 66 H (17-59) U/L ALT 58 H (4-49) U/L Alkaline Phosphatase 63 (38-126) U/L Total Protein 7.4 (6.3-8.2) g/dL Albumin 4.3 (3.5-5.0) g/dL Calcium panel 10/21/23 Range/Units 09:04 Calcium 10.5 H (8.4-10.2) mg/dL Albumin 4.3 (3.5-5.0) g/dL Pituitary panel 10/21/23 Range/Units 09:04 Sodium 134 L (137-145) mmol/L Potassium 5.1 (3.5-5.1) mmol/L Chloride 102 (98-107) mmol/L Carbon Dioxide 17 L (22-30) mmol/L BUN 44 H (9-20) mg/dL Creatinine 2.26 H (0.66-1.25) mg/dL Glucose 154 H (74-99) mg/dL Calcium 10.5 H (8.4-10.2) mg/dL Adrenal panel 10/21/23 Range/Units 09:04 Sodium 134 L (137-145) mmol/L Potassium 5.1 (3.5-5.1) mmol/L Chloride 102 (98-107) mmol/L Carbon Dioxide 17 L (22-30) mmol/L BUN 44 H (9-20) mg/dL Creatinine 2.26 H (0.66-1.25) mg/dL Glucose 154 H (74-99) mg/dL Calcium 10.5 H (8.4-10.2) mg/dL Total Bilirubin 1.4 H (0.2-1.3) mg/dL AST 66 H (17-59) U/L ALT 58 H (4-49) U/L Alkaline Phosphatase 63 (38-126) U/L Total Protein 7.4 (6.3-8.2) g/dL Albumin 4.3 (3.5-5.0) g/dL
[2023-10-21] MEDS: BENZOCAINE SPRAY 1 CAN MUCOUS MEM PRN (16:01)
[2023-10-21] MEDS: TIMOLOL 0.5% OPHTH DROPS 5 ML BTL BOTH EYES SCH (20:18)
[2023-10-21] MEDS: HEPARIN SODIUM,PORCINE 5,000 UNIT/ML 1 ML VIAL SQ SCH (20:19)
[2023-10-21] MEDS: ONDANSETRON 4 MG/2 ML VIAL IVP PRN (20:22)
[2023-10-21] MEDS: TAMSULOSIN 0.4 MG CAP.ER.24H PO SCH (21:08)
[2023-10-21] MEDS: ISOSORBIDE MONONITRATE ER 30 MG TAB.ER.24H PO SCH (21:08)
[2023-10-21] MEDS: hydrALAZINE HCL 25 MG TAB PO SCH (21:08)
[2023-10-21] MEDS: LOSARTAN 25 MG TAB PO SCH (21:08)
[2023-10-22] MEDS: HYDROmorphone 1 MG/ML 1 ML SYRINGE IVP PRN (11:01)
--- NOTE | 2023-10-22 13:18 | P.PN ---
Subjective Progress Note Date: 10/22/23 CHIEF COMPLAINT: SBO HISTORY OF PRESENT ILLNESS: Patient continues to have abdominal pain and abdominal distention. Patient has NG tube in place and had about 1200 mL output yesterday when NG tube was placed. Patient had reported relief after NG tube placed. Patient denies any bowel activity. Patient had small bowel follow- through with upper GI completed today. Test had to be stopped early. Patient had increased abdominal distention. Radiology did report high-grade small bowel obstruction but also noted dilation of stomach in the chest as well as esophageal dilation. There were concerns that patient might aspirate. NG tube was turned back onto suction. PHYSICAL EXAM: VITAL SIGNS: Reviewed. GENERAL: no acute distress. ABDOMEN: Distended. Diffuse tenderness. NEUROLOGIC: Alert and oriented. Cranial nerves II through XII grossly intact. ASSESSMENT: 1. Small bowel obstruction 2. Hiatal hernia 3. History of esophageal cancer status post esophagectomy 4. Recent colectomy PLAN: -Place NG tube back to suction. Upper GI had reported high-grade small bowel obstruction on beginning imaging. Complete small bowel follow-through was canceled. A follow-up x-ray is pending -Keep patient n.p.o. -Continue IV fluids -Continue antiemetics -Continue pain management Physician Inlayer Silver note has been reviewed by physician. Signing provider agrees with the documented findings, assessment, and plan of care. As above. Patient reassessed this evening [id number] CHIEF COMPLAINT: Bowel obstruction HISTORY OF PRESENT ILLNESS: The patient is a 83-year-old male with personal history of multiple abdominal surgeries including esophagectomy for esophageal cancer and gastric pull-through and most recently robotic colectomy for sigmoid diverticulitis. Intraoperative findings had demonstrated multiple adhesions from prior surgery. Patient reports developing abdominal pain after having his COVID shots in both arms. Since admission, he reports intractable nausea and vomiting. He is undergoing a small bowel follow-through. I was notified by radiology of high-grade bowel obstruction however transition point unclear. He denies passage of flatus. No increased abdominal pain. ROS: No bowel movements. No fevers or chills. No new chest pain. Has multiple drug allergies and food allergies. PHYSICAL EXAM: VITAL SIGNS: Reviewed CONSTITUTIONAL: Well developed and in no acute distress. EYES: Conjuctivae without sclera icterus. Extraocular movements grossly intact. HEAD, EARS, NOSE, THROAT: Moist buccal mucosa. Head is atraumatic, normocephalic. Hears conversational speech. No nasal drainage. RESPIRATORY: Non-labored respirations and equal bilateral excursions. CARDIOVASCULAR: Palpable 2+ radial pulses. ABDOMEN: No peritonitis. Mild to moderate distention. MUSCULOSKELETAL: No gross deformity of the lower extremities noted. No clubbing. No cyanosis. SKIN: Good skin turgor. Well perfused. NEUROLOGIC: Cranial nerves II through XII grossly intact. No focal or lateralizing signs. PSYCH: Appropriate affect. Alert and oriented to person, place and time. CLINICAL LABS: Reviewed. No new labs at this time. STUDIES: Small bowel series showing dilated small bowel loops. No transition point identified. This is my independent interpretation. Small bowel follow- through results are still in progress at the time of my assessment after 4 images. ASSESSMENT: 1. Small bowel obstruction intractable nausea and vomiting 2. History of esophageal cancer status post gastric posterior PLAN: 1. I personally discussed case with nib assembler and patient's PCP. Per PCP, cardiology consultation in progress for most recent echo. 2. At this time, final small bowel series pending for location of transition point. Alternatively exploratory laparotomy had been discussed with patient pending cardiac risk assessment. 3. Overall, patient high risk for surgery due to multiple abdominal surgeries and comorbid conditions Objective - Vital Signs Vital signs: Vital Signs Temp 97.5 F L 10/21/23 07:37 Pulse 106 H 10/22/23 10:57 Resp 18 10/22/23 10:57 BP 122/67 10/22/23 10:57 Pulse Ox 98 10/22/23 10:57 FiO2 Intake & Output 10/21/23 10/22/23 10/22/23 18:59 06:59 18:59 Output Total 1700 1200 Balance -1700 -1200 Weight 77.111 kg Output: Gastric Drainage 1700 1200 - Labs CBC & Chem 7: 10/23/23 03:37 10/23/23 06:34
--- NOTE | 2023-10-22 14:04 | P.CONS ---
History of Present Illness - Reason for Consult Consult date: 10/21/23 Requesting physician: Veronica Jameson - Chief Complaint Nausea vomiting and abdominal distention with no bowel movement - History of Present Illness History of present illness 83 years old white male Mr. 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 Perez evaluated the found with the x- ray that he had bowel obstruction and admitted to the hospital after they contacted Dr. Jameson the surgeon and request consultation. History of present illness: Mr. Dodd presented with acute small bowel obstruction and they placed NG tube and more than 1000 cc return from stomach distention with dilatation and small bowel obstruction. Patient had previous surgery with the scope for stricture of the bowel and removed by Dr. Jameson approximately couple months ago. His current history is all of a sudden and started on Sunday and progressed with no resolution and his brought him to the emergency room where he had the NG tube placement and to relieve his distention of the stomach with dilatation. With the underlying CT scan that done in the ER indicating marked hiatal hernia and marked distal small bowel obstruction. And that was done on the date of admission at the same time I did see him on the eighth the date of the admission. Patient also had a chest x-ray and a chest x-ray indicating a retrocardiac opacity which is due to large hiatal hernia by the CAT scan and he had the x-ray for the NG tube and it is in the stomach. Surgical history adenoidectomy back surgery endoscopy heart surgery lithotripsy lumpectomy, appendectomy, carpal tunnel release, cataract extraction, cholecystectomy, and colectomy, deviated septum repair, hemorrhoidectomy, hernia repair, Lasik lens implant, tonsillectomy, vasectomy, socially Social history: Does not smoke nor drink alcohol no smoke marijuana or substance. New his white count was normal 7.23 and hemoglobin 11.4 and his mild microalbumin elevation 46 and mild elevation of microalbumin 3.6. And his last surgery by Dr. Mora was done on August 1823 and discharged on 09/03/2023 with the underlying diagnosis postoperative large bowel obstruction due to diverticulosis high risk of colon adenoma coronary artery disease history of myocardial infarction hyperlipidemia hypertensive heart disease and history of colon resection gastroesophageal reflux disease history of GI bleeding in the past benign prostatic hypertrophy with the with a history of celiac disease and bilateral glaucoma history of heart catheterization with stent placement x 2 and history of esophageal cancer s/p resection and history of intra-abdominal peritoneal adhesion and history of iron deficiency anemia dehydration and history of hypotension due to general anesthesia and urinary tract retention due to benign prostatic hypertrophy and he underwent the robotic assisted da Suzi XI would be laparoscopic lysis of the adhesion which was extensive and assisted robotic assisted da Suzi of the sigmoid colectomy with low anterior resection and intraoperative colonoscopy with the use of sigmoidoscope. Allergies Plavix Bloating Sulfa product with the anemia. And agglutinin close itching and pruritus. He had history of EGD in 08/13/[address] Jameson. 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 Heart murmur Knee fracture Blood transfusion 2015 for GI bleeding, 1974 medication close anemia. Cancer of the colon April 2014 Cholelithiasis 1991 Cancer of the lower esophagus with surgery in 1980. 206 kidney stone 1998 kidney stone 201 kidney stone with the urology Dr. Boles 207 passed stone in November to kidney stone passed on October 2008 skin cancer removed on July 06, 2015 angina February 2015 with the chest pain. Echocardiogram 12/19/2021. Hi story of colon cancer and colon polyp Macular degeneration Hyperlipidemia in 08/2021 hypertension dated 2000 cardiac stent and cardiac cath by Dr. Elliott. Last laboratory on 09/11/2023 baseline creatinine 1.6 and BUN 18.1 and GFR 43. And iron was 53 and serum ferritin was 77 and transferrin 183. AST 47 and ALT 53 on the date of 09/11/2023 with mild elevation and LDL was 52 with HDL 36.40 and his PSA was nine 0.97 normal thyroid function and normal vitamin D in August 2023 Past history of August 13, [address] Jameson with the EGD and postoperative diagnosis dysphagia history of esophageal cancer status post esophagectomy and esophageal anastomosis take stricture and gastritis with bleeding and gastro paresis. Another history of surgery recently by Dr. Jameson dated on 08/30/2023 with the procedure done robotic assisted da Suzi X Xi laparoscopically lysis of adhesion as well as sigmoid colectomy with low anterior resection and intraoperative colonoscopy with the use for sigmoidoscopy. Will be underlying postoperative diagnosis: Large bowel obstruction due to diverticulosis #2 high risk of colon adenoma #3 coronary artery disease #4 history of myocardial infarction in the past next is hyperlipidemia, next hypertensive heart disease next history of colon resection next gastroesophageal reflux disease with stricture next history of GI bleeding next benign prostatic hypertrophy with the history of outflow obstruction his next history of celiac disease next history of bilateral glaucoma next history of heart catheterization and stent placement x 2 history of esophageal cancer with post esophageal resection at [facility] next severe intra-abdominal peritoneal adhesion next pre-existing iron deficiency next dehydration next postoperative hypotension with the anesthesia next urinary retention with the benign prostatic hypertrophy. On the current physical examination On the physical exam: On admission 9824 close initial vital sign indicating that pulse 91 respiratory rate is 17/min and nonlabored blood pressure 122/64 and his mean blood pressure was 83 and oxygen saturation 96% and a repeat on the same date pulse 98 and regular and the respiratory rate 18 blood pressure was 97/60 and pulse mean mean mean blood pressure correction mean blood pressure 72 and oxygen saturation was 95%. On examination patient in module exam room #28 and patient seen and his at bedside and his able to communicate he had NG tube and we ordered telemetry with his strong history of heart disease. And however patient he denied any chest pain. The new line head was normocephalic atraumatic pupil was equal reactive conjunctiva was pink sclera was nonicteric and he had natural teeth uvula midline. Neck was supple no JVD no thyromegaly no lymphadenopathy trachea midline and he had transmitted bruits in both neck side. The chest was clear to auscultation percussion and the heart was a PMI in the fifth intercostal space outside midclavicular line with the underlying mild cardiomegaly he had systolic murmur and history of aortic mild to moderate aortic stenosis and ejection fraction 55 to 60% and he had a mild also mitral stenosis and his pulmonary mild pulmonary regurgitation his pulmonary pressure is normal 26 mmHg and his lining scrubber is and his ejection fraction is 55-60. The abdomen is distended and tympanitic on percussion and mildly tender on palpation and he had the NG tube the extremities no edema and positive pulses. And neurologically is conscious alert oriented no lateralizing sign. The Assessment: Acute small bowel obstruction symptomatic with the currently NG tube and underlying other multiple medical problems as discussed in the record and he has high risk as well. His blood pressure is currently on borderline and he is supplemented with the IV fluid and we will be not resuming any of his medication at this time as patient has significant bowel obstruction. Coronary artery disease atherosclerotic heart disease nonsymptomatic at this point. Recommendation patient currently no medication with NG tube and if any events cardiac guy with arrhythmia we will be consulting his primary lining scrubber. Thank you Dr. Jameson for letting me participate in the care of Mr. Dodd. Past Medical History Past Medical History: Coronary Artery Disease (CAD), Cancer, Eye Disorder, GERD/Reflux, GI Bleed, Hyperlipidemia, Hypertension, Myocardial Infarction (MA), Osteoarthritis (OA), Prostate Disorder, Skin Disorder Additional Past Medical History / Comment(s): ESOPHAGEAL cancer-chemo 1980, COLON AND SKIN CANCER , CELIAC DISEASE, BPH, hx KIDNEY STONES, diveritcular, bilateral glaucoma, Rt. eye has macular degeneration, varicose veins, hiatal hernia, hx ulcers, black stool, hx pancreatitis 2016, hx eczema, CHANGE IN BOWEL HABITS, vision becoming worse, pt. doesn't recall having MA Last Myocardial Infarction Date:: 11/25/17 History of Any Multi-Drug Resistant Organisms: None Reported Past Surgical History: Adenoidectomy, Appendectomy, Back Surgery, Bowel Resectio n, Cholecystectomy, Heart Catheterization With Stent, Hernia Repair, Orthopedic Surgery, Tonsillectomy Additional Past Surgical History / Comment(s): esophagectomy, colectomy, LT CAROTID ENDARTECTOMY, LUMP REMOVED FROM TONGUE, LITHOTRIPSY, CYSTOSCOPY, RT ROTATOR CUFF REPAIR, Rt CTR, DEVIATED SEPTUM, , cardiac STENTS x 3, UMBILICAL HERNIA REPAIR X 2, RT inguinal hernia repair, LOWER BACK SURGERY-HAS SCREWS, BILAT CATARACTS REMOVED, vasectomy, repair of undescended testicle, COLONOSCOPY, EGD Past Anesthesia/Blood Transfusion Reactions: No Reported Reaction Additional Past Anesthesia/Blood Transfusion Reaction / Comm: Pt has received blood in past without reaction. Date of Last Stent Placement:: 2015 Past Psychological History: No Psychological Hx Reported Smoking Status: Former smoker Past Alcohol Use History: None Reported Past Drug Use History: None Reported - Past Family History Brother(s) Family Medical History: Cancer Additional Family Medical History / Comment(s): liver and brain Mother Family Medical History: Cancer Additional Family Medical History / Comment(s): LIVER CA, BRAIN CA Sister(s) Family Medical History: Cancer Additional Family Medical History / Comment(s): BREAST CA, LUNG CA. SISTER X 2 Father Family Medical History: Osteoarthritis (OA) Additional Family Medical History / Comment(s): CELIAC DISEASE, ULCERS Medications and Allergies Home Medications Medication Instructions Recorded Confirmed Type RX: Tamsulosin HCl 0.4 mg PO HS 08/28/13 10/21/23 History RX: Isosorbide Mononitrate ER 30 mg PO BID 07/16/15 10/21/23 History [Imdur] RX: Triamcinolone 0.1% Cream 1 applicatio TOPICAL BID PRN 09/05/20 10/21/23 History [Kenalog 0.1% Cream] RX: Losartan [Cozaar] 25 mg PO BID 05/29/23 10/21/23 History Prevagen 1 tab PO DAILY 08/09/23 10/21/23 History RX: Aspirin [Adult Low Dose 81 mg PO DAILY 08/09/23 10/21/23 History Aspirin EC] RX: hydrALAZINE HCL 25 mg PO BID 08/13/23 10/21/23 History RX: Atorvastatin [Lipitor] 40 mg PO HS 08/21/23 10/21/23 History RX: Cetirizine HCl [Zyrtec] 10 mg PO DAILY 08/21/23 10/21/23 History RX: Trospium Chloride [Sanctura XR] 60 mg PO DAILY 08/21/23 10/21/23 History Cholecalciferol (Vitamin D3) 50 mcg PO DAILY 10/21/23 10/21/23 History [Vitamin D3 (50 Mcg = 2000 Iu) Chew Tab] Cyanocobalamin [Vitamin B-12] 500 mcg PO DAILY 10/21/23 10/21/23 History Docusate [Colace] 100 mg PO DAILY 10/21/23 10/21/23 History Meloxicam [Mobic] 15 mg PO DAILY 10/21/23 10/21/23 History Mv-Min/Folic/K1/Lycopen/Lutein 1 tab PO DAILY 10/21/23 10/21/23 History [Centrum Silver Men Tablet] Pantoprazole [Protonix] 40 mg PO HS 10/21/23 10/21/23 History RX: Famotidine 40 mg PO DAILY PRN 10/21/23 10/21/23 History Timolol 0.5% Ophth Soln [Timoptic 1 drop BOTH EYES HS 10/21/23 10/21/23 History 0.5% Ophth Soln] Vit C/E/Zn/Coppr/Lutein/Zeaxan 1 cap PO DAILY 10/21/23 10/21/23 History [Preservision Areds 2 Softgel] Allergies Allergy/AdvReac Type Severity Reaction Status Date / Time atenolol Allergy Unknown Verified 10/21/23 12:08 clopidogrel bisulfate Allergy severe Verified 10/21/23 12:08 [From Plavix] itching gluten Allergy blisters Verified 10/21/23 12:08 lactose Allergy Abdominal Verified 10/21/23 12:08 Pain simvastatin Allergy Unknown Verified 10/21/23 12:08 beet AdvReac CAUSES Verified 10/21/23 12:08 KIDNEY STONES PER PT Proctor And Derivatives AdvReac CAUSES Verified 10/21/23 12:08 [Proctor] KIDNEY STONES PER PT cocoa AdvReac CAUSES Verified 10/21/23 12:08 KIDNEY STONES PER PT coffee (Coffea arabica) AdvReac CAUSES Verified 10/21/23 12:08 KIDNEY STONES PER PT cranberry AdvReac CAUSES Verified 10/21/23 12:08 KIDNEY STONES PER PT diphenhydramine AdvReac Diarrhea Verified 10/21/23 12:08 [From Benadryl] green tea AdvReac CAUSES Verified 10/21/23 12:08 KIDNEY STONES PER PT plum AdvReac CAUSES Verified 10/21/23 12:08 KIDNEY STONES PER PT prednisolone AdvReac GLAUCOMA Verified 10/21/23 12:08 rhubarb AdvReac CAUSES Verified 10/21/23 12:08 KIDNEY STONES PER PT spinach AdvReac CAUSES Verified 10/21/23 12:08 KIDNEY STONES PER PT sucralfate [From Carafate] AdvReac REFLUX Verified 10/21/23 12:08 Sulfa (Sulfonamide AdvReac blood Verified 10/21/23 12:08 Antibiotics) disorder sweet potato AdvReac CAUSES Verified 10/21/23 12:08 KIDNEY STONES PER PT tree nut [Nut] AdvReac CAUSES Verified 10/21/23 12:08 KIDNEY STONES PER PT Physical Exam Vitals: Vital Signs Pulse Resp BP Pulse Ox 10/22/23 13:00 80 18 106/74 98 10/22/23 10:57 106 H 18 122/67 98 10/22/23 07:45 96 18 117/63 96 10/22/23 06:59 98 18 97/60 95 10/21/23 22:22 91 17 122/64 96 10/21/23 17:00 92 17 107/55 97 10/21/23 16:00 89 22 107/56 97 10/21/23 15:00 84 18 98/52 97 10/21/23 14:00 90 18 105/52 97 Intake and Output 10/21/23 10/22/23 10/22/23 22:59 06:59 14:59 Output Total 1700 1200 Balance -1700 -1200 Output: Gastric Drainage 1700 1200 Results CBC & Chem 7: 10/21/23 08:10 10/21/23 09:04
[2023-10-22] MEDS: SODIUM CHLORIDE 0.9% 1,000 ML IV SCH (14:30)
--- NOTE | 2023-10-22 18:27 | P.PN ---
Subjective Progress Note Date: 10/22/23 Principal diagnosis: Small bowel obstruction Progress note Date of service 10/22/[address] Price Patient seen and evaluated today he was seen yesterday on medical consult and I did see him and room 28 module Today patient still in the ER on hold in room 26 module. Patient awake alert oriented and he was prior to go for his upper GI and small bowel series which until now we do not have the full reading on it. With the underlying history of small bowel obstruction and he received NG tube and suction yesterday and continued today as well. Patient felt comfort but still distended with NG tube with the continuous suction. On admission patient has blood pressure recorded as 97/60 and subsequently improving however I did review his medication with still on the low side we will hold hydralazine and losartan with the potassium was on the elevated borderline. And will be repeating tomorrow the CMP and checking his potassium as well as his creatinine and BUN with the underlying chronic kidney disease but also with mild dehydration with the volume loss as well as: Dioxide is 17 which underlying loss of acid and on the borderline. Today as patient seen evaluated his at bedside and patient conscious alert oriented he had the NG tube but able to communicate and he is well . His blood pressure 118/67 with pulse 84 and his oxygen on room air 96% and he is on nasal cannula his respiratory rate was 18/min. His laboratory on 10/21/2023 the CBC was normal with a hemoglobin 14.7 and a white count was 5.8 however I expected by tomorrow with much changes in the white count and a hemoglobin. On the chemistry his potassium was 5.1 and a sodium 134 but the carbon dioxide is 17 with the BUN 44 and creatinine 2.26 and a GFR of 26 in the borderline from stage III of chronic kidney disease in the baseline of going to stage IV probably in association with dehydration. And the nausea and vomiting and the suction and will change IV fluid to D5 lactated Ringer in same range of 75 and recheck his laboratory tomorrow patient is not diabetic. And need calorie support with the dextrose 5% added to the lactated Ringer. Lactic acid venous 1.7 on admission which is normal and his GFR was 26 which went down probably as mentioned above secondary to the dehydration. Meanwhile his AST 66 and ALT 58 both is elevated mildly including the bilirubin 1.4 and the patient had previously cholecystectomy. The alkaline phosphatase is normal and total protein is normal, On admission serum lipase was normal and amylase and albumin and I expect some changes will be present tomorrow in the laboratory and will be rechecking again lipase level. On the physical exam: Patient is conscious alert oriented the head was normocephalic atraumatic pupils equal reactive conjunctiva was pale and the no change in the oropharynx and he excepted that he had the NG tube through his nose Neck was supple no JVD no thyromegaly no lymphadenopathy. And trachea midline he had history of lower esophageal resection with pulling out of the stomach with the large hiatal hernia with a history of multiple esophageal resection and [facility]. 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 Abdomen was soft protuberant no significant tenderness but tympanitic on percussion and no bowel movement no eructation and he is NG tube in place, initially he had dilated stomach and he had transition in the CT scan of the abdomen on admission. Extremities no edema and positive pulses Assessment: 1. Patient had primary diagnosis small bowel obstruction 2. Secondary diagnosis: He had history of chronic kidney disease stage III however went to stage IV with the dehydration and nausea and vomiting and need to replenish of the fluid will be elevated BUN and creatinine. Patient with mild hypercalcemia and this could be also from dehydration as well his carbon dioxide 17. 3. He had history of 2 stent. With the underlying atherosclerotic heart disease 4. He had recent history of resection of the colon with the robotic da Suzi by Dr. Jameson 2 months ago approximately with stricture 5. He had history of colon cancer in the past. 6. He has a history of chronic anemia but on admission his hemoglobin was 14.7 indicating dehydration with the hemoconcentration. 7. Patient was placed on heparin subcu 8. Advanced arthritis of the LS spine as well as joint arthritis. 9. History of hypertension with hypertensive heart disease, he had history of aortic stenosis and mitral stenosis. And questionable history of congestive heart failure in the past. Recommendation and plan: 1. Will change IV fluid to D5 lactated ringer same rate 75 cc an hour #2 repeat lab tomorrow to assess hydration and also magnesium as well and the BUN and creatinine and also a CBC was ordered to assess his hemoconcentration. 2. Dr. Jameson surgeon is following closely the patient for 44 symptomatic versus instrumentation for his bowel obstruction 3. Obtain serum lipase tomorrow as well as request for obtaining his last echocardiogram to be on the chart. Objective - Vital Signs Vital signs: Vital Signs Temp 97.5 F L 10/21/23 07:37 Pulse 110 H 10/22/23 14:00 Resp 18 10/22/23 14:00 BP 118/67 10/22/23 14:00 Pulse Ox 96 10/22/23 14:00 FiO2 Intake & Output 10/21/23 10/22/23 10/22/23 18:59 06:59 18:59 Output Total 1700 1200 Balance -1700 -1200 Weight 77.111 kg Output: Gastric Drainage 1700 1200 - Labs CBC & Chem 7: 10/21/23 08:10 10/21/23 09:04
[2023-10-22] MEDS: DEXTROSE 5%-LACTATED RINGERS 1,000 ML IV SCH (19:52)
[2023-10-23] MEDS: SODIUM CHLORIDE 0.9% 500 ML 500 ML IV ONE ×3 (01:29→11:08)
[2023-10-23 02:35] LABS: Glucose,Whole Blood 155 mg/dL (70-110)
--- NOTE | 2023-10-23 02:56 | XR ---
EXAM: XR Chest, 1 View CLINICAL HISTORY: ITS.REASON XR Reason: Shortness of Breath TECHNIQUE: Frontal view of the chest. COMPARISON: No relevant prior studies available. IMPRESSION: Severe cardiomegaly. Minimal vascular congestion. Bibasilar opacities.
[2023-10-23 03:16] LABS: ABG Base Excess -10.3 mmol/L; ABG HCO3 19 mmol/L (21-25); ABG PCO2 57 mmHg (35-45); ABG PO2 179 mmHg (83-108); ABG TCO2 21 mmol/L (19-24); Allen Test Performed? Yes
[2023-10-23 03:18] LABS: ABG PH 7.13 (7.35-7.45)
[2023-10-23] MEDS: SODIUM BICARB 8.4% 50 ML SYR (1 MEQ/ML) ONE (03:29)
[2023-10-23] MEDS: SODIUM CHLORIDE 0.9% 2,000 ML IV ONE (03:30)
[2023-10-23] MEDS: NOREPINEPHRINE 4 MG in SODIUM CHLORIDE 0.9% 250 ML IV SCH (03:31)
--- NOTE | 2023-10-23 03:42 | XR ---
EXAM: XR Chest, 1 View CLINICAL HISTORY: ITS.REASON XR Reason: Tube placement TECHNIQUE: Frontal view of the chest. COMPARISON: 10/21/2023 IMPRESSION: Cardiomegaly. Slightly prominent interstitial markings. Left basilar opacity. ET tube in good position.
[2023-10-23 03:46] LABS: HCT 38.8 % (39.0-53.0); HGB 12.6 gm/dL (13.0-17.5); MCH 30.8 pg (25.0-35.0); MCHC 32.5 g/dL (31.0-37.0); MCV 94.9 fL (80.0-100.0); Mean Platelet Volume 9.9; Platelet Count 227 k/uL (150-450); RBC 4.08 m/uL (4.30-5.90); RDW 14.4 % (11.5-15.5); WBC 3.9 k/uL (3.8-10.6)
[2023-10-23] MEDS: VASOPRESSIN 60 UNIT in SODIUM CHLORIDE 0.9% 150 ML IV SCH (03:56)
[2023-10-23] MEDS ORDERED: NALOXONE 0.4 MG/ML 1 ML VIAL IV PRN (04:09)
[2023-10-23 04:46] LABS: ALT 32 U/L (4-49); AST 46 U/L (17-59); African American GFR (CKD) 20 (>60 ml/min/1.73 sqM); Alkaline Phosphatase 57 U/L (38-126); Blood Urea Nitrogen 81 mg/dL (9-20); Calcium 9.2 mg/dL (8.4-10.2); Carbon Dioxide 20 mmol/L (22-30); Chloride 95 mmol/L (98-107); Glucose 132 mg/dL (74-99); Non-African American GFR(CKD) 17 (>60 ml/min/1.73 sqM); Total Bilirubin 1.1 mg/dL (0.2-1.3)
[2023-10-23 04:59] LABS: ABG HCO3 21 mmol/L (21-25); ABG Oxygen Saturation 91.1 % (94-97); ABG PCO2 40 mmHg (35-45); ABG PH 7.32 (7.35-7.45); ABG PO2 62 mmHg (83-108); ABG TCO2 22 mmol/L (19-24); Allen Test Performed? Yes
--- NOTE | 2023-10-23 05:00 | P.CNPUL ---
History of Present Illness Consult date: 10/23/23 Requesting physician: Oren Price Reason for consult: other (Hypoxemia) Chief complaint: Abdominal pain History of present illness: Patient is an 83-year-old white male with past medical history significant for hypertension, hyperlipidemia, coronary artery disease with previous PCI/stent, GERD, colon cancer with previous resection, hiatal hernia, GI bleed. Of note, patient had a recently underwent exploratory laparotomy Dr. Jameson on 08/30/2023, found to have a partial large bowel obstruction, and underwent lysis of adhesions and sigmoid colectomy with low anterior resection. Patient return to the emergency department on 10/21/2023 chiefly complaining of abdominal pain associated with intractable nausea and vomiting. CT of the abdomen and pelvis done on admission demonstrating marked dilation of the stomach and small bowel loops consistent with a distal small bowel obstruction. Exact transition point is indeterminate, but appears to be in the right mid abdomen near the anas tomosis with a large bowel. No free or intraperitoneal air or fluid. General surgery had been following the patient. Pursuing conservative management at this point. We were not consulted until early this morning. Patient was noted to be short of breath and hypoxic. He was also profoundly hypotensive. An A- team was called for profound hypotension. I recommended transferring the patient to the intensive care unit. He was unresponsive. Unfortunately no prior CODE STATUS was established. We did eventually get a hold of patient's spouse who wants the patient to be a full code. Although, she was unsure of who that patient's primary decision maker is, as they have only been for one year. Never the less, we cannot reach the son. The patient's would like the patient to undergo intubation to mechanical ventilator if necessary, and also receive any resuscitative efforts necessary. Blood pressure currently 50/30 mmHg. Patient is currently being fluid resuscitated, and norepinephrine is in the process of being started. CLINICAL DERMATOLOGIST performed rapid sequence intubation. During the intubation, patient had large volume aspiration. Airway was eventually secured. Postintubation ABG is showing a PaO2 of 179, pCO2 of 57, pH of 7.13. Consistent with combined respiratory and metabolic acidosis. Will increase the respiratory rate to 26. Current ventilator settings include assist-control, respiratory rate 20, tidal volume 500, FiO2 100%, PEEP of 5. Also, received two amps of sodium bicarbonate. Postintubation chest x-ray noted. Endotracheal tube in good location. Prominent interstitial markings. Left basilar opacity. The abdomen is firm and distended. Nasogastric tube is hooked to suction draining a copious amount of gastric output. A total of 1.7 L of brown output so far. Patient will have to go down for a stat repeat CAT scan of the abdomen. General surgery will be updated on patient's clinical deterioration. Repeat labs are pending. Patient is currently in the intensive care unit, intubated to the mechanical ventilator. He is moving all 4 extremities. Reaching for endotracheal tube. We are in the process of starting sedation with propofol. Prognosis is guarded. Review of Systems ROS unobtainable: due to endotracheal tube Past Medical History Past Medical History: Coronary Artery Disease (CAD), Cancer, Eye Disorder, GERD/Reflux, GI Bleed, Hyperlipidemia, Hypertension, Myocardial Infarction (OK), Osteoarthritis (OA), Prostate Disorder, Skin Disorder Additional Past Medical History / Comment(s): ESOPHAGEAL cancer-chemo 1980, COLON AND SKIN CANCER , CELIAC DISEASE, BPH, hx KIDNEY STONES, diveritcular, bilateral glaucoma, Rt. eye has macular degeneration, varicose veins, hiatal hernia, hx ulcers, black stool, hx pancreatitis 2016, hx eczema, CHANGE IN BOWEL HABITS, vision becoming worse, pt. doesn't recall having OK Last Myocardial Infarction Date:: 11/25/17 History of Any Multi-Drug Resistant Organisms: None Reported Past Surgical History: Adenoidectomy, Appendectomy, Back Surgery, Bowel Resection, Cholecystectomy, Heart Catheterization With Stent, Hernia Repair, Orthopedic Surgery, Tonsillectomy Additional Past Surgical History / Comment(s): esophagectomy, colectomy, LT CAROTID ENDARTECTOMY, LUMP REMOVED FROM TONGUE, LITHOTRIPSY, CYSTOSCOPY, RT ROTATOR CUFF REPAIR, Rt CTR, DEVIATED SEPTUM, , cardiac STENTS x 3, UMBILICAL HERNIA REPAIR X 2, RT inguinal hernia repair, LOWER BACK SURGERY-HAS SCREWS, BILAT CATARACTS REMOVED, vasectomy, repair of undescended testicle, COLONOSCOPY, EGD, colon resection August 2023 Past Anesthesia/Blood Transfusion Reactions: No Reported Reaction Additional Past Anesthesia/Blood Transfusion Reaction / Comment(s): Pt has received blood in past without reaction. Date of Last Stent Placement:: 2015 Past Psychological History: No Psychological Hx Reported Additional Psychological History / Comment(s): . Smoking Status: Former smoker Past Alcohol Use History: None Reported Additional Past Alcohol Use History / Comment(s): STARTED SMOKING AGE 11 (1951) WAS 2 PPD, QUIT 1984 Past Drug Use History: None Reported - Past Family History Brother(s) Family Medical History: Cancer Additional Family Medical History / Comment(s): liver and brain Mother Family Medical History: Cancer Additional Family Medical History / Comment(s): LIVER CA, BRAIN CA Sister(s) Family Medical History: Cancer Additional Family Medical History / Comment(s): BREAST CA, LUNG CA. SISTER X 2 Father Family Medical History: Osteoarthritis (OA) Additional Family Medical History / Comment(s): CELIAC DISEASE, ULCERS Medications and Allergies Home Medications Medication Instructions Recorded Confirmed Type Tamsulosin HCl 0.4 mg PO HS 08/28/13 10/21/23 History Isosorbide Mononitrate ER [Imdur] 30 mg PO BID 07/16/15 10/21/23 History Triamcinolone 0.1% Cream [Kenalog 1 applicatio TOPICAL BID PRN 09/05/20 10/21/23 History 0.1% Cream] Losartan [Cozaar] 25 mg PO BID 05/29/23 10/21/23 History Aspirin [Adult Low Dose Aspirin EC] 81 mg PO DAILY 08/09/23 10/21/23 History Prevagen 1 tab PO DAILY 08/09/23 10/21/23 History hydrALAZINE HCL 25 mg PO BID 08/13/23 10/21/23 History Atorvastatin [Lipitor] 40 mg PO HS 08/21/23 10/21/23 History Cetirizine HCl [Zyrtec] 10 mg PO DAILY 08/21/23 10/21/23 History Trospium Chloride [Sanctura XR] 60 mg PO DAILY 08/21/23 10/21/23 History Cholecalciferol (Vitamin D3) 50 mcg PO DAILY 10/21/23 10/21/23 History [Vitamin D3 (50 Mcg = 2000 Iu) Chew Tab] Cyanocobalamin [Vitamin B-12] 500 mcg PO DAILY 10/21/23 10/21/23 History Docusate [Colace] 100 mg PO DAILY 10/21/23 10/21/23 History Famotidine 40 mg PO DAILY PRN 10/21/23 10/21/23 History Meloxicam [Mobic] 15 mg PO DAILY 10/21/23 10/21/23 History Mv-Min/Folic/K1/Lycopen/Lutein 1 tab PO DAILY 10/21/23 10/21/23 History [Centrum Silver Men Tablet] Pantoprazole [Protonix] 40 mg PO HS 10/21/23 10/21/23 History Timolol 0.5% Ophth Soln [Timoptic 1 drop BOTH EYES HS 10/21/23 10/21/23 History 0.5% Ophth Soln] Vit C/E/Zn/Coppr/Lutein/Zeaxan 1 cap PO DAILY 10/21/23 10/21/23 History [Preservision Areds 2 Softgel] Allergies Allergy/AdvReac Type Severity Reaction Status Date / Time atenolol Allergy Unknown Verified 10/21/23 12:08 clopidogrel bisulfate Allergy severe Verified 10/21/23 12:08 [From Plavix] itching gluten Allergy blisters Verified 10/21/23 12:08 lactose Allergy Abdominal Verified 10/21/23 12:08 Pain simvastatin Allergy Unknown Verified 10/21/23 12:08 beet AdvReac CAUSES Verified 10/21/23 12:08 KIDNEY STONES PER PT Donley And Derivatives AdvReac CAUSES Verified 10/21/23 12:08 [Donley] KIDNEY STONES PER PT cocoa AdvReac CAUSES Verified 10/21/23 12:08 KIDNEY STONES PER PT coffee (Coffea arabica) AdvReac CAUSES Verified 10/21/23 12:08 KIDNEY STONES PER PT cranberry AdvReac CAUSES Verified 10/21/23 12:08 KIDNEY STONES PER PT diphenhydramine AdvReac Diarrhea Verified 10/21/23 12:08 [From Benadryl] green tea AdvReac CAUSES Verified 10/21/23 12:08 KIDNEY STONES PER PT plum AdvReac CAUSES Verified 10/21/23 12:08 KIDNEY STONES PER PT prednisolone AdvReac GLAUCOMA Verified 10/21/23 12:08 rhubarb AdvReac CAUSES Verified 10/21/23 12:08 KIDNEY STONES PER PT spinach AdvReac CAUSES Verified 10/21/23 12:08 KIDNEY STONES PER PT sucralfate [From Carafate] AdvReac REFLUX Verified 10/21/23 12:08 Sulfa (Sulfonamide AdvReac blood Verified 10/21/23 12:08 Antibiotics) disorder sweet potato AdvReac CAUSES Verified 10/21/23 12:08 KIDNEY STONES PER PT tree nut [Nut] AdvReac CAUSES Verified 10/21/23 12:08 KIDNEY STONES PER PT Physical Exam Vitals: Vital Signs Temp Pulse Pulse Resp BP BP Pulse Ox 10/23/23 02:56 10/23/23 02:16 97.6 F 112 H 87/53 93 L 10/23/23 01:30 87/53 10/23/23 00:45 111 H 19 70/40 91 L 10/22/23 20:31 98.5 F 118 H 16 100/68 96 10/22/23 18:14 121 H 20 109/69 96 10/22/23 14:00 110 H 18 118/67 96 10/22/23 13:00 80 18 106/74 98 10/22/23 10:57 106 H 18 122/67 98 10/22/23 07:45 96 18 117/63 96 10/22/23 06:59 98 18 97/60 95 FiO2 10/23/23 02:56 100 10/23/23 02:16 10/23/23 01:30 10/23/23 00:45 10/22/23 20:31 10/22/23 18:14 10/22/23 14:00 10/22/23 13:00 10/22/23 10:57 10/22/23 07:45 10/22/23 06:59 Intake and Output 10/22/23 10/22/23 10/23/23 14:59 22:59 06:59 Output Total 1200 Balance -1200 Output: Gastric Drainage 1200 Other: Voiding Method Toilet Urinal Weight 77.111 kg GENERAL EXAM: Patient is currently intubated to mechanical ventilator. He has a nasogastric tube inserted on the right nare draining a copious amount of brown to green gastric secretions. He is moving all 4 extremities reaching for endotr acheal tube. Nursing staff is in the process of starting sedation HEAD: Normocephalic and atraumatic EYES: Normal reaction of pupils, equal size. NOSE: Clear with pink turbinates. THROAT: No erythema or exudates. NECK: No masses, no JVD. CHEST: No chest wall deformity. LUNGS: Equal air entry with coarse rhonchi heard bilaterally. Intubated mechanical ventilator. Peak pressures are in the order of 29. There is endotracheal secretions consistent in color with orogastric secretions... CVS: S1 and S2 normal with no audible murmur, regular rhythm. No extra heart sounds ABDOMEN: Abdominal distention, firm abdomen. Multiple approximated and healed laparoscopic incision sites. SPINE: No scoliosis or deformity SKIN: No rashes CENTRAL NERVOUS SYSTEM: No focal deficits, tone is normal in all 4 extremities. EXTREMITIES: There is no peripheral edema, clubbing, or cyanosis. Peripheral pulses are intact. Results - Laboratory Findings CBC and BMP: 10/23/23 03:37 10/21/23 09:04 Abnormal lab findings: Abnormal Labs 10/21/23 10/21/23 10/23/23 08:10 09:04 02:34 Lymphocytes # (Manual) 0.46 L Monocytes # (Manual) 1.28 H Sodium 134 L Carbon Dioxide 17 L BUN 44 H Creatinine 2.26 H Glucose 154 H POC Glucose (mg/dL) 155 H Calcium 10.5 H Total Bilirubin 1.4 H AST 66 H ALT 58 H - Diagnostic Findings Chest x-ray: image reviewed Assessment and Plan Assessment: Acute small bowel obstruction, CT of the abdomen and pelvis done on admission demonstrating marked dilation of the stomach and small bowel loops consistent with a distal small bowel obstruction. Exact transition point was indeterminate but appears to be in the right mid abdomen near the anastomosis with a large bowel. Patient was admitted inpatient. Nasogastric tube was previously in i nserted for gastric decompression. The patient ended up aspirating early this morning. Transferred to the intensive care unit in critical condition. Intubated for airway protection. Profound hypotension and shock, refractory to fluid resuscitation, requiring vasopressors in the form of norepinephrine and also requiring vasopressin at physiological dose Anion gap metabolic acidosis Suspect large volume aspiration Acute hypoxemic and hypercapnic respiratory failure, requiring intubation to m echanical ventilator, second to above Acute on chronic kidney disease, due to hypotension and ATN History of large bowel obstruction, status post laparoscopic lysis of adhesions and sigmoid colectomy, done by Dr. Jameson performed on 08/31/2023 History of hyperlipidemia History of hypertension History of coronary artery disease History of GERD History of colon cancer status post bowel resection history of esophageal cancer with esophagectomy Plan: Patient was transferred to the intensive care unit in critical condition Rapid sequence intubation performed by CLINICAL DERMATOLOGIST Witnessed large-volume aspiration Increased respiratory rate to 26. Otherwise, continue with current ventilator settings and wean FiO2 as tolerated Ventilator order set placed. Use propofol for sedation to maintain appropriate RASS of 0 to -1 Nasogastric tube was clogged, currently 1.7 L of gastric content removed Obtain repeat stat CT of the abdomen and pelvis once clinically stabilized. Continue vasopressors in the form of norepinephrine which is currently infusing at 0.34 mcg/kg/min. Vasopressin will be added as an adjunct for blood pressure support. Maintain MAP of 65 mmHg or greater Patient status post 2.5 L fluid resuscitation with crystalloid fluid. Repeat labs are pending Update general surgeon CODE STATUS was confirmed by spouse, and she would like the patient to be a full code at this point. She would like the patient intubated and placed on the mechanical ventilator. She would like resuscitative efforts if necessary. Patient's condition is critical and his prognosis is certainly guarded. We will continue to make recommendations along the way I have personally seen and examined the patient, performed the documentation and the assessment and plan as written. Number of minutes spent on the visit:20 Time with Patient: Greater than 30
[2023-10-23 05:02] LABS: Albumin 3.5 g/dL (3.5-5.0); Total Protein 6.3 g/dL (6.3-8.2)
--- NOTE | 2023-10-23 05:57 | CT ---
EXAM: CT Abdomen and Pelvis Without Intravenous Contrast CLINICAL HISTORY: ITS.REASON CT Reason: SBO; profound hypotension TECHNIQUE: Axial computed tomography images of the abdomen and pelvis without intravenous contrast. CTDI is 19.2 mGy and DLP is 1159 mGy-cm. This CT exam was performed using one or more of the following dose reduction techniques: automated exposure control, adjustment of the mA and/or kV according to patient size, and/or use of iterative reconstruction technique. COMPARISON: No relevant prior studies available. FINDINGS: Limitations: Limited evaluation in the absence of contrast. Lung bases: Unremarkable. No mass. No consolidation. ABDOMEN: Liver: Unremarkable. Gallbladder and bile ducts: Unremarkable. No calcified stones. No ductal dilation. Pancreas: Unremarkable. No ductal dilation. Spleen: Unremarkable. No splenomegaly. Adrenals: Unremarkable. No mass. Kidneys and ureters: No evidence of radiopaque renal calculi or signs of collecting system dilatation. Excretory phase within the kidneys. Simple right renal cysts. No follow-up of these simple cysts is necessary. Atrophic right kidney. Stomach and bowel: Small bowel obstruction. Transition point is poorly visualized with suspected to be within the right hemiabdomen (series 201 image 57). Associated with this is dilatation of upstream small bowel loops measuring up to 4.3 cm. Findings may be due to adhesions given adjacent post surgical changes within the colon from right hemicolectomy changes. Sigmoidectomy changes. Colonic diverticulosis. No evidence of diverticulitis. PELVIS: Appendix: Absent. Bladder: Brock within the bladder. No stones. Reproductive: Unremarkable as visualized. ABDOMEN and PELVIS: Intraperitoneal space: No evidence of pneumatosis, portal venous gas, or free air. No significant fluid collection. Bones/joints: Degenerative changes in the spine. Posterior element spinal fusion hardware noted at L4-L5. No acute fracture. No dislocation. Soft tissues: Unremarkable. Vasculature: Unremarkable. No abdominal aortic aneurysm. Lymph nodes: Unremarkable. No enlarged lymph nodes. IMPRESSION: 1. Small bowel obstruction. Transition point is poorly visualized with suspected to be within the right hemiabdomen (series 201 image 57). Associated with this is dilatation of upstream small bowel loops measuring up to 4.3 cm. Findings may be due to adhesions given adjacent post surgical changes within the colon from right hemicolectomy changes. 2. No evidence of pneumatosis, portal venous gas, or free air. 3. No other acute findings. 4. Incidental findings as described.
[2023-10-23] MEDS: PIPERACILLIN-TAZOBACTAM 3.375 GM in SODIUM CHLORIDE 0.9% 100 ML IVPB SCH (06:59)
[2023-10-23 07:21] LABS: ALT 31 U/L (4-49); AST 33 U/L (17-59); African American GFR (CKD) 19 (>60 ml/min/1.73 sqM); Albumin 3.3 g/dL (3.5-5.0); Albumin/Globulin Ratio 1.3; Alkaline Phosphatase 73 U/L (38-126); Anion Gap 13 mmol/L; Blood Urea Nitrogen 78 mg/dL (9-20); Calcium 8.5 mg/dL (8.4-10.2); Carbon Dioxide 22 mmol/L (22-30); Chloride 106 mmol/L (98-107); Globulin 2.5 g/dL; Glucose 95 mg/dL (74-99); Lipase 27 U/L (23-300); Magnesium 2.5 mg/dL (1.6-2.3); Non-African American GFR(CKD) 17 (>60 ml/min/1.73 sqM); Potassium 4.2 mmol/L (3.5-5.1); Sodium 141 mmol/L (137-145); Total Protein 5.8 g/dL (6.3-8.2)
[2023-10-23 07:27] LABS: NT-Pro-B-Type Natriuretic Pept 4540 pg/mL
--- NOTE | 2023-10-23 07:40 | P.CRDCN ---
History of Present Illness Consult date: 10/23/23 History of present illness: This is an 84-year-old gentleman who requested to see in the intensive care unit for further evaluation of hypotension. The patient currently is intubated and he is on mechanical ventilation. He was transferred from the fourth floor. He is an 83-year-old gentleman with a past medical history significant for CAD with prior stenting of the LAD as well as hypertension and dyslipidemia and recent diagnosis of colon cancer status post abdominal surgery recently in August 2023. The patient presented to the emergency department complaining of nausea and vomiting and abdominal discomfort for the last several days. He underwent further investigation including CT scan of the abdomen and pelvis and that revealed small bowel obstruction and subsequently an NG tube was placed with removal and the drainage of fluid and subsequently he was admitted to the fourth floor after he was seen by the surgical team. Last night his pressure has been low. He did not response to almost half a liter of 0.9 normal saline. Beside that he developed some respiratory distress and subsequently an 18 was called and the patient was transferred to the intensive care unit. He was intubated and placed on mechanical ventilation. I spoke with the patient's family at bedside. Before he presented to the hospital he was not experiencing any symptoms of chest pain or chest discomfort beside the abdominal discomfort and nausea and vomiting. He underwent further evaluation including an EKG and that showed sinus mechanism. Currently he is hypotensive requiring vasopressors with norepinephrine. Beside that the blood work indicated renal failure likely to be secondary to prerenal and hypovolemia. The chest x-ray did not show any acute abnormalities. The patient underwent an echo in 2020 and that revealed normal biventricular systolic function with mild aortic stenosis. The physical examination is remarkable for regular rhythm with a systolic murmur at the right and left upper sternal border with a clear breathing sounds bilaterally and no edema was noted in the lower extremities Assessment Small bowel obstruction Acute hypoxic respiratory failure Possible aspiration pneumonia Hypotension could be secondary to hypovolemia with a differential diagnosis of sepsis Coronary artery disease seems to be stable Valvular heart disease Acute renal failure Multiple comorbid conditions History of colon cancer status post abdominal surgery Plan Continue the current medical regimen DC isosorbide mononitrate Continue supporting the blood pressure with vasopressors to obtain a mean above 65 mmHg Rule out sepsis Rule out acute coronary event as well. Obtain serial cardiac enzymes Obtain an echocardiogram with Doppler Obtain D-dimer also to rule out any pulmonary embolism Follow-up with the patient Past Medical History Past Medical History: Coronary Artery Disease (CAD), Cancer, Eye Disorder, GERD/Reflux, GI Bleed, Hyperlipidemia, Hypertension, Myocardial Infarction (TN), Osteoarthritis (OA), Prostate Disorder, Skin Disorder Additional Past Medical History / Comment(s): ESOPHAGEAL cancer-chemo 1980, COLON AND SKIN CANCER , CELIAC DISEASE, BPH, hx KIDNEY STONES, diveritcular, bilateral glaucoma, Rt. eye has macular degeneration, varicose veins, hiatal hernia, hx ulcers, black stool, hx pancreatitis 2016, hx eczema, CHANGE IN BOWEL HABITS, vision becoming worse, pt. doesn't recall having TN Last Myocardial Infarction Date:: 11/25/17 History of Any Multi-Drug Resistant Organisms: None Reported Past Surgical History: Adenoidectomy, Appendectomy, Back Surgery, Bowel Resection, Cholecystectomy, Heart Catheterization With Stent, Hernia Repair, Orthopedic Surgery, Tonsillectomy Additional Past Surgical History / Comment(s): esophagectomy, colectomy, LT CAROTID ENDARTECTOMY, LUMP REMOVED FROM TONGUE, LITHOTRIPSY, CYSTOSCOPY, RT ROTATOR CUFF REPAIR, Rt CTR, DEVIATED SEPTUM, , cardiac STENTS x 3, UMBILICAL HERNIA REPAIR X 2, RT inguinal hernia repair, LOWER BACK SURGERY-HAS SCREWS, BILAT CATARACTS REMOVED, vasectomy, repair of undescended testicle, COLONOSCOPY, EGD, colon resection August 2023 Past Anesthesia/Blood Transfusion Reactions: No Reported Reaction Additional Past Anesthesia/Blood Transfusion Reaction / Comment(s): Pt has received blood in past without reaction. Date of Last Stent Placement:: 2015 Past Psychological History: No Psychological Hx Reported Additional Psychological History / Comment(s): . Smoking Status: Former smoker Past Alcohol Use History: None Reported Additional Past Alcohol Use History / Comment(s): STARTED SMOKING AGE 11 (1950) WAS 2 PPD, QUIT 1983 Past Drug Use History: None Reported - Past Family History Brother(s) Family Medical History: Cancer Additional Family Medical History / Comment(s): liver and brain Mother Family Medical History: Cancer Additional Family Medical History / Comment(s): LIVER CA, BRAIN CA Sister(s) Family Medical History: Cancer Additional Family Medical History / Comment(s): BREAST CA, LUNG CA. SISTER X 2 Father Family Medical History: Osteoarthritis (OA) Additional Family Medical History / Comment(s): CELIAC DISEASE, ULCERS Medications and Allergies Home Medications Medication Instructions Recorded Confirmed Type Tamsulosin HCl 0.4 mg PO HS 08/28/13 10/21/23 History Isosorbide Mononitrate ER [Imdur] 30 mg PO BID 07/16/15 10/21/23 History Triamcinolone 0.1% Cream [Kenalog 1 applicatio TOPICAL BID PRN 09/05/20 10/21/23 History 0.1% Cream] Losartan [Cozaar] 25 mg PO BID 05/29/23 10/21/23 History Aspirin [Adult Low Dose Aspirin EC] 81 mg PO DAILY 08/09/23 10/21/23 History Prevagen 1 tab PO DAILY 08/09/23 10/21/23 History hydrALAZINE HCL 25 mg PO BID 08/13/23 10/21/23 History Atorvastatin [Lipitor] 40 mg PO HS 08/21/23 10/21/23 History Cetirizine HCl [Zyrtec] 10 mg PO DAILY 08/21/23 10/21/23 History Trospium Chloride [Sanctura XR] 60 mg PO DAILY 08/21/23 10/21/23 History Cholecalciferol (Vitamin D3) 50 mcg PO DAILY 10/21/23 10/21/23 History [Vitamin D3 (50 Mcg = 2000 Iu) Chew Tab] Cyanocobalamin [Vitamin B-12] 500 mcg PO DAILY 10/21/23 10/21/23 History Docusate [Colace] 100 mg PO DAILY 10/21/23 10/21/23 History Famotidine 40 mg PO DAILY PRN 10/21/23 10/21/23 History Meloxicam [Mobic] 15 mg PO DAILY 10/21/23 10/21/23 History Mv-Min/Folic/K1/Lycopen/Lutein 1 tab PO DAILY 10/21/23 10/21/23 History [Centrum Silver Men Tablet] Pantoprazole [Protonix] 40 mg PO HS 10/21/23 10/21/23 History Timolol 0.5% Ophth Soln [Timoptic 1 drop BOTH EYES HS 10/21/23 10/21/23 History 0.5% Ophth Soln] Vit C/E/Zn/Coppr/Lutein/Zeaxan 1 cap PO DAILY 10/21/23 10/21/23 History [Preservision Areds 2 Softgel] Allergies Allergy/AdvReac Type Severity Reaction Status Date / Time atenolol Allergy Unknown Verified 10/21/23 12:08 clopidogrel bisulfate Allergy severe Verified 10/21/23 12:08 [From Plavix] itching gluten Allergy blisters Verified 10/21/23 12:08 lactose Allergy Abdominal Verified 10/21/23 12:08 Pain simvastatin Allergy Unknown Verified 10/21/23 12:08 beet AdvReac CAUSES Verified 10/21/23 12:08 KIDNEY STONES PER PT [place] And Derivatives AdvReac CAUSES Verified 10/21/23 12:08 [[place]] KIDNEY STONES PER PT cocoa AdvReac CAUSES Verified 10/21/23 12:08 KIDNEY STONES PER PT coffee (Coffea arabica) AdvReac CAUSES Verified 10/21/23 12:08 KIDNEY STONES PER PT cranberry AdvReac CAUSES Verified 10/21/23 12:08 KIDNEY STONES PER PT diphenhydramine AdvReac Diarrhea Verified 10/21/23 12:08 [From Benadryl] green tea AdvReac CAUSES Verified 10/21/23 12:08 KIDNEY STONES PER PT plum AdvReac CAUSES Verified 10/21/23 12:08 KIDNEY STONES PER PT prednisolone AdvReac GLAUCOMA Verified 10/21/23 12:08 rhubarb AdvReac CAUSES Verified 10/21/23 12:08 KIDNEY STONES PER PT spinach AdvReac CAUSES Verified 10/21/23 12:08 KIDNEY STONES PER PT sucralfate [From Carafate] AdvReac REFLUX Verified 10/21/23 12:08 Sulfa (Sulfonamide AdvReac blood Verified 10/21/23 12:08 Antibiotics) disorder sweet potato AdvReac CAUSES Verified 10/21/23 12:08 KIDNEY STONES PER PT tree nut [Nut] AdvReac CAUSES Verified 10/21/23 12:08 KIDNEY STONES PER PT Physical Exam Vitals: Vital Signs Temp Pulse Pulse Resp BP BP BP 10/23/23 06:15 95 26 H 91/51 10/23/23 06:00 96 27 H 94/55 10/23/23 05:45 26 H 97/54 10/23/23 05:30 93 26 H 95/54 10/23/23 05:15 92 26 H 98/55 10/23/23 05:00 92 26 H 104/53 10/23/23 04:45 92 26 H 112/73 10/23/23 04:33 10/23/23 04:30 92 26 H 116/60 10/23/23 04:15 96 26 H 117/62 10/23/23 04:00 96 33 H 113/58 10/23/23 03:45 93 24 105/32 10/23/23 03:30 98 30 H 81/34 10/23/23 03:19 97.9 F 96 19 72/26 10/23/23 02:56 10/23/23 02:25 50/40 10/23/23 02:20 62/46 10/23/23 02:16 97.6 F 112 H 87/53 10/23/23 01:30 87/53 10/23/23 00:45 111 H 19 70/40 10/22/23 20:31 98.5 F 118 H 16 100/68 10/22/23 18:14 121 H 20 109/69 10/22/23 14:00 110 H 18 118/67 10/22/23 13:00 80 18 106/74 10/22/23 10:57 106 H 18 122/67 10/22/23 07:45 96 18 117/63 Pulse Ox FiO2 10/23/23 06:15 94 L 10/23/23 06:00 93 L 10/23/23 05:45 94 L 10/23/23 05:30 94 L 10/23/23 05:15 95 10/23/23 05:00 96 10/23/23 04:45 98 10/23/23 04:33 80 10/23/23 04:30 100 10/23/23 04:15 100 10/23/23 04:00 100 100 10/23/23 03:45 99 10/23/23 03:30 100 10/23/23 03:19 88 L 100 10/23/23 02:56 100 10/23/23 02:25 10/23/23 02:20 10/23/23 02:16 93 L 10/23/23 01:30 10/23/23 00:45 91 L 10/22/23 20:31 96 10/22/23 18:14 96 10/22/23 14:00 96 10/22/23 13:00 98 10/22/23 10:57 98 10/22/23 07:45 96 Intake and Output 10/22/23 10/23/23 10/23/23 22:59 06:59 14:59 Intake Total 2903.157 Output Total 3225 Balance -321.843 Intake: IV 2500 Sodium Chloride 0.9% 2, 2500 000 ml @ 999 mls/hr IV . Q2H1M ONE Rx#:[id number] Intake, IV Titration 403.157 Amount Norepinephrine 4 mg In 328.231 Sodium Chloride 0.9% 250 ml @ 0.03 MCG/KG/MIN 8. 814 mls/hr IV .Q24H SHIRA Rx#:[id number] Vasopressin 60 unit In 12.699 Sodium Chloride 0.9% 150 ml @ 0.03 UNITS/MIN 4.59 mls/hr IV .Q24H SHIRA Rx#: [id number] propofoL 1,000 mg In 62.227 Empty Bag 1 bag @ 15 MCG/ KG/MIN 6.94 mls/hr IV . [id number] SHIRA Rx#:[id number] Output: Gastric Drainage 2650 Urine 575 Other: Voiding Method Toilet Indwelling Catheter Urinal Weight 77.111 kg Results 10/23/23 03:37 10/23/23 06:34 Cardiac Enzymes 10/23/23 10/23/23 Range/Units 04:09 06:34 AST 46 33 (17-59) U/L CBC 10/23/23 Range/Units 03:37 WBC 3.9 (3.8-10.6) k/uL RBC 4.08 L (4.30-5.90) m/uL Hgb 12.6 L (13.0-17.5) gm/dL Hct 38.8 L (39.0-53.0) % Plt Count 227 (150-450) k/uL Comprehensive Metabolic Panel 10/23/23 10/23/23 Range/Units 04:09 06:34 Sodium 141 (137-145) mmol/L Potassium [employer]ORAT[employer] SPECIALIST 4.2 Chloride 95 L 106 (98-107) mmol/L Carbon Dioxide 20 L 22 (22-30) mmol/L BUN 81 H 78 H (9-20) mg/dL Creatinine 3.15 H 3.28 H (0.66-1.25) mg/dL Glucose 132 H 95 (74-99) mg/dL Calcium 9.2 8.5 (8.4-10.2) mg/dL AST 46 33 (17-59) U/L ALT 32 31 (4-49) U/L Alkaline Phosphatase 57 73 (38-126) U/L Total Protein 6.3 5.8 L (6.3-8.2) g/dL Albumin 3.5 3.3 L (3.5-5.0) g/dL Current Medications Generic Name Dose Route Start Last Admin Trade Name Freq PRN Reason Stop Dose Admin Benzocaine 1 spray 10/21/23 11:00 10/21/23 16:01 Benzocaine [place] 1 Can MUCOUS MEM 1 spray QID PRN Administration Mouth Irritation Protocol Chlorhexidine Gluconate 15 ml 10/23/23 09:00 Chlorhexidine Gluconate 15 Ml Cup MUCOUS MEM BID SHIRA Heparin Sodium (Porcine) 5,000 unit 10/21/23 21:00 10/22/23 20:39 Heparin Sodium,Porcine 5,000 Unit/Ml 1 Ml Vial SQ 5,000 unit Q12HR SHIRA Administration Hydromorphone HCl 1 mg 10/21/23 15:18 10/23/23 00:33 Hydromorphone 1 Mg/Ml 1 Ml Syringe IVP 1 mg Q3HR PRN Administration Moderate to Severe Pain (4-10) Dextrose/Lactated Ringer's 1,000 mls @ 83 mls/hr 10/22/23 18:00 10/22/23 19:52 Dextrose 5%-Lr Iv Soln IV 83 mls/hr .Q12H3M SHIRA Administration Norepinephrine Bitartrate 4 mg 254 mls @ 8.814 mls/hr 10/23/23 03:00 10/23/23 06:55 / Sodium Chloride IV 0.4 mcg/kg/min .Q24H SHIRA 117.517 mls/hr Titration Protocol 0.03 MCG/KG/MIN Propofol 1,000 mg/ IV Solution 100 mls @ 6.94 mls/hr 10/23/23 03:00 10/23/23 06:37 IV 50 mcg/kg/min .[id number] SHIRA 23.133 mls/hr Administration Protocol 15 MCG/KG/MIN Vasopressin 60 unit/ Sodium 153 mls @ 4.59 mls/hr 10/23/23 03:45 10/23/23 06:42 Chloride IV 0.04 units/min .Q24H SHIRA 6.12 mls/hr Titration Protocol 0.03 UNITS/MIN Piperacillin Sod/Tazobactam 100 mls @ 25 mls/hr 10/23/23 06:00 10/23/23 06:59 Sod 3.375 gm/ Sodium Chloride IVPB 25 mls/hr Q12H SHIRA Administration Protocol Isosorbide Mononitrate 30 mg 10/21/23 21:00 10/22/23 20:39 Isosorbide Mononitrate Er 30 Mg Tab.Er.24h PO 30 mg BID SHIRA Administration Naloxone HCl 0.2 mg 10/23/23 04:09 Naloxone 0.4 Mg/Ml 1 Ml Vial IV Q2M PRN Opioid Reversal Ondansetron HCl 4 mg 10/21/23 15:18 10/22/23 23:53 Ondansetron 4 Mg/2 Ml Vial IVP 4 mg Q6HR PRN Administration Nausea Tamsulosin HCl 0.4 mg 10/21/23 21:00 10/22/23 20:39 Tamsulosin 0.4 Mg Cap.Er.24h PO 0.4 mg HS SHIRA Administration Timolol Maleate 1 drops 10/21/23 21:00 10/22/23 22:07 Timolol 0.5% Ophth Drops 5 Ml Btl BOTH EYES 1 drops HS SHIRA Administration Intake and Output 10/22/23 10/23/23 10/23/23 22:59 06:59 14:59 Intake Total 2903.157 Output Total 3225 Balance -321.843 Intake: IV 2500 Sodium Chloride 0.9% 2, 2500 000 ml @ 999 mls/hr IV . Q2H1M ONE Rx#:[id number] Intake, IV Titration 403.157 Amount Norepinephrine 4 mg In 328.231 Sodium Chloride 0.9% 250 ml @ 0.03 MCG/KG/MIN 8. 814 mls/hr IV .Q24H SHIRA Rx#:[id number] Vasopressin 60 unit In 12.699 Sodium Chloride 0.9% 150 ml @ 0.03 UNITS/MIN 4.59 mls/hr IV .Q24H SHIRA Rx#: [id number] propofoL 1,000 mg In 62.227 Empty Bag 1 bag @ 15 MCG/ KG/MIN 6.94 mls/hr IV . [id number] SHIRA Rx#:[id number] Output: Gastric Drainage 2650 Urine 575 Other: Voiding Method Toilet Indwelling Catheter Urinal Weight 77.111 kg 10/23/23 03:37 10/23/23 06:34
[2023-10-23 07:42] LABS: Band Neutrophils % 22 %; Lymphocytes # (M) 0.66 k/uL (1.0-4.8); Monocytes # (M) 0.27 k/uL (0-1.0); Neutrophils % (M) 54 %; Nucleated Red Blood Cells 0 /100 WBC (0-0); Total Cells Counted 100
--- NOTE | 2023-10-23 08:40 | FL ---
EXAMINATION TYPE: FL UGI w small bowel DATE OF EXAM: 10/23/2023 COMPARISON: CT 10/21/2023 HISTORY: 83-year-old male with bowel obstruction TECHNIQUE: A single contrast UGI study is performed with small bowel follow through utilizing 10 oun louis of Gastrografin. A total of 1 minute 30 seconds of fluoroscopic time was utilized during procedu re and a total of 19 images obtained. Total dose area product (DAP) in uGy*m?, mGy*cm? (or similar): 100. FINDINGS: Certified [employer] image shows sarai small bowel obstruction with loops dilated up to 4.8 cm. Cholecystectomy clip s. NG tube is present, side hole at the diaphragmatic hiatus level. Some posterior facet screws lower lumbar spine. Gastrografin is administered through the patient's NG tube. There is marked distention of the stomach which appears to be located within the lower chest, possibly as a function of previous gastric pull- through procedure. Contrast extends up a dilated proximal to mid thoracic esophagus nearly up to the thoracic inlet. There is gradual progression of contrast to opacify left-sided small bowel loops which are dilated up to 5.3 cm. With contrast passage, there is progressive contrast dilution. Ordering physician contacted after the one-hour image in regards to the patient's high-grade small manish wel obstruction, contrast reaching nearly up to the neck, and risk for aspiration. At the 2 hour time point, the patient had an episode of emesis. Imaging is repeated and shows persist ent abnormal contrast column up to the upper chest and diffuse bowel dilatation. Immediately following the 2 hour image, the patient is sent back to the ER for appropriate management . Serial portable imaging is performed to follow the contrast within the small bowel. The 6 hour 45 minute image shows progression of diluted contrast into pelvic small bowel loops. The following morning, the final image at 23 hours 15 minutes demonstrates ongoing small bowel dilati on and opacification to the level of the mid abdomen. Loops within the right side of the abdomen mariola in unopacified and dilated up to 5.0 cm. It appears that contrast within the stomach has been adequat mya evacuated by this time. IMPRESSION: 1. High-grade small bowel obstruction. Contrast administered through the patient's NG tube. Half of t he stomach is located in the lower chest probably relating to a prior gastric pull-through procedure. Contrast extends up nearly to the neck within a dilated thoracic esophagus. 2. Small bowel loops remain dilated up to 5.3 cm. 3. By the 23 hour 15 minute image, contrast dilution has occurred with dilated loops in the right nataliia e of the abdomen remaining nonopacified.
--- NOTE | 2023-10-23 09:25 | XR ---
EXAMINATION TYPE: XR chest 1V portable DATE OF EXAM: 10/23/2023, 0513 hours Comparison: Earlier today 0307 hours Clinical History: 83-year-old male Tube placement Findings: ET and NG tubes are satisfactory. Heart mildly enlarged. Interstitial and hazy opacities as well as p atchy perihilar and lower lung opacities have increased in the interval. Impression: Mild cardiomegaly with bilateral worsening aeration. Consider developing pulmonary edema.
[2023-10-23] MEDS: CISATRACURIUM 2 MG/ML 5 ML VIAL IV STA (10:54)
--- NOTE | 2023-10-23 11:12 | XR ---
EXAMINATION TYPE: XR chest 1V portable DATE OF EXAM: 10/23/2023 Comparison: 10/23/2023 Clinical History: 83-year-old male confirm line placement Findings: ET and NG tubes are satisfactory. Metal fragment projecting over the left side of the heart can be co rrelated clinically, possible retained foreign body. Right IJ CVC tip in the upper right atrium. Hear t is mildly enlarged. Hyperinflation. Diffuse interstitial and patchy opacities with slight interval improvement in aeration in the lower lungs. Small left pleural effusion. Impression: Correlate for COPD with superimposed CHF and residual patchy pulmonary edema. Aeration improving from prior.
--- NOTE | 2023-10-23 11:24 | CA ---
Transthoracic Echo Report Name: Fredrick Dodd Age: 83 Gender: M : 1940 Exam Date: 10/23/2023 08:01 Exam Location: [facility] Ht (in): 67 Wt (lb): 170 Ordering Physician: Tae Hitchcock MD ([id number]) Attending/Referring Phys: Building Service Worker Lala Joyce RDCS Procedure CPT: Indications: evaluate heart function Cardiac Hx: Technical Quality: Fair Contrast 1: Total Dose (mL): Contrast 2: Total Dose (mL): MEASUREMENTS (Male / Female) Normal Values 2D ECHO LV Diastolic Diameter PLAX 4.3 cm 4.2 - 5.9 / 3.9 - 5.3 cm LV Systolic Diameter PLAX 3.1 cm IVS Diastolic Thickness 1.1 cm 0.6 - 1.0 / 0.6 - 0.9 cm LVPW Diastolic Thickness 1.0 cm 0.6 - 1.0 / 0.6 - 0.9 cm LV Relative Wall Thickness 0.5 RV Internal Dim ED PLAX 1.5 cm LVOT Diameter 2.0 cm LA Systolic Diameter LX 4.7 cm 3.0 - 4.0 / 2.7 - 3.8 cm LV Diastolic Volume MOD BP 55.9 cm??? 67 - 155 / 56 - 104 cm??? LV Systolic Volume MOD BP 38.4 cm??? - 58 / 19 - 49 cm??? LV Ejection Fraction MOD BP 31.3 % >= 55 % LV Cardiac Index MOD BP 792.2 cm???/min???m??? LV Diastolic Volume MOD 4C 49.5 cm??? LV Systolic Volume MOD 4C 31.9 cm??? LV Ejection Fraction MOD 4C 35.5 % LV Cardiac Index MOD 4C 793.3 cm???/min???m??? LV Diastolic Length 4C 7.2 cm LV Systolic Length 4C 6.2 cm LV Diastolic Volume MOD 2C 63.0 cm??? LV Systolic Volume MOD 2C 35.6 cm??? LV Ejection Fraction MOD 2C 43.6 % LV Cardiac Index MOD 2C 1241.9 cm???/min???m??? LV Diastolic Length 2C 7.1 cm LV Systolic Length 2C 6.8 cm LA Volume 35.8 cm??? 18 - 58 / 22 - 52 cm??? LA Volume Index 18.6 cm???/m??? 16 - 28 cm???/m??? M-MODE Aortic Root Diameter MM 3.7 cm LA Systolic Diameter MM 3.6 cm LA Ao Ratio MM 0.9 AV Cusp Separation MM 0.9 cm DOPPLER AV Peak Velocity 210.1 cm/s AV Peak Gradient 17.7 mmHg AV Mean Velocity 142.0 cm/s AV Mean Gradient 9.4 mmHg AV Velocity Time Integral 42.8 cm AI Peak Velocity 212.1 cm/s AI Peak Gradient 18.0 mmHg AI Pressure Half Time 714.3 ms LVOT Peak Velocity 106.6 cm/s LVOT Peak Gradient 4.5 mmHg LVOT Velocity Time Integral 24.7 cm LVOT Stroke Volume 81.0 cm??? LVOT Stroke Volume Index 42.9 ml/m??? LVOT Cardiac Index 3661.9 cm???/min???m??? AV Area Cont Eq vti 1.9 cm??? AV Area Cont Eq pk 1.7 cm??? MV Area PHT 2.3 cm??? Mitral E Point Velocity 71.4 cm/s Mitral A Point Velocity 112.9 cm/s Mitral E to A Ratio 0.6 MV Deceleration Time 330.3 ms TR Peak Velocity 216.2 cm/s TR Peak Gradient 18.7 mmHg Right Ventricular Systolic Press 33.7 mmHg FINDINGS Left Ventricle Left ventricular ejection fraction is estimated at 40-45%.left ventricular cavity size normal. Left ventricular wall thickness normal. Mildly reduced global left ventricular systolic function. Right Ventricle Mild right ventricular dilatation. Right ventricular systolic pressure within normal limits. Right Atrium Mild right atrial dilatation. Left Atrium Mildly increased left atrial diameter. Mitral Valve Structurally normal mitral valve. Mild thickening/calcification of the anterior mitral valve leaflet. Mild mitral regurgitation. Moderate mitral annular calcification. Aortic Valve Aortic valve not well visualized. Mild aortic stenosis with a peak gradient of 17mmHg and a mean gradient of 9.4 mmHg. Tricuspid Valve Structurally normal tricuspid valve. Mild tricuspid regurgitation. Pulmonic Valve Structurally normal pulmonic valve. Trace pulmonic regurgitation. No pulmonic stenosis. Pericardium No pericardial or pleural effusion. Aorta Normal size aortic root and proximal ascending aorta. CONCLUSIONS Mild to moderate LV systolic dysfunction with an ejection fraction of 40-45% Mitral annular calcification with mild mitral regurgitation Mild aortic stenosis Aortic valve is not well visualized consider ELIZABETH if necessary Previewed by: Dr. Rick Nguyen MD (Electronically Signed) Final Date: 23 October 2023 11:23
[2023-10-23 11:50] LABS: ABG Base Excess -6.2 mmol/L; ABG HCO3 19 mmol/L (21-25); ABG Oxygen Saturation 95.8 % (94-97); ABG PCO2 34 mmHg (35-45); ABG PH 7.35 (7.35-7.45); ABG PO2 80 mmHg (83-108); ABG TCO2 20 mmol/L (19-24)
[2023-10-23 11:51] LABS: Allen Test Performed? no
[2023-10-23 11:52] LABS: Glucose,Whole Blood 121 mg/dL (70-110)
--- NOTE | 2023-10-23 12:52 | P.PN ---
Subjective Progress Note Date: 10/23/23 CHIEF COMPLAINT: SBO HISTORY OF PRESENT ILLNESS: Patient admitted to the hospital with small bowel obstruction. Patient was on the fourth floor when he became hypotensive and hypoxic. There were concerns for aspiration. Apparently NG tube had been clogged. It was unclogged and 3-1/2 a liters of output were removed. Patient did require transfer to the ICU and he is currently intubated and on mechanical ventilation. He is maxed out on both Levophed and vasopressin. CODE STATUS is currently a DNR. Patient did have a CT scan abdomen and pelvis that reported small bowel obstruction. Transition point poorly visualized with suspected to be within the right hemidiaphragm. Findings may be due to adhesions. No free air. Final upper GI results reports high-grade small bowel obstruction. 23 ho urs contrast dilution has occurred with dilated loops in the right side of the abdomen remaining nonopacified. WBC 3.9 Hgb 12.6 creatinine 3.28 lactic acid 3.4. Elevated D-dimer. Patient has received 3 L IV fluid boluses. PHYSICAL EXAM: VITAL SIGNS: Reviewed. Head is atraumatic, normocephalic. Hears conversational speech. No nasal drainage. NECK: Supple without lymphadenopathy. CHEST: Non-labored respirations and equal bilateral excursions. CARDIOVASCULAR: Palpable 2+ radial pulses. ABDOMEN: Soft. distended MUSCULOSKELETAL: No clubbing or cyanosis. NEUROLOGIC: intubated and sedated ASSESSMENT: 1. High-grade small bowel obstruction 2. Hiatal hernia 3. History of esophageal cancer status post esophagectomy 4. Large bowel obstruction status post lysis of adhesions and sigmoid colectomy on August 31, 2023 5. Hypotension and shock 6. Suspected aspiration 7. Acute hypoxic and hypercapnic respiratory failure on mechanical ventilation PLAN: -Continue NG tube for decompression -NPO -Continue ICU management -Continue supportive care -Continue IV fluids -Continue blood pressure support -Continue antibiotics Physician Senior Reservations Agent note has been reviewed by physician. Signing provider agrees with the documented findings, assessment, and plan of care. Objective - Vital Signs Vital signs: Vital Signs Temp 101.2 F H 10/23/23 10:45 Pulse 86 10/23/23 12:15 Resp 19 10/23/23 12:15 BP 99/50 10/23/23 10:15 Pulse Ox 99 10/23/23 12:15 FiO2 55 10/23/23 12:00 Intake & Output 10/22/23 10/23/23 10/23/23 18:59 06:59 18:59 Intake Total 2903.157 2152.302 Output Total 1200 3225 110 Balance -1200 -248.236 9146.302 Weight 77.111 kg Intake: IV 2500 Sodium Chloride 0.9% 2, 2500 000 ml @ 999 mls/hr IV . Q2H1M ONE Rx#:[id number] Intake, IV Titration 574.344 8523.302 Amount Dextrose 5%-Lactated 332 Ringers 1,000 ml @ 83 mls /hr IV .Q12H3M SHIRA Rx#: [id number] Norepinephrine 4 mg In 328.231 345.273 Sodium Chloride 0.9% 250 ml @ 0.03 MCG/KG/MIN 8. 814 mls/hr IV .Q24H SHIRA Rx#:[id number] Piperacillin-Tazobactam 3 100 .375 gm In Sodium Chloride 0.9% 100 ml @ 25 mls/hr IVPB Q12H SHIRA Rx# :[id number] Sodium Chloride 0.9% 500 500 ml 500 ml @ 999 mls/hr IV .Q31M ONE Rx#:[id number] Vasopressin 60 unit In 12.699 Sodium Chloride 0.9% 150 ml @ 0.03 UNITS/MIN 4.59 mls/hr IV .Q24H SHIRA Rx#: [id number] propofoL 1,000 mg In 62.227 75.029 Empty Bag 1 bag @ 15 MCG/ KG/MIN 6.94 mls/hr IV . [id number] SHIRA Rx#:[id number] Tube Feeding 800 Output: Gastric Drainage 1200 2650 Urine 575 110 Other: Voiding Method Indwelling Catheter Indwelling Catheter ABP, PAP, CO, CI - Last Documented Arterial Blood Pressure 99/45 - Labs CBC & Chem 7: 10/23/23 03:37 10/23/23 06:34 Labs: Abnormal Lab Results - Last 24 Hours (Table) 10/23/23 10/23/23 10/23/23 Range/Units 02:34 03:15 03:37 RBC 4.08 L (4.30-5.90) m/uL Hgb 12.6 L (13.0-17.5) gm/dL Hct 38.8 L (39.0-53.0) % Lymphocytes # (Manual) 0.66 L (1.0-4.8) k/uL D-Dimer (<0.60) mg/L FEU ABG pH 7.13 L* (7.35-7.45) ABG pCO2 57 H (35-45) mmHg ABG pO2 179 H (83-108) mmHg ABG HCO3 19 L (21-25) mmol/L ABG O2 Saturation 99.0 H (94-97) % Hemoglobin (13.0-17.5) gm/dL Chloride (98-107) mmol/L Carbon Dioxide (22-30) mmol/L BUN (9-20) mg/dL Creatinine (0.66-1.25) mg/dL Glucose (74-99) mg/dL POC Glucose (mg/dL) 155 H (70-110) mg/dL Plasma Lactic Acid Salvador (0.7-2.0) mmol/L Magnesium (1.6-2.3) mg/dL Troponin I (0.000-0.034) ng/mL Total Protein (6.3-8.2) g/dL Albumin (3.5-5.0) g/dL 10/23/23 10/23/23 10/23/23 Range/Units 04:09 04:09 04:54 RBC (4.30-5.90) m/uL Hgb (13.0-17.5) gm/dL Hct (39.0-53.0) % Lymphocytes # (Manual) (1.0-4.8) k/uL D-Dimer (<0.60) mg/L FEU ABG pH 7.32 L (7.35-7.45) ABG pCO2 (35-45) mmHg ABG pO2 62 L (83-108) mmHg ABG HCO3 (21-25) mmol/L ABG O2 Saturation 91.1 L (94-97) % Hemoglobin (13.0-17.5) gm/dL Chloride 95 L (98-107) mmol/L Carbon Dioxide 20 L (22-30) mmol/L BUN 81 H (9-20) mg/dL Creatinine 3.15 H (0.66-1.25) mg/dL Glucose 132 H (74-99) mg/dL POC Glucose (mg/dL) (70-110) mg/dL Plasma Lactic Acid Salvador 3.4 H* (0.7-2.0) mmol/L Magnesium (1.6-2.3) mg/dL Troponin I (0.000-0.034) ng/mL Total Protein (6.3-8.2) g/dL Albumin (3.5-5.0) g/dL 10/23/23 10/23/23 10/23/23 Range/Units 06:34 06:34 07:54 RBC (4.30-5.90) m/uL Hgb (13.0-17.5) gm/dL Hct (39.0-53.0) % Lymphocytes # (Manual) (1.0-4.8) k/uL D-Dimer 3.34 H (<0.60) mg/L FEU ABG pH (7.35-7.45) ABG pCO2 (35-45) mmHg ABG pO2 (83-108) mmHg ABG HCO3 (21-25) mmol/L ABG O2 Saturation (94-97) % Hemoglobin (13.0-17.5) gm/dL Chloride (98-107) mmol/L Carbon Dioxide (22-30) mmol/L BUN 78 H (9-20) mg/dL Creatinine 3.28 H (0.66-1.25) mg/dL Glucose (74-99) mg/dL POC Glucose (mg/dL) (70-110) mg/dL Plasma Lactic Acid Salvador (0.7-2.0) mmol/L Magnesium 2.5 H (1.6-2.3) mg/dL Troponin I 0.073 H* (0.000-0.034) ng/mL Total Protein 5.8 L (6.3-8.2) g/dL Albumin 3.3 L (3.5-5.0) g/dL 10/23/23 10/23/23 Range/Units 11:48 11:49 RBC (4.30-5.90) m/uL Hgb (13.0-17.5) gm/dL Hct (39.0-53.0) % Lymphocytes # (Manual) (1.0-4.8) k/uL D-Dimer (<0.60) mg/L FEU ABG pH (7.35-7.45) ABG pCO2 34 L (35-45) mmHg ABG pO2 80 L (83-108) mmHg ABG HCO3 19 L (21-25) mmol/L ABG O2 Saturation (94-97) % Hemoglobin 12.3 L (13.0-17.5) gm/dL Chloride (98-107) mmol/L Carbon Dioxide (22-30) mmol/L BUN (9-20) mg/dL Creatinine (0.66-1.25) mg/dL Glucose (74-99) mg/dL POC Glucose (mg/dL) 121 H (70-110) mg/dL Plasma Lactic Acid Salvador (0.7-2.0) mmol/L Magnesium (1.6-2.3) mg/dL Troponin I (0.000-0.034) ng/mL Total Protein (6.3-8.2) g/dL Albumin (3.5-5.0) g/dL
--- NOTE | 2023-10-23 13:13 | P.PN ---
Subjective Progress Note Date: 10/23/23 Progress note Date of service 10/23/[address] Price. Patient seen and evaluated in the ICU after he transferred from [facility] surgical floor to the ICU I was called by nursing staff on 4 S. with the event of the patient had hypoxemia hypotension with a drop of his oxygen and advised to consult pulmonary and critical care as well as cardiology. Patient apparently her NG tube clogged for suction and apparently is aspirated and subsequently on blood the NG tube and sent to the ICU intubated resuscitated and seen by cardiology Dr. Dotson as well as pulmonary Dr. Blake. Patient currently sedated with NG tube in place and endotracheal tube in place. Patient has been developed acute renal failure on the top of chronic will be consulting as well Dr. Carlson nephrology for evaluation and treatment. Discussed with his and his older son Tod Arndt. Vital sign his heart rate is regular 86 and respiratory rate on the vent 19, he is blood pressure 99/45 with the hypotension and he is on support with norepinephrine and seen by cardiology as well Is hypoxemia, hypovolemia with the hypotension which was not responding with the volume expansion and they had to start vasoconstrictor in the ICU. Patient still with bowel obstruction and he has the NG tube in place. He had metabolic acidosis as well and hypoxemia, troponin was mildly elevated and 0.073 and the second one 0.085, BNP 4540 and a lipase 27, ALT and AST normal 33 and 31, alkaline phosphatase 73, EGFR 17 and patient went from stage IIIa-IV. Currently his BUN 78 and creatinine 3.20, D-dimer 3. 34 patient on heparin, chest x-ray indicating aspiration and patchy infiltrate. On exam: Patient is sedated comfortable on the ventilator managed by Dr. Blake Head was normocephalic atraumatic Edentulous Neck was supple Chest by lateral rhonchi and rales Heart is regular sinus rhythm Abdomen distended with the underlying ileus/obstruction no BMs. Extremities no edema. Pulses perfused Neurologically sedated Assessment: 1. Patient admitted initially with acute small bowel obstruction complicated 2. Aspiration pneumonia needed with the intubation and treatment with the ventilator 3. Underlying coronary artery disease atherosclerotic heart disease 4. Probably pulmonary edema and congestive heart failure 5. With the hypotension and septic shock and hypoxemia with acute respiratory distress. #6 abnormal troponin with the possibility due to demand and supply echocardiogram not available Plan: Patient currently in ICU treated by pulmonary and critical care, cardiology, will be consulting also nephrology The attending physician Dr. Jameson the surgeon with the admission diagnosis small bowel obstruction. Objective - Vital Signs Vital signs: Vital Signs Temp 101.2 F H 10/23/23 10:45 Pulse 86 10/23/23 12:15 Resp 19 10/23/23 12:15 BP 99/50 10/23/23 10:15 Pulse Ox 99 10/23/23 12:15 FiO2 55 10/23/23 12:00 Intake & Output 10/22/23 10/23/23 10/23/23 18:59 06:59 18:59 Intake Total 2903.157 2300.135 Output Total 1200 3225 110 Balance -1200 -500.967 8395.135 Weight 77.111 kg Intake: IV 2500 Sodium Chloride 0.9% 2, 2500 000 ml @ 999 mls/hr IV . Q2H1M ONE Rx#:[id number] Intake, IV Titration 945.118 4385.135 Amount Dextrose 5%-Lactated 332 Ringers 1,000 ml @ 83 mls /hr IV .Q12H3M SHIRA Rx#: [id number] Norepinephrine 4 mg In 328.231 433.769 Sodium Chloride 0.9% 250 ml @ 0.03 MCG/KG/MIN 8. 814 mls/hr IV .Q24H SHIRA Rx#:[id number] Piperacillin-Tazobactam 3 100 .375 gm In Sodium Chloride 0.9% 100 ml @ 25 mls/hr IVPB Q12H SHIRA Rx# :[id number] Sodium Chloride 0.9% 500 500 ml 500 ml @ 999 mls/hr IV .Q31M ONE Rx#:[id number] Vasopressin 60 unit In 12.699 Sodium Chloride 0.9% 150 ml @ 0.03 UNITS/MIN 4.59 mls/hr IV .Q24H SHIRA Rx#: [id number] propofoL 1,000 mg In 62.227 134.366 Empty Bag 1 bag @ 15 MCG/ KG/MIN 6.94 mls/hr IV . [id number] SHIRA Rx#:[id number] Tube Feeding 800 Output: Gastric Drainage 1200 2650 Urine 575 110 Other: Voiding Method Indwelling Catheter Indwelling Catheter ABP, PAP, CO, CI - Last Documented Arterial Blood Pressure 99/45 - Labs CBC & Chem 7: 10/23/23 03:37 10/23/23 06:34 Labs: Abnormal Lab Results - Last 24 Hours (Table) 10/23/23 10/23/23 10/23/23 Range/Units 02:34 03:15 03:37 RBC 4.08 L (4.30-5.90) m/uL Hgb 12.6 L (13.0-17.5) gm/dL Hct 38.8 L (39.0-53.0) % Lymphocytes # (Manual) 0.66 L (1.0-4.8) k/uL D-Dimer (<0.60) mg/L FEU ABG pH 7.13 L* (7.35-7.45) ABG pCO2 57 H (35-45) mmHg ABG pO2 179 H (83-108) mmHg ABG HCO3 19 L (21-25) mmol/L ABG O2 Saturation 99.0 H (94-97) % Hemoglobin (13.0-17.5) gm/dL Chloride (98-107) mmol/L Carbon Dioxide (22-30) mmol/L BUN (9-20) mg/dL Creatinine (0.66-1.25) mg/dL Glucose (74-99) mg/dL POC Glucose (mg/dL) 155 H (70-110) mg/dL Plasma Lactic Acid Salvador (0.7-2.0) mmol/L Magnesium (1.6-2.3) mg/dL Troponin I (0.000-0.034) ng/mL Total Protein (6.3-8.2) g/dL Albumin (3.5-5.0) g/dL 10/23/23 10/23/23 10/23/23 Range/Units 04:09 04:09 04:54 RBC (4.30-5.90) m/uL Hgb (13.0-17.5) gm/dL Hct (39.0-53.0) % Lymphocytes # (Manual) (1.0-4.8) k/uL D-Dimer (<0.60) mg/L FEU ABG pH 7.32 L (7.35-7.45) ABG pCO2 (35-45) mmHg ABG pO2 62 L (83-108) mmHg ABG HCO3 (21-25) mmol/L ABG O2 Saturation 91.1 L (94-97) % Hemoglobin (13.0-17.5) gm/dL Chloride 95 L (98-107) mmol/L Carbon Dioxide 20 L (22-30) mmol/L BUN 81 H (9-20) mg/dL Creatinine 3.15 H (0.66-1.25) mg/dL Glucose 132 H (74-99) mg/dL POC Glucose (mg/dL) (70-110) mg/dL Plasma Lactic Acid Salvador 3.4 H* (0.7-2.0) mmol/L Magnesium (1.6-2.3) mg/dL Troponin I (0.000-0.034) ng/mL Total Protein (6.3-8.2) g/dL Albumin (3.5-5.0) g/dL 10/23/23 10/23/23 10/23/23 Range/Units 06:34 06:34 07:54 RBC (4.30-5.90) m/uL Hgb (13.0-17.5) gm/dL Hct (39.0-53.0) % Lymphocytes # (Manual) (1.0-4.8) k/uL D-Dimer 3.34 H (<0.60) mg/L FEU ABG pH (7.35-7.45) ABG pCO2 (35-45) mmHg ABG pO2 (83-108) mmHg ABG HCO3 (21-25) mmol/L ABG O2 Saturation (94-97) % Hemoglobin (13.0-17.5) gm/dL Chloride (98-107) mmol/L Carbon Dioxide (22-30) mmol/L BUN 78 H (9-20) mg/dL Creatinine 3.28 H (0.66-1.25) mg/dL Glucose (74-99) mg/dL POC Glucose (mg/dL) (70-110) mg/dL Plasma Lactic Acid Salvador (0.7-2.0) mmol/L Magnesium 2.5 H (1.6-2.3) mg/dL Troponin I 0.073 H* (0.000-0.034) ng/mL Total Protein 5.8 L (6.3-8.2) g/dL Albumin 3.3 L (3.5-5.0) g/dL 10/23/23 10/23/23 10/23/23 Range/Units 11:48 11:49 11:52 RBC (4.30-5.90) m/uL Hgb (13.0-17.5) gm/dL Hct (39.0-53.0) % Lymphocytes # (Manual) (1.0-4.8) k/uL D-Dimer (<0.60) mg/L FEU ABG pH (7.35-7.45) ABG pCO2 34 L (35-45) mmHg ABG pO2 80 L (83-108) mmHg ABG HCO3 19 L (21-25) mmol/L ABG O2 Saturation (94-97) % Hemoglobin 12.3 L (13.0-17.5) gm/dL Chloride (98-107) mmol/L Carbon Dioxide (22-30) mmol/L BUN (9-20) mg/dL Creatinine (0.66-1.25) mg/dL Glucose (74-99) mg/dL POC Glucose (mg/dL) 121 H (70-110) mg/dL Plasma Lactic Acid [place] (0.7-2.0) mmol/L Magnesium (1.6-2.3) mg/dL Troponin I 0.085 H* (0.000-0.034) ng/mL Total Protein (6.3-8.2) g/dL Albumin (3.5-5.0) g/dL
[2023-10-23] MEDS: SODIUM CHLORIDE 0.9% 1,000 ML IV ONE ×3 (13:19→20:18)
[2023-10-23] MEDS: CHLORHEXIDINE GLUCONATE 15 ML CUP MUCOUS MEM SCH (13:25)
--- NOTE | 2023-10-23 13:43 | OP ---
OPERATIVE REPORT DATE OF SERVICE : PROCEDURE PERFORMED: Placement of a right brachial arterial line. PREOPERATIVE DIAGNOSES: Hypotension, aspiration pneumonia, and small bowel obstruction with profound hypotension. ANESTHESIA USED: None deployed. DESCRIPTION OF PROCEDURE: The right brachial region was prepared in a sterile fashion. Drapes were applied. The right brachial artery was palpated, easily cannulated, and a guidewire was placed. A Cook's catheter was inserted over the guidewire, and the guidewire was removed. Good blood flow, good waveform, no complications. Line was secured using 3.0 silk sutures. MMODL / IJN: [id number] /
--- NOTE | 2023-10-23 14:34 | PCN ---
PROCEDURE NOTE PROCEDURE PERFORMED: Placement of a right IJ triple-lumen catheter. PREOPERATIVE DIAGNOSES: Acute hypoxic respiratory failure and aspiration pneumonia with small-bowel obstruction. POSTOPERATIVE DIAGNOSES: Acute hypoxic respiratory failure and aspiration pneumonia with small-bowel obstruction. ANESTHESIA USED: 2 mL of 1% lidocaine. DESCRIPTION OF PROCEDURE: The patient was placed in a Trendelenburg position, right cervical region was prepared in a sterile fashion. Drapes were applied. Right IJ posterior approach was utilized, the area was locally anesthetized posterior to the posterior belly of the sternocleidomastoid. Then using the posterior approach, the right IJ vein was easily cannulated, a guidewire was placed, a triple-lumen catheter was inserted over the guidewire, and the guidewire was removed. Good blood flow noted in 3 different ports of the triple-lumen catheter. Chest x-ray postoperatively showed adequate placement and no complications. MMROMELIA / ETHANN: [id number] /
[2023-10-23 17:00] LABS: Glucose,Whole Blood 120 mg/dL (70-110)
[2023-10-23 17:52] LABS: Appearance,Urine Clear (Clear); Bacteria,Urine Rare /hpf; Bilirubin,Urine Negative (Negative); Blood,Urine Trace (Negative); Color,Urine Yellow; Glucose,Urine (UA) Negative (Negative); Ketones,Urine Negative (Negative); Leukocyte Esterase,Urine Negative (Negative); Nitrite,Urine Negative (Negative); PH, Urine 5.5 (5.0-8.0); Protein,Urine 1+ (Negative); RBC,Urine 22 /hpf (0-5); Specific Gravity,Urine 1.023 (1.001-1.035); Urobilinogen,Urine <2.0 mg/dL (<2.0); WBC,Urine 1 /hpf (0-5)
[2023-10-23 23:16] LABS: Glucose,Whole Blood 107 mg/dL (70-110)
[2023-10-24] MEDS: NOREPINEPHRINE 32 MG in SODIUM CHLORIDE 0.9% 218 ML IV SCH (01:22)
[2023-10-24 05:08] LABS: Glucose,Whole Blood 101 mg/dL (70-110)
[2023-10-24 05:21] LABS: ABG Base Excess -12.8 mmol/L; ABG HCO3 14 mmol/L (21-25); ABG Oxygen Saturation 96.5 % (94-97); ABG PCO2 33 mmHg (35-45); ABG PH 7.23 (7.35-7.45); ABG PO2 87 mmHg (83-108); ABG TCO2 15 mmol/L (19-24); Allen Test Performed? Yes
[2023-10-24] MEDS: ACETAMINOPHEN IV (For NPO) 1,000 MG in EMPTY BAG 1 BAG IVPB ONE (05:24)
[2023-10-24 05:37] LABS: HCT 40.4 % (39.0-53.0); HGB 12.9 gm/dL (13.0-17.5); Hypochromasia Moderate; MCH 30.5 pg (25.0-35.0); MCHC 31.9 g/dL (31.0-37.0); MCV 95.7 fL (80.0-100.0); Mean Platelet Volume 10.5; Platelet Count 168 k/uL (150-450); RBC 4.22 m/uL (4.30-5.90); RDW 14.2 % (11.5-15.5); WBC 7.5 k/uL (3.8-10.6)
[2023-10-24 05:49] LABS: African American GFR (CKD) 21 (>60 ml/min/1.73 sqM); Anion Gap 12 mmol/L; Blood Urea Nitrogen 76 mg/dL (9-20); Calcium 6.9 mg/dL (8.4-10.2); Carbon Dioxide 14 mmol/L (22-30); Chloride 116 mmol/L (98-107); Glucose 107 mg/dL (74-99); Non-African American GFR(CKD) 18 (>60 ml/min/1.73 sqM); Potassium 4.1 mmol/L (3.5-5.1); Sodium 142 mmol/L (137-145)
--- NOTE | 2023-10-24 07:20 | P.PN ---
Subjective Progress Note Date: 10/24/23 This is an 84-year-old gentleman who requested to see in the intensive care unit for further evaluation of hypotension. The patient currently is intubated and he is on mechanical ventilation. He was transferred from the fourth floor. He is an 83-year-old gentleman with a past medical history significant for CAD with prior stenting of the LAD as well as hypertension and dyslipidemia and recent diagnosis of colon cancer status post abdominal surgery recently in August 2023. The patient presented to the emergency department complaining of nausea and vomiting and abdominal discomfort for the last several days. He underwent further investigation including CT scan of the abdomen and pelvis and that r evealed small bowel obstruction and subsequently an NG tube was placed with removal and the drainage of fluid and subsequently he was admitted to the fourth floor after he was seen by the surgical team. Last night his pressure has been low. He did not response to almost half a liter of 0.9 normal saline. Beside that he developed some respiratory distress and subsequently an 18 was called and the patient was transferred to the intensive care unit. He was intubated and placed on mechanical ventilation. I spoke with the patient's family at bedside. Before he presented to the hospital he was not experiencing any symptoms of chest pain or chest discomfort beside the abdominal discomfort and nausea and vomiting. He underwent further evaluation including an EKG and that showed sinus mechanism. Currently he is hypotensive requiring vasopressors with norepinephrine. Beside that the blood work indicated renal failure likely to be secondary to prerenal and hypovolemia. The chest x-ray did not show any acute abnormalities. The patient underwent an echo in 2020 and that revealed normal biventricular systolic function with mild aortic stenosis. The physical examination is remarkable for regular rhythm with a systolic murmur at the right and left upper sternal border with a clear breathing sounds bilaterally and no edema was noted in the lower extremities October 24, 2023 The patient was seen and evaluated this morning. He continues to be intubated on mechanical ventilation. He is hemodynamically unstable and currently he is on norepinephrine and vasopressin's. He has been febrile and there is definitely concern about septic shock. The chest x-ray showed bilateral inf iltrate as well. He continues to have good urine output with a creatinine remains elevated electrolytes appear to be within normal limits with the echo showed mildly impaired LV function with EF between 40 to 45% with mild aortic stenosis. The examination is remarkable for intubated patient on mechanical ventilation with regular rate and rhythm and distant heart sounds and systolic murmur at the right upper sternal border with clear breathing sounds bilaterally and no edema was noted in the lower extremities Assessment Small bowel obstruction Acute hypoxic respiratory failure Possible aspiration pneumonia Hypotension could be secondary to hypovolemia with a differential diagnosis of sepsis Coronary artery disease seems to be stable Valvular heart disease Acute renal failure Multiple comorbid conditions History of colon cancer status post abdominal surgery Plan Continue the current medical regimen Continue hemodynamic support Continue supporting the blood pressure with vasopressors to obtain a mean above 65 mmHg Follow-up with the patient Objective - Vital Signs Vital signs: Vital Signs Temp 101.5 F H 10/24/23 05:00 Pulse 105 H 10/24/23 07:00 Resp 17 10/24/23 07:00 BP 101/55 10/24/23 07:00 Pulse Ox 95 10/24/23 07:00 FiO2 55 10/24/23 05:00 Intake & Output 10/23/23 10/24/23 10/24/23 18:59 06:59 18:59 Intake Total 4420.045 5189.771 100 Output Total 1245 670 20 Balance 3175.045 4519.771 80 Weight 86.6 kg Intake: Intake, IV Titration 3620.045 5189.771 100 Amount ACETAMINOPHEN IV (For NPO 100 ) 1,000 mg In Empty Bag 1 bag @ 400 mls/hr IVPB ONCE ONE Rx#:[id number] Dextrose 5%-Lactated 1032 1200 100 Ringers 1,000 ml @ 100 mls/hr IV .Q10H [facility] Rx#: [id number] Norepinephrine 4 mg In 708.222 508 Sodium Chloride 0.9% 250 ml @ 0.03 MCG/KG/MIN 8. 814 mls/hr IV .Q24H [facility] Rx#:[id number] Piperacillin-Tazobactam 3 200 100 .375 gm In Sodium Chloride 0.9% 100 ml @ 25 mls/hr IVPB Q12H [facility] Rx# :[id number] Sodium Chloride 0.9% 1, 1000 000 ml @ 999 mls/hr IV . Q1H1M ONE Rx#:[id number] Sodium Chloride 0.9% 1, 3000 000 ml @ 999 mls/hr IV . Q1H1M ONE Rx#:[id number] Sodium Chloride 0.9% 500 500 ml 500 ml @ 999 mls/hr IV .Q31M ONE Rx#:[id number] Vasopressin 60 unit In 81.294 Sodium Chloride 0.9% 150 ml @ 0.03 UNITS/MIN 4.59 mls/hr IV .Q24H [facility] Rx#: [id number] propofoL 1,000 mg In 179.823 200.477 Empty Bag 1 bag @ 15 MCG/ KG/MIN 6.94 mls/hr IV . [id number] [facility] Rx#:[id number] Tube Feeding 800 Output: Gastric Drainage 1000 450 Urine 245 220 20 Other: Voiding Method Indwelling Catheter Indwelling Catheter # Bowel Movements 0 ABP, PAP, CO, CI - Last Documented Arterial Blood Pressure 93/49 - Labs CBC & Chem 7: 10/24/23 05:00 10/24/23 05:00 Labs: Abnormal Lab Results - Last 24 Hours (Table) 10/23/23 10/23/23 10/23/23 Range/Units 03:11 03:37 06:34 RBC (4.30-5.90) m/uL Hgb (13.0-17.5) gm/dL Lymphocytes # (Manual) 0.66 L (1.0-4.8) k/uL D-Dimer (<0.60) mg/L FEU ABG pH (7.35-7.45) ABG pCO2 (35-45) mmHg ABG pO2 (83-108) mmHg ABG HCO3 (21-25) mmol/L ABG Total CO2 (19-24) mmol/L ABG Lactic Acid (0.5-1.6) mmol/L Hemoglobin (13.0-17.5) gm/dL Chloride (98-107) mmol/L Carbon Dioxide (22-30) mmol/L BUN 78 H (9-20) mg/dL Creatinine 3.28 H (0.66-1.25) mg/dL Glucose (74-99) mg/dL POC Glucose (mg/dL) (70-110) mg/dL Plasma Lactic Acid Salvador (0.7-2.0) mmol/L Calcium (8.4-10.2) mg/dL Magnesium 2.5 H (1.6-2.3) mg/dL Troponin I (0.000-0.034) ng/mL Total Protein 5.8 L (6.3-8.2) g/dL Albumin 3.3 L (3.5-5.0) g/dL Urine Protein 1+ H (Negative) Urine Blood Trace H (Negative) Urine RBC 22 H (0-5) /hpf Urine Bacteria Rare H (None) /hpf 10/23/23 10/23/23 10/23/23 Range/Units 06:34 07:54 11:48 RBC (4.30-5.90) m/uL Hgb (13.0-17.5) gm/dL Lymphocytes # (Manual) (1.0-4.8) k/uL D-Dimer 3.34 H (<0.60) mg/L FEU ABG pH (7.35-7.45) ABG pCO2 34 L (35-45) mmHg ABG pO2 80 L (83-108) mmHg ABG HCO3 19 L (21-25) mmol/L ABG Total CO2 (19-24) mmol/L ABG Lactic Acid (0.5-1.6) mmol/L Hemoglobin 12.3 L (13.0-17.5) gm/dL Chloride (98-107) mmol/L Carbon Dioxide (22-30) mmol/L BUN (9-20) mg/dL Creatinine (0.66-1.25) mg/dL Glucose (74-99) mg/dL POC Glucose (mg/dL) (70-110) mg/dL Plasma Lactic Acid Salvador (0.7-2.0) mmol/L Calcium (8.4-10.2) mg/dL Magnesium (1.6-2.3) mg/dL Troponin I 0.073 H* (0.000-0.034) ng/mL Total Protein (6.3-8.2) g/dL Albumin (3.5-5.0) g/dL Urine Protein (Negative) Urine Blood (Negative) Urine RBC (0-5) /hpf Urine Bacteria (None) /hpf 10/23/23 10/23/23 10/23/23 Range/Units 11:49 11:52 14:46 RBC (4.30-5.90) m/uL Hgb (13.0-17.5) gm/dL Lymphocytes # (Manual) (1.0-4.8) k/uL D-Dimer (<0.60) mg/L FEU ABG pH (7.35-7.45) ABG pCO2 (35-45) mmHg ABG pO2 (83-108) mmHg ABG HCO3 (21-25) mmol/L ABG Total CO2 (19-24) mmol/L ABG Lactic Acid 2.2 H* (0.5-1.6) mmol/L Hemoglobin (13.0-17.5) gm/dL Chloride (98-107) mmol/L Carbon Dioxide (22-30) mmol/L BUN (9-20) mg/dL Creatinine (0.66-1.25) mg/dL Glucose (74-99) mg/dL POC Glucose (mg/dL) 121 H (70-110) mg/dL Plasma Lactic Acid Salvador (0.7-2.0) mmol/L Calcium (8.4-10.2) mg/dL Magnesium (1.6-2.3) mg/dL Troponin I 0.085 H* (0.000-0.034) ng/mL Total Protein (6.3-8.2) g/dL Albumin (3.5-5.0) g/dL Urine Protein (Negative) Urine Blood (Negative) Urine RBC (0-5) /hpf Urine Bacteria (None) /hpf 10/23/23 10/23/23 10/23/23 Range/Units 14:46 16:58 17:30 RBC (4.30-5.90) m/uL Hgb (13.0-17.5) gm/dL Lymphocytes # (Manual) (1.0-4.8) k/uL D-Dimer (<0.60) mg/L FEU ABG pH (7.35-7.45) ABG pCO2 (35-45) mmHg ABG pO2 (83-108) mmHg ABG HCO3 (21-25) mmol/L ABG Total CO2 (19-24) mmol/L ABG Lactic Acid (0.5-1.6) mmol/L Hemoglobin (13.0-17.5) gm/dL Chloride (98-107) mmol/L Carbon Dioxide (22-30) mmol/L BUN (9-20) mg/dL Creatinine (0.66-1.25) mg/dL Glucose (74-99) mg/dL POC Glucose (mg/dL) 120 H (70-110) mg/dL Plasma Lactic Acid Salvador 3.2 H* (0.7-2.0) mmol/L Calcium (8.4-10.2) mg/dL Magnesium (1.6-2.3) mg/dL Troponin I 0.053 H* (0.000-0.034) ng/mL Total Protein (6.3-8.2) g/dL Albumin (3.5-5.0) g/dL Urine Protein (Negative) Urine Blood (Negative) Urine RBC (0-5) /hpf Urine Bacteria (None) /hpf 10/24/23 10/24/23 10/24/23 Range/Units 05:00 05:00 05:18 RBC 4.22 L (4.30-5.90) m/uL Hgb 12.9 L (13.0-17.5) gm/dL Lymphocytes # (Manual) (1.0-4.8) k/uL D-Dimer (<0.60) mg/L FEU ABG pH 7.23 L (7.35-7.45) ABG pCO2 33 L (35-45) mmHg ABG pO2 (83-108) mmHg ABG HCO3 14 L (21-25) mmol/L ABG Total CO2 15 L (19-24) mmol/L ABG Lactic Acid (0.5-1.6) mmol/L Hemoglobin (13.0-17.5) gm/dL Chloride 116 H (98-107) mmol/L Carbon Dioxide 14 L (22-30) mmol/L BUN 76 H (9-20) mg/dL Creatinine 3.10 H (0.66-1.25) mg/dL Glucose 107 H (74-99) mg/dL POC Glucose (mg/dL) (70-110) mg/dL Plasma Lactic Acid Salvador (0.7-2.0) mmol/L Calcium 6.9 L (8.4-10.2) mg/dL Magnesium (1.6-2.3) mg/dL Troponin I (0.000-0.034) ng/mL Total Protein (6.3-8.2) g/dL Albumin (3.5-5.0) g/dL Urine Protein (Negative) Urine Blood (Negative) Urine RBC (0-5) /hpf Urine Bacteria (None) /hpf Microbiology - Last 24 Hours (Table) 10/23/23 03:20 Gram Stain - Preliminary Sputum
[2023-10-24] MEDS: DEXTROSE 5% IN WATER 1,000 ML with SODIUM BICARB (1 MEQ/ML) 150 ML IV SCH (07:44)
[2023-10-24 08:07] LABS: Band Neutrophils % 24 %; Eosinophils # (M) 0.08 k/uL (0-0.7); Lymphocytes # (M) 0.45 k/uL (1.0-4.8); Metamyelocytes # (M) 0.75 k/uL (0); Metamyelocytes % 10 %; Monocytes # (M) 0.38 k/uL (0-1.0); Myelocytes # (M) 0.15 k/uL (0); Myelocytes % 2 %; Neutrophils % (M) 53 %; Nucleated Red Blood Cells 0 /100 WBC (0-0); Total Cells Counted 200
[2023-10-24 08:17] LABS: Crenated RBC Present; Dohle Bodies Present; Poikilocytosis (M) Present; Toxic Vacuolation Present
--- NOTE | 2023-10-24 08:56 | XR ---
EXAMINATION TYPE: XR chest 1V portable DATE OF EXAM: 10/24/2023 Comparison: 10/23/2023 Clinical History: 83-year-old male Tube placement Findings: ET and NG tube are satisfactory. Heart mildly enlarged. Atherosclerotic arch calcifications. Interval worsening aeration with patchy and confluent bilateral airspace opacity. Increasing small left pleur al effusion. Right IJ CVC tip within the right atrium. Impression: Interval worsening now with development of patchy and confluent bilateral airspace disease, probably pulmonary edema. If the patient's small bowel obstruction has not resolved, please ensure that the pa tient is continued on NG suction.
[2023-10-24] MEDS: SODIUM BICARB 8.4% 50 ML SYR (1 MEQ/ML) IV STA (09:39)
--- NOTE | 2023-10-24 09:54 | P.NPCON ---
History of Present Illness - Reason for Consult acute renal failure, chronic renal failure - History of Present Illness Reason for consultation: Acute kidney injury on chronic kidney disease History of present illness: Patient is a 83-year-old male seen in renal consultation for acute kidney injury on chronic kidney disease. Patient has chronic kidney disease stage IIIa with baseline creatinine 1.3-1.4 from August 2023. Patient came to the hospital due to abdominal discomfort which began 3 to 4 days prior to admission. It is noted in the chart he was having trouble keeping anything down. Patient was noted to have small bowel obstruction. She currently has an NG tube. So far 6 L have been obtained from the NG tube in the last 1-1/2 days. He has received 4.5 L of normal saline bolus since admission and was receiving normal saline for maintenance fluids. He was switched to sodium bicarb drip this morning. He is currently on high-dose Levophed as well as vasopressin. Creatinine peaked at 3.28 yesterday and is fairly stable at 3.1 today. Urine output has been 20 to 40 cc an hour. I do see Mobic as well as losartan on his home medication list but both are currently held. Vital signs -febrile. Tachycardic. Hypotensive on vasopressor support. General: Resting in bed. HEENT: Intubated. NG tube noted. LUNGS: Scattered rhonchi. HEART: Tachycardic. ABDOMEN: Soft. EXTREMITITES: No edema. Past Medical History Past Medical History: Coronary Artery Disease (CAD), Cancer, Eye Disorder, GERD/Reflux, GI Bleed, Hyperlipidemia, Hypertension, Myocardial Infarction (MA), Osteoarthritis (OA), Prostate Disorder, Skin Disorder Additional Past Medical History / Comment(s): ESOPHAGEAL cancer-chemo 1980, COLON AND SKIN CANCER , CELIAC DISEASE, BPH, hx KIDNEY STONES, diveritcular, bilateral glaucoma, Rt. eye has macular degeneration, varicose veins, hiatal hernia, hx ulcers, black stool, hx pancreatitis 2016, hx eczema, CHANGE IN BOWEL HABITS, vision becoming worse, pt. doesn't recall having MA Last Myocardial Infarction Date:: 11/25/17 History of Any Multi-Drug Resistant Organisms: None Reported Past Surgical History: Adenoidectomy, Appendectomy, Back Surgery, Bowel Resection, Cholecystectomy, Heart Catheterization With Stent, Hernia Repair, Orthopedic Surgery, Tonsillectomy Additional Past Surgical History / Comment(s): esophagectomy, colectomy, LT CAROTID ENDARTECTOMY, LUMP REMOVED FROM TONGUE, LITHOTRIPSY, CYSTOSCOPY, RT ROTATOR CUFF REPAIR, Rt CTR, DEVIATED SEPTUM, , cardiac STENTS x 3, UMBILICAL HERNIA REPAIR X 2, RT inguinal hernia repair, LOWER BACK SURGERY-HAS SCREWS, BILAT CATARACTS REMOVED, vasectomy, repair of undescended testicle, COLONOSCOPY, EGD, colon resection August 2023 Past Anesthesia/Blood Transfusion Reactions: No Reported Reaction Additional Past Anesthesia/Blood Transfusion Reaction / Comment(s): Pt has received blood in past without reaction. Date of Last Stent Placement:: 2015 Past Psychological History: No Psychological Hx Reported Additional Psychological History / Comment(s): . Smoking Status: Former smoker Past Alcohol Use History: None Reported Additional Past Alcohol Use History / Comment(s): STARTED SMOKING AGE 11 (1950) WAS 2 PPD, QUIT 1983 Past Drug Use History: None Reported - Past Family History Brother(s) Family Medical History: Cancer Additional Family Medical History / Comment(s): liver and brain Mother Family Medical History: Cancer Additional Family Medical History / Comment(s): LIVER CA, BRAIN CA Sister(s) Family Medical History: Cancer Additional Family Medical History / Comment(s): BREAST CA, LUNG CA. SISTER X 2 Father Family Medical History: Osteoarthritis (OA) Additional Family Medical History / Comment(s): CELIAC DISEASE, ULCERS Medications and Allergies Home Medications Medication Instructions Recorded Confirmed Type Tamsulosin HCl 0.4 mg PO HS 08/28/13 10/21/23 History Isosorbide Mononitrate ER [Imdur] 30 mg PO BID 07/16/15 10/21/23 History Triamcinolone 0.1% Cream [Kenalog 1 applicatio TOPICAL BID PRN 09/05/20 10/21/23 History 0.1% Cream] Losartan [Cozaar] 25 mg PO BID 05/29/23 10/21/23 History Aspirin [Adult Low Dose Aspirin EC] 81 mg PO DAILY 08/09/23 10/21/23 History Prevagen 1 tab PO DAILY 08/09/23 10/21/23 History hydrALAZINE HCL 25 mg PO BID 08/13/23 10/21/23 History Atorvastatin [Lipitor] 40 mg PO HS 08/21/23 10/21/23 History Cetirizine HCl [Zyrtec] 10 mg PO DAILY 08/21/23 10/21/23 History Trospium Chloride [Sanctura XR] 60 mg PO DAILY 08/21/23 10/21/23 History Cholecalciferol (Vitamin D3) 50 mcg PO DAILY 10/21/23 10/21/23 History [Vitamin D3 (50 Mcg = 2000 Iu) Chew Tab] Cyanocobalamin [Vitamin B-12] 500 mcg PO DAILY 10/21/23 10/21/23 History Docusate [Colace] 100 mg PO DAILY 10/21/23 10/21/23 History Famotidine 40 mg PO DAILY PRN 10/21/23 10/21/23 History Meloxicam [Mobic] 15 mg PO DAILY 10/21/23 10/21/23 History Mv-Min/Folic/K1/Lycopen/Lutein 1 tab PO DAILY 10/21/23 10/21/23 History [Centrum Silver Men Tablet] Pantoprazole [Protonix] 40 mg PO HS 10/21/23 10/21/23 History Timolol 0.5% Ophth Soln [Timoptic 1 drop BOTH EYES HS 10/21/23 10/21/23 History 0.5% Ophth Soln] Vit C/E/Zn/Coppr/Lutein/Zeaxan 1 cap PO DAILY 10/21/23 10/21/23 History [Preservision Areds 2 Softgel] Allergies Allergy/AdvReac Type Severity Reaction Status Date / Time atenolol Allergy Unknown Verified 10/21/23 12:08 clopidogrel bisulfate Allergy severe Verified 10/21/23 12:08 [From Plavix] itching gluten Allergy blisters Verified 10/21/23 12:08 lactose Allergy Abdominal Verified 10/21/23 12:08 Pain simvastatin Allergy Unknown Verified 10/21/23 12:08 beet AdvReac CAUSES Verified 10/21/23 12:08 KIDNEY STONES PER PT Esko And Derivatives AdvReac CAUSES Verified 10/21/23 12:08 [Esko] KIDNEY STONES PER PT cocoa AdvReac CAUSES Verified 10/21/23 12:08 KIDNEY STONES PER PT coffee (Coffea arabica) AdvReac CAUSES Verified 10/21/23 12:08 KIDNEY STONES PER PT cranberry AdvReac CAUSES Verified 10/21/23 12:08 KIDNEY STONES PER PT diphenhydramine AdvReac Diarrhea Verified 10/21/23 12:08 [From Benadryl] green tea AdvReac CAUSES Verified 10/21/23 12:08 KIDNEY STONES PER PT plum AdvReac CAUSES Verified 10/21/23 12:08 KIDNEY STONES PER PT prednisolone AdvReac GLAUCOMA Verified 10/21/23 12:08 rhubarb AdvReac CAUSES Verified 10/21/23 12:08 KIDNEY STONES PER PT spinach AdvReac CAUSES Verified 10/21/23 12:08 KIDNEY STONES PER PT sucralfate [From Carafate] AdvReac REFLUX Verified 10/21/23 12:08 Sulfa (Sulfonamide AdvReac blood Verified 10/21/23 12:08 Antibiotics) disorder sweet potato AdvReac CAUSES Verified 10/21/23 12:08 KIDNEY STONES PER PT tree nut [Nut] AdvReac CAUSES Verified 10/21/23 12:08 KIDNEY STONES PER PT Physical Exam Vitals: Vital Signs Temp Pulse Pulse Resp BP BP BP 10/24/23 09:17 10/24/23 09:13 10/24/23 09:00 100.7 F H 106 H 30 H 91/47 87/45 10/24/23 08:00 10/24/23 07:41 10/24/23 07:30 100.9 F H 104 H 25 H 95/56 10/24/23 07:00 105 H 17 101/55 10/24/23 06:00 103 H 22 99/59 10/24/23 05:30 102 H 10 L 96/52 10/24/23 05:00 101.5 F H 100 19 102/66 10/24/23 04:50 10/24/23 04:30 100 28 H 100/57 10/24/23 04:00 97 28 H 100/57 10/24/23 03:30 96 28 H 96/60 10/24/23 03:00 96 29 H 108/57 10/24/23 02:30 94 28 H 95/59 10/24/23 02:00 91 29 H 88/54 10/24/23 01:46 10/24/23 01:30 91 27 H 99/61 10/24/23 01:00 90 28 H 96/70 10/24/23 00:50 10/24/23 00:45 92 12 96/70 10/24/23 00:30 90 31 H 81/50 10/24/23 00:15 92 21 81/50 10/24/23 00:00 100.1 F H 92 25 H 10/23/23 23:45 91 26 H 85/49 10/23/23 23:30 90 26 H 10/23/23 23:15 90 18 80/48 10/23/23 23:00 90 27 H 83/45 10/23/23 22:45 89 26 H 10/23/23 22:30 89 27 H 85/53 10/23/23 22:15 89 27 H 10/23/23 22:00 89 27 H 79/53 10/23/23 21:50 10/23/23 21:45 89 25 H 10/23/23 21:30 89 26 H 85/59 10/23/23 21:15 90 27 H 85/59 10/23/23 21:00 91 27 H 97/65 10/23/23 20:45 91 25 H 97/65 10/23/23 20:30 92 28 H 10/23/23 20:15 92 23 74/49 10/23/23 20:00 100.5 F H 90 29 H 10/23/23 19:45 90 27 H 83/50 10/23/23 19:30 90 26 H 75/46 10/23/23 19:20 10/23/23 19:15 91 28 H 74/47 10/23/23 19:00 90 29 H 84/50 10/23/23 18:45 90 27 H 87/49 10/23/23 18:30 85 29 H 89/54 10/23/23 18:15 85 27 H 96/55 10/23/23 18:00 94 25 H 93/54 10/23/23 17:45 85 29 H 102/57 10/23/23 17:30 84 29 H 95/52 10/23/23 17:15 82 28 H 99/51 10/23/23 17:00 84 19 98/55 10/23/23 16:45 82 10 L 95/56 10/23/23 16:30 80 15 93/53 10/23/23 16:15 82 26 H 100/59 10/23/23 16:00 100.2 F H 84 23 97/49 10/23/23 15:45 81 26 H 89/53 10/23/23 15:30 80 13 94/49 10/23/23 15:20 10/23/23 15:15 82 25 H 101/53 10/23/23 15:00 84 18 101/53 10/23/23 14:45 80 25 H 10/23/23 14:30 80 22 10/23/23 14:15 81 23 10/23/23 14:00 84 22 10/23/23 13:45 82 23 10/23/23 13:30 84 22 10/23/23 13:15 82 22 10/23/23 13:00 100.7 F H 82 15 10/23/23 12:45 82 22 10/23/23 12:30 83 24 10/23/23 12:15 86 19 10/23/23 12:00 85 24 10/23/23 11:45 85 14 10/23/23 11:33 10/23/23 11:30 85 25 H 10/23/23 11:15 80 25 H 10/23/23 11:00 81 28 H 10/23/23 10:45 101.2 F H 90 10/23/23 10:30 92 10/23/23 10:15 92 21 99/50 10/23/23 10:00 97 27 H 92/54 Pulse Ox FiO2 10/24/23 09:17 50 10/24/23 09:13 50 10/24/23 09:00 94 L 55 10/24/23 08:00 55 10/24/23 07:41 55 10/24/23 07:30 96 10/24/23 07:00 95 10/24/23 06:00 94 L 10/24/23 05:30 95 10/24/23 05:00 94 L 55 10/24/23 04:50 55 10/24/23 04:30 94 L 10/24/23 04:00 95 55 10/24/23 03:30 95 10/24/23 03:00 95 55 10/24/23 02:30 95 10/24/23 02:00 95 10/24/23 01:46 55 10/24/23 01:30 96 10/24/23 01:00 96 10/24/23 00:50 60 10/24/23 00:45 94 L 10/24/23 00:30 94 L 10/24/23 00:15 96 10/24/23 00:00 95 60 10/23/23 23:45 95 10/23/23 23:30 95 10/23/23 23:15 95 10/23/23 23:00 96 10/23/23 22:45 96 10/23/23 22:30 97 10/23/23 22:15 97 10/23/23 22:00 98 10/23/23 21:50 60 10/23/23 21:45 92 L 10/23/23 21:30 92 L 10/23/23 21:15 100 10/23/23 21:00 97 10/23/23 20:45 94 L 10/23/23 20:30 95 10/23/23 20:15 96 10/23/23 20:00 95 45 10/23/23 19:45 96 10/23/23 19:30 96 10/23/23 19:20 45 10/23/23 19:15 97 10/23/23 19:00 96 10/23/23 18:45 96 10/23/23 18:30 96 10/23/23 18:15 96 10/23/23 18:00 96 10/23/23 17:45 95 10/23/23 17:30 96 10/23/23 17:15 95 10/23/23 17:00 95 45 10/23/23 16:45 96 10/23/23 16:30 95 10/23/23 16:15 96 10/23/23 16:00 96 45 10/23/23 15:45 96 10/23/23 15:30 96 10/23/23 15:20 55 10/23/23 15:15 98 10/23/23 15:00 98 10/23/23 14:45 99 10/23/23 14:30 99 10/23/23 14:15 100 10/23/23 14:00 100 10/23/23 13:45 100 10/23/23 13:30 100 10/23/23 13:15 99 10/23/23 13:00 99 10/23/23 12:45 98 10/23/23 12:30 98 10/23/23 12:15 99 10/23/23 12:00 97 55 10/23/23 11:45 99 10/23/23 11:33 55 10/23/23 11:30 98 10/23/23 11:15 96 10/23/23 11:00 96 10/23/23 10:45 98 10/23/23 10:30 97 10/23/23 10:15 97 10/23/23 10:00 96 Intake and Output 10/23/23 10/24/23 10/24/23 22:59 06:59 14:59 Intake Total 5729.947 1110.41 300 Output Total 360 585 100 Balance 5369.947 525.41 200 Intake: Intake, IV Titration 5729.947 1110.41 300 Amount ACETAMINOPHEN IV (For NPO 100 ) 1,000 mg In Empty Bag 1 bag @ 400 mls/hr IVPB ONCE ONE Rx#:[id number] Dextrose 5% in Water 1, 200 000 ml @ 100 mls/hr IV . [id number] [facility] with Sodium Bicarb (1 Meq/ml) 150 ml Rx#:[id number] Dextrose 5%-Lactated 800 800 100 Ringers 1,000 ml @ 100 mls/hr IV .Q10H [facility] Rx#: [id number] Norepinephrine 4 mg In 613.129 Sodium Chloride 0.9% 250 ml @ 0.03 MCG/KG/MIN 8. 814 mls/hr IV .Q24H [facility] Rx#:[id number] Piperacillin-Tazobactam 3 100 100 .375 gm In Sodium Chloride 0.9% 100 ml @ 25 mls/hr IVPB Q12H [facility] Rx# :[id number] Sodium Chloride 0.9% 1, 1000 000 ml @ 999 mls/hr IV . Q1H1M ONE Rx#:[id number] Sodium Chloride 0.9% 1, 3000 000 ml @ 999 mls/hr IV . Q1H1M ONE Rx#:[id number] Vasopressin 60 unit In 81.294 Sodium Chloride 0.9% 150 ml @ 0.03 UNITS/MIN 4.59 mls/hr IV .Q24H [facility] Rx#: [id number] propofoL 1,000 mg In 135.524 110.41 Empty Bag 1 bag @ 15 MCG/ KG/MIN 6.94 mls/hr IV . [id number] [facility] Rx#:[id number] Output: Gastric Drainage 200 450 Urine 160 135 100 Other: Voiding Method Indwelling Catheter Indwelling Catheter # Bowel Movements 0 Weight 86.6 kg ABP, PAP, CO, CI - Last 8 Hours Arterial Blood Pressure 94/48 Arterial Blood Pressure 93/49 Arterial Blood Pressure 94/50 Arterial Blood Pressure 91/47 Arterial Blood Pressure 85/46 Arterial Blood Pressure 92/45 Arterial Blood Pressure 86/42 Arterial Blood Pressure 85/42 Arterial Blood Pressure 84/46 Arterial Blood Pressure 81/47 Arterial Blood Pressure 79/42 Results - Lab Results Most recent lab results ABG pH 7.23 (7.35-7.45) L 10/24/23 05:18 ABG pCO2 33 mmHg (35-45) L 10/24/23 05:18 ABG pO2 87 mmHg (83-108) 10/24/23 05:18 ABG HCO3 14 mmol/L (21-25) L 10/24/23 05:18 ABG O2 Saturation 96.5 % (94-97) 10/24/23 05:18 Calcium 6.9 mg/dL (8.4-10.2) L 10/24/23 05:00 Magnesium 2.5 mg/dL (1.6-2.3) H 10/23/23 06:34 10/24/23 05:00 10/24/23 05:00 Assessment and Plan Plan: Assessment: 1. Acute kidney injury secondary to ATN secondary to septic shock. Creatinine peaked at 3.2 at this admission and is 3.1 today. No hydronephrosis noted on CAT scan. Urine output 20 to 40 cc an hour. 2. Chronic kidney disease stage IIIa with baseline creatinine 1.3-1.4. 3. Small bowel obstruction. Surgery following. Has NG tube. 6 L obtained in the last 1.5 days. 4. Metabolic acidosis secondary to acute kidney injury and IV fluids. 5. Shock maintained on vasopressor support. 6. Cardiomyopathy with ejection fraction of 40 to 45%. Plan: Increase rate of bicarb drip to 150 cc an hour. Wean FiO2 and vasopressors. With hypovolemia and hypotension, hold off on giving any diuretics at this time. Avoid nephrotoxins. Continue to monitor renal function and urine output. Continue to assess daily for need for renal replacement therapy. Thank you for the consultation. I will continue to follow the patient with you during his hospital stay.
[2023-10-24] MEDS: ACETAMINOPHEN IV (For NPO) 1,000 MG in EMPTY BAG 1 BAG IVPB PRN (10:16)
[2023-10-24 12:00] LABS: Glucose,Whole Blood 93 mg/dL (70-110)
[2023-10-24] MEDS: FUROSEMIDE 10 MG/ML 10 ML VIAL IV STA (12:35)
--- NOTE | 2023-10-24 13:06 | P.PN ---
Subjective Progress Note Date: 10/24/23 CHIEF COMPLAINT: SBO HISTORY OF PRESENT ILLNESS: Patient admitted to the hospital with small bowel obstruction. Patient currently in ICU and remains intubated and on mechanical ventilation. He was transferred to the ICU yesterday after becoming hypoxic and hypotensive. There are concerns for possible aspiration. He is still maxed on Levophed and vasopressin. Patient has had a total of 6-1/2 L of output through his NG tube over the last day and a half. He has received a total of 4-1/2 L of IV fluids. Nephrology is following they have adjusted IV fluids to 150 mL/h. Urine output is slightly better than last night. Patient did have a temp of 101.5 early this morning he has been tachycardic and hypotensive. White count 7.5. Creatinine 3.10 lactic acid 3.6 PHYSICAL EXAM: VITAL SIGNS: Reviewed. Head is atraumatic, normocephalic. Hears conversational speech. No nasal drainage. NECK: Supple without lymphadenopathy. CHEST: Non-labored respirations and equal bilateral excursions. CARDIOVASCULAR: Palpable 2+ radial pulses. ABDOMEN: Soft. distended MUSCULOSKELETAL: No clubbing or cyanosis. NEUROLOGIC: intubated and sedated ASSESSMENT: 1. Small bowel obstruction 2. Hiatal hernia 3. History of esophageal cancer status post esophagectomy 4. Large bowel obstruction status post lysis of adhesions and sigmoid colectomy on August 31, 2023 5. Hypotension and shock 6. Suspected aspiration 7. Acute hypoxic and hypercapnic respiratory failure on mechanical ventilation PLAN: -Continue NG tube for decompression -NPO -Continue ICU management -Continue supportive care -Continue IV fluids. IV fluid management per nephrology -Continue blood pressure support -Continue antibiotics Physician Coke Drawer note has been reviewed by physician. Signing provider agrees with the documented findings, assessment, and plan of care. Objective - Vital Signs Vital signs: Vital Signs Temp 99.3 F 10/24/23 12:15 Pulse 107 H 10/24/23 12:45 Resp 30 H 10/24/23 12:45 BP 83/51 10/24/23 12:45 Pulse Ox 94 L 10/24/23 12:45 FiO2 55 10/24/23 12:45 Intake & Output 10/23/23 10/24/23 10/24/23 18:59 06:59 18:59 Intake Total 4420.045 5189.771 1120.019 Output Total 1245 670 185 Balance 3175.045 4519.771 935.019 Weight 86.6 kg Intake: Intake, IV Titration 3620.045 5189.771 1120.019 Amount ACETAMINOPHEN IV (For NPO 100 ) 1,000 mg In Empty Bag 1 bag @ 400 mls/hr IVPB ONCE ONE Rx#:[id number] ACETAMINOPHEN IV (For NPO 100 ) 1,000 mg In Empty Bag 1 bag @ 400 mls/hr IVPB Q6HR PRN Rx#:[id number] Dextrose 5% in Water 1, 650 000 ml @ 150 mls/hr IV . Q7H40M [facility] with Sodium Bicarb (1 Meq/ml) 150 ml Rx#:[id number] Dextrose 5%-Lactated 1032 1200 100 Ringers 1,000 ml @ 100 mls/hr IV .Q10H [facility] Rx#: [id number] Norepinephrine 32 mg In 180.429 Sodium Chloride 0.9% 218 ml @ 0.03 MCG/KG/MIN 1. 084 mls/hr IV .Q24H [facility] Rx#:[id number] Norepinephrine 4 mg In 708.222 508 Sodium Chloride 0.9% 250 ml @ 0.03 MCG/KG/MIN 8. 814 mls/hr IV .Q24H [facility] Rx#:[id number] Piperacillin-Tazobactam 3 200 100 .375 gm In Sodium Chloride 0.9% 100 ml @ 25 mls/hr IVPB Q12H [facility] Rx# :[id number] Sodium Chloride 0.9% 1, 1000 000 ml @ 999 mls/hr IV . Q1H1M ONE Rx#:[id number] Sodium Chloride 0.9% 1, 3000 000 ml @ 999 mls/hr IV . Q1H1M ONE Rx#:[id number] Sodium Chloride 0.9% 500 500 ml 500 ml @ 999 mls/hr IV .Q31M ONE Rx#:[id number] Vasopressin 60 unit In 81.294 Sodium Chloride 0.9% 150 ml @ 0.03 UNITS/MIN 4.59 mls/hr IV .Q24H [facility] Rx#: [id number] propofoL 1,000 mg In 179.823 200.477 89.590 Empty Bag 1 bag @ 15 MCG/ KG/MIN 6.94 mls/hr IV . [id number] [facility] Rx#:[id number] Tube Feeding 800 Output: Gastric Drainage 1000 450 Urine 245 220 185 Other: Voiding Method Indwelling Catheter Indwelling Catheter Indwelling Catheter # Bowel Movements 0 ABP, PAP, CO, CI - Last Documented Arterial Blood Pressure 76/42 - Labs CBC & Chem 7: 10/24/23 05:00 10/24/23 05:00 Labs: Abnormal Lab Results - Last 24 Hours (Table) 10/23/23 10/23/23 10/23/23 Range/Units 03:11 14:46 14:46 RBC (4.30-5.90) m/uL Hgb (13.0-17.5) gm/dL Lymphocytes # (Manual) (1.0-4.8) k/uL Metamyelocytes # (Man) (0) k/uL Myelocytes # (Manual) (0) k/uL ABG pH (7.35-7.45) ABG pCO2 (35-45) mmHg ABG HCO3 (21-25) mmol/L ABG Total CO2 (19-24) mmol/L ABG Lactic Acid 2.2 H* (0.5-1.6) mmol/L Chloride (98-107) mmol/L Carbon Dioxide (22-30) mmol/L BUN (9-20) mg/dL Creatinine (0.66-1.25) mg/dL Glucose (74-99) mg/dL POC Glucose (mg/dL) (70-110) mg/dL Plasma Lactic Acid Salvador (0.7-2.0) mmol/L Calcium (8.4-10.2) mg/dL Troponin I 0.053 H* (0.000-0.034) ng/mL Urine Protein 1+ H (Negative) Urine Blood Trace H (Negative) Urine RBC 22 H (0-5) /hpf Urine Bacteria Rare H (None) /hpf 10/23/23 10/23/23 10/24/23 Range/Units 16:58 17:30 05:00 RBC 4.22 L (4.30-5.90) m/uL Hgb 12.9 L (13.0-17.5) gm/dL Lymphocytes # (Manual) 0.45 L (1.0-4.8) k/uL Metamyelocytes # (Man) 0.75 H (0) k/uL Myelocytes # (Manual) 0.15 H (0) k/uL ABG pH (7.35-7.45) ABG pCO2 (35-45) mmHg ABG HCO3 (21-25) mmol/L ABG Total CO2 (19-24) mmol/L ABG Lactic Acid (0.5-1.6) mmol/L Chloride (98-107) mmol/L Carbon Dioxide (22-30) mmol/L BUN (9-20) mg/dL Creatinine (0.66-1.25) mg/dL Glucose (74-99) mg/dL POC Glucose (mg/dL) 120 H (70-110) mg/dL Plasma Lactic Acid Salvador 3.2 H* (0.7-2.0) mmol/L Calcium (8.4-10.2) mg/dL Troponin I (0.000-0.034) ng/mL Urine Protein (Negative) Urine Blood (Negative) Urine RBC (0-5) /hpf Urine Bacteria (None) /hpf 10/24/23 10/24/23 10/24/23 Range/Units 05:00 05:18 09:45 RBC (4.30-5.90) m/uL Hgb (13.0-17.5) gm/dL Lymphocytes # (Manual) (1.0-4.8) k/uL Metamyelocytes # (Man) (0) k/uL Myelocytes # (Manual) (0) k/uL ABG pH 7.23 L (7.35-7.45) ABG pCO2 33 L (35-45) mmHg ABG HCO3 14 L (21-25) mmol/L ABG Total CO2 15 L (19-24) mmol/L ABG Lactic Acid (0.5-1.6) mmol/L Chloride 116 H (98-107) mmol/L Carbon Dioxide 14 L (22-30) mmol/L BUN 76 H (9-20) mg/dL Creatinine 3.10 H (0.66-1.25) mg/dL Glucose 107 H (74-99) mg/dL POC Glucose (mg/dL) (70-110) mg/dL Plasma Lactic Acid Salvador 3.6 H* (0.7-2.0) mmol/L Calcium 6.9 L (8.4-10.2) mg/dL Troponin I (0.000-0.034) ng/mL Urine Protein (Negative) Urine Blood (Negative) Urine RBC (0-5) /hpf Urine Bacteria (None) /hpf Microbiology - Last 24 Hours (Table) 10/23/23 03:20 Gram Stain - Preliminary Sputum Sputum Culture - Preliminary Gram Neg Bacilli
--- NOTE | 2023-10-24 13:31 | P.PN ---
Subjective Progress Note Date: 10/24/23 Principal diagnosis: Small bowel obstruction, aspiration pneumonia acute hypoxic respiratory failure secondary to aspiration pneumonia Patient is an 83-year-old white male with past medical history significant for hypertension, hyperlipidemia, coronary artery disease with previous PCI/stent, GERD, colon cancer with previous resection, hiatal hernia, GI bleed. Of note, patient had a recently underwent exploratory laparotomy Dr. Jameson on 08/30/2023, found to have a partial large bowel obstruction, and underwent lysis of adhesions and sigmoid colectomy with low anterior resection. Patient return to the emergency department on 10/21/2023 chiefly complaining of abdominal pain associated with intractable nausea and vomiting. CT of the abdomen and pelvis done on admission demonstrating marked dilation of the stomach and small bowel loops consistent with a distal small bowel obstruction. Exact transition point is indeterminate, but appears to be in the right mid abdomen near the anastomosis with a large bowel. No free or intraperitoneal air or fluid. General surgery had been following the patient. Pursuing conservative management at this point. We were not consulted until early this morning. Patient was noted to be short of breath and hypoxic. He was also profoundly hypotensive. An A-team was called for profound hypotension. I recommended transferring the patient to the intensive care unit. He was unresponsive. Unfortunately no prior CODE STATUS was established. We did eventually get a hold of patient's spouse who wants the patient to be a full code. Although, she was unsure of who that patient's primary decision maker is, as they have only been for one year. Never the less, we cannot reach the son. The patient's would like the patient to undergo intubation to mechanical ventilator if necessary, and also receive any resuscitative efforts necessary. Blood pressure currently 50/30 mmHg. Patient is currently being fluid res uscitated, and norepinephrine is in the process of being started. FIELD OPERATIONS TECHNICIAN performed rapid sequence intubation. During the intubation, patient had large volume aspiration. Airway was eventually secured. Postintubation ABG is showing a PaO2 of 179, pCO2 of 57, pH of 7.13. Consistent with combined re spiratory and metabolic acidosis. Will increase the respiratory rate to 26. Current ventilator settings include assist-control, respiratory rate 20, tidal volume 500, FiO2 100%, PEEP of 5. Also, received two amps of sodium bicarbonate. Postintubation chest x-ray noted. Endotracheal tube in good location. Prominent interstitial markings. Left basilar opacity. The abdomen is firm and distended. Nasogastric tube is hooked to suction draining a copious amount of gastric output. A total of 1.7 L of brown output so far. Patient will have to go down for a stat repeat CAT scan of the abdomen. General surgery will be updated on patient's clinical deterioration. Repeat labs are pending. Patient is currently in the intensive care unit, intubated to the mechanical ventilator. He is moving all 4 extremities. Reaching for endotracheal tube. We are in the process of starting sedation with propofol. Prognosis is guarded. Patient was today on 10/24/2023, patient remains intubated and mechanically ventilated, remains critically ill requiring pressors for hypotension patient has poor urine output, he received multiple boluses of fluids over the last 24 hours. Urine output today is 40 mL/h after multiple fluid boluses patient is on assist-control rate of 22 tidal volume 500 FiO2 55% PEEP of 10 however after reviewing his ABG showing a pO2 of 87 pCO2 33 pH of 7.23, patient received an amp of bicarb, FiO2 changed to 50% PEEP increased to 12. Chest x-ray is showing evidence of pulmonary edema, reminded this could be cardiogenic or noncardiogenic/ARDS from aspiration pneumonia. Hence the PEEP was increased to 12. Patient remains on norepinephrine at 0.5 mcg/kg/min he is also on vasopressin at 0.04 units/min IV fluids still running at 100 cc/h with 3 A of bicarb. And this was increased to 125 cc/h. 1 amp of bicarb was given. Patient remains on Zosyn empirically for aspiration pneumonia. Considering his marginal urine output, 1 dose of Lasix 80 mg IV push was ordered. Feeding guy the patient needs to be on TPN, and this is to be addressed by refinery process engineer on the case. Surgery is following the patient, but no plans for any surgical intervention as the patient seems to be critically ill. Yesterday I had a discussion with his son, CODE STATUS is DNR, and if his condition gets any worse, may have to approach the family about comfort care measures. For the time being we will continue aggressive management/critical care treatment. WBC count today is 7.5 hemoglobin 12.9. Basic metabolic profile is normal bicarb is 14 BUN is 76 creatinine 3.10 lactic acid 3.6. Calcium 6.9 chest x-ray as noted earlier patient seems to be developing probably pulmonary edema again this could also be ARDS or aspiration pneumonia. Objective - Vital Signs Vital signs: Vital Signs Temp 99.3 F 10/24/23 12:15 Pulse 107 H 10/24/23 12:45 Resp 30 H 10/24/23 12:45 BP 83/51 10/24/23 12:45 Pulse Ox 94 L 10/24/23 12:45 FiO2 55 10/24/23 12:45 Intake & Output 10/23/23 10/24/23 10/24/23 18:59 06:59 18:59 Intake Total 4420.045 5189.771 1120.019 Output Total 1245 670 185 Balance 3175.045 4519.771 935.019 Weight 86.6 kg Intake: Intake, IV Titration 3620.045 5189.771 1120.019 Amount ACETAMINOPHEN IV (For NPO 100 ) 1,000 mg In Empty Bag 1 bag @ 400 mls/hr IVPB ONCE ONE Rx#:[id number] ACETAMINOPHEN IV (For NPO 100 ) 1,000 mg In Empty Bag 1 bag @ 400 mls/hr IVPB Q6HR PRN Rx#:[id number] Dextrose 5% in Water 1, 650 000 ml @ 150 mls/hr IV . Q7H40M [facility] with Sodium Bicarb (1 Meq/ml) 150 ml Rx#:[id number] Dextrose 5%-Lactated 1032 1200 100 Ringers 1,000 ml @ 100 mls/hr IV .Q10H [facility] Rx#: [id number] Norepinephrine 32 mg In 180.429 Sodium Chloride 0.9% 218 ml @ 0.03 MCG/KG/MIN 1. 084 mls/hr IV .Q24H [facility] Rx#:[id number] Norepinephrine 4 mg In 708.222 508 Sodium Chloride 0.9% 250 ml @ 0.03 MCG/KG/MIN 8. 814 mls/hr IV .Q24H [facility] Rx#:[id number] Piperacillin-Tazobactam 3 200 100 .375 gm In Sodium Chloride 0.9% 100 ml @ 25 mls/hr IVPB Q12H [facility] Rx# :[id number] Sodium Chloride 0.9% 1, 1000 000 ml @ 999 mls/hr IV . Q1H1M ONE Rx#:[id number] Sodium Chloride 0.9% 1, 3000 000 ml @ 999 mls/hr IV . Q1H1M ONE Rx#:[id number] Sodium Chloride 0.9% 500 500 ml 500 ml @ 999 mls/hr IV .Q31M ONE Rx#:[id number] Vasopressin 60 unit In 81.294 Sodium Chloride 0.9% 150 ml @ 0.03 UNITS/MIN 4.59 mls/hr IV .Q24H [facility] Rx#: [id number] propofoL 1,000 mg In 179.823 200.477 89.590 Empty Bag 1 bag @ 15 MCG/ KG/MIN 6.94 mls/hr IV . [id number] [facility] Rx#:[id number] Tube Feeding 800 Output: Gastric Drainage 1000 450 Urine 245 220 185 Other: Voiding Method Indwelling Catheter Indwelling Catheter Indwelling Catheter # Bowel Movements 0 ABP, PAP, CO, CI - Last Documented Arterial Blood Pressure 76/42 - Exam GENERAL EXAM: Revealed 83-year-old white male intubated, mechanically ventilated, sedated on propofol, in no distress. HEAD: Normocephalic and atraumatic endotracheal tube and nasogastric tube are intact. EYES: Normal reaction of pupils, equal size. NOSE: Clear with pink turbinates. THROAT: No erythema or exudates. NECK: No masses, no JVD. CHEST: No chest wall deformity. LUNGS: Crackles and rhonchi noted bilaterally... CVS: S1 and S2 normal with no audible murmur, regular rhythm. No extra heart sounds ABDOMEN: Less abdominal distention is noted, healed laparoscopic surgical incisions. SPINE: No scoliosis or deformity SKIN: No rashes CENTRAL NERVOUS SYSTEM: Could not assess patient is sedated, on propofol. EXTREMITIES: Trace of bipedal edema, good pulses bilaterally no clubbing - Labs CBC & Chem 7: 10/24/23 05:00 10/24/23 05:00 Labs: Abnormal Lab Results - Last 24 Hours (Table) 10/23/23 10/23/23 10/23/23 Range/Units 03:11 14:46 14:46 RBC (4.30-5.90) m/uL Hgb (13.0-17.5) gm/dL Lymphocytes # (Manual) (1.0-4.8) k/uL Metamyelocytes # (Man) (0) k/uL Myelocytes # (Manual) (0) k/uL ABG pH (7.35-7.45) ABG pCO2 (35-45) mmHg ABG HCO3 (21-25) mmol/L ABG Total CO2 (19-24) mmol/L ABG Lactic Acid 2.2 H* (0.5-1.6) mmol/L Chloride (98-107) mmol/L Carbon Dioxide (22-30) mmol/L BUN (9-20) mg/dL Creatinine (0.66-1.25) mg/dL Glucose (74-99) mg/dL POC Glucose (mg/dL) (70-110) mg/dL Plasma Lactic Acid Salvador (0.7-2.0) mmol/L Calcium (8.4-10.2) mg/dL Troponin I 0.053 H* (0.000-0.034) ng/mL Urine Protein 1+ H (Negative) Urine Blood Trace H (Negative) Urine RBC 22 H (0-5) /hpf Urine Bacteria Rare H (None) /hpf 10/23/23 10/23/23 10/24/23 Range/Units 16:58 17:30 05:00 RBC 4.22 L (4.30-5.90) m/uL Hgb 12.9 L (13.0-17.5) gm/dL Lymphocytes # (Manual) 0.45 L (1.0-4.8) k/uL Metamyelocytes # (Man) 0.75 H (0) k/uL Myelocytes # (Manual) 0.15 H (0) k/uL ABG pH (7.35-7.45) ABG pCO2 (35-45) mmHg ABG HCO3 (21-25) mmol/L ABG Total CO2 (19-24) mmol/L ABG Lactic Acid (0.5-1.6) mmol/L Chloride (98-107) mmol/L Carbon Dioxide (22-30) mmol/L BUN (9-20) mg/dL Creatinine (0.66-1.25) mg/dL Glucose (74-99) mg/dL POC Glucose (mg/dL) 120 H (70-110) mg/dL Plasma Lactic Acid Salvador 3.2 H* (0.7-2.0) mmol/L Calcium (8.4-10.2) mg/dL Troponin I (0.000-0.034) ng/mL Urine Protein (Negative) Urine Blood (Negative) Urine RBC (0-5) /hpf Urine Bacteria (None) /hpf 10/24/23 10/24/23 10/24/23 Range/Units 05:00 05:18 09:45 RBC (4.30-5.90) m/uL Hgb (13.0-17.5) gm/dL Lymphocytes # (Manual) (1.0-4.8) k/uL Metamyelocytes # (Man) (0) k/uL Myelocytes # (Manual) (0) k/uL ABG pH 7.23 L (7.35-7.45) ABG pCO2 33 L (35-45) mmHg ABG HCO3 14 L (21-25) mmol/L ABG Total CO2 15 L (19-24) mmol/L ABG Lactic Acid (0.5-1.6) mmol/L Chloride 116 H (98-107) mmol/L Carbon Dioxide 14 L (22-30) mmol/L BUN 76 H (9-20) mg/dL Creatinine 3.10 H (0.66-1.25) mg/dL Glucose 107 H (74-99) mg/dL POC Glucose (mg/dL) (70-110) mg/dL Plasma Lactic Acid Salvador 3.6 H* (0.7-2.0) mmol/L Calcium 6.9 L (8.4-10.2) mg/dL Troponin I (0.000-0.034) ng/mL Urine Protein (Negative) Urine Blood (Negative) Urine RBC (0-5) /hpf Urine Bacteria (None) /hpf Microbiology - Last 24 Hours (Table) 10/23/23 04:10 Blood Culture - Preliminary Blood 10/23/23 03:20 Gram Stain - Preliminary Sputum Sputum Culture - Preliminary Gram Neg Bacilli Assessment and Plan Assessment: Impression: Acute small bowel obstruction, CT of the abdomen and pelvis done on admission demonstrating marked dilation of the stomach and small bowel loops consistent with a distal small bowel obstruction. Status post aspiration of stomach content related to his bowel obstruction. Requiring intubation mechanical ventilation, and admission to the ICU on 10/23/2023 Profound hypotension and shock, refractory to fluid resuscitation, requiring vasopressors in the form of norepinephrine and also requiring vasopressin at physiological dose Anion gap metabolic acidosis, possibility of underlying ischemic bowel is not entirely ruled out. That is being addressed by general surgery on the case Acute hypoxemic and hypercapnic respiratory failure, requiring intubation to mechanical ventilator, second to above Acute on chronic kidney disease, due to hypotension and ATN History of large bowel obstruction, status post laparoscopic lysis of adhesions and sigmoid colectomy, done by Dr. Jameson performed on 08/31/2023 History of hyperlipidemia History of hypertension History of coronary artery disease History of GERD History of colon cancer status post bowel resection history of esophageal cancer with esophagectomy Recommendation: Continue ventilatory support Continue antibiotics/for aspiration pneumonia and for possible abdominal sepsis/Zosyn Continue hemodynamic support/pressors including norepinephrine and vasopressin Continue nutritional support/TPN Continue GI DVT prophylaxis Continue IV fluids and bicarb drip Continue fluid resuscitation Daily labs including complete metabolic profile CBC ABG Daily x-rays of the chest and daily ABGs Overall prognosis seems to be guarded and poor Patient remains critically ill Critical care time is over 30 minutes Time with Patient: Greater than 30
[2023-10-24 17:28] LABS: Glucose,Whole Blood 67 mg/dL (70-110)
[2023-10-24 17:33] LABS: Glucose,Whole Blood 86 mg/dL (70-110)
[2023-10-24] MEDS: SODIUM CHLORIDE 0.9% 2,000 ML IV ONE (17:56)
--- NOTE | 2023-10-24 18:14 | P.PN ---
Subjective Progress Note Date: 10/24/23 Progress note Date of service 10/24/[address] Price. Mr. Fredrick Dodd 83 years old white male In the ICU room #2 54 bed 1. Patient seen and evaluated discussed with length of time with his son and [id number] and his , the son is the caregiver. I did answer his question in detail and lengthy of time. Patient currently sedated Patient on the ventilator managed by Dr. Blake. On exam Temperature 100.4 FH axillary, heart rate 107, respiratory rate 23 on the ventilator Blood pressure 95/49 with a mean 67 and arterial blood pressure 84/43 Central venous pressure is 12 and oxygen saturation 94 Patient with the underlying aspiration pneumonia and hypotension, NG tube with the presented to the emergency room with acute bowel obstruction admitted under care of Dr. Jameson. Subsequently as he admitted to [facility] he had clogged NG tube and resulted in aspiration and hypotension and hypoxemia with the consultation of pulmonary and critical patient transferred to the ICU and intubated and on the vent and sedated started on Zosyn antibiotic however today his temperature was up to 100.4. As present with the possible sepsis and shock will be consulting infectious disease Dr. Meeks to evaluate and treat if there is needed of more antibiotic. Patient also found that he had acute kidney injury and nephrology Dr. Elaine consulted as well. On the exam and the laboratories indicating his plasma lactic acid 3.7 blood sugar has been controlled and went down to 67 and again improved to 83 subsequently The head was normocephalic atraumatic and he had endotracheal intubation and NG tube sedated Neck was supple he had history of lower esophageal cancer treated in [facility] with resection and he had subsequently colon cancer resected and he had history of stricture of the lower esophagus recently and treated with mild dilatation and subsequently he had found that he had colonic obstruction with the stricture of large bowel and operated upon by Dr. Jameson and resected. Currently he presented to the ER with acute bowel obstruction and on the second day the NG tube obstructed followed by aspiration and sepsis On auscultation of the lung he had endotracheal tube improved his lung rhonchi's Heart still regular sinus but he was hypotensive and they placed him on the vasoconstrictor to help blood pressure improving Abdomen still bowel obstruction with the NG tube and no BM Extremities no edema and still perfusing lower extremities. Assessment: Acute small bowel obstruction Acute aspiration pneumonia Impaired ejection fraction with history of bypass x 2 vessel Lactic acidosis with metabolic acidosis Acute kidney injury Acute respiratory failure Hypotensive with a history of hypertension in the past needed vasopressor. Plan will continue current medication Will consult infectious disease Dr. Meeks infectious disease for further evaluation and treatment with the underlying sepsis. Objective - Vital Signs Vital signs: Vital Signs Temp 100.4 F H 10/24/23 17:15 Pulse 107 H 10/24/23 17:15 Resp 23 10/24/23 17:15 BP 95/49 10/24/23 17:15 Pulse Ox 94 L 10/24/23 17:15 FiO2 55 10/24/23 16:00 Intake & Output 10/23/23 10/24/23 10/24/23 18:59 06:59 18:59 Intake Total 4420.045 5189.771 1720.019 Output Total 1245 670 270 Balance 3175.045 4519.771 1450.019 Weight 86.6 kg Intake: Intake, IV Titration 3620.045 5189.771 1720.019 Amount ACETAMINOPHEN IV (For NPO 100 ) 1,000 mg In Empty Bag 1 bag @ 400 mls/hr IVPB ONCE ONE Rx#:[id number] ACETAMINOPHEN IV (For NPO 100 ) 1,000 mg In Empty Bag 1 bag @ 400 mls/hr IVPB Q6HR PRN Rx#:[id number] Dextrose 5% in Water 1, 1250 000 ml @ 150 mls/hr IV . Q7H40M SHIRA with Sodium Bicarb (1 Meq/ml) 150 ml Rx#:[id number] Dextrose 5%-Lactated 1032 1200 100 Ringers 1,000 ml @ 100 mls/hr IV .Q10H SHIRA Rx#: [id number] Norepinephrine 32 mg In 180.429 Sodium Chloride 0.9% 218 ml @ 0.03 MCG/KG/MIN 1. 084 mls/hr IV .Q24H SHIRA Rx#:[id number] Norepinephrine 4 mg In 708.222 508 Sodium Chloride 0.9% 250 ml @ 0.03 MCG/KG/MIN 8. 814 mls/hr IV .Q24H SH[facility]A Rx#:[id number] Piperacillin-Tazobactam 3 200 100 .375 gm In Sodium Chloride 0.9% 100 ml @ 25 mls/hr IVPB Q12H [facility]A Rx# :[id number] Sodium Chloride 0.9% 1, 1000 000 ml @ 999 mls/hr IV . Q1H1M ONE Rx#:[id number] Sodium Chloride 0.9% 1, 3000 000 ml @ 999 mls/hr IV . Q1H1M ONE Rx#:[id number] Sodium Chloride 0.9% 500 500 ml 500 ml @ 999 mls/hr IV .Q31M ONE Rx#:[id number] Vasopressin 60 unit In 81.294 Sodium Chloride 0.9% 150 ml @ 0.03 UNITS/MIN 4.59 mls/hr IV .Q24H SHIRA Rx#: [id number] propofoL 1,000 mg In 179.823 200.477 89.590 Empty Bag 1 bag @ 15 MCG/ KG/MIN 6.94 mls/hr IV . [id number] [facility] Rx#:[id number] Tube Feeding 800 Output: Gastric Drainage 1000 450 Urine 245 220 270 Other: Voiding Method Indwelling Catheter Indwelling Catheter Indwelling Catheter # Bowel Movements 0 ABP, PAP, CO, CI - Last Documented Arterial Blood Pressure 84/43 - Labs CBC & Chem 7: 10/24/23 05:00 10/24/23 05:00 Labs: Abnormal Lab Results - Last 24 Hours (Table) 10/23/23 10/24/23 10/24/23 Range/Units 17:30 05:00 05:00 RBC 4.22 L (4.30-5.90) m/uL Hgb 12.9 L (13.0-17.5) gm/dL Lymphocytes # (Manual) 0.45 L (1.0-4.8) k/uL Metamyelocytes # (Man) 0.75 H (0) k/uL Myelocytes # (Manual) 0.15 H (0) k/uL ABG pH (7.35-7.45) ABG pCO2 (35-45) mmHg ABG HCO3 (21-25) mmol/L ABG Total CO2 (19-24) mmol/L Chloride 116 H (98-107) mmol/L Carbon Dioxide 14 L (22-30) mmol/L BUN 76 H (9-20) mg/dL Creatinine 3.10 H (0.66-1.25) mg/dL Glucose 107 H (74-99) mg/dL POC Glucose (mg/dL) (70-110) mg/dL Plasma Lactic Acid Salvador 3.2 H* (0.7-2.0) mmol/L Calcium 6.9 L (8.4-10.2) mg/dL 10/24/23 10/24/23 10/24/23 Range/Units 05:18 09:45 12:47 RBC (4.30-5.90) m/uL Hgb (13.0-17.5) gm/dL Lymphocytes # (Manual) (1.0-4.8) k/uL Metamyelocytes # (Man) (0) k/uL Myelocytes # (Manual) (0) k/uL ABG pH 7.23 L (7.35-7.45) ABG pCO2 33 L (35-45) mmHg ABG HCO3 14 L (21-25) mmol/L ABG Total CO2 15 L (19-24) mmol/L Chloride (98-107) mmol/L Carbon Dioxide (22-30) mmol/L BUN (9-20) mg/dL Creatinine (0.66-1.25) mg/dL Glucose (74-99) mg/dL POC Glucose (mg/dL) (70-110) mg/dL Plasma Lactic Acid Salvador 3.6 H* 3.7 H* (0.7-2.0) mmol/L Calcium (8.4-10.2) mg/dL 10/24/23 Range/Units 17:26 RBC (4.30-5.90) m/uL Hgb (13.0-17.5) gm/dL Lymphocytes # (Manual) (1.0-4.8) k/uL Metamyelocytes # (Man) (0) k/uL Myelocytes # (Manual) (0) k/uL ABG pH (7.35-7.45) ABG pCO2 (35-45) mmHg ABG HCO3 (21-25) mmol/L ABG Total CO2 (19-24) mmol/L Chloride (98-107) mmol/L Carbon Dioxide (22-30) mmol/L BUN (9-20) mg/dL Creatinine (0.66-1.25) mg/dL Glucose (74-99) mg/dL POC Glucose (mg/dL) 67 L (70-110) mg/dL Plasma Lactic Acid Salvador (0.7-2.0) mmol/L Calcium (8.4-10.2) mg/dL Microbiology - Last 24 Hours (Table) 10/23/23 03:20 Gram Stain - Preliminary Sputum Sputum Culture - Preliminary Klebsiella pneumoniae Escherichia coli 10/23/23 04:10 Blood Culture - Preliminary Blood
[2023-10-24 22:33] LABS: Glucose,Whole Blood 87 mg/dL (70-110)
[2023-10-24 23:36] LABS: Glucose,Whole Blood 83 mg/dL (70-110)
[2023-10-25 05:09] LABS: HCT 35.7 % (39.0-53.0); MCHC 33.7 g/dL (31.0-37.0); MCV 92.2 fL (80.0-100.0); Mean Platelet Volume 11.3; RBC 3.87 m/uL (4.30-5.90); RDW 14.7 % (11.5-15.5); WBC 26.4 k/uL (3.8-10.6)
[2023-10-25 05:33] LABS: Anion Gap 14 mmol/L; Blood Urea Nitrogen 82 mg/dL (9-20); Carbon Dioxide 17 mmol/L (22-30); Chloride 105 mmol/L (98-107); Glucose 92 mg/dL (74-99); Magnesium 1.9 mg/dL (1.6-2.3); Sodium 136 mmol/L (137-145)
[2023-10-25 05:39] LABS: African American GFR (CKD) 21 (>60 ml/min/1.73 sqM); Non-African American GFR(CKD) 18 (>60 ml/min/1.73 sqM)
[2023-10-25 05:43] LABS: ABG Base Excess -6.4 mmol/L; ABG HCO3 19 mmol/L (21-25); ABG PCO2 38 mmHg (35-45); ABG PH 7.32 (7.35-7.45); ABG PO2 69 mmHg (83-108); ABG TCO2 20 mmol/L (19-24); Allen Test Performed? Yes
[2023-10-25 05:56] LABS: Band Neutrophils % 12 %; Eosinophils # (M) 0.26 k/uL (0-0.7); Lymphocytes # (M) 0.53 k/uL (1.0-4.8); Metamyelocytes # (M) 2.64 k/uL (0); Metamyelocytes % 10 %; Monocytes # (M) 1.32 k/uL (0-1.0); Myelocytes # (M) 0.53 k/uL (0); Myelocytes % 2 %; Neutrophils % (M) 69 %; Nucleated Red Blood Cells 0 /100 WBC (0-0); Total Cells Counted 200; Toxic Vacuolation Present
[2023-10-25 05:58] LABS: Platelet Count 88 k/uL (150-450)
[2023-10-25 05:59] LABS: Poikilocytosis (M) Present
[2023-10-25 06:23] LABS: Potassium 3.5 mmol/L (3.5-5.1)
[2023-10-25] MEDS ORDERED: Potassium Replacement Protocol 1 EACH MISC MISCELLANE PRN (06:30)
[2023-10-25] MEDS: POTASSIUM CHLORIDE 20 MEQ in WATER FOR INJECTION 1 100ML.BAG IVPB SCH (06:40)
--- NOTE | 2023-10-25 07:10 | P.PN ---
Subjective Progress Note Date: 10/25/23 This is an 84-year-old gentleman who requested to see in the intensive care unit for further evaluation of hypotension. The patient currently is intubated and he is on mechanical ventilation. He was transferred from the fourth floor. He is an 83-year-old gentleman with a past medical history significant for CAD with prior stenting of the LAD as well as hypertension and dyslipidemia and recent diagnosis of colon cancer status post abdominal surgery recently in August 2023. The patient presented to the emergency department complaining of nausea and vomiting and abdominal discomfort for the last several days. He underwent further investigation including CT scan of the abdomen and pelvis and that r evealed small bowel obstruction and subsequently an NG tube was placed with removal and the drainage of fluid and subsequently he was admitted to the fourth floor after he was seen by the surgical team. Last night his pressure has been low. He did not response to almost half a liter of 0.9 normal saline. Beside that he developed some respiratory distress and subsequently an 18 was called and the patient was transferred to the intensive care unit. He was intubated and placed on mechanical ventilation. I spoke with the patient's family at bedside. Before he presented to the hospital he was not experiencing any symptoms of chest pain or chest discomfort beside the abdominal discomfort and nausea and vomiting. He underwent further evaluation including an EKG and that showed sinus mechanism. Currently he is hypotensive requiring vasopressors with norepinephrine. Beside that the blood work indicated renal failure likely to be secondary to prerenal and hypovolemia. The chest x-ray did not show any acute abnormalities. The patient underwent an echo in 2020 and that revealed normal biventricular systolic function with mild aortic stenosis. The physical examination is remarkable for regular rhythm with a systolic murmur at the right and left upper sternal border with a clear breathing sounds bilaterally and no edema was noted in the lower extremities October 24, 2023 The patient was seen and evaluated this morning. He continues to be intubated on mechanical ventilation. He is hemodynamically unstable and currently he is on norepinephrine and vasopressin's. He has been febrile and there is definitely concern about septic shock. The chest x-ray showed bilateral inf iltrate as well. He continues to have good urine output with a creatinine remains elevated electrolytes appear to be within normal limits with the echo showed mildly impaired LV function with EF between 40 to 45% with mild aortic stenosis. The examination is remarkable for intubated patient on mechanical ventilation with regular rate and rhythm and distant heart sounds and systolic murmur at the right upper sternal border with clear breathing sounds bilaterally and no edema was noted in the lower extremities October 25, 2023 The patient was seen and evaluated this morning with he continues to be intubated on mechanical ventilation. He continues to be hemodynamically unstable requiring high dose of vasopressors as well as norepinephrine. He is maintaining normal sinus mechanism. The chest x-ray appears to be the same with bilateral infiltrate concerning for aspiration pneumonia. Blood culture came in to be positive. Currently is on antibiotic. The examination is remarkable for intubated patient with unstable blood pressure with regular rate and rhythm and diminished breathing sounds bilaterally. Assessment Small bowel obstruction Acute hypoxic respiratory failure Possible aspiration pneumonia Hypotension could be secondary to hypovolemia with a differential diagnosis of sepsis Coronary artery disease seems to be stable Valvular heart disease Acute renal failure Multiple comorbid conditions History of colon cancer status post abdominal surgery Plan Continue the current medical regimen Continue hemodynamic support and try to maintain mean blood pressure above 65 mm Replace the potassium Continue supporting the blood pressure with vasopressors to obtain a mean above 65 mmHg Follow-up with the patient Objective - Vital Signs Vital signs: Vital Signs Temp 98.8 F 10/25/23 06:00 Pulse 98 10/25/23 07:00 Resp 26 H 10/25/23 07:00 BP 112/58 10/25/23 07:00 Pulse Ox 95 10/25/23 07:00 FiO2 55 10/25/23 04:00 Intake & Output 10/24/23 10/25/23 10/25/23 18:59 06:59 18:59 Intake Total 4213.478 2515.906 150 Output Total 830 790 25 Balance 3383.478 1725.906 125 Weight 95.1 kg Intake: Intake, IV Titration 4213.478 2515.906 150 Amount ACETAMINOPHEN IV (For NPO 100 100 ) 1,000 mg In Empty Bag 1 bag @ 400 mls/hr IVPB Q6HR PRN Rx#:[id number] Dextrose 5% in Water 1, 1550 1800 150 000 ml @ 150 mls/hr IV . Q7H40M [facility]IRA with Sodium Bicarb (1 Meq/ml) 150 ml Rx#:[id number] Dextrose 5%-Lactated 100 Ringers 1,000 ml @ 100 mls/hr IV .Q10H [facility]A Rx#: [id number] Norepinephrine 32 mg In 180.429 202.418 Sodium Chloride 0.9% 218 ml @ 0.03 MCG/KG/MIN 1. 084 mls/hr IV .Q24H [facility]A Rx#:[id number] Piperacillin-Tazobactam 3 100 100 .375 gm In Sodium Chloride 0.9% 100 ml @ 25 mls/hr IVPB Q12H [facility] Rx# :[id number] Sodium Chloride 0.9% 2, 2000 000 ml @ 500 mls/hr IV . Q4H ONE Rx#:[id number] Vasopressin 60 unit In 150.552 Sodium Chloride 0.9% 150 ml @ 0.03 UNITS/MIN 4.59 mls/hr IV .Q24H [facility]A Rx#: [id number] propofoL 1,000 mg In 183.049 162.936 Empty Bag 1 bag @ 15 MCG/ KG/MIN 6.94 mls/hr IV . [id number] [facility]IRA Rx#:[id number] Output: Gastric Drainage 500 460 Urine 330 330 25 Other: Voiding Method Indwelling Catheter Indwelling Catheter ABP, PAP, CO, CI - Last Documented Arterial Blood Pressure 95/42 - Labs CBC & Chem 7: 10/25/23 04:45 10/25/23 04:45 Labs: Abnormal Lab Results - Last 24 Hours (Table) 10/24/23 10/24/23 10/24/23 Range/Units 05:00 05:00 09:45 WBC (3.8-10.6) k/uL RBC (4.30-5.90) m/uL Hgb (13.0-17.5) gm/dL Hct (39.0-53.0) % Plt Count (150-450) k/uL Neutrophils # (Manual) (1.3-7.7) k/uL Lymphocytes # (Manual) 0.45 L (1.0-4.8) k/uL Monocytes # (Manual) (0-1.0) k/uL Metamyelocytes # (Man) 0.75 H (0) k/uL Myelocytes # (Manual) 0.15 H (0) k/uL ABG pH (7.35-7.45) ABG pO2 (83-108) mmHg ABG HCO3 (21-25) mmol/L Hemoglobin (13.0-17.5) gm/dL Sodium (137-145) mmol/L Chloride 116 H (98-107) mmol/L Carbon Dioxide 14 L (22-30) mmol/L BUN 76 H (9-20) mg/dL Creatinine 3.10 H (0.66-1.25) mg/dL Glucose 107 H (74-99) mg/dL POC Glucose (mg/dL) (70-110) mg/dL Plasma Lactic Acid Salvador 3.6 H* (0.7-2.0) mmol/L Calcium 6.9 L (8.4-10.2) mg/dL Ionized Calcium Peter (4.5-5.3) mg/dL 10/24/23 10/24/23 10/25/23 Range/Units 12:47 17:26 04:45 WBC (3.8-10.6) k/uL RBC (4.30-5.90) m/uL Hgb (13.0-17.5) gm/dL Hct (39.0-53.0) % Plt Count (150-450) k/uL Neutrophils # (Manual) (1.3-7.7) k/uL Lymphocytes # (Manual) (1.0-4.8) k/uL Monocytes # (Manual) (0-1.0) k/uL Metamyelocytes # (Man) (0) k/uL Myelocytes # (Manual) (0) k/uL ABG pH (7.35-7.45) ABG pO2 (83-108) mmHg ABG HCO3 (21-25) mmol/L Hemoglobin (13.0-17.5) gm/dL Sodium 136 L (137-145) mmol/L Chloride (98-107) mmol/L Carbon Dioxide 17 L (22-30) mmol/L BUN 82 H (9-20) mg/dL Creatinine 3.07 H (0.66-1.25) mg/dL Glucose (74-99) mg/dL POC Glucose (mg/dL) 67 L (70-110) mg/dL Plasma Lactic Acid Salvador 3.7 H* (0.7-2.0) mmol/L Calcium 6.0 L* (8.4-10.2) mg/dL Ionized Calcium Peter (4.5-5.3) mg/dL 10/25/23 10/25/2310/24/24 Range/Units 04:45 05:40 06:05 WBC 26.4 H (3.8-10.6) k/uL RBC 3.87 L (4.30-5.90) m/uL Hgb 12.0 L (13.0-17.5) gm/dL Hct 35.7 L (39.0-53.0) % Plt Count 88 L (150-450) k/uL Neutrophils # (Manual) 21.30 H (1.3-7.7) k/uL Lymphocytes # (Manual) 0.53 L (1.0-4.8) k/uL Monocytes # (Manual) 1.32 H (0-1.0) k/uL Metamyelocytes # (Man) 2.64 H (0) k/uL Myelocytes # (Manual) 0.53 H (0) k/uL ABG pH 7.32 L (7.35-7.45) ABG pO2 69 L (83-108) mmHg ABG HCO3 19 L (21-25) mmol/L Hemoglobin 11.9 L (13.0-17.5) gm/dL Sodium (137-145) mmol/L Chloride (98-107) mmol/L Carbon Dioxide (22-30) mmol/L BUN (9-20) mg/dL Creatinine (0.66-1.25) mg/dL Glucose (74-99) mg/dL POC Glucose (mg/dL) (70-110) mg/dL Plasma Lactic Acid Salvador (0.7-2.0) mmol/L Calcium (8.4-10.2) mg/dL Ionized Calcium Peter 3.5 L* (4.5-5.3) mg/dL Microbiology - Last 24 Hours (Table) 10/23/23 03:20 Gram Stain - Preliminary Sputum Sputum Culture - Preliminary Klebsiella pneumoniae Escherichia coli 10/23/23 04:10 Blood Culture - Preliminary Blood
[2023-10-25] MEDS: CALCIUM GLUCONATE IN NACL 2 GM in SALINE 1 100ML.BAG IVPB ONE (07:23)
[2023-10-25] MEDS ORDERED: FUROSEMIDE 10 MG/ML 10 ML VIAL IV STA (09:00)
[2023-10-25] MEDS: FUROSEMIDE 10 MG/ML 4 ML VIAL ONE (09:02)
[2023-10-25] MEDS: FUROSEMIDE 10 MG/ML 10 ML VIAL IV STA (09:03)
--- NOTE | 2023-10-25 10:29 | P.PN ---
Subjective Patient is seen in follow-up for acute kidney injury on chronic kidney disease. Renal function stable. On Levophed and vasopressin. On bicarb drip. Acidosis improved. 1 L output from the NG tube in the last 24 hours. Received 2 L of normal saline bolus overnight. Vital signs - tachycardic, febrile. On vasopressor support. General: Resting in bed. HEENT: Intubated. LUNGS: Scattered rhonchi. HEART: Tachycardic. ABDOMEN: No distention. EXTREMITITES: No edema. Objective - Vital Signs Vital signs: Vital Signs Temp 100.5 F H 10/25/23 10:00 Pulse 121 H 10/25/23 10:00 Resp 31 H 10/25/23 10:00 BP 89/53 10/25/23 10:00 Pulse Ox 97 10/25/23 10:00 FiO2 50 10/25/23 08:00 Intake & Output 10/24/23 10/25/23 10/25/23 18:59 06:59 18:59 Intake Total 4213.478 2515.906 800 Output Total 830 790 200 Balance 3383.478 1725.906 600 Weight 95.1 kg Intake: Intake, IV Titration 4213.478 2515.906 800 Amount ACETAMINOPHEN IV (For NPO 100 100 ) 1,000 mg In Empty Bag 1 bag @ 400 mls/hr IVPB Q6HR PRN Rx#:[id number] Calcium Gluconate in NaCl 100 2 gm In Saline 1 100ml. bag @ 100 mls/hr IVPB ONCE ONE Rx#:[id number] Dextrose 5% in Water 1, 1550 1800 600 000 ml @ 150 mls/hr IV . Q7H40M [facility]A with Sodium Bicarb (1 Meq/ml) 150 ml Rx#:[id number] Dextrose 5%-Lactated 100 Ringers 1,000 ml @ 100 mls/hr IV .Q10H [facility] Rx#: [id number] Norepinephrine 32 mg In 180.429 202.418 Sodium Chloride 0.9% 218 ml @ 0.03 MCG/KG/MIN 1. 084 mls/hr IV .Q24H [facility] Rx#:[id number] Piperacillin-Tazobactam 3 100 100 .375 gm In Sodium Chloride 0.9% 100 ml @ 25 mls/hr IVPB Q12H [facility] Rx# :[id number] Potassium Chloride 20 meq 100 In Water For Injection 1 100ml.bag @ 50 mls/hr IVPB Q2H [facility] Rx#: [id number] Sodium Chloride 0.9% 2, 2000 000 ml @ 500 mls/hr IV . Q4H ONE Rx#:[id number] Vasopressin 60 unit In 150.552 Sodium Chloride 0.9% 150 ml @ 0.03 UNITS/MIN 4.59 mls/hr IV .Q24H [facility] Rx#: [id number] propofoL 1,000 mg In 183.049 162.936 Empty Bag 1 bag @ 15 MCG/ KG/MIN 6.94 mls/hr IV . [id number] [facility] Rx#:[id number] Output: Gastric Drainage 500 460 Urine 330 330 200 Other: Voiding Method Indwelling Catheter Indwelling Catheter Indwelling Catheter ABP, PAP, CO, CI - Last Documented Arterial Blood Pressure 93/50 - Labs CBC & Chem 7: 10/25/23 04:45 10/25/23 04:45 Labs: Abnormal Lab Results - Last 24 Hours (Table) 10/24/23 10/24/23 10/25/23 Range/Units 12:47 17:26 04:45 WBC (3.8-10.6) k/uL RBC (4.30-5.90) m/uL Hgb (13.0-17.5) gm/dL Hct (39.0-53.0) % Plt Count (150-450) k/uL Neutrophils # (Manual) (1.3-7.7) k/uL Lymphocytes # (Manual) (1.0-4.8) k/uL Monocytes # (Manual) (0-1.0) k/uL Metamyelocytes # (Man) (0) k/uL Myelocytes # (Manual) (0) k/uL ABG pH (7.35-7.45) ABG pO2 (83-108) mmHg ABG HCO3 (21-25) mmol/L Hemoglobin (13.0-17.5) gm/dL Sodium 136 L (137-145) mmol/L Carbon Dioxide 17 L (22-30) mmol/L BUN 82 H (9-20) mg/dL Creatinine 3.07 H (0.66-1.25) mg/dL POC Glucose (mg/dL) 67 L (70-110) mg/dL Plasma Lactic Acid Salvador 3.7 H* (0.7-2.0) mmol/L Calcium 6.0 L* (8.4-10.2) mg/dL Ionized Calcium Peter (4.5-5.3) mg/dL 10/25/23 10/25/23 10/25/23 Range/Units 04:45 05:40 06:05 WBC 26.4 H (3.8-10.6) k/uL RBC 3.87 L (4.30-5.90) m/uL Hgb 12.0 L (13.0-17.5) gm/dL Hct 35.7 L (39.0-53.0) % Plt Count 88 L (150-450) k/uL Neutrophils # (Manual) 21.30 H (1.3-7.7) k/uL Lymphocytes # (Manual) 0.53 L (1.0-4.8) k/uL Monocytes # (Manual) 1.32 H (0-1.0) k/uL Metamyelocytes # (Man) 2.64 H (0) k/uL Myelocytes # (Manual) 0.53 H (0) k/uL ABG pH 7.32 L (7.35-7.45) ABG pO2 69 L (83-108) mmHg ABG HCO3 19 L (21-25) mmol/L Hemoglobin 11.9 L (13.0-17.5) gm/dL Sodium (137-145) mmol/L Carbon Dioxide (22-30) mmol/L BUN (9-20) mg/dL Creatinine (0.66-1.25) mg/dL POC Glucose (mg/dL) (70-110) mg/dL Plasma Lactic Acid Salvador (0.7-2.0) mmol/L Calcium (8.4-10.2) mg/dL Ionized Calcium Peter 3.5 L* (4.5-5.3) mg/dL Microbiology - Last 24 Hours (Table) 10/23/23 03:20 Gram Stain - Final Sputum Sputum Culture - Final Klebsiella pneumoniae Escherichia coli 10/23/23 04:10 Blood Culture - Preliminary Blood Assessment and Plan Plan: Assessment: 1. Acute kidney injury secondary to ATN secondary to septic shock. Creatinine peaked at 3.2 at this admission and is stable at 3.07 today. No hydronephrosis noted on CAT scan. Urine output 20 to 40 cc an hour. 2. Chronic kidney disease stage IIIa with baseline creatinine 1.3-1.4. 3. Small bowel obstruction. Surgery following. Has NG tube. 4. Metabolic acidosis secondary to acute kidney injury and IV fluids. Better with bicarb drip. 5. Shock maintained on vasopressor support. 6. Cardiomyopathy with ejection fraction of 40 to 45%. 7. Hypocalcemia secondary to acute kidney injury and IV bicarb. Plan: Maintain bicarb drip for now. Calcium replaced. Wean FiO2 and vasopressors. With hypovolemia and hypotension, hold off on giving any diuretics at this time. Avoid nephrotoxins. Continue to monitor renal function and urine output. Continue to assess daily for need for renal replacement therapy. No urgency at this time.
[2023-10-25 11:46] LABS: Glucose,Whole Blood 102 mg/dL (70-110)
--- NOTE | 2023-10-25 12:10 | XR ---
EXAMINATION TYPE: XR chest 1V portable DATE OF EXAM: 10/25/2023 Comparison: 10/24/2023 Clinical History: 83-year-old male Tube placement Findings: ETT and NG tube are satisfactory. Chronic retained metallic density projecting at the lower left beckie thorax. Heart borderline in size. Diffuse interstitial and patchy opacities persist without significa nt change. Right IJ CVC tip upper right atrium. Episodic calcifications throughout the thoracic aorta . Impression: Diffuse patchy airspace disease persists without significant change.
--- NOTE | 2023-10-25 12:16 | P.PN ---
Subjective Progress Note Date: 10/25/23 Principal diagnosis: Small bowel obstruction, aspiration pneumonia acute hypoxic respiratory failure secondary to aspiration pneumonia Patient is an 83-year-old white male with past medical history significant for hypertension, hyperlipidemia, coronary artery disease with previous PCI/stent, GERD, colon cancer with previous resection, hiatal hernia, GI bleed. Of note, patient had a recently underwent exploratory laparotomy Dr. Jameson on 08/30/2023, found to have a partial large bowel obstruction, and underwent lysis of adhesions and sigmoid colectomy with low anterior resection. Patient return to the emergency department on 10/21/2023 chiefly complaining of abdominal pain associated with intractable nausea and vomiting. CT of the abdomen and pelvis done on admission demonstrating marked dilation of the stomach and small bowel loops consistent with a distal small bowel obstruction. Exact transition point is indeterminate, but appears to be in the right mid abdomen near the anastomosis with a large bowel. No free or intraperitoneal air or fluid. General surgery had been following the patient. Pursuing conservative management at this point. We were not consulted until early this morning. Patient was noted to be short of breath and hypoxic. He was also profoundly hypotensive. An A-team was called for profound hypotension. I recommended transferring the patient to the intensive care unit. He was unresponsive. Unfortunately no prior CODE STATUS was established. We did eventually get a hold of patient's spouse who wants the patient to be a full code. Although, she was unsure of who that patient's primary decision maker is, as they have only been for one year. Never the less, we cannot reach the son. The patient's would like the patient to undergo intubation to mechanical ventilator if necessary, and also receive any resuscitative efforts necessary. Blood pressure currently 50/30 mmHg. Patient is currently being fluid res uscitated, and norepinephrine is in the process of being started. [employer] UT[employer] WORKER performed rapid sequence intubation. During the intubation, patient had large volume aspiration. Airway was eventually secured. Postintubation ABG is showing a PaO2 of 179, pCO2 of 57, pH of 7.13. Consistent with combined re spiratory and metabolic acidosis. Will increase the respiratory rate to 26. Current ventilator settings include assist-control, respiratory rate 20, tidal volume 500, FiO2 100%, PEEP of 5. Also, received two amps of sodium bicarbonate. Postintubation chest x-ray noted. Endotracheal tube in good location. Prominent interstitial markings. Left basilar opacity. The abdomen is firm and distended. Nasogastric tube is hooked to suction draining a copious amount of gastric output. A total of 1.7 L of brown output so far. Patient will have to go down for a stat repeat CAT scan of the abdomen. General surgery will be updated on patient's clinical deterioration. Repeat labs are pending. Patient is currently in the intensive care unit, intubated to the mechanical ventilator. He is moving all 4 extremities. Reaching for endotracheal tube. We are in the process of starting sedation with propofol. Prognosis is guarded. Patient was today on 10/24/2023, patient remains intubated and mechanically ventilated, remains critically ill requiring pressors for hypotension patient has poor urine output, he received multiple boluses of fluids over the last 24 hours. Urine output today is 40 mL/h after multiple fluid boluses patient is on assist-control rate of 22 tidal volume 500 FiO2 55% PEEP of 10 however after reviewing his ABG showing a pO2 of 87 pCO2 33 pH of 7.23, patient received an amp of bicarb, FiO2 changed to 50% PEEP increased to 12. Chest x-ray is showing evidence of pulmonary edema, reminded this could be cardiogenic or noncardiogenic/ARDS from aspiration pneumonia. Hence the PEEP was increased to 12. Patient remains on norepinephrine at 0.5 mcg/kg/min he is also on vasopressin at 0.04 units/min IV fluids still running at 100 cc/h with 3 A of bicarb. And this was increased to 125 cc/h. 1 amp of bicarb was given. Patient remains on Zosyn empirically for aspiration pneumonia. Considering his marginal urine output, 1 dose of Lasix 80 mg IV push was ordered. Feeding guy the patient needs to be on TPN, and this is to be addressed by real estate sales supervisor on the case. Surgery is following the patient, but no plans for any surgical intervention as the patient seems to be critically ill. Yesterday I had a discussion with his son, CODE STATUS is DNR, and if his condition gets any worse, may have to approach the family about comfort care measures. For the time being we will continue aggressive management/critical care treatment. WBC count today is 7.5 hemoglobin 12.9. Basic metabolic profile is normal bicarb is 14 BUN is 76 creatinine 3.10 lactic acid 3.6. Calcium 6.9 chest x-ray as noted earlier patient seems to be developing probably pulmonary edema again this could also be ARDS or aspiration pneumonia. Patient was evaluated today on 10/25/2023, patient remains in the ICU, and mechanically ventilated. He is on assist-control rate of 22 tidal volume 450 FiO2 50% and PEEP is up to 12. Chest x-ray is showing worsening pulmonary edema of course this could be cardiogenic or noncardiogenic pulmonary edema, patient's FiO2 requirement has gone up, PEEP has gone up, remains on pressors for marginal blood pressure, he is on norepinephrine at 0.5 mg/kg/min he is on vasopressin at 0.04 units/min, patient is on propofol at 30 mcg/kg/min still receiving sodium bicarb drip for his underlying metabolic acidosis which is improving. Patient is doing poorly, urine output is extremely marginal, and considering the worsening chest x-ray appearance and the worsening FiO2 requirement, patient will be given a challenge of Lasix 60 mg IV push, remind you patient has an ejection fraction of 45%. But I believe the findings on the chest x-ray are most likely ARDS type of picture/noncardiogenic pulmonary edema urine output picked up quite nicely after 1 dose of Lasix given. And again my major concern about this patient is worsening pulmonary status and worsening pulmonary edema. Chest x-ray is significantly worse today compared to the last 2 days WBC count is 26.4 hemoglobin is 12 ABG showed a pO2 of 69 this is on 12 of PEEP and FiO2 of 50% pCO2 is 38 pH of 7.32 bicarb is 19 electrolytes are relatively unremarkable bicarb is 17 on the electrolytes, anion gap is 14 BUN is 82 creatinine 3.07, obviously the patient developed acute on chronic kidney injury secondary to acute tubular necrosis and hypotension calcium was noted to be low today, and the patient will receive calcium gluconate IV push Objective - Vital Signs Vital signs: Vital Signs Temp 100.5 F H 10/25/23 10:00 Pulse 113 H 10/25/23 11:00 Resp 26 H 10/25/23 11:00 BP 90/54 10/25/23 11:00 Pulse Ox 96 10/25/23 11:00 FiO2 50 10/25/23 11:23 Intake & Output 10/24/23 10/25/23 10/25/23 18:59 06:59 18:59 Intake Total 4213.478 2515.906 1425.296 Output Total 830 790 430 Balance 3383.478 1725.906 995.296 Weight 95.1 kg Intake: Intake, IV Titration 4213.478 2515.906 1425.296 Amount ACETAMINOPHEN IV (For NPO 100 100 ) 1,000 mg In Empty Bag 1 bag @ 400 mls/hr IVPB Q6HR PRN Rx#:[id number] Calcium Gluconate in NaCl 100 2 gm In Saline 1 100ml. bag @ 100 mls/hr IVPB ONCE ONE Rx#:[id number] Dextrose 5% in Water 1, 1550 1800 900 000 ml @ 150 mls/hr IV . Q7H40M SHIRA with Sodium Bicarb (1 Meq/ml) 150 ml Rx#:[id number] Dextrose 5%-Lactated 100 Ringers 1,000 ml @ 100 mls/hr IV .Q10H SHIRA Rx#: [id number] Norepinephrine 32 mg In 180.429 202.418 242.479 Sodium Chloride 0.9% 218 ml @ 0.03 MCG/KG/MIN 1. 084 mls/hr IV .Q24H SHIRA Rx#:[id number] Piperacillin-Tazobactam 3 100 100 .375 gm In Sodium Chloride 0.9% 100 ml @ 25 mls/hr IVPB Q12H SHIRA Rx# :[id number] Potassium Chloride 20 meq 100 In Water For Injection 1 100ml.bag @ 50 mls/hr IVPB Q2H SHIRA Rx#: [id number] Sodium Chloride 0.9% 2, 2000 000 ml @ 500 mls/hr IV . Q4H ONE Rx#:[id number] Vasopressin 60 unit In 150.552 Sodium Chloride 0.9% 150 ml @ 0.03 UNITS/MIN 4.59 mls/hr IV .Q24H SHIRA Rx#: [id number] propofoL 1,000 mg In 183.049 162.936 82.817 Empty Bag 1 bag @ 15 MCG/ KG/MIN 6.94 mls/hr IV . [id number] SHIRA Rx#:[id number] Output: Gastric Drainage 500 460 Urine 330 330 430 Other: Voiding Method Indwelling Catheter Indwelling Catheter Indwelling Catheter ABP, PAP, CO, CI - Last Documented Arterial Blood Pressure 94/51 - Exam GENERAL EXAM: Revealed 83-year-old white male intubated, mechanically ventilated, sedated on propofol, in no distress. HEAD: Normocephalic and atraumatic endotracheal tube and nasogastric tube are intact. EYES: Normal reaction of pupils, equal size. NOSE: Clear with pink turbinates. THROAT: No erythema or exudates. NECK: No masses, no JVD. CHEST: No chest wall deformity. LUNGS: Crackles and rhonchi no wheezing noted bilaterally. CVS: S1 and S2 normal with no audible murmur, regular rhythm. No extra heart sounds ABDOMEN: Remains distended and tympanitic. SKIN: No rashes CENTRAL NERVOUS SYSTEM: Could not assess patient is sedated, on propofol. EXTREMITIES: Trace of bipedal edema, good pulses bilaterally no clubbing - Labs CBC & Chem 7: 10/25/23 04:45 10/25/23 04:45 Labs: Abnormal Lab Results - Last 24 Hours (Table) 10/24/23 10/24/23 10/25/23 Range/Units 12:47 17:26 04:45 WBC (3.8-10.6) k/uL RBC (4.30-5.90) m/uL Hgb (13.0-17.5) gm/dL Hct (39.0-53.0) % Plt Count (150-450) k/uL Neutrophils # (Manual) (1.3-7.7) k/uL Lymphocytes # (Manual) (1.0-4.8) k/uL Monocytes # (Manual) (0-1.0) k/uL Metamyelocytes # (Man) (0) k/uL Myelocytes # (Manual) (0) k/uL ABG pH (7.35-7.45) ABG pO2 (83-108) mmHg ABG HCO3 (21-25) mmol/L Hemoglobin (13.0-17.5) gm/dL Sodium 136 L (137-145) mmol/L Carbon Dioxide 17 L (22-30) mmol/L BUN 82 H (9-20) mg/dL Creatinine 3.07 H (0.66-1.25) mg/dL POC Glucose (mg/dL) 67 L (70-110) mg/dL Plasma Lactic Acid Salvador 3.7 H* (0.7-2.0) mmol/L Calcium 6.0 L* (8.4-10.2) mg/dL Ionized Calcium Peter (4.5-5.3) mg/dL 10/25/23 10/25/23 10/25/23 Range/Units 04:45 05:40 06:05 WBC 26.4 H (3.8-10.6) k/uL RBC 3.87 L (4.30-5.90) m/uL Hgb 12.0 L (13.0-17.5) gm/dL Hct 35.7 L (39.0-53.0) % Plt Count 88 L (150-450) k/uL Neutrophils # (Manual) 21.30 H (1.3-7.7) k/uL Lymphocytes # (Manual) 0.53 L (1.0-4.8) k/uL Monocytes # (Manual) 1.32 H (0-1.0) k/uL Metamyelocytes # (Man) 2.64 H (0) k/uL Myelocytes # (Manual) 0.53 H (0) k/uL ABG pH 7.32 L (7.35-7.45) ABG pO2 69 L (83-108) mmHg ABG HCO3 19 L (21-25) mmol/L Hemoglobin 11.9 L (13.0-17.5) gm/dL Sodium (137-145) mmol/L Carbon Dioxide (22-30) mmol/L BUN (9-20) mg/dL Creatinine (0.66-1.25) mg/dL POC Glucose (mg/dL) (70-110) mg/dL Plasma Lactic Acid Salvador (0.7-2.0) mmol/L Calcium (8.4-10.2) mg/dL Ionized Calcium Peter 3.5 L* (4.5-5.3) mg/dL Microbiology - Last 24 Hours (Table) 10/23/23 03:20 Gram Stain - Final Sputum Sputum Culture - Final Klebsiella pneumoniae Escherichia coli 10/23/23 04:10 Blood Culture - Preliminary Blood Assessment and Plan Assessment: Impression: Acute small bowel obstruction, CT of the abdomen and pelvis done on admission demonstrating marked dilation of the stomach and small bowel loops consistent with a distal small bowel obstruction. Status post aspiration of stomach content related to his bowel obstruction. Requiring intubation mechanical ventilation, and admission to the ICU on 10/23/2023, patient went on to develop pulmonary edema/acute, this could be cardiogenic or noncardiogenic/ARDS. Profound hypotension and shock, refractory to fluid resuscitation,, patient received significant fluid boluses to the point of developing worsening pulmonary edema in the last 2 days. Requiring vasopressors in the form of norepinephrine and also requiring vasopressin at maximal dose Anion gap metabolic acidosis, possibility of underlying ischemic bowel is not entirely ruled out. That is being addressed by general surgery on the case Acute hypoxemic and hypercapnic respiratory failure, requiring intubation to mechanical ventilator, second to above Acute on chronic kidney disease, due to hypotension and ATN History of large bowel obstruction, status post laparoscopic lysis of adhesions and sigmoid colectomy, done by Dr. Jameson performed on 08/31/2023 History of hyperlipidemia History of hypertension History of coronary artery disease History of GERD History of colon cancer status post bowel resection history of esophageal cancer with esophagectomy Recommendation: Continue ventilatory support, FiO2 requirement and PEEP requirements have gone up, chest x-ray is worsening with worsening pulmonary edema/cardiogenic or possibly noncardiogenic/ARDS, patient has very marginal urine output, and already received multiple boluses of fluids since admission to the ICU, will give the patient a trial of diuresis and continue to monitor the blood pressure in the meantime. Continue antibiotics/for aspiration pneumonia and for possible abdominal sepsis/Zosyn Continue hemodynamic support/pressors including norepinephrine and vasopressin Continue nutritional support/TPN Continue GI DVT prophylaxis Continue bicarb drip however the patient will require less fluids, metabolic acidosis is improving Strict I's and O's and monitor overall fluid balance. Daily labs including complete metabolic profile CBC ABG Daily x-rays of the chest and daily ABGs Prognosis remains extremely poor Patient remains critically ill Critical care time is over 30 minutes Time with Patient: Greater than 30
--- NOTE | 2023-10-25 12:52 | P.PN ---
Subjective Progress Note Date: 10/25/23 Dictation progress note Date of service 10/25/[address] Price Patient seen in the ICU room 254 at 1 new line patient sedated and on respirator, ventilator No BM so far no rectal discharge still obstructed with the small bowel obstruction. Vent has been adjusted and monitored by Dr. Blake pulmonary and critical. Patient seen by Dr. Jameson the surgeon Patient followed by nephrology as well as cardiology as well as a new consult for the infectious disease Dr. Meeks for evaluation of the antibiotic. Specially with his leukocytosis. Vital sign heart rate 113/min, respiratory rate 26 on the vent, his blood pressure 90/54 with a mean pressure 64., Oxygen saturation 96 on FiO2 of 50%. Laboratories WBC 26.4, hemoglobin 12, hematocrit 35.7, platelet 88. ABGs pH 7.32 with still mild acidosis pCO2 38, PaO2 69, bicarb 19, total CO2 20 and oxygen saturation 94 base excess -6.4 and hemoglobin 11.9 FiO2 of 50% Chemistry: Sodium 136 potassium 3.5, chloride 105 Carbon dioxide 17, anion gap 14 BUN of 82 creatinine 3.07 and EGFR is 18 his glucose 92 with a POC glucose average between 83-1 02. His calcium is low 6 and ionized calcium also low 3.5 magnesium 1.9 normal On exam: His at bedside and grandson. He is sedated comfortable no agitation no fighting the ventilator. Head was normocephalic atraumatic neck was supple no JVD Chest basilar rhonchi's and breath sound with the intubation and ventilator GI: NG tube in place still suction and continuously with the underlying bowel obstruction no BM and he has lower abdominal high pitch bowel sounds. Extremities supported of the feet with the devices and pulses was present. Bilateral Assessment: And plan Patient still critical, on the vent Infectious disease consulted Stable on the ventilator Hypocalcemia Metabolic acidosis Aspiration pneumonia with sepsis found to have Klebsiella pneumonia With the sputum culture Chronic kidney disease with acute SOULEYMAEN. Cardio myopathy and ischemic heart disease status post coronary artery disease and CABG in the past. Monitored by cardiology Dr. Dotson., Nephrology, pulmonary and the attending Dr. Jameosn and infectious disease was consulted. Prognosis is guarded and I did discuss it with his son and his yesterday, today his and grandson was present at bedside Objective - Vital Signs Vital signs: Vital Signs Temp 100.5 F H 10/25/23 10:00 Pulse 113 H 10/25/23 11:00 Resp 26 H 10/25/23 11:00 BP 90/54 10/25/23 11:00 Pulse Ox 96 10/25/23 11:00 FiO2 50 10/25/23 11:23 Intake & Output 10/24/23 10/25/23 10/25/23 18:59 06:59 18:59 Intake Total 4213.478 2515.906 1425.296 Output Total 830 790 430 Balance 3383.478 1725.906 995.296 Weight 95.1 kg Intake: Intake, IV Titration 4213.478 2515.906 1425.296 Amount ACETAMINOPHEN IV (For NPO 100 100 ) 1,000 mg In Empty Bag 1 bag @ 400 mls/hr IVPB Q6HR PRN Rx#:[id number] Calcium Gluconate in NaCl 100 2 gm In Saline 1 100ml. bag @ 100 mls/hr IVPB ONCE ONE Rx#:[id number] Dextrose 5% in Water 1, 1550 1800 900 000 ml @ 150 mls/hr IV . Q7H40M SHIRA with Sodium Bicarb (1 Meq/ml) 150 ml Rx#:[id number] Dextrose 5%-Lactated 100 Ringers 1,000 ml @ 100 mls/hr IV .Q10H SHIRA Rx#: [id number] Norepinephrine 32 mg In 180.429 202.418 242.479 Sodium Chloride 0.9% 218 ml @ 0.03 MCG/KG/MIN 1. 084 mls/hr IV .Q24H SHIRA Rx#:[id number] Piperacillin-Tazobactam 3 100 100 .375 gm In Sodium Chloride 0.9% 100 ml @ 25 mls/hr IVPB Q12H SHIRA Rx# :[id number] Potassium Chloride 20 meq 100 In Water For Injection 1 100ml.bag @ 50 mls/hr IVPB Q2H SHIRA Rx#: [id number] Sodium Chloride 0.9% 2, 2000 000 ml @ 500 mls/hr IV . Q4H ONE Rx#:[id number] Vasopressin 60 unit In 150.552 Sodium Chloride 0.9% 150 ml @ 0.03 UNITS/MIN 4.59 mls/hr IV .Q24H SHIRA Rx#: [id number] propofoL 1,000 mg In 183.049 162.936 82.817 Empty Bag 1 bag @ 15 MCG/ KG/MIN 6.94 mls/hr IV . [id number] SHIRA Rx#:[id number] Output: Gastric Drainage 500 460 Urine 330 330 430 Other: Voiding Method Indwelling Catheter Indwelling Catheter Indwelling Catheter ABP, PAP, CO, CI - Last Documented Arterial Blood Pressure 94/51 - Labs CBC & Chem 7: 10/25/23 04:45 10/25/23 04:45 Labs: Abnormal Lab Results - Last 24 Hours (Table) 10/24/23 10/24/23 10/25/23 Range/Units 12:47 17:26 04:45 WBC (3.8-10.6) k/uL RBC (4.30-5.90) m/uL Hgb (13.0-17.5) gm/dL Hct (39.0-53.0) % Plt Count (150-450) k/uL Neutrophils # (Manual) (1.3-7.7) k/uL Lymphocytes # (Manual) (1.0-4.8) k/uL Monocytes # (Manual) (0-1.0) k/uL Metamyelocytes # (Man) (0) k/uL Myelocytes # (Manual) (0) k/uL ABG pH (7.35-7.45) ABG pO2 (83-108) mmHg ABG HCO3 (21-25) mmol/L Hemoglobin (13.0-17.5) gm/dL Sodium 136 L (137-145) mmol/L Carbon Dioxide 17 L (22-30) mmol/L BUN 82 H (9-20) mg/dL Creatinine 3.07 H (0.66-1.25) mg/dL POC Glucose (mg/dL) 67 L (70-110) mg/dL Plasma Lactic Acid Salvador 3.7 H* (0.7-2.0) mmol/L Calcium 6.0 L* (8.4-10.2) mg/dL Ionized Calcium Peter (4.5-5.3) mg/dL Phosphorus (2.5-4.5) mg/dL 10/25/23 10/25/23 10/25/23 Range/Units 04:45 04:45 05:40 WBC 26.4 H (3.8-10.6) k/uL RBC 3.87 L (4.30-5.90) m/uL Hgb 12.0 L (13.0-17.5) gm/dL Hct 35.7 L (39.0-53.0) % Plt Count 88 L (150-450) k/uL Neutrophils # (Manual) 21.30 H (1.3-7.7) k/uL Lymphocytes # (Manual) 0.53 L (1.0-4.8) k/uL Monocytes # (Manual) 1.32 H (0-1.0) k/uL Metamyelocytes # (Man) 2.64 H (0) k/uL Myelocytes # (Manual) 0.53 H (0) k/uL ABG pH 7.32 L (7.35-7.45) ABG pO2 69 L (83-108) mmHg ABG HCO3 19 L (21-25) mmol/L Hemoglobin 11.9 L (13.0-17.5) gm/dL Sodium (137-145) mmol/L Carbon Dioxide (22-30) mmol/L BUN (9-20) mg/dL Creatinine (0.66-1.25) mg/dL POC Glucose (mg/dL) (70-110) mg/dL Plasma Lactic Acid Salvador (0.7-2.0) mmol/L Calcium (8.4-10.2) mg/dL Ionized Calcium Peter (4.5-5.3) mg/dL Phosphorus 5.1 H (2.5-4.5) mg/dL 10/25/23 Range/Units 06:05 WBC (3.8-10.6) k/uL RBC (4.30-5.90) m/uL Hgb (13.0-17.5) gm/dL Hct (39.0-53.0) % Plt Count (150-450) k/uL Neutrophils # (Manual) (1.3-7.7) k/uL Lymphocytes # (Manual) (1.0-4.8) k/uL Monocytes # (Manual) (0-1.0) k/uL Metamyelocytes # (Man) (0) k/uL Myelocytes # (Manual) (0) k/uL ABG pH (7.35-7.45) ABG pO2 (83-108) mmHg ABG HCO3 (21-25) mmol/L Hemoglobin (13.0-17.5) gm/dL Sodium (137-145) mmol/L Carbon Dioxide (22-30) mmol/L BUN (9-20) mg/dL Creatinine (0.66-1.25) mg/dL POC Glucose (mg/dL) (70-110) mg/dL Plasma Lactic Acid Salvador (0.7-2.0) mmol/L Calcium (8.4-10.2) mg/dL Ionized Calcium Peter 3.5 L* (4.5-5.3) mg/dL Phosphorus (2.5-4.5) mg/dL Microbiology - Last 24 Hours (Table) 10/23/23 03:20 Gram Stain - Final Sputum Sputum Culture - Final Klebsiella pneumoniae Escherichia coli 10/23/23 04:10 Blood Culture - Preliminary Blood
[2023-10-25] MEDS ORDERED: MVI, ADULT NO.4 WITH VIT K 10 ML, TRACE (CONC-1ML/DOSE) 1 ML, SODIUM ACETATE 40 MEQ, PO... IV SCH (15:00)
--- NOTE | 2023-10-25 15:37 | P.PN ---
Subjective Progress Note Date: 10/25/23 CHIEF COMPLAINT: SBO HISTORY OF PRESENT ILLNESS: Patient admitted to the hospital with small bowel obstruction. Patient currently in ICU and remains intubated and on mechanical ventilation. He was transferred to the ICU yesterday after becoming hypoxic and hypotensive. There are concerns for possible aspiration. He is still maxed on Levophed and vasopressin. Patient had another liter of output through the NG tube. He received a 2 L fluid bolus last night. Urine output remains decreased. Nephrology is following and adjusting fluids. He is hypotensive remains on pressors. Did have low-grade temps and is on a cooling blanket. White count is up to 26 from 7.5. Creatinine is 3.07. Critical care service has ordered Lasix PHYSICAL EXAM: VITAL SIGNS: Reviewed. Head is atraumatic, normocephalic. Hears conversational speech. No nasal drainage. NECK: Supple without lymphadenopathy. CHEST: Non-labored respirations and equal bilateral excursions. CARDIOVASCULAR: Palpable 2+ radial pulses. ABDOMEN: Soft. distended MUSCULOSKELETAL: No clubbing or cyanosis. NEUROLOGIC: intubated and sedated ASSESSMENT: 1. Small bowel obstruction 2. Hiatal hernia 3. History of esophageal cancer status post esophagectomy 4. Large bowel obstruction status post lysis of adhesions and sigmoid colectomy on August 31, 2023 5. Hypotension and shock 6. Suspected aspiration 7. Acute hypoxic and hypercapnic respiratory failure on mechanical ventilation PLAN: -Patient is not a surgical candidate -Continue NG tube for decompression -NPO -Continue ICU management -Continue supportive care -Continue IV fluids. IV fluid management per nephrology -Continue blood pressure support -Continue antibiotics -Status DNR Physician Tile Sorter note has been reviewed by physician. Signing provider agrees with the documented findings, assessment, and plan of care. Objective - Vital Signs Vital signs: Vital Signs Temp 99.5 F 10/25/23 14:15 Pulse 100 10/25/23 15:00 Resp 26 H 10/25/23 15:00 BP 88/51 10/25/23 15:00 Pulse Ox 96 10/25/23 15:00 FiO2 50 10/25/23 15:06 Intake & Output 10/24/23 10/25/23 10/25/23 18:59 06:59 18:59 Intake Total 4213.478 2515.906 1875.296 Output Total 830 790 685 Balance 3383.478 5138.869 3120.296 Weight 95.1 kg 95.1 kg Intake: Intake, IV Titration 4213.478 2515.906 1875.296 Amount ACETAMINOPHEN IV (For NPO 100 100 ) 1,000 mg In Empty Bag 1 bag @ 400 mls/hr IVPB Q6HR PRN Rx#:[id number] Calcium Gluconate in NaCl 100 2 gm In Saline 1 100ml. bag @ 100 mls/hr IVPB ONCE ONE Rx#:[id number] Dextrose 5% in Water 1, 1550 1800 1350 000 ml @ 75 mls/hr IV . [id number] SHIRA with Sodium Bicarb (1 Meq/ml) 150 ml Rx#:[id number] Dextrose 5%-Lactated 100 Ringers 1,000 ml @ 100 mls/hr IV .Q10H [facility] Rx#: [id number] Norepinephrine 32 mg In 180.429 202.418 242.479 Sodium Chloride 0.9% 218 ml @ 0.03 MCG/KG/MIN 1. 084 mls/hr IV .Q24H [facility] Rx#:[id number] Piperacillin-Tazobactam 3 100 100 .375 gm In Sodium Chloride 0.9% 100 ml @ 25 mls/hr IVPB Q12H [facility] Rx# :[id number] Potassium Chloride 20 meq 100 In Water For Injection 1 100ml.bag @ 50 mls/hr IVPB Q2H [facility] Rx#: [id number] Sodium Chloride 0.9% 2, 2000 000 ml @ 500 mls/hr IV . Q4H ONE Rx#:[id number] Vasopressin 60 unit In 150.552 Sodium Chloride 0.9% 150 ml @ 0.03 UNITS/MIN 4.59 mls/hr IV .Q24H [facility] Rx#: [id number] propofoL 1,000 mg In 183.049 162.936 82.817 Empty Bag 1 bag @ 15 MCG/ KG/MIN 6.94 mls/hr IV . [id number] [facility]A Rx#:[id number] Output: Gastric Drainage 500 460 Urine 330 330 685 Other: Voiding Method Indwelling Catheter Indwelling Catheter Indwelling Catheter ABP, PAP, CO, CI - Last Documented Arterial Blood Pressure 78/44 - Labs CBC & Chem 7: 10/25/23 04:45 10/25/23 04:45 Labs: Abnormal Lab Results - Last 24 Hours (Table) 10/24/23 10/25/23 10/25/23 Range/Units 17:26 04:45 04:45 WBC 26.4 H (3.8-10.6) k/uL RBC 3.87 L (4.30-5.90) m/uL Hgb 12.0 L (13.0-17.5) gm/dL Hct 35.7 L (39.0-53.0) % Plt Count 88 L (150-450) k/uL Neutrophils # (Manual) 21.30 H (1.3-7.7) k/uL Lymphocytes # (Manual) 0.53 L (1.0-4.8) k/uL Monocytes # (Manual) 1.32 H (0-1.0) k/uL Metamyelocytes # (Man) 2.64 H (0) k/uL Myelocytes # (Manual) 0.53 H (0) k/uL ABG pH (7.35-7.45) ABG pO2 (83-108) mmHg ABG HCO3 (21-25) mmol/L Hemoglobin (13.0-17.5) gm/dL Sodium 136 L (137-145) mmol/L Carbon Dioxide 17 L (22-30) mmol/L BUN 82 H (9-20) mg/dL Creatinine 3.07 H (0.66-1.25) mg/dL POC Glucose (mg/dL) 67 L (70-110) mg/dL Calcium 6.0 L* (8.4-10.2) mg/dL Ionized Calcium Peter (4.5-5.3) mg/dL Phosphorus (2.5-4.5) mg/dL 10/25/23 10/25/23 10/25/23 Range/Units 04:45 05:40 06:05 WBC (3.8-10.6) k/uL RBC (4.30-5.90) m/uL Hgb (13.0-17.5) gm/dL Hct (39.0-53.0) % Plt Count (150-450) k/uL Neutrophils # (Manual) (1.3-7.7) k/uL Lymphocytes # (Manual) (1.0-4.8) k/uL Monocytes # (Manual) (0-1.0) k/uL Metamyelocytes # (Man) (0) k/uL Myelocytes # (Manual) (0) k/uL ABG pH 7.32 L (7.35-7.45) ABG pO2 69 L (83-108) mmHg ABG HCO3 19 L (21-25) mmol/L Hemoglobin 11.9 L (13.0-17.5) gm/dL Sodium (137-145) mmol/L Carbon Dioxide (22-30) mmol/L BUN (9-20) mg/dL Creatinine (0.66-1.25) mg/dL POC Glucose (mg/dL) (70-110) mg/dL Calcium (8.4-10.2) mg/dL Ionized Calcium Peter 3.5 L* (4.5-5.3) mg/dL Phosphorus 5.1 H (2.5-4.5) mg/dL Microbiology - Last 24 Hours (Table) 10/23/23 04:10 Blood Culture - Preliminary Blood 10/23/23 03:20 Gram Stain - Final Sputum Sputum Culture - Final Klebsiella pneumoniae Escherichia coli
[2023-10-25] MEDS: MVI, ADULT NO.4 WITH VIT K 10 ML, TRACE (CONC-1ML/DOSE) 1 ML, SODIUM ACETATE 40 MEQ, PO... IV SCH (17:02)
[2023-10-25 22:51] LABS: Glucose,Whole Blood 135 mg/dL (70-110)
--- NOTE | 2023-10-25 22:53 | P.CONS ---
History of Present Illness - Reason for Consult Consult date: 10/25/23 Sepsis, aspiration pneumonia Requesting physician: Oren Price - Chief Complaint Fever x 2 days - History of Present Illness Patient is a 83-year-old male with a past medical history significant for hypertension hyperlipidemia coronary artery disease esophageal cancer status post chemo presenting to the hospital about 4 days ago for evaluation of abdominal pain and unable to keep anything down patient has been admitted to the surgical services with diagnosis of small bowel obstruction did have worsening abdominal distention nausea and vomiting become hypotensive requiring intubation and admission to the ICU apparently at the time of intubation patient did have large volume aspiration airway was secured sputum culture has been obtained which are currently growing Klebsiella and E. coli patient has been treated with Zosyn infectious he was consulted last evening for further management of antibiotic therapy patient presentation the hospital was afebrile however he has been running a fever since 10/23/2023 with a last emergency room 100.94 9 this morning patient is currently on maximal amount of pressor support to maintain his blood pressure and the patient is currently on 50% FiO2 no further purulent secretions of the ET has been reported or diarrhea most information has been obtained from review the chart talking to family at the bedside as the patient is currently intubated and cannot provide any history Review of Systems Positive points has been mentioned in HPI complete review could not be obtained because patient intubated on the vent Past Medical History Past Medical History: Coronary Artery Disease (CAD), Cancer, Eye Disorder, GERD/Reflux, GI Bleed, Hyperlipidemia, Hypertension, Myocardial Infarction (ND), Osteoarthritis (OA), Prostate Disorder, Skin Disorder Additional Past Medical History / Comment(s): ESOPHAGEAL cancer-chemo 1980, COLON AND SKIN CANCER , CELIAC DISEASE, BPH, hx KIDNEY STONES, diveritcular, bilateral glaucoma, Rt. eye has macular degeneration, varicose veins, hiatal hernia, hx ulcers, black stool, hx pancreatitis 2016, hx eczema, CHANGE IN BOWEL HABITS, vision becoming worse, pt. doesn't recall having ND Last Myocardial Infarction Date:: 11/25/17 History of Any Multi-Drug Resistant Organisms: None Reported Past Surgical History: Adenoidectomy, Appendectomy, Back Surgery, Bowel Resection, Cholecystectomy, Heart Catheterization With Stent, Hernia Repair, Orthopedic Surgery, Tonsillectomy Additional Past Surgical History / Comment(s): esophagectomy, colectomy, LT CAROTID ENDARTECTOMY, LUMP REMOVED FROM TONGUE, LITHOTRIPSY, CYSTOSCOPY, RT ROTATOR CUFF REPAIR, Rt CTR, DEVIATED SEPTUM, , cardiac STENTS x 3, UMBILICAL HERNIA REPAIR X 2, RT inguinal hernia repair, LOWER BACK SURGERY-HAS SCREWS, BILAT CATARACTS REMOVED, vasectomy, repair of undescended testicle, COLONOSCOPY, EGD, colon resection August 2023 Past Anesthesia/Blood Transfusion Reactions: No Reported Reaction Additional Past Anesthesia/Blood Transfusion Reaction / Comm: Pt has received bl ood in past without reaction. Date of Last Stent Placement:: 2015 Past Psychological History: No Psychological Hx Reported Additional Psychological History / Comment(s): . Smoking Status: Former smoker Past Alcohol Use History: None Reported Additional Past Alcohol Use History / Comment(s): STARTED SMOKING AGE 11 (1950) WAS 2 PPD, QUIT 1983 Past Drug Use History: None Reported - Past Family History Brother(s) Family Medical History: Cancer Additional Family Medical History / Comment(s): liver and brain Mother Family Medical History: Cancer Additional Family Medical History / Comment(s): LIVER CA, BRAIN CA Sister(s) Family Medical History: Cancer Additional Family Medical History / Comment(s): BREAST CA, LUNG CA. SISTER X 2 Father Family Medical History: Osteoarthritis (OA) Additional Family Medical History / Comment(s): CELIAC DISEASE, ULCERS Medications and Allergies Home Medications Medication Instructions Recorded Confirmed Type Tamsulosin HCl 0.4 mg PO HS 08/28/13 10/21/23 History Isosorbide Mononitrate ER [Imdur] 30 mg PO BID 07/16/15 10/21/23 History Triamcinolone 0.1% Cream [Kenalog 1 applicatio TOPICAL BID PRN 09/05/20 10/21/23 History 0.1% Cream] Losartan [Cozaar] 25 mg PO BID 05/29/23 10/21/23 History Aspirin [Adult Low Dose Aspirin EC] 81 mg PO DAILY 08/09/23 10/21/23 History Prevagen 1 tab PO DAILY 08/09/23 10/21/23 History hydrALAZINE HCL 25 mg PO BID 08/13/23 10/21/23 History Atorvastatin [Lipitor] 40 mg PO HS 08/21/23 10/21/23 History Cetirizine HCl [Zyrtec] 10 mg PO DAILY 08/21/23 10/21/23 History Trospium Chloride [Sanctura XR] 60 mg PO DAILY 08/21/23 10/21/23 History Cholecalciferol (Vitamin D3) 50 mcg PO DAILY 10/21/23 10/21/23 History [Vitamin D3 (50 Mcg = 2000 Iu) Chew Tab] Cyanocobalamin [Vitamin B-12] 500 mcg PO DAILY 10/21/23 10/21/23 History Docusate [Colace] 100 mg PO DAILY 10/21/23 10/21/23 History Famotidine 40 mg PO DAILY PRN 10/21/23 10/21/23 History Meloxicam [Mobic] 15 mg PO DAILY 10/21/23 10/21/23 History Mv-Min/Folic/K1/Lycopen/Lutein 1 tab PO DAILY 10/21/23 10/21/23 History [Centrum Silver Men Tablet] Pantoprazole [Protonix] 40 mg PO HS 10/21/23 10/21/23 History Timolol 0.5% Ophth Soln [Timoptic 1 drop BOTH EYES HS 10/21/23 10/21/23 History 0.5% Ophth Soln] Vit C/E/Zn/Coppr/Lutein/Zeaxan 1 cap PO DAILY 10/21/23 10/21/23 History [Preservision Areds 2 Softgel] Allergies Allergy/AdvReac Type Severity Reaction Status Date / Time atenolol Allergy Unknown Verified 10/21/23 12:08 clopidogrel bisulfate Allergy severe Verified 10/21/23 12:08 [From Plavix] itching gluten Allergy blisters Verified 10/21/23 12:08 lactose Allergy Abdominal Verified 10/21/23 12:08 Pain simvastatin Allergy Unknown Verified 10/21/23 12:08 beet AdvReac CAUSES Verified 10/21/23 12:08 KIDNEY STONES PER PT Wake And Derivatives AdvReac CAUSES Verified 10/21/23 12:08 [Wake] KIDNEY STONES PER PT cocoa AdvReac CAUSES Verified 10/21/23 12:08 KIDNEY STONES PER PT coffee (Coffea arabica) AdvReac CAUSES Verified 10/21/23 12:08 KIDNEY STONES PER PT cranberry AdvReac CAUSES Verified 10/21/23 12:08 KIDNEY STONES PER PT diphenhydramine AdvReac Diarrhea Verified 10/21/23 12:08 [From Benadryl] green tea AdvReac CAUSES Verified 10/21/23 12:08 KIDNEY STONES PER PT plum AdvReac CAUSES Verified 10/21/23 12:08 KIDNEY STONES PER PT prednisolone AdvReac GLAUCOMA Verified 10/21/23 12:08 rhubarb AdvReac CAUSES Verified 10/21/23 12:08 KIDNEY STONES PER PT spinach AdvReac CAUSES Verified 10/21/23 12:08 KIDNEY STONES PER PT sucralfate [From Carafate] AdvReac REFLUX Verified 10/21/23 12:08 Sulfa (Sulfonamide AdvReac blood Verified 10/21/23 12:08 Antibiotics) disorder sweet potato AdvReac CAUSES Verified 10/21/23 12:08 KIDNEY STONES PER PT tree nut [Nut] AdvReac CAUSES Verified 10/21/23 12:08 KIDNEY STONES PER PT Physical Exam Vitals: Vital Signs Temp Pulse Pulse Resp BP BP BP 10/25/23 08:15 118 H 27 H 112/62 10/25/23 08:00 100.9 F H 112 H 18 109/60 10/25/23 07:45 102 H 29 H 110/73 10/25/23 07:41 10/25/23 07:30 115 H 28 H 113/70 10/25/23 07:15 122 H 24 113/65 10/25/23 07:00 98 26 H 112/58 10/25/23 06:45 101 H 27 H 101/65 10/25/23 06:30 113 H 30 H 107/53 10/25/23 06:15 96 18 104/57 10/25/23 06:00 98.8 F 97 28 H 106/56 10/25/23 05:45 103 H 34 H 102/55 10/25/23 05:30 98 26 H 115/60 10/25/23 05:15 103 H 30 H 109/61 10/25/23 05:00 99.5 F 101 H 25 H 102/55 10/25/23 04:45 101 H 23 104/57 10/25/23 04:30 103 H 21 102/56 10/25/23 04:15 101 H 18 101/56 10/25/23 04:00 99.5 F 101 H 15 97/54 10/25/23 03:45 102 H 27 H 103/55 10/25/23 03:38 10/25/23 03:30 101 H 25 H 106/58 10/25/23 03:15 102 H 33 H 92/47 10/25/23 03:00 102 H 27 H 94/44 10/25/23 02:45 103 H 25 H 10/25/23 02:30 103 H 28 H 92/49 10/25/23 02:15 101 H 28 H 94/50 10/25/23 02:00 103 H 29 H 97/49 10/25/23 01:45 103 H 28 H 97/53 10/25/23 01:30 102 H 27 H 10/25/23 01:15 103 H 28 H 91/52 10/25/23 01:00 102 H 29 H 92/49 10/25/23 00:45 102 H 31 H 86/51 10/25/23 00:30 101 H 29 H 92/48 10/25/23 00:20 10/25/23 00:15 100 30 H 85/50 10/25/23 00:05 101 H 27 H 85/50 10/25/23 00:00 100.3 F H 102 H 27 H 85/47 10/24/23 23:45 101 H 27 H 92/47 10/24/23 23:30 101 H 32 H 89/51 10/24/23 23:15 101 H 29 H 89/53 10/24/23 23:00 101 H 27 H 89/53 10/24/23 22:45 101 H 27 H 85/49 10/24/23 22:30 101 H 28 H 86/47 10/24/23 22:15 101 H 25 H 93/47 10/24/23 22:00 101 H 26 H 86/48 10/24/23 21:45 102 H 27 H 88/52 10/24/23 21:30 104 H 24 93/53 10/24/23 21:15 105 H 25 H 91/53 10/24/23 21:00 105 H 29 H 89/53 10/24/23 20:48 10/24/23 20:45 106 H 25 H 90/49 10/24/23 20:30 106 H 26 H 93/52 10/24/23 20:15 105 H 26 H 97/50 10/24/23 20:00 100.4 F H 106 H 24 90/52 10/24/23 19:45 106 H 24 91/50 10/24/23 19:30 105 H 26 H 92/48 10/24/23 19:15 106 H 25 H 91/47 10/24/23 19:00 106 H 26 H 90/50 10/24/23 18:45 106 H 24 93/49 10/24/23 18:30 106 H 26 H 95/52 10/24/23 18:15 107 H 25 H 89/49 10/24/23 18:00 107 H 27 H 92/50 10/24/23 17:45 107 H 24 92/49 10/24/23 17:30 107 H 26 H 90/52 10/24/23 17:15 100.4 F H 107 H 23 95/49 10/24/23 17:00 109 H 27 H 85/49 10/24/23 16:45 108 H 22 89/48 10/24/23 16:30 107 H 23 95/47 10/24/23 16:15 107 H 28 H 92/47 10/24/23 16:00 107 H 24 90/50 10/24/23 15:45 106 H 26 H 87/40 10/24/23 15:30 106 H 24 86/52 10/24/23 15:15 107 H 21 88/47 10/24/23 15:13 10/24/23 15:00 106 H 27 H 88/52 10/24/23 14:45 106 H 27 H 95/47 10/24/23 14:30 105 H 24 89/48 10/24/23 14:15 106 H 24 83/52 10/24/23 14:00 106 H 26 H 87/53 10/24/23 13:45 105 H 105 H 25 H 86/49 86/53 10/24/23 13:30 103 H 105 H 26 H 86/41 86/49 10/24/23 13:15 105 H 105 H 27 H 86/50 86/41 10/24/23 13:00 105 H 106 H 26 H 82/51 86/50 10/24/23 12:45 105 H 107 H 29 H 86/49 83/51 10/24/23 12:30 106 H 105 H 30 H 89/47 86/49 10/24/23 12:25 106 H 27 H 89/47 10/24/23 12:15 99.3 F 107 H 31 H 89/47 80/42 10/24/23 12:00 106 H 28 H 88/51 80/43 10/24/23 11:30 105 H 30 H 88/49 82/43 10/24/23 11:00 100.2 F H 106 H 29 H 85/50 81/43 10/24/23 10:11 100.4 F H 106 H 30 H 10/24/23 09:17 10/24/23 09:13 Pulse Ox FiO2 10/25/23 08:15 95 10/25/23 08:00 95 50 10/25/23 07:45 96 10/25/23 07:41 50 10/25/23 07:30 96 10/25/23 07:15 96 10/25/23 07:00 95 10/25/23 06:45 94 L 10/25/23 06:30 95 10/25/23 06:15 95 10/25/23 06:00 95 10/25/23 05:45 95 10/25/23 05:30 94 L 10/25/23 05:15 95 10/25/23 05:00 95 10/25/23 04:45 96 10/25/23 04:30 96 10/25/23 04:15 96 10/25/23 04:00 96 55 10/25/23 03:45 95 10/25/23 03:38 50 10/25/23 03:30 95 10/25/23 03:15 95 10/25/23 03:00 94 L 10/25/23 02:45 94 L 10/25/23 02:30 94 L 10/25/23 02:15 94 L 10/25/23 02:00 95 10/25/23 01:45 95 10/25/23 01:30 95 10/25/23 01:15 95 10/25/23 01:00 95 10/25/23 00:45 95 10/25/23 00:30 95 10/25/23 00:20 50 10/25/23 00:15 95 10/25/23 00:05 95 10/25/23 00:00 95 55 10/24/23 23:45 95 10/24/23 23:30 95 10/24/23 23:15 95 10/24/23 23:00 95 10/24/23 22:45 96 10/24/23 22:30 96 10/24/23 22:15 95 10/24/23 22:00 95 10/24/23 21:45 95 10/24/23 21:30 95 10/24/23 21:15 95 10/24/23 21:00 96 10/24/23 20:48 50 10/24/23 20:45 96 10/24/23 20:30 96 10/24/23 20:15 96 10/24/23 20:00 96 50 10/24/23 19:45 96 10/24/23 19:30 95 10/24/23 19:15 95 10/24/23 19:00 95 10/24/23 18:45 95 10/24/23 18:30 95 10/24/23 18:15 95 10/24/23 18:00 95 10/24/23 17:45 95 10/24/23 17:30 95 10/24/23 17:15 94 L 10/24/23 17:00 94 L 10/24/23 16:45 94 L 10/24/23 16:30 94 L 10/24/23 16:15 94 L 10/24/23 16:00 94 L 55 10/24/23 15:45 94 L 10/24/23 15:30 95 10/24/23 15:15 94 L 10/24/23 15:13 50 10/24/23 15:00 94 L 10/24/23 14:45 95 10/24/23 14:30 94 L 10/24/23 14:15 94 L 10/24/23 14:00 95 10/24/23 13:45 95 55 10/24/23 13:30 95 55 10/24/23 13:15 95 55 10/24/23 13:00 95 55 10/24/23 12:45 95 55 10/24/23 12:30 94 L 55 10/24/23 12:25 94 L 10/24/23 12:15 94 L 10/24/23 12:00 94 L 55 10/24/23 11:30 95 55 10/24/23 11:00 95 55 10/24/23 10:11 95 50 10/24/23 09:17 50 10/24/23 09:13 50 Intake and Output 10/24/23 10/25/23 10/25/23 22:59 06:59 14:59 Intake Total 3810.277 1499.088 500 Output Total 1080 310 55 Balance 2730.277 1189.088 445 Intake: Intake, IV Titration 3810.277 1499.088 500 Amount ACETAMINOPHEN IV (For NPO 100 ) 1,000 mg In Empty Bag 1 bag @ 400 mls/hr IVPB Q6HR PRN Rx#:[id number] Calcium Gluconate in NaCl 100 2 gm In Saline 1 100ml. bag @ 100 mls/hr IVPB ONCE ONE Rx#:[id number] Dextrose 5% in Water 1, 1200 1200 300 000 ml @ 150 mls/hr IV . Q7H40M SHIRA with Sodium Bicarb (1 Meq/ml) 150 ml Rx#:[id number] Norepinephrine 32 mg In 202.418 Sodium Chloride 0.9% 218 ml @ 0.03 MCG/KG/MIN 1. 084 mls/hr IV .Q24H [facility] Rx#:[id number] Piperacillin-Tazobactam 3 100 100 .375 gm In Sodium Chloride 0.9% 100 ml @ 25 mls/hr IVPB Q12H SHIRA Rx# :[id number] Potassium Chloride 20 meq 100 In Water For Injection 1 100ml.bag @ 50 mls/hr IVPB Q2H [facility] Rx#: [id number] Sodium Chloride 0.9% 2, 2000 000 ml @ 500 mls/hr IV . Q4H ONE Rx#:[id number] Vasopressin 60 unit In 150.552 Sodium Chloride 0.9% 150 ml @ 0.03 UNITS/MIN 4.59 mls/hr IV .Q24H [facility] Rx#: [id number] propofoL 1,000 mg In 157.307 99.088 Empty Bag 1 bag @ 15 MCG/ KG/MIN 6.94 mls/hr IV . [id number] [facility] Rx#:[id number] Output: Gastric Drainage 900 60 Urine 180 250 55 Other: Voiding Method Indwelling Catheter Indwelling Catheter Weight 95.1 kg ABP, PAP, CO, CI - Last 8 Hours Arterial Blood Pressure 86/43 Arterial Blood Pressure 83/43 Arterial Blood Pressure 88/44 Arterial Blood Pressure 85/42 Arterial Blood Pressure 101/46 Arterial Blood Pressure 95/42 Arterial Blood Pressure 77/39 Arterial Blood Pressure 86/40 Arterial Blood Pressure 86/39 Arterial Blood Pressure 93/41 Arterial Blood Pressure 89/39 Arterial Blood Pressure 79/37 Arterial Blood Pressure 100/49 Arterial Blood Pressure 92/44 Arterial Blood Pressure 85/39 Arterial Blood Pressure 93/40 Arterial Blood Pressure 76/37 Arterial Blood Pressure 85/40 Arterial Blood Pressure 88/39 Arterial Blood Pressure 91/40 Arterial Blood Pressure 87/25 Arterial Blood Pressure 80/36 Arterial Blood Pressure 83/38 Arterial Blood Pressure 79/36 Arterial Blood Pressure 75/37 Arterial Blood Pressure 87/40 Arterial Blood Pressure 87/40 Arterial Blood Pressure 85/39 Arterial Blood Pressure 82/39 GENERAL DESCRIPTION: Elderly male intubated on the vent HEENT: Shows Pallor , no scleral icterus. Oral mucous membrane is dry. NECK: Trachea central, no thyromegaly. LUNGS: Unlabored breathing. Decreased breath sounds at the base HEART: S1, S2, regular rate and rhythm. No loud murmur ABDOMEN: Soft, no tenderness , guarding or rigidity, no organomegaly EXTREMITIES: No edema of feet. SKIN: No rash, no masses palpable. NEUROLOGICAL: The patient is sedated on the vent Results CBC & Chem 7: 10/26/23 05:32 10/26/23 05:32 Labs: Abnormal Lab Results - Last 24 Hours (Table) 10/24/23 10/24/23 10/24/23 Range/Units 09:45 12:47 17:26 WBC (3.8-10.6) k/uL RBC (4.30-5.90) m/uL Hgb (13.0-17.5) gm/dL Hct (39.0-53.0) % Plt Count (150-450) k/uL Neutrophils # (Manual) (1.3-7.7) k/uL Lymphocytes # (Manual) (1.0-4.8) k/uL Monocytes # (Manual) (0-1.0) k/uL Metamyelocytes # (Man) (0) k/uL Myelocytes # (Manual) (0) k/uL ABG pH (7.35-7.45) ABG pO2 (83-108) mmHg ABG HCO3 (21-25) mmol/L Hemoglobin (13.0-17.5) gm/dL Sodium (137-145) mmol/L Carbon Dioxide (22-30) mmol/L BUN (9-20) mg/dL Creatinine (0.66-1.25) mg/dL POC Glucose (mg/dL) 67 L (70-110) mg/dL Plasma Lactic Acid Salvador 3.6 H* 3.7 H* (0.7-2.0) mmol/L Calcium (8.4-10.2) mg/dL Ionized Calcium Peter (4.5-5.3) mg/dL 10/25/23 10/25/23 10/25/23 Range/Units 04:45 04:45 05:40 WBC 26.4 H (3.8-10.6) k/uL RBC 3.87 L (4.30-5.90) m/uL Hgb 12.0 L (13.0-17.5) gm/dL Hct 35.7 L (39.0-53.0) % Plt Count 88 L (150-450) k/uL Neutrophils # (Manual) 21.30 H (1.3-7.7) k/uL Lymphocytes # (Manual) 0.53 L (1.0-4.8) k/uL Monocytes # (Manual) 1.32 H (0-1.0) k/uL Metamyelocytes # (Man) 2.64 H (0) k/uL Myelocytes # (Manual) 0.53 H (0) k/uL ABG pH 7.32 L (7.35-7.45) ABG pO2 69 L (83-108) mmHg ABG HCO3 19 L (21-25) mmol/L Hemoglobin 11.9 L (13.0-17.5) gm/dL Sodium 136 L (137-145) mmol/L Carbon Dioxide 17 L (22-30) mmol/L BUN 82 H (9-20) mg/dL Creatinine 3.07 H (0.66-1.25) mg/dL POC Glucose (mg/dL) (70-110) mg/dL Plasma Lactic Acid Salvador (0.7-2.0) mmol/L Calcium 6.0 L* (8.4-10.2) mg/dL Ionized Calcium Peter (4.5-5.3) mg/dL 10/25/23 Range/Units 06:05 WBC (3.8-10.6) k/uL RBC (4.30-5.90) m/uL Hgb (13.0-17.5) gm/dL Hct (39.0-53.0) % Plt Count (150-450) k/uL Neutrophils # (Manual) (1.3-7.7) k/uL Lymphocytes # (Manual) (1.0-4.8) k/uL Monocytes # (Manual) (0-1.0) k/uL Metamyelocytes # (Man) (0) k/uL Myelocytes # (Manual) (0) k/uL ABG pH (7.35-7.45) ABG pO2 (83-108) mmHg ABG HCO3 (21-25) mmol/L Hemoglobin (13.0-17.5) gm/dL Sodium (137-145) mmol/L Carbon Dioxide (22-30) mmol/L BUN (9-20) mg/dL Creatinine (0.66-1.25) mg/dL POC Glucose (mg/dL) (70-110) mg/dL Plasma Lactic Acid Salvador (0.7-2.0) mmol/L Calcium (8.4-10.2) mg/dL Ionized Calcium Peter 3.5 L* (4.5-5.3) mg/dL Microbiology - Last 24 Hours (Table) 10/23/23 03:20 Gram Stain - Final Sputum Sputum Culture - Final Klebsiella pneumoniae Escherichia coli 10/23/23 04:10 Blood Culture - Preliminary Blood Assessment and Plan (1) Sepsis Current Visit: Yes Status: Acute Code(s): A41.9 - SEPSIS, UNSPECIFIED ORGANISM SNOMED Code(s): 88182319 (2) Aspiration pneumonia Current Visit: Yes Status: Acute Code(s): J69.0 - PNEUMONITIS DUE TO INHALATION OF FOOD AND VOMIT SNOMED Code(s): 216270093 Plan: 1patient with sepsis in this patient who did have a fever elevated white count with initial admission to the hospital for abdominal distention has been diagnosed with a small bowel obstruction now with concern for component of aspiration pneumonia sputum is growing both E. coli and Klebsiella that is resistant to Unasyn. 2patient is adequately being treated with Zosyn 3.375 g every 8 hours to continue while watching his clinical course closely. Family at the bedside question concern answered we will follow on clinical condition and cultures to further adjust medication if needed Thank you for this consultation we will follow the patient along with you Dictation was produced using [employer] dictation software. please excuse any grammatical, word or spelling errors. Time with Patient: Greater than 30
[2023-10-26 04:39] LABS: Glucose,Whole Blood 144 mg/dL (70-110)
[2023-10-26 05:47] LABS: ABG Base Excess 0.6 mmol/L; ABG HCO3 26 mmol/L (21-25); ABG Oxygen Saturation 99.7 % (94-97); ABG PCO2 45 mmHg (35-45); ABG PH 7.37 (7.35-7.45); ABG PO2 183 mmHg (83-108); ABG TCO2 28 mmol/L (19-24); Allen Test Performed? Yes
[2023-10-26 06:06] LABS: ALT 27 U/L (4-49); AST 54 U/L (17-59); Alkaline Phosphatase 126 U/L (38-126); Anion Gap 12 mmol/L; Blood Urea Nitrogen 91 mg/dL (9-20); Carbon Dioxide 25 mmol/L (22-30); Chloride 103 mmol/L (98-107); Glucose 166 mg/dL (74-99); Phosphorus 5.1 mg/dL (2.5-4.5); Potassium 3.2 mmol/L (3.5-5.1); Sodium 140 mmol/L (137-145); Total Bilirubin 0.9 mg/dL (0.2-1.3); Total Protein 4.2 g/dL (6.3-8.2)
[2023-10-26 06:11] LABS: African American GFR (CKD) 23 (>60 ml/min/1.73 sqM); Non-African American GFR(CKD) 20 (>60 ml/min/1.73 sqM)
[2023-10-26 06:19] LABS: Calcium 6.2 mg/dL (8.4-10.2)
--- NOTE | 2023-10-26 06:42 | P.PN ---
Subjective Progress Note Date: 10/26/23 This is an 84-year-old gentleman who requested to see in the intensive care unit for further evaluation of hypotension. The patient currently is intubated and he is on mechanical ventilation. He was transferred from the fourth floor. He is an 83-year-old gentleman with a past medical history significant for CAD with prior stenting of the LAD as well as hypertension and dyslipidemia and recent diagnosis of colon cancer status post abdominal surgery recently in August 2023. The patient presented to the emergency department complaining of nausea and vomiting and abdominal discomfort for the last several days. He underwent further investigation including CT scan of the abdomen and pelvis and that r evealed small bowel obstruction and subsequently an NG tube was placed with removal and the drainage of fluid and subsequently he was admitted to the fourth floor after he was seen by the surgical team. Last night his pressure has been low. He did not response to almost half a liter of 0.9 normal saline. Beside that he developed some respiratory distress and subsequently an 18 was called and the patient was transferred to the intensive care unit. He was intubated and placed on mechanical ventilation. I spoke with the patient's family at bedside. Before he presented to the hospital he was not experiencing any symptoms of chest pain or chest discomfort beside the abdominal discomfort and nausea and vomiting. He underwent further evaluation including an EKG and that showed sinus mechanism. Currently he is hypotensive requiring vasopressors with norepinephrine. Beside that the blood work indicated renal failure likely to be secondary to prerenal and hypovolemia. The chest x-ray did not show any acute abnormalities. The patient underwent an echo in 2020 and that revealed normal biventricular systolic function with mild aortic stenosis. The physical examination is remarkable for regular rhythm with a systolic murmur at the right and left upper sternal border with a clear breathing sounds bilaterally and no edema was noted in the lower extremities October 24, 2023 The patient was seen and evaluated this morning. He continues to be intubated on mechanical ventilation. He is hemodynamically unstable and currently he is on norepinephrine and vasopressin's. He has been febrile and there is definitely concern about septic shock. The chest x-ray showed bilateral inf iltrate as well. He continues to have good urine output with a creatinine remains elevated electrolytes appear to be within normal limits with the echo showed mildly impaired LV function with EF between 40 to 45% with mild aortic stenosis. The examination is remarkable for intubated patient on mechanical ventilation with regular rate and rhythm and distant heart sounds and systolic murmur at the right upper sternal border with clear breathing sounds bilaterally and no edema was noted in the lower extremities October 25, 2023 The patient was seen and evaluated this morning with he continues to be intubated on mechanical ventilation. He continues to be hemodynamically unstable requiring high dose of vasopressors as well as norepinephrine. He is maintaining normal sinus mechanism. The chest x-ray appears to be the same with bilateral infiltrate concerning for aspiration pneumonia. Blood culture came in to be positive. Currently is on antibiotic. The examination is remarkable for intubated patient with unstable blood pressure with regular rate and rhythm and diminished breathing sounds bilaterally. October 26, 2023 The patient was seen and evaluated this morning with he continues to be intubated on mechanical ventilation and continues to be hemodynamically unstable requiring vasopressors. He went into atrial fibrillation with overall controlled heart rate. I am going to start the patient on amiodarone IV and consider starting the patient on heparin IV if there is no contraindication from the surgical standpoint of view. The physical examination is remarkable for intubated patient with regular rate and rhythm and diminished breathing sounds bilaterally and bilateral lower extremities edema Assessment Small bowel obstruction Acute hypoxic respiratory failure Possible aspiration pneumonia Hypotension could be secondary to hypovolemia with a differential diagnosis of sepsis Coronary artery disease seems to be stable Valvular heart disease Acute renal failure Atrial fibrillation of acute illness History of colon cancer status post abdominal surgery Plan Continue the current medical regimen Continue hemodynamic support and try to maintain mean blood pressure above 65 mm Replace the potassium Continue supporting the blood pressure with vasopressors to obtain a mean above 65 mmHg Start the patient on amiodarone Consider starting the patient on anticoagulation Objective - Vital Signs Vital signs: Vital Signs Temp 99.3 F 10/26/23 04:00 Pulse 87 10/26/23 06:15 Resp 4 L 10/26/23 06:15 BP 103/56 10/26/23 06:15 Pulse Ox 93 L 10/26/23 06:15 FiO2 80 10/26/23 05:49 Intake & Output 10/25/23 10/25/23 10/26/23 06:59 18:59 06:59 Intake Total 2515.906 1382.403 1532.365 Output Total 726 816 1201 Balance 1898.869 5183.296 253.365 Weight 95.1 kg 95.1 kg 97.5 kg Intake: Intake, IV Titration 2515.906 1902.691 2510.365 Amount ACETAMINOPHEN IV (For NPO 100 ) 1,000 mg In Empty Bag 1 bag @ 400 mls/hr IVPB Q6HR [facility] Rx#:[id number] Calcium Gluconate in NaCl 100 2 gm In Saline 1 100ml. bag @ 100 mls/hr IVPB ONCE ONE Rx#:[id number] Dextrose 5% in Water 1, 1800 1275 900 000 ml @ 75 mls/hr IV . [id number] [facility] with Sodium Bicarb (1 Meq/ml) 150 ml Rx#:[id number] Mvi, Adult No.4 with Vit 60 360 K 10 ml Trace (Conc-1Ml/ Dose) 1 ml Sodium Acetate 40 meq Potassium Acetate 30 meq Magnesium Sulfate gm 0.5 gm Calcium Gluconate 1.5 gm In Amino Acid 5%-D15w 1,000 ml @ 30 mls/hr IV .Q24H [facility] Rx #:[id number] Norepinephrine 32 mg In 202.418 242.479 234.949 Sodium Chloride 0.9% 218 ml @ 0.03 MCG/KG/MIN 1. 084 mls/hr IV .Q24H [facility] Rx#:[id number] Piperacillin-Tazobactam 3 100 .375 gm In Sodium Chloride 0.9% 100 ml @ 25 mls/hr IVPB Q12H [facility] Rx# :[id number] Potassium Chloride 20 meq 100 In Water For Injection 1 100ml.bag @ 50 mls/hr IVPB Q2H [facility] Rx#: [id number] Vasopressin 60 unit In 150.552 198.416 Sodium Chloride 0.9% 150 ml @ 0.03 UNITS/MIN 4.59 mls/hr IV .Q24H [facility] Rx#: [id number] propofoL 1,000 mg In 162.936 82.817 100 Empty Bag 1 bag @ 15 MCG/ KG/MIN 6.94 mls/hr IV . [id number] [facility] Rx#:[id number] Output: Gastric Drainage 460 650 Urine 330 860 890 Other: Voiding Method Indwelling Catheter Indwelling Catheter Indwelling Catheter ABP, PAP, CO, CI - Last Documented Arterial Blood Pressure 95/46 - Labs CBC & Chem 7: 10/25/23 04:45 10/26/23 05:32 Labs: Abnormal Lab Results - Last 24 Hours (Table) 10/25/23 10/25/23 10/25/23 Range/Units 04:45 06:05 22:50 ABG pO2 (83-108) mmHg ABG HCO3 (21-25) mmol/L ABG Total CO2 (19-24) mmol/L ABG O2 Saturation (94-97) % Hemoglobin (13.0-17.5) gm/dL Potassium (3.5-5.1) mmol/L BUN (9-20) mg/dL Creatinine (0.66-1.25) mg/dL Glucose (74-99) mg/dL POC Glucose (mg/dL) 135 H (70-110) mg/dL Calcium (8.4-10.2) mg/dL Ionized Calcium Peter 3.5 L* (4.5-5.3) mg/dL Phosphorus 5.1 H (2.5-4.5) mg/dL Total Protein (6.3-8.2) g/dL Albumin (3.5-5.0) g/dL 10/26/23 10/26/23 10/26/23 Range/Units 04:36 05:32 05:43 ABG pO2 183 H (83-108) mmHg ABG HCO3 26 H (21-25) mmol/L ABG Total CO2 28 H (19-24) mmol/L ABG O2 Saturation 99.7 H (94-97) % Hemoglobin 11.6 L (13.0-17.5) gm/dL Potassium 3.2 L (3.5-5.1) mmol/L BUN 91 H (9-20) mg/dL Creatinine 2.86 H (0.66-1.25) mg/dL Glucose 166 H (74-99) mg/dL POC Glucose (mg/dL) 144 H (70-110) mg/dL Calcium 6.2 L* (8.4-10.2) mg/dL Ionized Calcium Peter (4.5-5.3) mg/dL Phosphorus 5.1 H (2.5-4.5) mg/dL Total Protein 4.2 L (6.3-8.2) g/dL Albumin 2.0 L (3.5-5.0) g/dL Microbiology - Last 24 Hours (Table) 10/23/23 04:10 Blood Culture - Preliminary Blood 10/23/23 03:20 Gram Stain - Final Sputum Sputum Culture - Final Klebsiella pneumoniae Escherichia coli
[2023-10-26] MEDS: POTASSIUM CHLORIDE 10 MEQ in WATER FOR INJECTION 1 100ML.BAG IVPB SCH (06:51)
[2023-10-26 07:06] LABS: HCT 36.7 % (39.0-53.0); HGB 12.1 gm/dL (13.0-17.5); Hypochromasia Slight; MCH 30.4 pg (25.0-35.0); MCHC 32.9 g/dL (31.0-37.0); MCV 92.7 fL (80.0-100.0); RBC 3.96 m/uL (4.30-5.90); RDW 14.5 % (11.5-15.5); WBC 18.7 k/uL (3.8-10.6)
[2023-10-26 07:08] LABS: Platelet Count 66 k/uL (150-450)
[2023-10-26] MEDS: DEXTROSE 5% IN WATER 100 ML with AMIODARONE 150 MG IV ONE (07:54)
[2023-10-26] MEDS: CALCIUM GLUCONATE IN NACL 2 GM in SALINE 1 100ML.BAG IVPB ONE (07:55)
[2023-10-26] MEDS: AMIODARONE 360 MG in DEXTROSE 5% IN WATER 200 ML IV ONE (08:15)
--- NOTE | 2023-10-26 08:51 | XR ---
EXAMINATION TYPE: XR chest 1V portable DATE OF EXAM: 10/26/2023 Comparison: 10/25/2023 Clinical History: 83-year-old male check placement of ET tube Findings: ET and NG tube are satisfactory. Heart borderline in size. Airspace opacities mid and lower lungs sim ilar to slightly more confluent. Right IJ CVC tip in the upper right atrium. Impression: Patchy and confluent bilateral airspace disease shows slight interval worsening.
[2023-10-26 09:07] LABS: INR 0.9 (<1.2); Partial Thromboplastin Time 35.9 sec (22.0-30.0); Prothrombin Time 10.3 sec (10.0-12.5)
[2023-10-26] MEDS: SODIUM CHLORIDE 0.9% 1,000 ML IV SCH (10:15)
--- NOTE | 2023-10-26 10:18 | P.PN ---
Subjective Patient is seen in follow-up for acute kidney injury on chronic kidney disease. Renal function little better. On Levophed and vasopressin. On bicarb drip. Acidosis improved. 300 cc output from the NG tube overnight. Intubated. Vital signs - Febrile. On vasopressor support. General: Resting in bed. HEENT: Intubated. LUNGS: Scattered rhonchi. HEART: Regular rate and rhythm. ABDOMEN: No distention. EXTREMITITES: No edema. Objective - Vital Signs Vital signs: Vital Signs Temp 100 F H 10/26/23 08:00 Pulse 98 10/26/23 09:30 Resp 24 10/26/23 09:30 BP 105/67 10/26/23 08:45 Pulse Ox 99 10/26/23 09:30 FiO2 80 10/26/23 09:00 Intake & Output 10/25/23 10/26/23 10/26/23 18:59 06:59 18:59 Intake Total 9279.846 6740.365 965.958 Output Total 860 1540 360 Balance 1000.296 253.365 605.958 Weight 95.1 kg 97.5 kg Intake: Intake, IV Titration 9912.320 4153.365 965.958 Amount Amiodarone 360 mg In 33 Dextrose 5% in Water 200 ml @ 1 MG/MIN 33.333 mls/ hr IV .Q6H [facility] Rx#: [id number] Calcium Gluconate in NaCl 100 2 gm In Saline 1 100ml. bag @ 100 mls/hr IVPB ONCE [facility] Rx#:[id number] Calcium Gluconate in NaCl 100 2 gm In Saline 1 100ml. bag @ 100 mls/hr IVPB ONCE [facility] Rx#:[id number] Dextrose 5% in Water 1, 1275 900 150 000 ml @ 75 mls/hr IV . [id number] [facility] with Sodium Bicarb (1 Meq/ml) 150 ml Rx#:[id number] Dextrose 5% in Water 100 100 ml @ 618 mls/hr IV .Q10M [facility] with Amiodarone 150 mg Rx#:[id number] [facility], Adult No.4 with Vit 60 360 120 K 10 ml Trace (Conc-1Ml/ Dose) 1 ml Sodium Acetate 40 meq Potassium Acetate 30 meq Magnesium Sulfate gm 0.5 gm Calcium Gluconate 1.5 gm In Amino Acid 5%-D15w 1,000 ml @ 30 mls/hr IV .Q24H [facility] Rx #:[id number] Norepinephrine 32 mg In 242.479 234.949 162.958 Sodium Chloride 0.9% 218 ml @ 0.03 MCG/KG/MIN 1. 084 mls/hr IV .Q24H [facility] Rx#:[id number] Piperacillin-Tazobactam 3 100 .375 gm In Sodium Chloride 0.9% 100 ml @ 25 mls/hr IVPB Q12H [facility] Rx# :[id number] Potassium Chloride 10 meq 200 In Water For Injection 1 100ml.bag @ 100 mls/hr IVPB Q1HR [facility] Rx#: [id number] Potassium Chloride 20 meq 100 In Water For Injection 1 100ml.bag @ 50 mls/hr IVPB Q2H [facility] Rx#: [id number] Vasopressin 60 unit In 198.416 Sodium Chloride 0.9% 150 ml @ 0.03 UNITS/MIN 4.59 mls/hr IV .Q24H [facility] Rx#: [id number] propofoL 1,000 mg In 82.817 100 Empty Bag 1 bag @ 15 MCG/ KG/MIN 6.94 mls/hr IV . [id number] [facility] Rx#:[id number] Output: Gastric Drainage 650 Urine 860 890 360 Other: Voiding Method Indwelling Catheter Indwelling Catheter ABP, PAP, CO, CI - Last Documented Arterial Blood Pressure 123/60 - Labs CBC & Chem 7: 10/26/23 05:32 10/26/23 05:32 Labs: Abnormal Lab Results - Last 24 Hours (Table) 10/25/23 10/25/23 10/26/23 Range/Units 04:45 22:50 04:36 WBC (3.8-10.6) k/uL RBC (4.30-5.90) m/uL Hgb (13.0-17.5) gm/dL Hct (39.0-53.0) % Plt Count (150-450) k/uL APTT (22.0-30.0) sec ABG pO2 (83-108) mmHg ABG HCO3 (21-25) mmol/L ABG Total CO2 (19-24) mmol/L ABG O2 Saturation (94-97) % Hemoglobin (13.0-17.5) gm/dL Potassium (3.5-5.1) mmol/L BUN (9-20) mg/dL Creatinine (0.66-1.25) mg/dL Glucose (74-99) mg/dL POC Glucose (mg/dL) 135 H 144 H (70-110) mg/dL Calcium (8.4-10.2) mg/dL Phosphorus 5.1 H (2.5-4.5) mg/dL Total Protein (6.3-8.2) g/dL Albumin (3.5-5.0) g/dL Triglycerides (0.00-149.00) mg/dL 10/26/23 10/26/23 10/26/23 Range/Units 05:32 05:32 05:32 WBC 18.7 H (3.8-10.6) k/uL RBC 3.96 L (4.30-5.90) m/uL Hgb 12.1 L (13.0-17.5) gm/dL Hct 36.7 L (39.0-53.0) % Plt Count 66 L (150-450) k/uL APTT (22.0-30.0) sec ABG pO2 (83-108) mmHg ABG HCO3 (21-25) mmol/L ABG Total CO2 (19-24) mmol/L ABG O2 Saturation (94-97) % Hemoglobin (13.0-17.5) gm/dL Potassium 3.2 L (3.5-5.1) mmol/L BUN 91 H (9-20) mg/dL Creatinine 2.86 H (0.66-1.25) mg/dL Glucose 166 H (74-99) mg/dL POC Glucose (mg/dL) (70-110) mg/dL Calcium 6.2 L* (8.4-10.2) mg/dL Phosphorus 5.1 H (2.5-4.5) mg/dL Total Protein 4.2 L (6.3-8.2) g/dL Albumin 2.0 L (3.5-5.0) g/dL Triglycerides 643.00 H (0.00-149.00) mg/dL 10/26/23 10/26/23 Range/Units 05:43 08:36 WBC (3.8-10.6) k/uL RBC (4.30-5.90) m/uL Hgb (13.0-17.5) gm/dL Hct (39.0-53.0) % Plt Count (150-450) k/uL APTT 35.9 H (22.0-30.0) sec ABG pO2 183 H (83-108) mmHg ABG HCO3 26 H (21-25) mmol/L ABG Total CO2 28 H (19-24) mmol/L ABG O2 Saturation 99.7 H (94-97) % Hemoglobin 11.6 L (13.0-17.5) gm/dL Potassium (3.5-5.1) mmol/L BUN (9-20) mg/dL Creatinine (0.66-1.25) mg/dL Glucose (74-99) mg/dL POC Glucose (mg/dL) (70-110) mg/dL Calcium (8.4-10.2) mg/dL Phosphorus (2.5-4.5) mg/dL Total Protein (6.3-8.2) g/dL Albumin (3.5-5.0) g/dL Triglycerides (0.00-149.00) mg/dL Microbiology - Last 24 Hours (Table) 10/23/23 04:10 Blood Culture - Preliminary Blood 10/23/23 03:20 Gram Stain - Final Sputum Sputum Culture - Final Klebsiella pneumoniae Escherichia coli Assessment and Plan Plan: Assessment: 1. Acute kidney injury secondary to ATN secondary to septic shock. Creatinine peaked at 3.2 at this admission and is slightly better at 2.86 today. No hydronephrosis noted on CAT scan. Nonoliguric. 2. Chronic kidney disease stage IIIa with baseline creatinine 1.3-1.4. 3. Small bowel obstruction. Surgery following. Has NG tube. 4. Metabolic acidosis secondary to acute kidney injury and IV fluids. Better with bicarb drip. 5. Shock maintained on vasopressor support. 6. Cardiomyopathy with ejection fraction of 40 to 45%. 7. Hypocalcemia secondary to acute kidney injury and IV bicarb. 8. Hypokalemia from intracellular shifting from IV bicarb. Plan: Stop bicarb drip. Start normal saline at 75 cc an hour. Calcium replaced again today. Potassium also replaced. Wean FiO2 and vasopressors. With hypovolemia and hypotension, hold off on giving any diuretics at this time. Avoid nephrotoxins. Continue to monitor renal function and urine output. Continue to assess daily for need for renal replacement therapy. No urgency at this time.
[2023-10-26] MEDS: HEPARIN SOD,PORK IN 0.45% NACL 25,000 UNIT in 0.45% NACL 1 250ML.BAG IV SCH (10:36)
[2023-10-26] MEDS: HEPARIN SODIUM 1,000 UN/ML (10ML VL) IV ONE (10:39)
[2023-10-26 11:21] LABS: Glucose,Whole Blood 162 mg/dL (70-110)
[2023-10-26 11:22] VITALS: BMI 33.6
[2023-10-26] MEDS: ACETAMINOPHEN IV (For NPO) 1,000 MG in EMPTY BAG 1 BAG IVPB ONE (12:19)
--- NOTE | 2023-10-26 12:21 | P.PN ---
Subjective Progress Note Date: 10/26/23 Principal diagnosis: Small bowel obstruction, aspiration pneumonia acute hypoxic respiratory failure secondary to aspiration pneumonia Patient is an 83-year-old white male with past medical history significant for hypertension, hyperlipidemia, coronary artery disease with previous PCI/stent, GERD, colon cancer with previous resection, hiatal hernia, GI bleed. Of note, patient had a recently underwent exploratory laparotomy Dr. Jameson on 08/30/2023, found to have a partial large bowel obstruction, and underwent lysis of adhesions and sigmoid colectomy with low anterior resection. Patient return to the emergency department on 10/21/2023 chiefly complaining of abdominal pain associated with intractable nausea and vomiting. CT of the abdomen and pelvis done on admission demonstrating marked dilation of the stomach and small bowel loops consistent with a distal small bowel obstruction. Exact transition point is indeterminate, but appears to be in the right mid abdomen near the anastomosis with a large bowel. No free or intraperitoneal air or fluid. General surgery had been following the patient. Pursuing conservative management at this point. We were not consulted until early this morning. Patient was noted to be short of breath and hypoxic. He was also profoundly hypotensive. An A-team was called for profound hypotension. I recommended transferring the patient to the intensive care unit. He was unresponsive. Unfortunately no prior CODE STATUS was established. We did eventually get a hold of patient's spouse who wants the patient to be a full code. Although, she was unsure of who that patient's primary decision maker is, as they have only been for one year. Never the less, we cannot reach the son. The patient's would like the patient to undergo intubation to mechanical ventilator if necessary, and also receive any resuscitative efforts necessary. Blood pressure currently 50/30 mmHg. Patient is currently being fluid res uscitated, and norepinephrine is in the process of being started. STOCK BROKER SUPERVISOR performed rapid sequence intubation. During the intubation, patient had large volume aspiration. Airway was eventually secured. Postintubation ABG is showing a PaO2 of 179, pCO2 of 57, pH of 7.13. Consistent with combined re spiratory and metabolic acidosis. Will increase the respiratory rate to 26. Current ventilator settings include assist-control, respiratory rate 20, tidal volume 500, FiO2 100%, PEEP of 5. Also, received two amps of sodium bicarbonate. Postintubation chest x-ray noted. Endotracheal tube in good location. Prominent interstitial markings. Left basilar opacity. The abdomen is firm and distended. Nasogastric tube is hooked to suction draining a copious amount of gastric output. A total of 1.7 L of brown output so far. Patient will have to go down for a stat repeat CAT scan of the abdomen. General surgery will be updated on patient's clinical deterioration. Repeat labs are pending. Patient is currently in the intensive care unit, intubated to the mechanical ventilator. He is moving all 4 extremities. Reaching for endotracheal tube. We are in the process of starting sedation with propofol. Prognosis is guarded. Patient was today on 10/24/2023, patient remains intubated and mechanically ventilated, remains critically ill requiring pressors for hypotension patient has poor urine output, he received multiple boluses of fluids over the last 24 hours. Urine output today is 40 mL/h after multiple fluid boluses patient is on assist-control rate of 22 tidal volume 500 FiO2 55% PEEP of 10 however after reviewing his ABG showing a pO2 of 87 pCO2 33 pH of 7.23, patient received an amp of bicarb, FiO2 changed to 50% PEEP increased to 12. Chest x-ray is showing evidence of pulmonary edema, reminded this could be cardiogenic or noncardiogenic/ARDS from aspiration pneumonia. Hence the PEEP was increased to 12. Patient remains on norepinephrine at 0.5 mcg/kg/min he is also on vasopressin at 0.04 units/min IV fluids still running at 100 cc/h with 3 A of bicarb. And this was increased to 125 cc/h. 1 amp of bicarb was given. Patient remains on Zosyn empirically for aspiration pneumonia. Considering his marginal urine output, 1 dose of Lasix 80 mg IV push was ordered. Feeding guy the patient needs to be on TPN, and this is to be addressed by registry rn on the case. Surgery is following the patient, but no plans for any surgical intervention as the patient seems to be critically ill. Yesterday I had a discussion with his son, CODE STATUS is DNR, and if his condition gets any worse, may have to approach the family about comfort care measures. For the time being we will continue aggressive management/critical care treatment. WBC count today is 7.5 hemoglobin 12.9. Basic metabolic profile is normal bicarb is 14 BUN is 76 creatinine 3.10 lactic acid 3.6. Calcium 6.9 chest x-ray as noted earlier patient seems to be developing probably pulmonary edema again this could also be ARDS or aspiration pneumonia. Patient was evaluated today on 10/25/2023, patient remains in the ICU, and mechanically ventilated. He is on assist-control rate of 22 tidal volume 450 FiO2 50% and PEEP is up to 12. Chest x-ray is showing worsening pulmonary edema of course this could be cardiogenic or noncardiogenic pulmonary edema, patient's FiO2 requirement has gone up, PEEP has gone up, remains on pressors for marginal blood pressure, he is on norepinephrine at 0.5 mg/kg/min he is on vasopressin at 0.04 units/min, patient is on propofol at 30 mcg/kg/min still receiving sodium bicarb drip for his underlying metabolic acidosis which is improving. Patient is doing poorly, urine output is extremely marginal, and considering the worsening chest x-ray appearance and the worsening FiO2 requirement, patient will be given a challenge of Lasix 60 mg IV push, remind you patient has an ejection fraction of 45%. But I believe the findings on the chest x-ray are most likely ARDS type of picture/noncardiogenic pulmonary edema urine output picked up quite nicely after 1 dose of Lasix given. And again my major concern about this patient is worsening pulmonary status and worsening pulmonary edema. Chest x-ray is significantly worse today compared to the last 2 days WBC count is 26.4 hemoglobin is 12 ABG showed a pO2 of 69 this is on 12 of PEEP and FiO2 of 50% pCO2 is 38 pH of 7.32 bicarb is 19 electrolytes are relatively unremarkable bicarb is 17 on the electrolytes, anion gap is 14 BUN is 82 creatinine 3.07, obviously the patient developed acute on chronic kidney injury secondary to acute tubular necrosis and hypotension calcium was noted to be low today, and the patient will receive calcium gluconate IV push Patient was evaluated today on 10/26/2023, remains in the ICU, intubated and mechanically ventilated, remains critically ill, still requiring multiple pressors including norepinephrine at 0.49, vasopressin at 0.04. Remains on antibiotics, remains on mechanical ventilation, assist-control rate 22 tidal volume 450 FiO2 of 100% and PEEP of 12 ABG showed improvement with a pO2 of 183 pCO2 45 pH of 7.37 this was 100%, and I taper that down to 60%. Creatinine is showing slight improvement 2.86, urine output is excellent today and that is a new finding of improvement. Patient remains sedated, he is on propofol at 30 mcg/kg/min. He is on TPN for nutritional support. He is to have drainage through the nasogastric tube. WBC count today is 18.7 hemoglobin 12.1. Basic metabolic profile is showing potassium of 3.2 BUN of 91 creatinine 2.86 otherwise the rest of the labs are unremarkable, bicarb is 25 hence his sodium bicarb drip has been discontinued. Chest x-ray is showing slight improvement in his pulmonary edema/ARDS Objective - Vital Signs Vital signs: Vital Signs Temp 100.0 F H 10/26/23 10:00 Pulse 93 10/26/23 11:30 Resp 25 H 10/26/23 11:30 BP 106/47 10/26/23 10:00 Pulse Ox 97 10/26/23 11:30 FiO2 60 10/26/23 11:26 Intake & Output 10/25/23 10/26/23 10/26/23 18:59 06:59 18:59 Intake Total 7276.997 9296.365 1340.591 Output Total 860 1540 585 Balance 1000.296 253.365 755.591 Weight 95.1 kg 97.5 kg 97.5 kg Intake: Intake, IV Titration 1085.734 9935.365 1340.591 Amount Amiodarone 360 mg In 99 Dextrose 5% in Water 200 ml @ 1 MG/MIN 33.333 mls/ hr IV .Q6H [facility] Rx#: [id number] Calcium Gluconate in NaCl 100 2 gm In Saline 1 100ml. bag @ 100 mls/hr IVPB ONCE ONE Rx#:[id number] Calcium Gluconate in NaCl 100 2 gm In Saline 1 100ml. bag @ 100 mls/hr IVPB ONCE ONE Rx#:[id number] Dextrose 5% in Water 1, 1275 900 150 000 ml @ 75 mls/hr IV . [id number] [facility] with Sodium Bicarb (1 Meq/ml) 150 ml Rx#:[id number] Dextrose 5% in Water 100 100 ml @ 618 mls/hr IV .Q10M ONE with Amiodarone 150 mg Rx#:[id number] Mvi, Adult No.4 with Vit 60 360 250 K 10 ml Trace (Conc-1Ml/ Dose) 1 ml Sodium Acetate 40 meq Potassium Acetate 30 meq Magnesium Sulfate gm 0.5 gm Calcium Gluconate 1.5 gm In Amino Acid 5%-D15w 1,000 ml @ 30 mls/hr IV .Q24H [facility] Rx #:[id number] Norepinephrine 32 mg In 242.479 234.949 191.591 Sodium Chloride 0.9% 218 ml @ 0.03 MCG/KG/MIN 1. 084 mls/hr IV .Q24H [facility] Rx#:[id number] Piperacillin-Tazobactam 3 100 .375 gm In Sodium Chloride 0.9% 100 ml @ 25 mls/hr IVPB Q12H [facility] Rx# :[id number] Potassium Chloride 10 meq 200 In Water For Injection 1 100ml.bag @ 100 mls/hr IVPB Q1HR [facility] Rx#: [id number] Potassium Chloride 20 meq 100 In Water For Injection 1 100ml.bag @ 50 mls/hr IVPB Q2H [facility] Rx#: [id number] Sodium Chloride 0.9% 1, 150 000 ml @ 75 mls/hr IV . [id number] [facility] Rx#:[id number] Vasopressin 60 unit In 198.416 Sodium Chloride 0.9% 150 ml @ 0.03 UNITS/MIN 4.59 mls/hr IV .Q24H [facility] Rx#: [id number] propofoL 1,000 mg In 82.817 100 Empty Bag 1 bag @ 15 MCG/ KG/MIN 6.94 mls/hr IV . [id number] [facility] Rx#:[id number] Output: Gastric Drainage 650 Urine 860 890 585 Other: Voiding Method Indwelling Catheter Indwelling Catheter ABP, PAP, CO, CI - Last Documented Arterial Blood Pressure 105/51 - Exam GENERAL EXAM: Revealed 83-year-old white male intubated, mechanically ventil ated, sedated on propofol, in no distress. HEAD: Normocephalic and atraumatic endotracheal tube and nasogastric tube are intact. EYES: Normal reaction of pupils, equal size. NOSE: Clear with pink turbinates. The gastric tube is intact. Continues to have drainage THROAT: No erythema or exudates. NECK: No masses, no JVD. CHEST: No chest wall deformity. LUNGS: Diminished breath sounds and crackles at the bases CVS: S1 and S2 normal with no audible murmur, regular rhythm. No extra heart sounds ABDOMEN: Remains distended and tympanitic. SKIN: No rashes CENTRAL NERVOUS SYSTEM: Could not assess patient is sedated, on propofol. EXTREMITIES: Trace of bipedal edema, good pulses bilaterally no clubbing - Labs CBC & Chem 7: 10/26/23 05:32 10/26/23 05:32 Labs: Abnormal Lab Results - Last 24 Hours (Table) 10/25/23 10/25/23 10/26/23 Range/Units 04:45 22:50 04:36 WBC (3.8-10.6) k/uL RBC (4.30-5.90) m/uL Hgb (13.0-17.5) gm/dL Hct (39.0-53.0) % Plt Count (150-450) k/uL APTT (22.0-30.0) sec ABG pO2 (83-108) mmHg ABG HCO3 (21-25) mmol/L ABG Total CO2 (19-24) mmol/L ABG O2 Saturation (94-97) % Hemoglobin (13.0-17.5) gm/dL Potassium (3.5-5.1) mmol/L BUN (9-20) mg/dL Creatinine (0.66-1.25) mg/dL Glucose (74-99) mg/dL POC Glucose (mg/dL) 135 H 144 H (70-110) mg/dL Calcium (8.4-10.2) mg/dL Phosphorus 5.1 H (2.5-4.5) mg/dL Total Protein (6.3-8.2) g/dL Albumin (3.5-5.0) g/dL Triglycerides (0.00-149.00) mg/dL 10/26/23 10/26/23 10/26/23 Range/Units 05:32 05:32 05:32 WBC 18.7 H (3.8-10.6) k/uL RBC 3.96 L (4.30-5.90) m/uL Hgb 12.1 L (13.0-17.5) gm/dL Hct 36.7 L (39.0-53.0) % Plt Count 66 L (150-450) k/uL APTT (22.0-30.0) sec ABG pO2 (83-108) mmHg ABG HCO3 (21-25) mmol/L ABG Total CO2 (19-24) mmol/L ABG O2 Saturation (94-97) % Hemoglobin (13.0-17.5) gm/dL Potassium 3.2 L (3.5-5.1) mmol/L BUN 91 H (9-20) mg/dL Creatinine 2.86 H (0.66-1.25) mg/dL Glucose 166 H (74-99) mg/dL POC Glucose (mg/dL) (70-110) mg/dL Calcium 6.2 L* (8.4-10.2) mg/dL Phosphorus 5.1 H (2.5-4.5) mg/dL Total Protein 4.2 L (6.3-8.2) g/dL Albumin 2.0 L (3.5-5.0) g/dL Triglycerides 643.00 H (0.00-149.00) mg/dL 10/26/23 10/26/23 10/26/23 Range/Units 05:43 08:36 11:20 WBC (3.8-10.6) k/uL RBC (4.30-5.90) m/uL Hgb (13.0-17.5) gm/dL Hct (39.0-53.0) % Plt Count (150-450) k/uL APTT 35.9 H (22.0-30.0) sec ABG pO2 183 H (83-108) mmHg ABG HCO3 26 H (21-25) mmol/L ABG Total CO2 28 H (19-24) mmol/L ABG O2 Saturation 99.7 H (94-97) % Hemoglobin 11.6 L (13.0-17.5) gm/dL Potassium (3.5-5.1) mmol/L BUN (9-20) mg/dL Creatinine (0.66-1.25) mg/dL Glucose (74-99) mg/dL POC Glucose (mg/dL) 162 H (70-110) mg/dL Calcium (8.4-10.2) mg/dL Phosphorus (2.5-4.5) mg/dL Total Protein (6.3-8.2) g/dL Albumin (3.5-5.0) g/dL Triglycerides (0.00-149.00) mg/dL Microbiology - Last 24 Hours (Table) 10/23/23 04:10 Blood Culture - Preliminary Blood 10/23/23 03:20 Gram Stain - Final Sputum Sputum Culture - Final Klebsiella pneumoniae Escherichia coli Assessment and Plan Assessment: Impression: Acute small bowel obstruction, CT of the abdomen and pelvis done on admission demonstrating marked dilation of the stomach and small bowel loops consistent with a distal small bowel obstruction. Status post aspiration of stomach content related to his bowel obstruction. Requiring intubation mechanical ventilation, and admission to the ICU on 10/23/2023, patient went on to develop pulmonary edema/acute, this could be cardiogenic or noncardiogenic/ARDS. Likely this is more likely a picture of ARDS. Profound hypotension and shock, refractory to fluid resuscitation,, patient received significant fluid boluses to the point of developing worsening pulmonary edema in the last 2 days. Requiring vasopressors in the form of norepinephrine and also requiring vasopressin at maximal dose Anion gap metabolic acidosis, resolved. Acute hypoxemic and hypercapnic respiratory failure, requiring intubation to mechanical ventilator, second to above Acute on chronic kidney disease, due to hypotension and ATN History of large bowel obstruction, status post laparoscopic lysis of adhesions and sigmoid colectomy, done by Dr. Jameson performed on 08/31/2023 History of hyperlipidemia History of hypertension History of coronary artery disease History of GERD History of colon cancer status post bowel resection history of esophageal cancer with esophagectomy Recommendation: Continue ventilatory support, Hemodynamic support, patient is on vasopressin and norepinephrine Continue antibiotics/for aspiration pneumonia and for possible abdominal sepsis/Zosyn Continue TPN/nutritional support Continue GI DVT prophylaxis Discontinue bicarb drip Sinew to monitor daily fluid status and output is picking up today which is a good sign. Daily labs including complete metabolic profile CBC ABG Daily x-rays of the chest and daily ABGs Prognosis remains extremely poor, and guarded Family is still considering the idea of withdrawing care mostly based on the fact of his previously expressed wishes Patient remains critically ill Critical care time is over 30 minutes Time with Patient: Greater than 30
--- NOTE | 2023-10-26 13:20 | P.PN ---
Subjective Progress Note Date: 10/26/23 CHIEF COMPLAINT: SBO HISTORY OF PRESENT ILLNESS: Patient admitted to the hospital with small bowel obstruction. Patient currently in ICU and remains intubated and on mechanical ventilation. He was transferred to the ICU after becoming hypoxic and hypotensive. There are concerns for possible aspiration. He is still maxed on Levophed and vasopressin. Patient had A-fib. He is currently on amiodarone drip and has been started on IV heparin. Patient's urine output improving. NG tube with a total of 600 mL output through the night and this morning. Low- grade temps 100.8. WBC down from 26.4 to 18.7. Cr down from 3.07 to 2.86 PHYSICAL EXAM: VITAL SIGNS: Reviewed. NECK: Supple without lymphadenopathy. CHEST: Non-labored respirations and equal bilateral excursions. CARDIOVASCULAR: Palpable 2+ radial pulses. ABDOMEN: Soft. distended MUSCULOSKELETAL: No clubbing or cyanosis. NEUROLOGIC: intubated and sedated ASSESSMENT: 1. Small bowel obstruction 2. Hiatal hernia 3. History of esophageal cancer status post esophagectomy 4. Large bowel obstruction status post lysis of adhesions and sigmoid colectomy on August 31, 2023 5. Hypotension and shock 6. Suspected aspiration 7. Acute hypoxic and hypercapnic respiratory failure on mechanical ventilation PLAN: -No contraindication to initiate IV heparin from surgical standpoint -Patient is not a surgical candidate at this time -Continue NG tube for decompression -NPO -Continue ICU management -Continue supportive care -Continue IV fluids. IV fluid management per nephrology -Continue blood pressure support -Continue antibiotics -Continue TPN for nutrition support Physician Associate Program Manager note has been reviewed by physician. Signing provider agrees with the documented findings, assessment, and plan of care. Objective - Vital Signs Vital signs: Vital Signs Temp 100.0 F H 10/26/23 10:00 Pulse 94 10/26/23 10:15 Resp 29 H 10/26/23 10:15 BP 106/47 10/26/23 10:00 Pulse Ox 100 10/26/23 10:15 FiO2 60 10/26/23 10:54 Intake & Output 10/25/23 10/26/23 10/26/23 18:59 06:59 18:59 Intake Total 1954.317 5563.365 965.958 Output Total 860 1540 360 Balance 1000.296 253.365 605.958 Weight 95.1 kg 97.5 kg Intake: Intake, IV Titration 2323.982 7074.365 965.958 Amount Amiodarone 360 mg In 33 Dextrose 5% in Water 200 ml @ 1 MG/MIN 33.333 mls/ hr IV .Q6H [facility] Rx#: [id number] Calcium Gluconate in NaCl 100 2 gm In Saline 1 100ml. bag @ 100 mls/hr IVPB ONCE [facility] Rx#:[id number] Calcium Gluconate in NaCl 100 2 gm In Saline 1 100ml. bag @ 100 mls/hr IVPB ONCE [facility] Rx#:[id number] Dextrose 5% in Water 1, 1275 900 150 000 ml @ 75 mls/hr IV . [id number] [facility] with Sodium Bicarb (1 Meq/ml) 150 ml Rx#:[id number] Dextrose 5% in Water 100 100 ml @ 618 mls/hr IV .Q10M ONE with Amiodarone 150 mg Rx#:[id number] Mvi, Adult No.4 with Vit 60 360 120 K 10 ml Trace (Conc-1Ml/ Dose) 1 ml Sodium Acetate 40 meq Potassium Acetate 30 meq Magnesium Sulfate gm 0.5 gm Calcium Gluconate 1.5 gm In Amino Acid 5%-D15w 1,000 ml @ 30 mls/hr IV .Q24H [facility] Rx #:[id number] Norepinephrine 32 mg In 242.479 234.949 162.958 Sodium Chloride 0.9% 218 ml @ 0.03 MCG/KG/MIN 1. 084 mls/hr IV .Q24H [facility] Rx#:[id number] Piperacillin-Tazobactam 3 100 .375 gm In Sodium Chloride 0.9% 100 ml @ 25 mls/hr IVPB Q12H [facility] Rx# :[id number] Potassium Chloride 10 meq 200 In Water For Injection 1 100ml.bag @ 100 mls/hr IVPB Q1HR [facility] Rx#: [id number] Potassium Chloride 20 meq 100 In Water For Injection 1 100ml.bag @ 50 mls/hr IVPB Q2H [facility] Rx#: [id number] Vasopressin 60 unit In 198.416 Sodium Chloride 0.9% 150 ml @ 0.03 UNITS/MIN 4.59 mls/hr IV .Q24H [facility] Rx#: [id number] propofoL 1,000 mg In 82.817 100 Empty Bag 1 bag @ 15 MCG/ KG/MIN 6.94 mls/hr IV . [id number] [facility] Rx#:[id number] Output: Gastric Drainage 650 Urine 860 890 360 Other: Voiding Method Indwelling Catheter Indwelling Catheter ABP, PAP, CO, CI - Last Documented Arterial Blood Pressure 96/48 - Labs CBC & Chem 7: 10/26/23 05:32 10/26/23 05:32 Labs: Abnormal Lab Results - Last 24 Hours (Table) 10/25/23 10/25/23 10/26/23 Range/Units 04:45 22:50 04:36 WBC (3.8-10.6) k/uL RBC (4.30-5.90) m/uL Hgb (13.0-17.5) gm/dL Hct (39.0-53.0) % Plt Count (150-450) k/uL APTT (22.0-30.0) sec ABG pO2 (83-108) mmHg ABG HCO3 (21-25) mmol/L ABG Total CO2 (19-24) mmol/L ABG O2 Saturation (94-97) % Hemoglobin (13.0-17.5) gm/dL Potassium (3.5-5.1) mmol/L BUN (9-20) mg/dL Creatinine (0.66-1.25) mg/dL Glucose (74-99) mg/dL POC Glucose (mg/dL) 135 H 144 H (70-110) mg/dL Calcium (8.4-10.2) mg/dL Phosphorus 5.1 H (2.5-4.5) mg/dL Total Protein (6.3-8.2) g/dL Albumin (3.5-5.0) g/dL Triglycerides (0.00-149.00) mg/dL 10/26/23 10/26/23 10/26/23 Range/Units 05:32 05:32 05:32 WBC 18.7 H (3.8-10.6) k/uL RBC 3.96 L (4.30-5.90) m/uL Hgb 12.1 L (13.0-17.5) gm/dL Hct 36.7 L (39.0-53.0) % Plt Count 66 L (150-450) k/uL APTT (22.0-30.0) sec ABG pO2 (83-108) mmHg ABG HCO3 (21-25) mmol/L ABG Total CO2 (19-24) mmol/L ABG O2 Saturation (94-97) % Hemoglobin (13.0-17.5) gm/dL Potassium 3.2 L (3.5-5.1) mmol/L BUN 91 H (9-20) mg/dL Creatinine 2.86 H (0.66-1.25) mg/dL Glucose 166 H (74-99) mg/dL POC Glucose (mg/dL) (70-110) mg/dL Calcium 6.2 L* (8.4-10.2) mg/dL Phosphorus 5.1 H (2.5-4.5) mg/dL Total Protein 4.2 L (6.3-8.2) g/dL Albumin 2.0 L (3.5-5.0) g/dL Triglycerides 643.00 H (0.00-149.00) mg/dL 10/26/23 10/26/23 Range/Units 05:43 08:36 WBC (3.8-10.6) k/uL RBC (4.30-5.90) m/uL Hgb (13.0-17.5) gm/dL Hct (39.0-53.0) % Plt Count (150-450) k/uL APTT 35.9 H (22.0-30.0) sec ABG pO2 183 H (83-108) mmHg ABG HCO3 26 H (21-25) mmol/L ABG Total CO2 28 H (19-24) mmol/L ABG O2 Saturation 99.7 H (94-97) % Hemoglobin 11.6 L (13.0-17.5) gm/dL Potassium (3.5-5.1) mmol/L BUN (9-20) mg/dL Creatinine (0.66-1.25) mg/dL Glucose (74-99) mg/dL POC Glucose (mg/dL) (70-110) mg/dL Calcium (8.4-10.2) mg/dL Phosphorus (2.5-4.5) mg/dL Total Protein (6.3-8.2) g/dL Albumin (3.5-5.0) g/dL Triglycerides (0.00-149.00) mg/dL Microbiology - Last 24 Hours (Table) 10/23/23 04:10 Blood Culture - Preliminary Blood 10/23/23 03:20 Gram Stain - Final Sputum Sputum Culture - Final Klebsiella pneumoniae Escherichia coli
[2023-10-26] MEDS: AMIODARONE 450 MG in DEXTROSE 5% IN WATER 250 ML IV SCH (13:23)
[2023-10-26] MEDS ORDERED: LORazepam 2 MG/ML INJ IV PRN (14:01)
[2023-10-26] MEDS ORDERED: MORPHINE SULFATE 4 MG/ML SYRINGE IV PRN (14:01)
[2023-10-26 14:30] VITALS: BP 116/68; TEMP 100
[2023-10-26] MEDS: MORPHINE SULFATE (100 MG/2 ML) 100 MG in SODIUM CHLORIDE 0.9% 100 ML IV SCH (14:31)
[2023-10-26] MEDS: MORPHINE SULFATE 4 MG/ML SYRINGE IVP ONE (14:56)
--- NOTE | 2023-10-26 15:12 | P.PN ---
Subjective Progress Note Date: 10/26/23 Principal diagnosis: Reason for follow-up is sepsis and aspiration pneumonia Patient is a 83-year-old male with a past medical history significant for hypertension hyperlipidemia coronary artery disease esophageal cancer status post chemo presenting to the hospital about 4 days ago for evaluation of abdominal pain and unable to keep anything down, patient did have worsening of his respiratory status requiring admission to ICU and concern for aspiration pneumonia. On today's evaluation that is 10/26/2023,the patient overall fever pattern has improved still running a low-grade fever the patient is on the ventilator on 60% FiO2 on no significant purulent secretion through the ET patient is however requiring high-dose pressor support to maintain her blood pressure. Patient white count is down to 18.7, creatinine is 2.86 blood cultures pending Objective - Vital Signs Vital signs: Vital Signs Temp 100.8 F H 10/26/23 12:15 Pulse 92 10/26/23 13:00 Resp 22 10/26/23 13:00 BP 95/58 10/26/23 12:15 Pulse Ox 96 10/26/23 13:00 FiO2 60 10/26/23 12:15 Intake & Output 10/25/23 10/26/23 10/26/23 18:59 06:59 18:59 Intake Total 3972.721 6131.365 1340.591 Output Total 860 1540 585 Balance 1000.296 253.365 755.591 Weight 95.1 kg 97.5 kg 97.5 kg Intake: Intake, IV Titration 2069.974 0643.365 1340.591 Amount Amiodarone 360 mg In 99 Dextrose 5% in Water 200 ml @ 1 MG/MIN 33.333 mls/ hr IV .Q6H ONE Rx#: [id number] Calcium Gluconate in NaCl 100 2 gm In Saline 1 100ml. bag @ 100 mls/hr IVPB ONCE ONE Rx#:[id number] Calcium Gluconate in NaCl 100 2 gm In Saline 1 100ml. bag @ 100 mls/hr IVPB ONCE ONE Rx#:[id number] Dextrose 5% in Water 1, 1625 900 150 000 ml @ 75 mls/hr IV . [id number] [facility] with Sodium Bicarb (1 Meq/ml) 150 ml Rx#:[id number] Dextrose 5% in Water 100 100 ml @ 618 mls/hr IV .Q10M ONE with Amiodarone 150 mg Rx#:[id number] Mvi, Adult No.4 with Vit 60 360 250 K 10 ml Trace (Conc-1Ml/ Dose) 1 ml Sodium Acetate 40 meq Potassium Acetate 30 meq Magnesium Sulfate gm 0.5 gm Calcium Gluconate 1.5 gm In Amino Acid 5%-D15w 1,000 ml @ 30 mls/hr IV .Q24H [facility] Rx #:[id number] Norepinephrine 32 mg In 242.479 234.949 191.591 Sodium Chloride 0.9% 218 ml @ 0.03 MCG/KG/MIN 1. 084 mls/hr IV .Q24H [facility] Rx#:[id number] Piperacillin-Tazobactam 3 100 .375 gm In Sodium Chloride 0.9% 100 ml @ 25 mls/hr IVPB Q12H [facility] Rx# :[id number] Potassium Chloride 10 meq 200 In Water For Injection 1 100ml.bag @ 100 mls/hr IVPB Q1HR [facility] Rx#: [id number] Potassium Chloride 20 meq 100 In Water For Injection 1 100ml.bag @ 50 mls/hr IVPB Q2H [facility] Rx#: [id number] Sodium Chloride 0.9% 1, 150 000 ml @ 75 mls/hr IV . [id number] [facility] Rx#:[id number] Vasopressin 60 unit In 198.416 Sodium Chloride 0.9% 150 ml @ 0.03 UNITS/MIN 4.59 mls/hr IV .Q24H [facility] Rx#: [id number] propofoL 1,000 mg In 82.817 100 Empty Bag 1 bag @ 15 MCG/ KG/MIN 6.94 mls/hr IV . [id number] [facility] Rx#:[id number] Output: Gastric Drainage 650 Urine 860 890 585 Other: Voiding Method Indwelling Catheter Indwelling Catheter ABP, PAP, CO, CI - Last Documented Arterial Blood Pressure 97/50 - Labs CBC & Chem 7: 10/26/23 05:32 10/26/23 05:32 Labs: Abnormal Lab Results - Last 24 Hours (Table) 10/25/23 10/26/23 10/26/23 Range/Units 22:50 04:36 05:32 WBC (3.8-10.6) k/uL RBC (4.30-5.90) m/uL Hgb (13.0-17.5) gm/dL Hct (39.0-53.0) % Plt Count (150-450) k/uL APTT (22.0-30.0) sec ABG pO2 (83-108) mmHg ABG HCO3 (21-25) mmol/L ABG Total CO2 (19-24) mmol/L ABG O2 Saturation (94-97) % Hemoglobin (13.0-17.5) gm/dL Potassium 3.2 L (3.5-5.1) mmol/L BUN 91 H (9-20) mg/dL Creatinine 2.86 H (0.66-1.25) mg/dL Glucose 166 H (74-99) mg/dL POC Glucose (mg/dL) 135 H 144 H (70-110) mg/dL Calcium 6.2 L* (8.4-10.2) mg/dL Phosphorus 5.1 H (2.5-4.5) mg/dL Total Protein 4.2 L (6.3-8.2) g/dL Albumin 2.0 L (3.5-5.0) g/dL Triglycerides (0.00-149.00) mg/dL 10/26/23 10/26/23 10/26/23 Range/Units 05:32 05:32 05:43 WBC 18.7 H (3.8-10.6) k/uL RBC 3.96 L (4.30-5.90) m/uL Hgb 12.1 L (13.0-17.5) gm/dL Hct 36.7 L (39.0-53.0) % Plt Count 66 L (150-450) k/uL APTT (22.0-30.0) sec ABG pO2 183 H (83-108) mmHg ABG HCO3 26 H (21-25) mmol/L ABG Total CO2 28 H (19-24) mmol/L ABG O2 Saturation 99.7 H (94-97) % Hemoglobin 11.6 L (13.0-17.5) gm/dL Potassium (3.5-5.1) mmol/L BUN (9-20) mg/dL Creatinine (0.66-1.25) mg/dL Glucose (74-99) mg/dL POC Glucose (mg/dL) (70-110) mg/dL Calcium (8.4-10.2) mg/dL Phosphorus (2.5-4.5) mg/dL Total Protein (6.3-8.2) g/dL Albumin (3.5-5.0) g/dL Triglycerides 643.00 H (0.00-149.00) mg/dL 10/26/23 10/26/23 Range/Units 08:36 11:20 WBC (3.8-10.6) k/uL RBC (4.30-5.90) m/uL Hgb (13.0-17.5) gm/dL Hct (39.0-53.0) % Plt Count (150-450) k/uL APTT 35.9 H (22.0-30.0) sec ABG pO2 (83-108) mmHg ABG HCO3 (21-25) mmol/L ABG Total CO2 (19-24) mmol/L ABG O2 Saturation (94-97) % Hemoglobin (13.0-17.5) gm/dL Potassium (3.5-5.1) mmol/L BUN (9-20) mg/dL Creatinine (0.66-1.25) mg/dL Glucose (74-99) mg/dL POC Glucose (mg/dL) 162 H (70-110) mg/dL Calcium (8.4-10.2) mg/dL Phosphorus (2.5-4.5) mg/dL Total Protein (6.3-8.2) g/dL Albumin (3.5-5.0) g/dL Triglycerides (0.00-149.00) mg/dL Microbiology - Last 24 Hours (Table) 10/23/23 04:10 Blood Culture - Preliminary Blood Assessment and Plan (1) Sepsis Current Visit: Yes Status: Acute Code(s): A41.9 - SEPSIS, UNSPECIFIED ORGANISM SNOMED Code(s): 42146419 (2) Aspiration pneumonia Current Visit: Yes Status: Acute Code(s): J69.0 - PNEUMONITIS DUE TO INHALATION OF FOOD AND VOMIT SNOMED Code(s): 185962278 Plan: 1patient with sepsis in this patient who did have a fever elevated white count with initial admission to the hospital for abdominal distention has been diagnosed with a small bowel obstruction now with concern for component of aspiration pneumonia sputum is growing both E. coli and Klebsiella that is resistant to Unasyn. 2patient did have some improvement in the fever pattern and the white count is trending down however family is leaning towards hospice which may be appropriate discussed in detail with the son at the bedside he is on Zosyn which can be discontinued will switch to hospice discussed with the nursing staff Dictation was produced using [employer] dictation software. please excuse any grammatical, word or spelling errors. Time with Patient: Less than 30
[2023-10-26 16:17] VITALS: PULSE 0; RESP 0
--- NOTE | 2023-10-26 16:20 | P.PN ---
Progress Note - Text Progress Note Date: 10/26/23 Progress note Date of service 10/26/[address] Price Patient seen in ICU 254 bed 1 Patient is process of dying, his and his son and rest of his family in the room for the last moment with the dying process Patient on comfort care only with the underlying endotracheal intubation has been removed with the plan for comfort care. Final diagnosis: Acute small bowel obstruction on admission Followed by aspiration pneumonia Found in the sputum E. coli and Klebsiella pneumonia Hypotension and acute pulmonary edema and hypoxemia not responding to fluid challenge and vasoconstrictor. Leukocytosis secondary to the sepsis and metabolic acidosis and sepsis Family request comfort care and place now on comfort care by critical care and pulmonary Patient in the process of dying with the gasping air and power and decrease respiratory rate gradually and the blood pressure feeding gradually as well and patient on comfort care with morphine drip. Family counseled for end-of-life
== END 2023-10-26 19:00 | disposition expired | DRG 388 ==
LOC: EC 07:31 → 4SSUR 10:47 → 2SICU 10-23 02:56
PROVIDERS: ADMIT Surgery Plastic and Reconstructive Surgery; ATTEND Surgery Plastic and Reconstructive Surgery
PROC: 0BH17EZ Insertion of Endotracheal Airway into Trachea, Via Natural or Artificial Opening (ICD-10-PCS; principal; 2023-10-23)
PROC: 02HV33Z Insertion of Infusion Device into Superior Vena Cava, Percutaneous Approach (ICD-10-PCS; 2023-10-23)
PROC: 5A1945Z Respiratory Ventilation, 24-96 Consecutive Hours (ICD-10-PCS; 2023-10-23)
PROC: 3E043XZ Introduction of Vasopressor into Central Vein, Percutaneous Approach (ICD-10-PCS; 2023-10-23)
PROC: 3E0436Z Introduction of Nutritional Substance into Central Vein, Percutaneous Approach (ICD-10-PCS; 2023-10-25)
DX: K56.609 Unspecified intestinal obstruction, unspecified as to partial versus complete obstruction (principal); A41.9 Sepsis, unspecified organism; J69.0 Pneumonitis due to inhalation of food and vomit; N17.0 Acute kidney failure with tubular necrosis; R65.21 Severe sepsis with septic shock; J80 Acute respiratory distress syndrome; E87.4 Mixed disorder of acid-base balance; I13.0 Hypertensive heart and chronic kidney disease with heart failure and stage 1 through stage 4 chronic kidney disease, or unspecified chronic kidney disease; R57.9 Shock, unspecified; I42.9 Cardiomyopathy, unspecified; D64.9 Anemia, unspecified; E83.52 Hypercalcemia; E86.0 Dehydration; E86.1 Hypovolemia; I25.10 Atherosclerotic heart disease of native coronary artery without angina pectoris; K44.9 Diaphragmatic hernia without obstruction or gangrene; K90.0 Celiac disease; E83.51 Hypocalcemia; N18.31 Chronic kidney disease, stage 3a; E87.6 Hypokalemia; I48.91 Unspecified atrial fibrillation; E78.5 Hyperlipidemia, unspecified; I08.0 Rheumatic disorders of both mitral and aortic valves; I25.2 Old myocardial infarction; K56.600 Partial intestinal obstruction, unspecified as to cause; J98.4 Other disorders of lung; L29.9 Pruritus, unspecified; M19.90 Unspecified osteoarthritis, unspecified site; N40.1 Benign prostatic hyperplasia with lower urinary tract symptoms; Z23 Encounter for immunization; Z51.5 Encounter for palliative care; Z66 Do not resuscitate; Z79.1 Long term (current) use of non-steroidal anti-inflammatories (NSAID); Z79.82 Long term (current) use of aspirin; Z79.899 Other long term (current) drug therapy; Z80.0 Family history of malignant neoplasm of digestive organs; Z80.1 Family history of malignant neoplasm of trachea, bronchus and lung; Z80.3 Family history of malignant neoplasm of breast; Z80.8 Family history of malignant neoplasm of other organs or systems; Z83.79 Family history of other diseases of the digestive system; Z85.01 Personal history of malignant neoplasm of esophagus; Z85.038 Personal history of other malignant neoplasm of large intestine; Z85.828 Personal history of other malignant neoplasm of skin; Z87.11 Personal history of peptic ulcer disease; Z87.19 Personal history of other diseases of the digestive system; Z87.442 Personal history of urinary calculi; Z87.891 Personal history of nicotine dependence; Z88.9 Allergy status to unspecified drugs, medicaments and biological substances; Z90.49 Acquired absence of other specified parts of digestive tract; Z92.21 Personal history of antineoplastic chemotherapy; Z95.1 Presence of aortocoronary bypass graft; Z95.5 Presence of coronary angioplasty implant and graft
CPT/HCPCS: 36415; 36600; 71045; 74176; 74240; 74248; 80048; 80053; 81001; 82150; 82330; 82805; 83605; 83690; 83735; 83880; 84100; 84478; 84484; 85025; 85027; 85379; 85610; 85730; 87040; 87070; 87077; 87186; 87205; 93005; 93306; 94002; 94003; 96361; 96374; 96375; 99285